=== PATIENT | female | born 1955 | race Caucasian/White ===

== ENCOUNTER 2020-01-18 13:09 | Outpatient (CLI) | payer OTHER, SELFPAY | END 2020-01-19 13:15 | disposition home or self-care (01) | PROVIDERS: PCP Family Medicine; Visit Provider Family Medicine | DX: H90.6 Mixed conductive and sensorineural hearing loss, bilateral (principal) | CPT/HCPCS: 92557; 92567 ==

== ENCOUNTER 2020-02-26 10:45 | Outpatient (CLI) | payer OTHER, SELFPAY ==
--- NOTE | ~2020-02-26 | XR_ITS ---
XR hand LT min 3V DATE: 02/26/2020 11:14 INDICATION: Systemic lupus erythematosus TECHNIQUE: 3 views COMPARISON: 10/30/2018 left hand FINDINGS: There is osteoarthritic change at the distal interphalangeal joints. There is mild soft tissue swelling at the proximal interphalangeal joints, most pronounced at the thi rd digit. No fracture, dislocation, periosteal reaction or bone destruction. No erosive change or chondrocalcin osis. IMPRESSION: No significant change since 10/30/2018 Reviewed, dictated and finalized at location A.
--- NOTE | ~2020-02-26 | XR_ITS ---
XR foot LT min 3V DATE: 02/26/2020 11:14 INDICATION: Systemic lupus erythematosus TECHNIQUE: 4 views COMPARISON: None FINDINGS: Prominent plantar, minimal posterior calcaneal enthesopathy. Mild hallux valgus and bunion deformity. There is subacute or chronic fracture of the great toe proximal phalangeal mid to distal shaft shaft. No other fracture or any dislocation is evident. No erosive change is identified. IMPRESSION: Subacute or old fracture deformity of the proximal phalanx of the first digit Plantar and minimal posterior calcaneal enthesopathy Mild hallux valgus and bunion deformity Reviewed, dictated and finalized at location A. IMPRESSION: Subacute or old fracture deformity of the proximal phalanx of the f irst digit Plantar and minimal posterior calcaneal enthesopathy Mild hallux valgus and bunion deformity
--- NOTE | ~2020-02-26 | XR_ITS ---
XR hand RT min 3V DATE: 02/26/2020 11:14 INDICATION: Systemic lupus erythematosus TECHNIQUE: 3 views COMPARISON: None FINDINGS: There is soft tissue swelling at the proximal interphalangeal joint of the third digit and to a lesser extent the second through fifth digits. There is mild osteoarthritic change at some of the distal interphalangeal joints, most pronounced at the fifth. No fracture, dislocation, periosteal reaction or bone destruction. No erosive change is evident. IMPRESSION: No significant change since 10/30/2018 Reviewed, dictated and finalized at location A.
--- NOTE | ~2020-02-26 | XR_ITS ---
XR ankle RT 2V DATE: 02/26/2020 11:14 INDICATION: Right ankle joint pain. Systemic lupus erythematosus. TECHNIQUE: AP and lateral views COMPARISON: None FINDINGS: There is prominent plantar calcaneal enthesopathy. No fracture or dislocation of the ankle or disruption of the ankle mortise. IMPRESSION: Plantar calcaneal enthesopathy Reviewed, dictated and finalized at location A.
--- NOTE | ~2020-02-26 | XR_ITS ---
XR foot RT min 3V DATE: 02/26/2020 11:14 INDICATION: Systemic lupus erythematosus TECHNIQUE: 4 views COMPARISON: None FINDINGS: Prominent plantar and mild posterior calcaneal enthesopathy. There is hallux valgus and bunion deformity. There is osteoarthritic change at the tarsal and tarsome tatarsal joints. No fracture, dislocation, periosteal reaction or bone destruction. No erosive change is evident. IMPRESSION: Hallux valgus and bunion deformity Calcaneal enthesopathy Osteoarthritic change at tarsal and tarsometatarsal joints primarily Reviewed, dictated and finalized at location A.
--- NOTE | ~2020-02-26 | XR_ITS ---
XR chest 2V 02/26/2020 11:14 Indication: Nontrauma pain Procedure: 2 view chest Comparison: 02/01/2017 Findings: Heart size normal. Left lung clear. There is nodular density in the right mid thorax with a djacent parenchymal scarring. No acute focal pneumonia, edema or effusion. No pneumothorax. Impression: 1: Subtle nodular density right mid thorax. Correlation with CT chest recommended. Reviewed, dictated and finalized at location B. Impression: 1: Subtle nodular density right mid thorax. Correlation with CT chest recommend ed.
--- NOTE | ~2020-02-26 | XR_ITS ---
XR ankle LT 2V DATE: 02/26/2020 11:14 INDICATION: Left ankle pain. Systemic lupus erythematosus TECHNIQUE: AP(oblique) and lateral views COMPARISON: 10/30/2018 left ankle FINDINGS: Prominent plantar calcaneal enthesopathy, without associated periostitis or erosive change. No fracture or dislocation of the ankle or disruption of the ankle mortise is detected. IMPRESSION: Plantar calcaneal enthesopathy Reviewed, dictated and finalized at location A.
== END 2020-02-26 10:46 | disposition home or self-care (01) ==
LOC: ANHIMG 10:52
PROVIDERS: PCP Family Medicine; Visit Provider Physician Assistant Medical
DX: M32.9 Systemic lupus erythematosus, unspecified (principal); I27.20 Pulmonary hypertension, unspecified; R89.9 Unspecified abnormal finding in specimens from other organs, systems and tissues; Z79.899 Other long term (current) drug therapy; M77.32 Calcaneal spur, left foot; M20.12 Hallux valgus (acquired), left foot; M21.612 Bunion of left foot; M77.31 Calcaneal spur, right foot; R91.8 Other nonspecific abnormal finding of lung field
CPT/HCPCS: 71046; 73130; 73600; 73630

== ENCOUNTER 2020-04-21 10:00 | Outpatient (RCR) | payer OTHER, SELFPAY | END 2020-04-21 23:59 | disposition home or self-care (01) | LOC: ANHAUDIO 10:00 | PROVIDERS: PCP Family Medicine; Visit Provider Otolaryngology | DX: Z46.1 Encounter for fitting and adjustment of hearing aid (principal) | CPT/HCPCS: 99199; V5264 ==

== ENCOUNTER 2020-06-28 08:51 | Outpatient (CLI) | payer OTHER, SELFPAY ==
--- NOTE | ~2020-06-28 | CT_ITS ---
EXAMINATION: CT chest wo con DATE: 06/28/2020 09:11 INDICATION: Solitary pulmonary nodule TECHNIQUE: Computed tomography (CT) of the chest was performed without intravenous contrast. Automate d exposure control and iterative reconstruction technique were employed. Exam dose: 175.09 mGy-cm to marylou exam DLP. COMPARISON: 02/25/2022 view chest 08/31/2015 CT chest FINDINGS: Small calcified middle lobe pulmonary granuloma. No suspicious pulmonary mass lesion. There is mild discoid atelectasis or scarring at the lung bases. No pulmonary infiltrate or consolidation. Normal size and homogeneous attenuation of the thyroid gland. No hilar or mediastinal mass lesion or lymphadenopathy. Normal heart size. No pericardial or pleural effusion. Normal morphology of the adrenal glands. Prominent degenerative changes of the thoracic and lumbar spine. No suspicious osteolytic or osteobla stic lesions are noted. IMPRESSION: No suspicious pulmonary mass lesion Reviewed, dictated and finalized at Location A. Reviewed, dictated and finalized at location B. DONTIST
== END 2020-06-28 08:52 | disposition home or self-care (01) ==
PROVIDERS: PCP Family Medicine; Visit Provider Internal Medicine Critical Care Medicine
DX: R91.1 Solitary pulmonary nodule (principal)
CPT/HCPCS: 71250

== ENCOUNTER 2020-10-10 15:24 | Outpatient (CLI) | payer BC, SELFPAY ==
[2020-10-10 15:56] LABS: Anion Gap 8 mmol/L (8-16); Blood Urea Nitrogen 11 mg/dL (7-17); Calcium 9.6 mg/dL (8.4-10.2); Carbon Dioxide 22 mmol/L (22-30); Chloride 109 mmol/L (98-107); Estimated Glomerular Filt Rate 56; Glucose 102 mg/dL (65-105); Potassium 3.5 mmol/L (3.4-5.0); Sodium 139 mmol/L (137-145)
== END 2020-10-10 15:25 | disposition home or self-care (01) ==
LOC: ANHLAB 15:25
PROVIDERS: PCP Family Medicine; Visit Provider Physician Assistant
DX: I10 Essential (primary) hypertension (principal)
CPT/HCPCS: 36415; 80048

== ENCOUNTER → 2020-10-25 00:54 | Outpatient (CLI) | payer BC, SELFPAY ==
[2020-10-25 18:32] LABS: SARS-CoV-2 RNA PCR Negative
== END ==
PROVIDERS: PCP Family Medicine; Visit Provider Internal Medicine Gastroenterology
DX: Z01.812 Encounter for preprocedural laboratory examination (principal); Z20.822 Contact with and (suspected) exposure to COVID-19
CPT/HCPCS: C9803; U0003; U0005

== ENCOUNTER 2020-10-28 01:41 | Day surgery (SDC) | payer BC, SELFPAY ==
[2020-10-18 14:34] VITALS: BMI 35.4
[2020-10-28 08:18] VITALS: BP 172/115; PULSE 90; RESP 22; TEMP 36.2; O2SAT 96; BMI 37.4
[2020-10-28] MEDS: LACTATED RINGERS 1,000 ML 150 ML IV CONT (08:38)
--- NOTE | 2020-10-28 08:47 | WPDANESEPPF ---
Anes - Initial Pre Proc Eval Procedure: Operation Date: 10/28/20 09:30 Proposed Procedures p Esophagogastroduodenoscopy - Alton Sanders MD Date/Time: 10/28/20 08:47 Surgeon: Alton Sanders MD Pre Op Diagnosis: dysphagia, GERD Patient Data Age: 65 Gender: F Height: 5 ft 1 in Weight: 89.8 kg Last Vital Signs Temp 36.2 C L 10/28/20 08:18 Pulse 90 10/28/20 08:18 Resp 22 H 10/28/20 08:18 BP 172/115 H 10/28/20 08:18 Pulse Ox 96 10/28/20 08:18 Allergies Allergy/AdvReac Type Severity Reaction Status Date / Time strawberry Allergy Severe Rash Verified 10/28/20 08:16 ciprofloxacin Allergy Mild Swelling Verified 10/28/20 08:16 and Hives ibuprofen Allergy Mild Bloody nose Verified 10/28/20 08:16 Quinolones Allergy Mild Hives / Verified 10/28/20 08:16 Red Face methotrexate Allergy Unknown Unknown Verified 10/28/20 08:16 STRAWBERRIES Allergy Severe RASH Uncoded 10/28/20 08:16 Home Medications Medication Instructions Recorded Confirmed Type lactobacillus combination no.9 4 4,000 mmu cells PO DAILY 03/07/20 10/26/20 History billion cell capsule leflunomide 20 mg tablet 20 mg PO DAILY 03/07/20 10/26/20 History amlodipine 5 mg tablet 5 mg PO DAILY #90 tablet 07/04/20 10/26/20 Rx isosorbide mononitrate 30 mg 30 mg PO DAILY #90 tablet 07/04/20 10/26/20 Rx tablet,extended release 24 hr levothyroxine 88 mcg tablet 88 mcg PO DAILY #90 tablet 07/04/20 10/26/20 Rx losartan 100 mg tablet 100 mg PO DAILY #90 tablet 07/04/20 10/26/20 Rx metoprolol succinate 50 mg 50 mg PO BID #180 tablet 07/04/20 10/26/20 Rx tablet,extended release 24 hr epinephrine 0.3 mg/0.3 mL 0.3 mg IM ONCE #2 ea 10/10/20 10/26/20 Rx injection, auto-injector hydroxychloroquine 200 mg tablet 200 mg PO DAILY 10/10/20 10/26/20 History prednisone 10 mg tablet See Rx Instructions PO DAILY 20 10/10/20 10/26/20 Rx Days #50 tablet fluticasone propionate 50 1 spray INTRANASAL BID #16 ml 10/13/20 10/26/20 Rx mcg/actuation nasal spray,suspension famotidine [Pepcid] 20 mg PO BID 10/18/20 10/26/20 History loratadine [Claritin] 10 mg PO DAILY 10/18/20 10/26/20 History Patient hx anesthesia problems: none Family hx anesthesia problems: none PMFSH Past Medical History Medical History Anxiety Benign essential HTN Hyperlipidemia Hypothyroidism (acquired) Lung nodule Lupus Otosclerosis Family History Family History Grandparent Diabetes mellitus Other Family history of malignant neoplasm Family history of malignant neoplasm of breast Hypertension Social History Social History Social History: Smoking status: Never smoker Second hand tobacco smoke exposure: No Alcohol intake: never Substance use: never Substance use type: does not use Living arrangements: with family Gender identity (if verbalized by the patient): Female Spiritual care concerns: No Anes - Eval Final PreProcedure Day of Procedure 10/28/20 08:47 Patient weight: obese Heart: regular rate and rhythm Lungs: clear to auscultation Airway: Mallampati scale class II Neurological: alert and oriented Last oral intake: >/= 8 hours ASA classification: III Emergent: no Anesthetic plan: proceed Anesthesia type and monitoring: general GIVS and standard monitoring Informed Consent: The patient's anesthetic plan and its attendant risks and benefits were discussed with the patient/family/POA. Questions were solicited and answers provided to the satisfaction of the patient/family/POA.
--- NOTE | 2020-10-28 09:23 | PM.HPGS ---
History of Present Illness History of Present Illness Consent: Risks, benefits, and alternatives have been discussed and questions answered. Patient agrees to proceed with procedure. Chief complaint: dysphagia, GERD Narrative: Mary Banda is a 65 year old female with difficulty swallowing. Beginning 3 weeks ago when she 1st had some tuna that seemed to make her throat swell, she has had virtually the same sensation every time she eats. She does not feels the food is stuck. Rather it seems to cause a reaction with sensation of swelling and irritation in her throat. She saw an ear nose and throat physician who could not find anything wrong. Consequently she has lost weight for fear of eating. She denies vomiting Review of Systems Review of Systems: All systems reviewed & are unremarkable except as noted in HPI and below PMFSH Past Medical History Medical History Anxiety Benign essential HTN Hyperlipidemia Hypothyroidism (acquired) Lung nodule Lupus Otosclerosis Family History Family History Grandparent Diabetes mellitus Other Family history of malignant neoplasm Family history of malignant neoplasm of breast Hypertension Social History Social History Social History: Smoking status: Never smoker Second hand tobacco smoke exposure: No Alcohol intake: never Substance use: never Substance use type: does not use Living arrangements: with family Gender identity (if verbalized by the patient): Female Spiritual care concerns: No Meds Home Medications and Allergies Home Medications Medication Instructions Recorded Confirmed Type lactobacillus combination no.9 4 4,000 mmu cells PO DAILY 03/07/20 10/26/20 History billion cell capsule leflunomide 20 mg tablet 20 mg PO DAILY 03/07/20 10/26/20 History amlodipine 5 mg tablet 5 mg PO DAILY #90 tablet 07/04/20 10/26/20 Rx isosorbide mononitrate 30 mg 30 mg PO DAILY #90 tablet 07/04/20 10/26/20 Rx tablet,extended release 24 hr levothyroxine 88 mcg tablet 88 mcg PO DAILY #90 tablet 07/04/20 10/26/20 Rx losartan 100 mg tablet 100 mg PO DAILY #90 tablet 07/04/20 10/26/20 Rx metoprolol succinate 50 mg 50 mg PO BID #180 tablet 07/04/20 10/26/20 Rx tablet,extended release 24 hr epinephrine 0.3 mg/0.3 mL 0.3 mg IM ONCE #2 ea 10/10/20 10/26/20 Rx injection, auto-injector hydroxychloroquine 200 mg tablet 200 mg PO DAILY 10/10/20 10/26/20 History prednisone 10 mg tablet See Rx Instructions PO DAILY 20 10/10/20 10/26/20 Rx Days #50 tablet fluticasone propionate 50 1 spray INTRANASAL BID #16 ml 10/13/20 10/26/20 Rx mcg/actuation nasal spray,suspension famotidine [Pepcid] 20 mg PO BID 10/18/20 10/26/20 History loratadine [Claritin] 10 mg PO DAILY 10/18/20 10/26/20 History Allergies Allergy/AdvReac Type Severity Reaction Status Date / Time strawberry Allergy Severe Rash Verified 10/28/20 08:16 ciprofloxacin Allergy Mild Swelling Verified 10/28/20 08:16 and Hives ibuprofen Allergy Mild Bloody nose Verified 10/28/20 08:16 Quinolones Allergy Mild Hives / Verified 10/28/20 08:16 Red Face methotrexate Allergy Unknown Unknown Verified 10/28/20 08:16 STRAWBERRIES Allergy Severe RASH Uncoded 10/28/20 08:16 Vital Signs Vital Signs - 24 hr 10/28/20 08:18 Temperature 36.2 C L Pulse Rate 90 Respiratory Rate 22 H Blood Pressure 172/115 H Pulse Oximetry 96 Exam Resp: Auscultation: clear to auscultation bilaterally Cardio: Rate: regular rate Rhythm: regular rhythm GI: GI Palp: Yes Soft to palpation and No Tenderness to palpation present (GI) Assessment and Plan Assessment and plan (1) Dysphagia: Code(s): R13.10 - Dysphagia, unspecified Status: Acute Assessment and Plan: EGD with possible biopsy or dilatation or cautery
[2020-10-28 09:50] VITALS: BP 161/82; PULSE 70; RESP 18; O2SAT 96
[2020-10-28 10:00] VITALS: BP 144/91; PULSE 77; RESP 22; O2SAT 97
[2020-10-28 10:10] VITALS: BP 177/85; PULSE 64; RESP 22; O2SAT 96
== END 2020-10-28 10:29 | disposition home or self-care (01) ==
PROVIDERS: PCP Family Medicine; Visit Provider Internal Medicine Gastroenterology
PROC: 0DJ08ZZ Inspection of Upper Intestinal Tract, Via Natural or Artificial Opening Endoscopic (ICD-10-PCS; CPT 43235; principal; 2020-10-28 09:30)
DX: K22.2 Esophageal obstruction (principal); K21.00 Gastro-esophageal reflux disease with esophagitis, without bleeding; I10 Essential (primary) hypertension; E03.9 Hypothyroidism, unspecified; E78.5 Hyperlipidemia, unspecified; M32.9 Systemic lupus erythematosus, unspecified; F41.9 Anxiety disorder, unspecified; E66.9 Obesity, unspecified; Z68.37 Body mass index [BMI] 37.0-37.9, adult
CPT/HCPCS: 43249; 88305; C1726; J2704; J7120

== ENCOUNTER → 2020-12-30 07:36 | Outpatient (CLI) | payer BC, SELFPAY ==
[2020-12-30 19:22] LABS: SARS-CoV-2 RNA PCR Negative
== END ==
PROVIDERS: PCP Family Medicine; Visit Provider Internal Medicine Gastroenterology
DX: Z01.812 Encounter for preprocedural laboratory examination (principal); Z20.822 Contact with and (suspected) exposure to COVID-19
CPT/HCPCS: C9803; U0003; U0005

== ENCOUNTER 2021-01-02 00:47 | Day surgery (SDC) | payer BC, SELFPAY ==
[2020-12-22 12:46] VITALS: BMI 40.8
[2021-01-02 07:01] VITALS: BP 159/101; PULSE 85; RESP 20; TEMP 36.1; O2SAT 99; BMI 39.9
--- NOTE | 2021-01-02 07:07 | PM.HPGS ---
History of Present Illness History of Present Illness Consent: Risks, benefits, and alternatives have been discussed and questions answered. Patient agrees to proceed with procedure. Chief complaint: esophageal stricture Narrative: Mary Banda is a 65 year old female who returns for treatment of esophageal stricture. She is eating better but still afraid to eat solid food Review of Systems Review of Systems: All systems reviewed & are unremarkable except as noted in HPI and below PMFSH Past Medical History Medical History Anxiety Benign essential HTN Hyperlipidemia Hypothyroidism (acquired) Lung nodule Lupus Otosclerosis Family History Family History Grandparent Diabetes mellitus Other Family history of malignant neoplasm Family history of malignant neoplasm of breast Hypertension Social History Social History Social History: Smoking status: Never smoker Second hand tobacco smoke exposure: No Alcohol intake: never Substance use: never Substance use type: does not use Living arrangements: alone Gender identity (if verbalized by the patient): Female Spiritual care concerns: No Meds Home Medications and Allergies Home Medications Medication Instructions Recorded Confirmed Type lactobacillus combination no.9 4 4,000 mmu cells PO DAILY 03/07/20 01/02/21 History billion cell capsule leflunomide 20 mg tablet 20 mg PO DAILY 03/07/20 01/02/21 History amlodipine 5 mg tablet 5 mg PO DAILY #90 tablet 07/04/20 01/02/21 Rx isosorbide mononitrate 30 mg 30 mg PO DAILY #90 tablet 07/04/20 01/02/21 Rx tablet,extended release 24 hr losartan 100 mg tablet 100 mg PO DAILY #90 tablet 07/04/20 01/02/21 Rx metoprolol succinate 50 mg 50 mg PO BID #180 tablet 07/04/20 01/02/21 Rx tablet,extended release 24 hr epinephrine 0.3 mg/0.3 mL 0.3 mg IM ONCE #2 ea 10/10/20 01/02/21 Rx injection, auto-injector hydroxychloroquine 200 mg tablet 200 mg PO DAILY 10/10/20 01/02/21 History fluticasone propionate 50 1 spray INTRANASAL BID #16 ml 10/13/20 01/02/21 Rx mcg/actuation nasal spray,suspension loratadine [Claritin] 10 mg PO DAILY 10/18/20 01/02/21 History omeprazole 40 mg PO DAILY #90 cap 11/01/20 01/02/21 Rx levothyroxine 88 mcg tablet 88 mcg PO DAILY #90 tablet 12/12/20 01/02/21 Rx Allergies Allergy/AdvReac Type Severity Reaction Status Date / Time strawberry Allergy Severe Rash Verified 01/02/21 06:59 ciprofloxacin Allergy Mild Swelling Verified 01/02/21 06:59 and Hives ibuprofen Allergy Mild Bloody nose Verified 01/02/21 06:59 Quinolones Allergy Mild Hives / Verified 01/02/21 06:59 Red Face methotrexate Allergy Unknown Unknown Verified 01/02/21 06:59 STRAWBERRIES Allergy Severe RASH Uncoded 01/02/21 06:59 Vital Signs Vital Signs - 24 hr 01/02/21 07:01 Temperature 36.1 C L Pulse Rate 85 Respiratory Rate 20 Blood Pressure 159/101 H Pulse Oximetry 99 Exam Const: General: alert Orientation/consciousness: patient oriented x3 Resp: Auscultation: clear to auscultation bilaterally Cardio: Rhythm: regular rhythm GI: GI Palp: Yes Soft to palpation and No Tenderness to palpation present (GI) Neuro: General: patient oriented x3 Assessment and Plan Assessment and plan (1) Dysphagia: Code(s): R13.10 - Dysphagia, unspecified Status: Acute Assessment and Plan: EGD with possible biopsy or dilatation or cautery.
--- NOTE | 2021-01-02 07:21 | WPDANESEPPF ---
Anes - Initial Pre Proc Eval Procedure: Operation Date: 01/02/21 08:00 Proposed Procedures p Esophagogastroduodenoscopy - Alton Sanders MD Date/Time: 01/02/21 07:21 Surgeon: Alton Sanders MD Pre Op Diagnosis: esophageal stricture Patient Data Age: 65 Gender: F Height: 5 ft 1 in Weight: 96 kg Last Vital Signs Temp 36.1 C L 01/02/21 07:01 Pulse 85 01/02/21 07:01 Resp 20 01/02/21 07:01 BP 159/101 H 01/02/21 07:01 Pulse Ox 99 01/02/21 07:01 Allergies Allergy/AdvReac Type Severity Reaction Status Date / Time strawberry Allergy Severe Rash Verified 01/02/21 06:59 ciprofloxacin Allergy Mild Swelling Verified 01/02/21 06:59 and Hives ibuprofen Allergy Mild Bloody nose Verified 01/02/21 06:59 Quinolones Allergy Mild Hives / Verified 01/02/21 06:59 Red Face methotrexate Allergy Unknown Unknown Verified 01/02/21 06:59 STRAWBERRIES Allergy Severe RASH Uncoded 01/02/21 06:59 Home Medications Medication Instructions Recorded Confirmed Type lactobacillus combination no.9 4 4,000 mmu cells PO DAILY 03/07/20 01/02/21 History billion cell capsule leflunomide 20 mg tablet 20 mg PO DAILY 03/07/20 01/02/21 History amlodipine 5 mg tablet 5 mg PO DAILY #90 tablet 07/04/20 01/02/21 Rx isosorbide mononitrate 30 mg 30 mg PO DAILY #90 tablet 07/04/20 01/02/21 Rx tablet,extended release 24 hr losartan 100 mg tablet 100 mg PO DAILY #90 tablet 07/04/20 01/02/21 Rx metoprolol succinate 50 mg 50 mg PO BID #180 tablet 07/04/20 01/02/21 Rx tablet,extended release 24 hr epinephrine 0.3 mg/0.3 mL 0.3 mg IM ONCE #2 ea 10/10/20 01/02/21 Rx injection, auto-injector hydroxychloroquine 200 mg tablet 200 mg PO DAILY 10/10/20 01/02/21 History fluticasone propionate 50 1 spray INTRANASAL BID #16 ml 10/13/20 01/02/21 Rx mcg/actuation nasal spray,suspension loratadine [Claritin] 10 mg PO DAILY 10/18/20 01/02/21 History omeprazole 40 mg PO DAILY #90 cap 11/01/20 01/02/21 Rx levothyroxine 88 mcg tablet 88 mcg PO DAILY #90 tablet 12/12/20 01/02/21 Rx Patient hx anesthesia problems: none Family hx anesthesia problems: none PMFSH Past Medical History Medical History Anxiety Benign essential HTN Hyperlipidemia Hypothyroidism (acquired) Lung nodule Lupus Otosclerosis Family History Family History Grandparent Diabetes mellitus Other Family history of malignant neoplasm Family history of malignant neoplasm of breast Hypertension Social History Social History Social History: Smoking status: Never smoker Second hand tobacco smoke exposure: No Alcohol intake: never Substance use: never Substance use type: does not use Living arrangements: alone Gender identity (if verbalized by the patient): Female Spiritual care concerns: No Anes - Eval Final PreProcedure Day of Procedure 01/02/21 07:21 Patient weight: morbidly obese Heart: regular rate and rhythm Lungs: clear to auscultation Airway: Mallampati scale class II Neurological: alert and oriented Last oral intake: >/= 8 hours ASA classification: III Emergent: no Anesthetic plan: proceed Anesthesia type and monitoring: general GIVS and standard monitoring Informed Consent: The patient's anesthetic plan and its attendant risks and benefits were discussed with the patient/family/POA. Questions were solicited and answers provided to the satisfaction of the patient/family/POA.
[2021-01-02] MEDS: LACTATED RINGERS 1,000 ML 150 ML IV CONT (07:25)
--- NOTE | 2021-01-02 07:45 | SUR.OPER ---
esophageal balloon lot [id number], expiration 10/31/22
[2021-01-02 07:49] VITALS: BP 95/48; PULSE 78; RESP 21; O2SAT 97
[2021-01-02 07:59] VITALS: BP 95/78; PULSE 76; RESP 20; O2SAT 97
[2021-01-02 08:09] VITALS: BP 121/70; PULSE 77; RESP 13; O2SAT 99
== END 2021-01-02 08:35 | disposition home or self-care (01) ==
PROVIDERS: PCP Family Medicine; Visit Provider Internal Medicine Gastroenterology
PROC: 0DJ08ZZ Inspection of Upper Intestinal Tract, Via Natural or Artificial Opening Endoscopic (ICD-10-PCS; CPT 43235; principal; 2021-01-02 08:00)
DX: K22.2 Esophageal obstruction (principal); F41.9 Anxiety disorder, unspecified; I10 Essential (primary) hypertension; E03.9 Hypothyroidism, unspecified; H80.90 Unspecified otosclerosis, unspecified ear
CPT/HCPCS: 43249; 43239; C1726; J2001; J2704; J7120

== ENCOUNTER 2021-03-22 14:22 | Outpatient (CLI) | payer BC, SELFPAY ==
[2021-03-22 15:45] LABS: Basophils Absolute Auto 0.1 K/mm3 (0.0-0.1); Basophils Percent Auto 0.9 % (0.2-1.2); Eosinophils Absolute Auto 0.2 K/mm3 (0-0.3); Eosinophils Percent Auto 3.8 % (0-4.4); Hematocrit 42.8 % (37.0-47.0); Hemoglobin 13.6 g/dL (12.0-15.0); Immature Granulocyte Absolute 0.01 K/mm3 (0.00-0.031); Immature Granulocyte Percent A 0.2 % (0-0.5); Lymphocytes Absolute Auto 1.39 K/mm3 (0.9-3.2); Mean Corpuscular HGB Conc 31.8 g/dl (32-36); Mean Corpuscular Hemoglobin 28.4 pg (26-34); Mean Corpuscular Volume 89.4 fl (80-100); Mean Platelet Volume 10.2 fl (7.4-10.4); Monocytes Absolute Auto 0.7 K/mm3 (0.1-0.6); Monocytes Percent Auto 13.3 % (2.6-8.5); Neutrophils Absolute Auto 3.2 K/mm3 (1.3-6.7); Neutrophils Percent Auto 56.8 % (45.5-73.1); Platelet Count Result 247 k/mm3 (150-375); Red Blood Count 4.79 M/mm3 (4.2-5.4); Red Cell Distribution Width 13.4 % (11.5-14.5); White Blood Count 5.6 K/mm3 (4.5-10.0)
[2021-03-22 15:51] LABS: Add Urine Microscopic? YES; Appearance Urine Clear (Clear); Bacteria Urine Trace /hpf; Bilirubin Urine Negative (Negative); Blood Urine 1+ (Negative); Color Urine Amber (Yellow); Glucose Urine UA Negative (Negative); Ketones Urine Negative (Negative); Leukocyte Esterase Ur Trace LEU/UL (NEGATIVE); Mucus Urine Rare /lpf; Nitrate Urine Positive (Negative); Protein Urine Negative (Negative); RBC Urine 0-2 /hpf (0-2); WBC Urine 0-3 /hpf (0-3)
[2021-03-22 15:56] LABS: Specific Grav Ur 1.004 (1.001-1.035)
[2021-03-22 16:10] LABS: Alanine Aminotransferase 24 U/L (4-35); Albumin Level 4.2 g/dL (3.5-5.1); Alkaline Phosphatase 114 U/L (38-126); Anion Gap 8 mmol/L (8-16); Aspartate Amino Transferase 27 U/L (14-36); Bilirubin,Total 0.6 mg/dL (0.2-1.3); Blood Urea Nitrogen 13 mg/dL (7-17); Calcium 9.7 mg/dL (8.4-10.2); Carbon Dioxide 27 mmol/L (22-30); Chloride 106 mmol/L (98-107); Estimated Glomerular Filt Rate 45; Glucose 106 mg/dL (65-110); Potassium 4.6 mmol/L (3.4-5.0); Sodium 141 mmol/L (137-145)
[2021-03-22 16:37] LABS: Total Triiodothyronine (T3) 1.08 NG/ML (0.97-1.69)
[2021-03-22 17:41] LABS: Free T4 Free Thyroxine 1.29 ng/mL (0.78-2.19)
== END 2021-03-22 14:23 | disposition home or self-care (01) ==
PROVIDERS: PCP Family Medicine; Visit Provider Physician Assistant
DX: E03.9 Hypothyroidism, unspecified (principal); R30.0 Dysuria; I10 Essential (primary) hypertension; Z13.220 Encounter for screening for lipoid disorders
CPT/HCPCS: 36415; 80053; 81001; 84439; 84443; 84480; 85025; 87077; 87086; 87088; 87186

== ENCOUNTER 2021-09-06 11:58 | Outpatient (CLI) | payer MEDICARE, SELFPAY ==
--- NOTE | ~2021-09-06 | XR_ITS ---
EXAMINATION: XR chest 2V EXAM DATE: 09/06/2021 12:21 INDICATION: Systemic Lupus Erythematosus M32.9 . TECHNIQUE: Frontal and lateral projections of the chest obtained and reviewed. Comparison is made to prior examination from 02/26/2020. FINDINGS: Some chronic small regions postinfectious residua. The lungs are clear. There are no pleu ral effusions. The cardiomediastinal silhouette is within normal limits. There is no pneumothorax s uspected. The bones and soft tissues are unremarkable. IMPRESSION: No acute cardiopulmonary findings. Reviewed, dictated and finalized at location A. USINE DRIVER
== END 2021-09-06 11:59 | disposition home or self-care (01) ==
LOC: ANHIMG 12:09
PROVIDERS: PCP Family Medicine; Visit Provider Physician Assistant Medical
DX: M32.9 Systemic lupus erythematosus, unspecified (principal); I27.20 Pulmonary hypertension, unspecified
CPT/HCPCS: 71046

== ENCOUNTER 2021-11-08 01:52 | Day surgery (SDC) | payer MEDICARE, SELFPAY ==
[2021-10-31 15:25] VITALS: BMI 43.7
--- NOTE | 2021-11-08 07:48 | WPDGICN ---
Assessment and Plan Assessment and plan (1) Dysphagia: Code(s): R13.10 - Dysphagia, unspecified Status: Acute Assessment and Plan: EGD with possible biopsy or dilatation or cautery. (2) Colon cancer screening: Code(s): Z12.11 - Encounter for screening for malignant neoplasm of colon Status: Acute Assessment and Plan: Colonoscopy with possible biopsy or polypectomy or cautery or injection of substances. GI Consult Note Consult date/time: 11/08/21 07:48 HPI: Mary Banda is a 66 year old female was having intermittent dysphagia . She required esophageal dilatation twice last year. also, after a meal she feels very full in the upper abdomen as though the food is not passing the narrowing . She has not lost weight in fact is gaining weight She also has connective tissue disease with overlapping rheumatoid arthritis and lupus. 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 . She also has chronic kidney disease. She is due for colon cancer screening Review of Systems Review of Systems: All systems reviewed & are unremarkable except as noted in HPI and below PMFSH Past Medical History Medical History (Updated 11/08/21 @ 08:08 by Arash Pineda MD) Anxiety Benign essential HTN BMI 40.0-44.9, adult Chronic kidney disease, stage 3 Hyperlipidemia Hyperlipidemia Hypothyroidism (acquired) Lung nodule Lupus GUMARO (obstructive sleep apnea) Otosclerosis Family History Family History Grandparent Diabetes mellitus Other Family history of malignant neoplasm Family history of malignant neoplasm of breast Hypertension Social History Social History Social History: Smoking status: Former smoker Second hand tobacco smoke exposure: No Additional smoking assessment comments: As a teenager Alcohol intake: former Drinks per week: 7 Alcohol use details: wine Substance use: never Substance use type: does not use Living arrangements: alone Gender identity (if verbalized by the patient): Female Sexual Orientation (if Verbalized by the Patient): Straight or Heterosexual Spiritual care concerns: No Meds Home Medications and Allergies Home Medications Medication Instructions Recorded Confirmed Type lactobacillus combination no.9 4 4,000 mmu cells PO DAILY 03/07/20 10/31/21 History billion cell capsule leflunomide 20 mg tablet 20 mg PO DAILY 03/07/20 10/31/21 History epinephrine 0.3 mg/0.3 mL 0.3 mg IM ONCE #2 ea 10/10/20 10/31/21 Rx injection, auto-injector hydroxychloroquine 200 mg tablet 200 mg PO DAILY 10/10/20 10/31/21 History loratadine [Claritin] 10 mg PO DAILY 10/18/20 10/31/21 History omeprazole 40 mg capsule,delayed See Rx Instructions .ROUTE 07/21/21 10/31/21 Rx release .COMPLEX #90 cap losartan 100 mg tablet 100 mg PO DAILY #90 tablet 08/14/21 10/31/21 Rx amlodipine 5 mg tablet See Rx Instructions .ROUTE 09/19/21 10/31/21 Rx .COMPLEX #180 tablet metoprolol succinate 50 mg See Rx Instructions .ROUTE 10/01/21 10/31/21 Rx tablet,extended release 24 hr .COMPLEX #180 tablet levothyroxine 88 mcg tablet 88 mcg PO DAILY #116 tablet 10/06/21 10/31/21 Rx calcium carbonate-vitamin D3 [All 600 tablet PO DAILY 10/31/21 10/31/21 History Day Calcium] furosemide 20 mg PO DAILY 10/31/21 10/31/21 History isosorbide mononitrate 30 mg PO DAILY 10/31/21 10/31/21 History Allergies Allergy/AdvReac Type Severity Reaction Status Date / Time strawberry Allergy Severe Rash Verified 11/08/21 07:55 ciprofloxacin Allergy Mild Swelling Verified 11/08/21 07:55 and Hives ibuprofen Allergy Mild Bloody nose Verified 11/08/21 07:55 Quinolones Allergy Mild Hives / Verified 11/08/21 07:55 Red Face methotrexate Allergy Unknown Unknown Verified 11/08/21 07:55 Exam Const: General: alert Orientation/consciousness: patient
[2021-11-08 07:57] VITALS: BP 152/95; PULSE 120; RESP 22; TEMP 36.1; O2SAT 96
--- NOTE | 2021-11-08 08:07 | WPDANESEPPF ---
Anes - Initial Pre Proc Eval Procedure: Operation Date: 11/08/21 09:15 Proposed Procedures p Esophagogastroduodenoscopy & Screening Colonoscopy - Alton Sanders MD Date/Time: 11/08/21 08:07 Surgeon: Alton Sanders MD Pre Op Diagnosis: esophageal stricture, neoplasm screening Patient Data Age: 66 Gender: F Height: 1.55 m Weight: 102.7 kg Last Vital Signs Temp 36.1 C L 11/08/21 07:57 Pulse 120 H 11/08/21 07:57 Resp 22 H 11/08/21 07:57 BP 152/95 H 11/08/21 07:57 Pulse Ox 96 11/08/21 07:57 Allergies Allergy/AdvReac Type Severity Reaction Status Date / Time strawberry Allergy Severe Rash Verified 11/08/21 07:55 ciprofloxacin Allergy Mild Swelling Verified 11/08/21 07:55 and Hives ibuprofen Allergy Mild Bloody nose Verified 11/08/21 07:55 Quinolones Allergy Mild Hives / Verified 11/08/21 07:55 Red Face methotrexate Allergy Unknown Unknown Verified 11/08/21 07:55 Home Medications Medication Instructions Recorded Confirmed Type lactobacillus combination no.9 4 4,000 mmu cells PO DAILY 03/07/20 10/31/21 History billion cell capsule leflunomide 20 mg tablet 20 mg PO DAILY 03/07/20 10/31/21 History epinephrine 0.3 mg/0.3 mL 0.3 mg IM ONCE #2 ea 10/10/20 10/31/21 Rx injection, auto-injector hydroxychloroquine 200 mg tablet 200 mg PO DAILY 10/10/20 10/31/21 History loratadine [Claritin] 10 mg PO DAILY 10/18/20 10/31/21 History omeprazole 40 mg capsule,delayed See Rx Instructions .ROUTE 07/21/21 10/31/21 Rx release .COMPLEX #90 cap losartan 100 mg tablet 100 mg PO DAILY #90 tablet 08/14/21 10/31/21 Rx amlodipine 5 mg tablet See Rx Instructions .ROUTE 09/19/21 10/31/21 Rx .COMPLEX #180 tablet metoprolol succinate 50 mg See Rx Instructions .ROUTE 10/01/21 10/31/21 Rx tablet,extended release 24 hr .COMPLEX #180 tablet levothyroxine 88 mcg tablet 88 mcg PO DAILY #116 tablet 10/06/21 10/31/21 Rx calcium carbonate-vitamin D3 [All 600 tablet PO DAILY 10/31/21 10/31/21 History Day Calcium] furosemide 20 mg PO DAILY 10/31/21 10/31/21 History isosorbide mononitrate 30 mg PO DAILY 10/31/21 10/31/21 History Patient hx anesthesia problems: none Family hx anesthesia problems: none Results Review: All pre-operative results and documents have been reviewed as part of the pre-operative evaluation. [facility] Past Medical History Medical History (Updated 11/08/21 @ 08:08 by Arash Pineda MD) Anxiety Benign essential HTN BMI 40.0-44.9, adult Chronic kidney disease, stage 3 Hyperlipidemia Hyperlipidemia Hypothyroidism (acquired) Lung nodule Lupus GUMARO (obstructive sleep apnea) Otosclerosis Family History Family History Grandparent Diabetes mellitus Other Family history of malignant neoplasm Family history of malignant neoplasm of breast Hypertension Social History Social History Social History: Smoking status: Former smoker Second hand tobacco smoke exposure: No Additional smoking assessment comments: As a teenager Alcohol intake: former Drinks per week: 7 Alcohol use details: wine Substance use: never Substance use type: does not use Living arrangements: alone Gender identity (if verbalized by the patient): Female Sexual Orientation (if Verbalized by the Patient): Straight or Heterosexual Spiritual care concerns: No Anes - Eval Final PreProcedure Day of Procedure 11/08/21 08:07 Patient weight: obese Heart: regular rate and rhythm Lungs: clear to auscultation and normal air movement Airway: Mallampati scale class II Neurological: alert and oriented Last oral intake: >/= 8 hours ASA classification: III Emergent: no Anesthetic plan: proceed Anesthesia type and monitoring: general GIVS Results Review: All pre-operative results and documents have been reviewed as part of the pre-operative evaluation. Informed Cons
[2021-11-08] MEDS: LACTATED RINGERS 1,000 ML 150 ML IV CONT (08:11)
--- NOTE | 2021-11-08 09:45 | SUR.OPER ---
EGD started at 922 and ended at 929. Colonoscopy started at 936 and ended at 942.
[2021-11-08 09:47] VITALS: BP 106/57; PULSE 89; RESP 22; O2SAT 100
[2021-11-08 09:57] VITALS: BP 93/59; PULSE 93; RESP 21; O2SAT 94
[2021-11-08 10:07] VITALS: BP 121/87; PULSE 88; RESP 16; O2SAT 100
== END 2021-11-08 10:23 | disposition home or self-care (01) ==
PROVIDERS: PCP Family Medicine; Visit Provider Internal Medicine Gastroenterology
PROC: 0DJ08ZZ Inspection of Upper Intestinal Tract, Via Natural or Artificial Opening Endoscopic (ICD-10-PCS; CPT 43235; principal; 2021-11-08 09:15)
DX: Z12.11 Encounter for screening for malignant neoplasm of colon (principal); K22.2 Esophageal obstruction; I12.9 Hypertensive chronic kidney disease with stage 1 through stage 4 chronic kidney disease, or unspecified chronic kidney disease; N18.30 Chronic kidney disease, stage 3 unspecified; E78.5 Hyperlipidemia, unspecified; E03.9 Hypothyroidism, unspecified; G47.33 Obstructive sleep apnea (adult) (pediatric); F41.9 Anxiety disorder, unspecified; M32.9 Systemic lupus erythematosus, unspecified; E66.01 Morbid (severe) obesity due to excess calories; Z68.41 Body mass index [BMI] 40.0-44.9, adult; Z87.891 Personal history of nicotine dependence
CPT/HCPCS: 43249; G0121; C1726; J2704; J7120

== ENCOUNTER 2022-05-29 07:43 | Outpatient (CLI) | payer MEDICARE, SELFPAY ==
--- NOTE | ~2022-05-29 | DEXA_ITS ---
Bone Density Report Name: ANDRA BRANDON Age: 66 Sex: Female Ethnicity: White Date of : 1955 Indication: postmenopausal; screening for osteoporosis; height loss; inflammatory bowel disease; rheumatoid arthritis; Referring Provider: [place], EBEN [place] Study: Bone densitometry was performed. Exam Date: May 29, 2022 Accession number: [id number] Bone Density: Region BMD T-score Z-score Classification AP Spine(L1-L4) 0.934 -1.0 0.8 Normal Femoral Neck (Left) 0.795 -0.5 1.1 Normal Total Hip (Left) 0.830 -0.9 0.4 Normal Femoral Neck (Right) 0.883 0.3 1.9 Normal Total Hip (Right) 0.862 -0.7 0.6 Normal Total Hip Mean 0.846 -0.8 0.5 Normal World Health Organization criteria for BMD impression classify patients as: Normal (T-score at or above -1.0), Osteopenia (T-score between -1.0 and -2.5), or Osteoporosis (T-score at or below -2.5). 10-year Fracture Risk: FRAX not reported because: All T-scores for Spine Total, Hip Total, Femoral Neck at or above -1.0 Clinical Information Provided by Patient: Has rheumatoid arthritis Has used the following medications: Calcium Has the following medical conditions: Inflammatory bowel diseases Patient maximum height was 62 Menopause Age: 46 No regular weight bearing exercise Does not regularly consume dairy products Drinks caffeinated beverages Onset of menses at age 13 Number of children 3 Impression: The patient has normal bone mass. Discussion: BONE DENSITY IS ABOVE THE MINIMUM DESIRABLE LEVEL AT ALL SKELETAL SITES TESTED. This patient?s bone mineral density is above the minimum desirable level (T-score -1.0 or better) at all sites measured. The patient should follow a healthful lifestyle (good nutrition with adequate calcium and vitamin D, and appropriate weight-bearing exercise). Follow-Up: Consider repeating this study in 5 years or sooner if there is some new clinical indication. Reported by: REYNA on 05/29/2022 9:36:00 AM. Reviewed, dictated and finalized at location [facility]
== END 2022-05-29 07:44 | disposition home or self-care (01) ==
PROVIDERS: PCP Family Medicine; Visit Provider Physician Assistant Medical
DX: M81.0 Age-related osteoporosis without current pathological fracture (principal); R79.89 Other specified abnormal findings of blood chemistry
CPT/HCPCS: 77080

== ENCOUNTER 2023-02-04 12:14 | Outpatient (CLI) | payer MEDICARE, SELFPAY ==
--- NOTE | ~2023-02-04 | XR_ITS ---
XR chest 2V DATE: 02/04/2023 12:41 INDICATION: Dyspnea on exertion. Pulmonary hypertension. TECHNIQUE: PA and lateral views COMPARISON: 09/06/2021 PA and lateral chest FINDINGS: Normal heart size. Aortic arch calcification. No hilar or mediastinal enlargement. No pulmonary infiltrate or consolidation, pleural effusion or pulmonary vascular congestion or pneumo thorax. Osteopenia Degenerative spurring and mild dextro scoliosis of the thoracic spine. IMPRESSION: No active cardiopulmonary disease or significant change since 09/06/2021 Reviewed, dictated and finalized at location A. IMPRESSION: No active cardiopulmonary disease or significant change since 2021
== END 2023-02-04 12:15 | disposition home or self-care (01) ==
PROVIDERS: PCP Family Medicine; Visit Provider Internal Medicine Rheumatology
DX: I27.20 Pulmonary hypertension, unspecified (principal); R06.09 Other forms of dyspnea
CPT/HCPCS: 71046

== ENCOUNTER 2023-11-04 09:57 | Outpatient (CLI) | payer MEDICARE, SELFPAY ==
--- NOTE | ~2023-11-04 | US_ITS ---
US renal BI 11/04/2023 10:19 Procedure: Realtime transabdominal ultrasound of the kidneys and bladder. Indication: Essential hypertension. Elevated renal function. Comparison: Ultrasound dated 05/21/2019 Findings: Renal echotexture is normal bilaterally without hydronephrosis, contour deforming mass or r enal calculus. The right kidney measures 9.5 cm and left kidney measures 7.9 cm. There is a small rig ht renal cyst measuring 1.3 cm. There is a left renal cyst measuring 1.6 cm. Bladder within normal li mits. Impression: 1: Bilateral renal cysts. Reviewed, dictated and finalized at location B. Impression: 1: Bilateral renal cysts.
== END 2023-11-04 09:58 ==
LOC: MICIMG 09:58
PROVIDERS: PCP Family Medicine; Visit Provider Internal Medicine Nephrology
DX: I10 Essential (primary) hypertension (principal); N18.31 Chronic kidney disease, stage 3a; M32.9 Systemic lupus erythematosus, unspecified; N28.1 Cyst of kidney, acquired
CPT/HCPCS: 76775

== ENCOUNTER 2024-04-15 06:53 | Outpatient (CLI) | payer MEDICARE, SELFPAY ==
--- NOTE | ~2024-04-15 | CT_ITS ---
EXAMINATION: CT chest high resolution wo ma DATE: 04/15/2024 07:20 INDICATION: Interstitial lung disease TECHNIQUE: Computed tomography (CT) of the chest was performed without intravenous contrast. The dose -length product was 384.81 mGy-cm. Automated exposure control and iterative reconstruction technique were employed. COMPARISON: CT dated 06/28/2020 FINDINGS: There is a 3 mm right middle lobe nodule, image 66, unchanged. No endobronchial lesions. No pneumothorax. Mildly elevated right diaphragm. There is right middle lobe atelectasis/scarring. No t horacic lymphadenopathy. There is atherosclerosis of the aorta and coronary arteries. Heart size norm al. No evidence for aneurysm. Upper abdomen is unremarkable. Fatty infiltration of the liver. There i s a 5 mm left upper lobe paramediastinal nodule unchanged from prior examination. There is moderate l ower thoracic and upper lumbar spondylosis. Accentuated thoracic kyphosis. No acute osseous abnormali ty. No focal lytic or blastic lesions. IMPRESSION: 1. Stable bilateral pulmonary nodules, largest in the left upper lobe measuring 5 mm, considered behzad gn in the absence of growth. Consider follow-up low dose CT chest in 12 months. Reviewed, dictated and finalized at location B. IMPRESSION: 1. Stable bilateral pulmonary nodules, largest in the left upper lobe measuring 5 mm, considered benign in the absence of growth. Consider follow-up low dose CT chest in 12 months.
== END 2024-04-15 06:54 | disposition home or self-care (01) ==
PROVIDERS: PCP Family Medicine; Visit Provider Internal Medicine Critical Care Medicine
DX: J84.9 Interstitial pulmonary disease, unspecified (principal); R91.8 Other nonspecific abnormal finding of lung field
CPT/HCPCS: 71250

== ENCOUNTER 2024-09-17 15:00 | Outpatient (CLI) | payer MEDICARE, SELFPAY ==
--- NOTE | ~2024-09-17 | DEXA_ITS ---
Bone Density Report Name: ANDRA BRANDON Age: 69 Sex: Female Ethnicity: White Date of : 1955 Indication: monitoring treatment; height loss; inflammatory bowel disease; rheumatoid arthritis; Referring Provider: MONTANA, EBEN [place] Study: Bone densitometry was performed. Exam Date: September 17, 2024 Accession number: [id number] Bone Density: Region BMD T-score Z-score Classification AP Spine(L1-L4) 0.910 -1.2 0.7 Osteopenia Femoral Neck (Left) 0.713 -1.2 0.5 Osteopenia Total Hip (Left) 0.755 -1.5 -0.1 Osteopenia Femoral Neck (Right) 0.783 -0.6 1.1 Normal Total Hip (Right) 0.810 -1.1 0.3 Osteopenia Total Hip Mean 0.783 -1.3 0.1 Osteopenia World Health Organization criteria for BMD impression classify patients as: Normal (T-score at or above -1.0), Osteopenia (T-score between -1.0 and -2.5), or Osteoporosis (T-score at or below -2.5). 10-year Fracture Risk: FRAX not reported because: Treated for osteoporosis Previous Exams: Region Exam Age BMD T-score BMD Change BMD Change Date g/cm2 vs Baseline vs Previous AP Spine (L1-L4) 09/17/2024 69 0.910 -1.2 -0.023 (-2.5%) -0.023 (-2.5%) 05/29/2022 66 0.934 -1.0 Total Hip(Left) 09/17/2024 69 0.755 -1.5 -0.075 (-9.0%) -0.075 (-9.0%) 05/29/2022 66 0.830 -0.9 Total Hip(Right) 09/17/2024 69 0.810 -1.1 -0.052 (-6.1%) -0.052 (-6.1%) 05/29/2022 66 0.862 -0.7 *Denotes significance at 95% confidence level, LSC for AP Spine = 0.022 g/cm2, LSC for Total Hip = 0.027 g/cm2 Clinical Information Provided by Patient: Has rheumatoid arthritis Is being treated for osteoporosis Has used the following medications: Vitamin D, Calcium Has the following medical conditions: Inflammatory bowel diseases Patient maximum height was 62 Menopause Age: 46 No regular weight bearing exercise Drinks caffeinated beverages Onset of menses at age 13 Number of children 3 Impression: The patient has low bone mass, based on the Left Total Hip T-score. The BMD for the AP Spine (L1-L4) decreased, changing by -2.5% since the last DXA exam. The BMD for the Total Hip(Left) decreased, changing by -9.0% since the last DXA exam. The BMD for the Total Hip(Right) decreased, changing by -6.1% since the last DXA exam. Discussion: SIGNIFICANT BONE LOSS OBSERVED. Adherence to therapy (including calcium and vitamin D intake) should be assessed. If compliance is not a factor, review management and exclusion of secondary causes of bone loss. It is important to ask patients whether they are taking their medications and to encourage continued and appropriate compliance with their osteoporosis therapies to reduce fracture risk. It is also important to review their risk factors and encourage appropriate calcium and vitamin D intakes, exercise, fall prevention and other lifestyle measures. Follow-Up: Consider a repeat BMD and Vertebral Fracture Assessment (VFA) exam in 2 years or sooner if medically necessary, to reassess this patient's status. Reported by: REYNA on 09/17/2024 3:40:00 PM. Reviewed, dictated and finalized at location [facility]a ALEJO
--- OUTSIDE RECORDS SUMMARY | 2024-09-17 15:14 | XMS_ITS | Clinical Summary ---
Author Organization [facility] [address] [facility] Address [address] [place] [id number] Phone Care Team Providers Care Risk Consulting Treasury Director Name Role Phone Chichi Watkins MD Primary Care Provider Cindy Murphy MD Unavailable [phone] MikalLaura hobbs MD Unavailable [phone] Chepe Tijerina MD Unavailable [phone] Branden Gordon MD Unavailable [phone] Allergies Active Allergy Reactions Criticality Noted Date Comments Ciprofloxacin Unknown Rosuvastatin Other (See comments) Low 04/02/2022 bruising Atorvastatin Other (See comments) Low 04/02/2022 Nose bleeds, bruising. Lisinopril Medications losartan (COZAAR) 100 mg tablet take 1 tablet (100MG) by oral route every day 0 03/08/2011 Active rosuvastatin (CRESTOR) 5 mg tablet Take 1 tablet (5 mg total) by mouth daily 30 tablet 07/09/2022 Active famotidine (PEPCID) 20 mg tablet 04/20/2023 Active isosorbide mononitrate ER (IMDUR) 30 mg 24 hr tablet Take 1 tablet (30 mg total) by mouth daily 04/21/2023 Active levothyroxine (SYNTHROID) 125 mcg tablet Take 1 tablet (125 mcg total) by mouth daily 05/09/2023 Active omeprazole (PriLOSEC) 40 mg capsule Take 1 capsule (40 mg total) by mouth daily 04/22/2023 Active chlorthalidone (HYGROTON) 25 mg tablet 10/30/2023 Active metoprolol XL (TOPROL-XL) 50 mg extended release tabletIndication s:Essential hypertension,Sin us tachycardia TAKE 1 AND 1/2 TABLETS(75 MG) BY MOUTH TWICE DAILY 270 tablet 3 12/24/2023 Active azaTHIOprine (IMURAN) 50 mg tablet Take 2 tablets (100 mg total) by mouth daily 180 tablet 1 04/30/2024 Active hydroxychloroqui ne (PLAQUENIL) 200 mg tablet Take 1 tablet (200 mg total) by mouth daily 90 tablet 1 04/30/2024 Active calcium carbonate-vitami n D3 2,500 mg (1,000 mg elemental)-800 unit tablet Take by mouth Active cetirizine (ZyrTEC) 10 mg tablet Take 1 tablet (10 mg total) by mouth daily Active cyanocobalamin (Vitamin B-12) 1,000 mcg tabletIndication s:Prevention of Vitamin B12 Deficiency Take 1 tablet (1,000 mcg total) by mouth daily Active dilTIAZem CD/XR/XT (DILT-XR) 120 mg 24 hr capsule TAKE 1 CAPSULE(120 MG) BY MOUTH DAILY 90 capsule 3 06/17/2024 Active Active Problems Problem Noted Date Diagnosed Date Right hip pain 07/29/2024 Assessment & Plan (07/29/2024 4:19 PM SHELL TRIM OPERATOR): Check rt hip xray. Chronic right-sided low back pain with right-alin ed sciatica 07/29/2024 Assessment & Plan (07/29/2024 4:18 PM SHELL TRIM OPERATOR): Full rom of bilat hips. Check rt hip, lumbar spine and si joint xrays. Abnormal serum glucose level 07/29/2024 Assessment & Plan (07/29/2024 4:18 PM SHELL TRIM OPERATOR): Hx of abn hgba1c, not checked by pcp and last checked by us 01/2024, recheck today. Advised to work on weight loss. Other fatigue 07/29/2024 Assessment & Plan (07/29/2024 4:18 PM SHELL TRIM OPERATOR): Check tsh, b12, hgba1c. Vitamin D deficiency 04/30/2024 Assessment & Plan (07/29/2024 4:19 PM SHELL TRIM OPERATOR): Check vit d. Assessment & Plan (04/30/2024 4:30 PM CDT): She stopped her vit d but takes some ca + vit d. Recheck vit d. Morbid obesity 01/30/2024 Assessment & Plan (01/30/2024 5:37 PM CDT): Is morbidly obese, can't seem to lose weight. Drinks lots of lemonade and crystal light, has family hx of dm2. Check hgba1c. Also to discuss ozempic with pcp for weight loss. She might be able to qualify for free drug due to her low income. Abnormal fasting glucose 01/30/2024 Assessment & Plan (01/30/2024 5:37 PM CDT): Is morbidly obese, can't seem to lose weight. Drinks lots of lemonade and crystal light, has family hx of dm2. Check hgba1c. Also to discuss ozempic with pcp for weight loss. She might be able to qualify for free drug due to her low income. Chronic kidney disease 10/31/2023 Assessment & Plan (07/29/2024 4:15 PM SHELL TRIM OPERATOR): Sees dr gordon. Htn still not under control despite 3 htn meds. Sees him soon. Repeat bp lt arm sitting 150/80. Assessment & Plan (10/31/2023 5:44 PM CDT): Sees dr gordon. He started her on chlortalidone but after 1 tab it caused lip and tongue tingling/numbness. Contacted dr blanco call center at [facility] and let him know about this and gave call center pt's info. Advised pt to skip dose tomorrow and try to get hold of dr gordon if he does not call her and gave pt his office phone number. Diarrhea 04/29/2023 Assessment & Plan (04/29/2023 1:53 PM CDT): [facility], dx with ibs in past. Check celiac panel. Other chest pain 03/28/2022 Sinus tachycardia 03/14/2022 Precordial pain 03/14/2022 Body mass index 40.0-44.9, adult (CMS/HCC) 03/14 Low vitamin D level 11/23/2021 Assessment & Plan (03/30/2022 3:36 PM CDT): Vit d wnl at 40 on 12/01 repeat today. Continue ca and vit d . Assessment & Plan (11/23/2021 8:34 AM CDT): Vit d low at 26 on 07/2021, repeat today. Continue ca and vit d . Abnormal echocardiogram 11/23/2021 Assessment & Plan (11/23/2021 6:05 PM CDT): Images from the original note were not included. Advised pt to see her hydrator operator Dr Crabtree. BP still elevated and had an abn echo with enlarged heart diastolic dysfunction, was advised to see her hydrator operator for treating her htn and for her abn echo. Echo 07/2021 Hypothyroidism 07/21/2021 Assessment & Plan (07/21/2021 4:18 PM SHELL TRIM OPERATOR): Check TSH. Age-related osteoporosis wit hout current pathological fracture 07/21/2021 Assessment & Plan (07/29/2024 4:14 PM SHELL TRIM OPERATOR): bds stable 05/2022. Was due 06/2024 but was not able to get an appt at [facility] in [place] until next year. Continue ca and vit d 600 mg po bid. Assessment & Plan (04/30/2024 8:18 AM CDT): bds stable 05/2022. Is due again 06/2024. Continue ca and vit d 600 mg po bid. Assessment & Plan (01/30/2024 8:25 AM CDT): bds stable 05/2022. Is due again 06/2024. Continue ca and vit d 600 mg po bid. Assessment & Plan (10/31/2023 8:38 AM CDT): bds stable 05/2022. Is due again 06/2024. Continue ca and vit d 600 mg po bid. Assessment & Plan (08/01/2023 8:32 AM SHELL TRIM OPERATOR): bds stable 05/2022. Is due again 06/2024. Continue ca and vit d 600 mg po bid. Assessment & Plan (05/29/2023 8:14 AM CDT): bds stable 05/2022. Continue ca and vit d 600mg po bid. Assessment & Plan (04/29/2023 1:34 PM CDT): bds stable 05/2022. Continue ca and vit d 600mg po bid. Assessment & Plan (03/29/2023 3:32 PM CDT): bds stable 05/2022. Continue ca and vit d 600mg po bid. Assessment & Plan (12/31/2022 8:11 AM CDT): bds stable 05/2022. Continue ca and vit d 600mg po bid. Assessment & Plan (10/05/2022 4:02 PM SHELL TRIM OPERATOR): bds stable 05/2022. Continue ca and vit d 600mg po bid. Assessment & Plan (07/09/2022 1:19 PM SHELL TRIM OPERATOR): bds stable 05/2022. Continue ca and vit d 600mg po bid. Assessment & Plan (04/02/2022 4:22 PM CDT): Will try to get copy of bds. Assessment & Plan (11/23/2021 8:33 AM CDT): Has not been able to get her bds until November, [facility] is backed up. Assessment & Plan (10/19/2021 1:51 PM SHELL TRIM OPERATOR): Has not been able to get her bds until November, [facility] is backed up. Assessment & Plan (07/21/2021 4:19 PM SHELL TRIM OPERATOR): Check bds. Weight gain 07/21/2021 Assessment & Plan (01/30/2024 5:37 PM CDT): Is morbidly obese, can't seem to lose weight. Drinks lots of lemonade and crystal light, has family hx of dm2. Check hgba1c. Also to discuss ozempic with pcp for weight loss. She might be able to qualify for free drug due to her low income. Assessment & Plan (07/21/2021 4:07 PM SHELL TRIM OPERATOR): Has gained over 20 lb in past 2 yrs. Has hx of hypothyroidism. On levothyroxine. Check tsh today. Has not had this checked with pcp in over 4 months. Esophageal stenosis 01/27/2021 Assessment & Plan (07/21/2021 11:48 AM SHELL TRIM OPERATOR): Had an esophageal stenosis dilated in december. Doing better. Sees Dr Sanders this year again for a colonoscopy but has not scheduled colo yet. Assessment & Plan (01/27/2021 2:02 PM CDT): Had an esophageal stenosis dilated in december. Doing better. Sees Dr Sanders this year again for a colonoscopy but has not scheduled colo yet. Seronegative rheumatoid arthritis (CMS/HCC) 04/12 Assessment & Plan (07/29/2024 4:16 PM SHELL TRIM OPERATOR): Low cdai. Doing well on imuran, continue imuran to 100 mg every day. Recheck labs today. Has hx of pulm htn and esophageal stenosis. Has not seen gi for esophageal stenosis symptoms again. No skin changes or sclerodactyly. Seeing dr gordon now for her ckd. Her hydrator operator also retired, will refer her for her yearly pft and cxr. Previous history/labs/imaging: Echo 03/2023: Echo report below, has mild enlarged heart but good ef. Has an abn septal motion with possible bundle branch block. Impaired diastolic relaxation grade I. Send this to her hydrator operator and advised pt to f/u with him. Echo report 03/2023: Normal left ventricular systolic function. No focal wall motion abnormalities. Normal left ventricular size. Mild concentric left ventricular hypertrophy. Paradoxical septal motion consistent with IVCD or bundle branch block. Impaired diastolic relaxation Grade I. Ejection fraction is visually estimated at 65-70 %. Ejection fraction is measured at 68 %. Global Longitudinal Strain is -18 %. GLS is borderline. Normal right ventricular size. Normal right ventricular systolic function. There is mild enlargement of left atrium. Mitral valve leaflets appear mildly thickened. Mild mitral annular calcification. Mild mitral valve regurgitation. Right ventricular systolic pressure could not be estimated due to inadequate visualization of the tricuspid regurgitation jet. Normal sinus rhythm. Cxr clear lungs 01/2023. Past serologies showed + hep 2 and + anti carbamylated. 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 Demarco alba had enthesopathy on xrays 10/28 so she can have a spondyloarthropathy also. Assessment & Plan (04/30/2024 4:29 PM CDT): Low cdai. Doing well on imuran, continue imuran to 100mg every day. Recheck labs today. Has hx of pulm htn and esophageal stenosis. Has not seen gi for esophageal stenosis symptoms again. No skin changes or sclerodactyly. Seeing dr gordon now for her ckd. Her hydrator operator also retired, will refer her for her yearly echo (has hx of pulm htn) sees pulm and she is scheduled to have pft's soon. Previous history/labs/imaging: Echo 03/2023: Echo report below, has mild enlarged heart but good ef. Has an abn septal motion with possible bundle branch block. Impaired diastolic relaxation grade I. Send this to her hydrator operator and advised pt to f/u with him. Echo report 03/2023: Normal left ventricular systolic function. No focal wall motion abnormalities. Normal left ventricular size. Mild concentric left ventricular hypertrophy. Paradoxical septal motion consistent with IVCD or bundle branch block. Impaired diastolic relaxation Grade I. Ejection fraction is visually estimated at 65-70 %. Ejection fraction is measured at 68 %. Global Longitudinal Strain is -18 %. GLS is borderline. Normal right ventricular size. Normal right ventricular systolic function. There is mild enlargement of left atrium. Mitral valve leaflets appear mildly thickened. Mild mitral annular calcification. Mild mitral valve regurgitation. Right ventricular systolic pressure could not be estimated due to inadequate visualization of the tricuspid regurgitation jet. Normal sinus rhythm. Cxr clear lungs 01/2023. Past serologies showed + hep 2 and + anti carbamylated. 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 Demarco alba had enthesopathy on xrays 10/28 so she can have a spondyloarthropathy also. Assessment & Plan (01/30/2024 5:38 PM CDT): Low cdai. Arava stopped due to lft elevation, most likely aquino. Lft's have normalized off arava. TPMT wnl 14 so we can continue imuran to 100mg every day. Recheck labs today. Has hx of pulm htn and esophageal stenosis. Has not seen gi for esophageal stenosis symptoms again. No skin changes or sclerodactyly. Seeing dr gordon now for her ckd. Previous history/labs/imaging: Echo 03/2023: Echo report below, has mild enlarged heart but good ef. Has an abn septal motion with possible bundle branch block. Impaired diastolic relaxation grade I. Send this to her hydrator operator and advised pt to f/u with him. Echo report 03/2023: Normal left ventricular systolic function. No focal wall motion abnormalities. Normal left ventricular size. Mild concentric left ventricular hypertrophy. Paradoxical septal motion consistent with IVCD or bundle branch block. Impaired diastolic relaxation Grade I. Ejection fraction is visually estimated at 65-70 %. Ejection fraction is measured at 68 %. Global Longitudinal Strain is -18 %. GLS is borderline. Normal right ventricular size. Normal right ventricular systolic function. There is mild enlargement of left atrium. Mitral valve leaflets appear mildly thickened. Mild mitral annular calcification. Mild mitral valve regurgitation. Right ventricular systolic pressure could not be estimated due to inadequate visualization of the tricuspid regurgitation jet. Normal sinus rhythm. Cxr clear lungs 01/2023. Past serologies showed + hep 2 and + anti carbamylated. 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 Demarco alba had enthesopathy on xrays 10/28 so she can have a spondyloarthropathy also. Assessment & Plan (10/31/2023 5:40 PM CDT): Low cdai. Arava stopped due to lft elevation, most likely aquino. Lft's have normalized off arava. TPMT wnl 14 so we can continue imuran to 100mg every day. Recheck labs today. Has hx of pulm htn and esophageal stenosis. Has not seen gi for esophageal stenosis symptoms again. No skin changes or sclerodactyly. Seen with Dr. Tijerina today. Seeing dr gordon now for her ckd. Echo 03/2023: Echo report below, has mild enlarged heart but good ef. Has an abn septal motion with possible bundle branch block. Impaired diastolic relaxation grade I. Send this to her hydrator operator and advised pt to f/u with him. Echo report 03/2023: Normal left ventricular systolic function. No focal wall motion abnormalities. Normal left ventricular size. Mild concentric left ventricular hypertrophy. Paradoxical septal motion consistent with IVCD or bundle branch block. Impaired diastolic relaxation Grade I. Ejection fraction is visually estimated at 65-70 %. Ejection fraction is measured at 68 %. Global Longitudinal Strain is -18 %. GLS is borderline. Normal right ventricular size. Normal right ventricular systolic function. There is mild enlargement of left atrium. Mitral valve leaflets appear mildly thickened. Mild mitral annular calcification. Mild mitral valve regurgitation. Right ventricular systolic pressure could not be estimated due to inadequate visualization of the tricuspid regurgitation jet. Normal sinus rhythm. Cxr clear lungs 01/2023. Tolerating imuran. Had lft elevation with arava in past. Check labs today. Has hx of pulm htn and sleep apnea, can't tolerate cpap or use a dental appliance due to poor dentition. Past serologies showed + hep 2 and + anti carbamylated. 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 Demarco alba had enthesopathy on xrays 10/28 so she can have a spondyloarthropathy also. Assessment & Plan (08/01/2023 4:15 PM SHELL TRIM OPERATOR): Low-mod cdai. Arava stopped due to lft elevation, most likely aquino. Lft's have normalized off arava. TPMT wnl 14 so we can continue imuran to 100mg every day. Recheck labs today. Has hx of pulm htn and esophageal stenosis. Has not seen gi for esophageal stenosis symptoms again. No skin changes or sclerodactyly. Echo 03/2023: Echo report below, has mild enlarged heart but good ef. Has an abn septal motion with possible bundle branch block. Impaired diastolic relaxation grade I. Send this to her hydrator operator and advised pt to f/u with him. Echo report 03/2023: Normal left ventricular systolic function. No focal wall motion abnormalities. Normal left ventricular size. Mild concentric left ventricular hypertrophy. Paradoxical septal motion consistent with IVCD or bundle branch block. Impaired diastolic relaxation Grade I. Ejection fraction is visually estimated at 65-70 %. Ejection fraction is measured at 68 %. Global Longitudinal Strain is -18 %. GLS is borderline. Normal right ventricular size. Normal right ventricular systolic function. There is mild enlargement of left atrium. Mitral valve leaflets appear mildly thickened. Mild mitral annular calcification. Mild mitral valve regurgitation. Right ventricular systolic pressure could not be estimated due to inadequate visualization of the tricuspid regurgitation jet. Normal sinus rhythm. Cxr clear lungs 01/2023. Tolerating imuran. Had lft elevation with arava in past. Check labs today. Has hx of pulm htn and sleep apnea, can't tolerate cpap or use a dental appliance due to poor dentition. Past serologies showed + hep 2 and + anti carbamylated. 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 Bilat heel had enthesopathy on xrays 10/28 so she can have a spondyloarthropathy also. Assessment & Plan (05/29/2023 4:59 PM CDT): Low-Mod cdai. Arava stopped due to lft elevation, most likely aquino. Lft's have normalized off arava. TPMT wnl 14 so we can increase imuran to 100mg every day. Recheck labs in 2 weeks and today. Has hx of pulm htn and esophageal stenosis. Has not seen gi for esophageal stenosis symptoms again. No skin changes or sclerodactyly. Echo 03/2023: Echo report below, has mild enlarged heart but good ef. Has an abn septal motion with possible bundle branch block. Impaired diastolic relaxation grade I. Send this to her hydrator operator and advised pt to f/u with him. Echo report 03/2023: Normal left ventricular systolic function. No focal wall motion abnormalities. Normal left ventricular size. Mild concentric left ventricular hypertrophy. Paradoxical septal motion consistent with IVCD or bundle branch block. Impaired diastolic relaxation Grade I. Ejection fraction is visually estimated at 65-70 %. Ejection fraction is measured at 68 %. Global Longitudinal Strain is -18 %. GLS is borderline. Normal right ventricular size. Normal right ventricular systolic function. There is mild enlargement of left atrium. Mitral valve leaflets appear mildly thickened. Mild mitral annular calcification. Mild mitral valve regurgitation. Right ventricular systolic pressure could not be estimated due to inadequate visualization of the tricuspid regurgitation jet. Normal sinus rhythm. Cxr clear lungs 01/2023. Tolerating imuran. Had lft elevation with arava in past. Check labs today. Has hx of pulm htn and sleep apnea, can't tolerate cpap or use a dental appliance due to poor dentition. Past serologies showed + hep 2 and + anti carbamylated. 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 Bilat heel had enthesopathy on xrays 10/28 so she can have a spondyloarthropathy also. Assessment & Plan (04/29/2023 1:56 PM CDT): Mod cdai. Arava stopped due to lft elevation, most likely aquino. Lft's have normalized off arava. TPMT wnl 14 so we can start imuran 50mg every day, discussed potential se and risk of imuran tx including pancreatitis, diarrhea, low wbc, fever/chills, increased risk of infection, increased risk of skin cancer. Advised to continue sun exposure. Cbc/cmp in 2 weeks. Has hx of pulm htn and esophageal stenosis. Has not seen gi for esophageal stenosis symptoms again. No skin changes or sclerodactyly. Echo 03/2023: Echo report below, has mild enlarged heart but good ef. Has an abn septal motion with possible bundle branch block. Impaired diastolic relaxation grade I. Send this to her hydrator operator and advised pt to f/u with him. Echo report 03/2023: Normal left ventricular systolic function. No focal wall motion abnormalities. Normal left ventricular size. Mild concentric left ventricular hypertrophy. Paradoxical septal motion consistent with IVCD or bundle branch block. Impaired diastolic relaxation Grade I. Ejection fraction is visually estimated at 65-70 %. Ejection fraction is measured at 68 %. Global Longitudinal Strain is -18 %. GLS is borderline. Normal right ventricular size. Normal right ventricular systolic function. There is mild enlargement of left atrium. Mitral valve leaflets appear mildly thickened. Mild mitral annular calcification. Mild mitral valve regurgitation. Right ventricular systolic pressure could not be estimated due to inadequate visualization of the tricuspid regurgitation jet. Normal sinus rhythm. Cxr clear lungs 01/2023. Has hx of pulm htn and sleep apnea, can't tolerate cpap or use a dental appliance due to poor dentition. Past serologies showed + hep 2 and + anti carbamylated. 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 Bilat heel had enthesopathy on xrays 10/28 so she can have a spondyloarthropathy also. Assessment & Plan (03/29/2023 3:31 PM CDT): Low cdai. In past we recommended we start orencia but she declined. Today her cdai is low so will continue present meds. 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 She did not tolerate mtx in past but is tolerating arava and plaquenil. Has been on plaquenil over 10 yrs so we decreased dose to 200 mg every day in past and was advised again today to see opth q 6 months. Had her flu vaccine and all covid boosters. Has hx of + anti-carbamyalated antibody. She has an overlap of RA and SLE. Assessment & Plan (12/31/2022 4:03 PM CDT): Low cdai. In past we recommended we start orencia but she declined. Today her cdai is low so will continue present meds. 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 She did not tolerate mtx in past but is tolerating arava and plaquenil. Has been on plaquenil over 10 yrs so we decreased dose to 200 mg every day in past and was advised again today to see opth q 6 months. Had her flu vaccine and all covid boosters. Has hx of + anti-carbamyalated antibody. She has an overlap of RA and SLE. Assessment & Plan (10/05/2022 4:00 PM SHELL TRIM OPERATOR): Low cdai. In past we recommended we start orencia but she declined. Today her cdai is low so will continue present meds. 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 She did not tolerate mtx in past but is tolerating arava and plaquenil. Has been on plaquenil over 10 yrs so we decreased dose to 200mg and was advised again today to see opth q 6 months. Had her flu vaccine and all covid boosters. Has hx of + anti-carbamyalated antibody. She has an overlap of RA and SLE. Assessment & Plan (07/09/2022 2:36 PM SHELL TRIM OPERATOR): Low cdai. In past we recommended we start orencia but she declined. Today her cdai is low so will continue present meds. 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 She did not tolerate mtx in past but is tolerating arava and plaquenil. Has been on plaquenil over 10 yrs so we decreased dose to 200mg and was advised again today to see opth q 6 months. Had her flu vaccine and all covid boosters. Has hx of + anti-carbamyalated antibody. She has an overlap of RA and SLE. Assessment & Plan (04/02/2022 4:25 PM CDT): Low cdai. Recommended adding orencia but once again she declines, informed of continuing joint damage. 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 She did not tolerate mtx in past but is tolerating arava and plaquenil. Has been on plaquenil over 10 yrs so we decreased dose to 200mg every day eligio and she sees opth yearly. Has hx of + anti-carbamyalated antibody. She has an overlap of RA and SLE. Assessment & Plan (11/23/2021 5:58 PM CDT): Low cdai. Recommended adding orencia but once again she declines, informed of continuing joint damage. 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 She tolerated oral mtx but not sq mtx. Has hx of + anti-carbamyalated antibody. She has an overlap of RA and SLE. A month ago we stopped arava in case it caused her htn but bp was similar after 2 weeks of stopping it so pt restarted her arava because her joints were worse when she stopped it. BP still elevated and had an abn echo with enlarged heart diastolic dysfunction, was advised to see her hydrator operator for treating her htn and for her abn echo. Assessment & Plan (10/19/2021 4:32 PM SHELL TRIM OPERATOR): Low cdai. Recommended adding orencia but once again she declines, informed of continuing joint damage. 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 Due to her htn will stop arava and re-evaluate in 1 month to see if her joints are worse. If joints are worse recommend adding orencia or mtx. She tolerated oral mtx but not sq mtx. Has hx of + anti-carbamyalated. She has an overlap of RA and SLE. Seen with Dr Hoffman today. Assessment & Plan (07/21/2021 4:06 PM SHELL TRIM OPERATOR): Mod cdai. Recommended adding orencia but once again she declines, informed of continuing joint damage. 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 Has hx of + anti-carbamyalted also. She has an overlap of RA and SLE. Assessment & Plan (04/28/2021 2:27 PM CDT): Low cdai. Doing well today. She did not have much swollen joints. 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 Has hx of + anti-carbamyalted also. She has an overlap of RA and SLE. Assessment & Plan (01/27/2021 5:02 PM CDT): High cdai but mostly tender joints, not a lot of swollen joints. 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 Has hx of + anti-carbamyalted also. She has an overlap of RA and SLE. In past we recommended starting xeljanz but once again she declines today. Assessment & Plan (12/19/2020 2:34 PM CDT): High cdai but mostly tender joints, not a lot of swollen joints. 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 Has hx of + anti-carbamyalted also. She has an overlap of RA and SLE. In past we recommended starting xeljanz but once again she declined and today due to lt sided abd pain will not start it. Assessment & Plan (09/23/2020 5:15 PM SHELL TRIM OPERATOR): Mod cdai. 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 Has hx of + anti-carbamyalted also. She has an overlap of RA and SLE. Recommended starting xeljanz but once again she declines, discussed potential se and risks, still declines meds. She was informed of continuing joint damage. Assessment & Plan (06/27/2020 5:08 PM SHELL TRIM OPERATOR): Mod cdai. 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 Has hx of + anti-carbamyalted also. This is compatible with RA, she appears to have an overlap of RA and SLE. Seen with dr hoffman. We started her on rinvoq but she did not want to continue it, she is afraid of potential se. She is changing to a new rheum since she changed insurance and she is not in our network. Continue arava and plaquenil until she sees new rheum. 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 Has hx of + anti-carbamyalted also. This is compatible with RA, she appears to have an overlap of RA and SLE. Seen with dr hoffman. Will start rinvoq 15 mg po every day, discussed potential se (infections, lft elevation, pe/dvt, elevated chol, low wbc, low plts). F/u in 1 month. Continue arava and plaquenil. Cough 10/28/2019 Assessment & Plan (10/28/2019 2:09 PM CDT): Check cxr. Recommended she sees dr marroquin but she declines. Informed she needs echo and pft's but she declines. Change in voice 10/28/2019 Assessment & Plan (10/28/2019 2:10 PM CDT): Advised her to see ent, will need referral from pcp. Dorsalgia 06/29/2019 Assessment & Plan (01/26/2021 11:44 AM CDT): Declines further workup. Does not want to do PT. Assessment & Plan (12/19/2020 7:56 AM CDT): Declines further workup. Does not want to do PT. Assessment & Plan (09/23/2020 7:34 AM SHELL TRIM OPERATOR): Declines further workup. Does not want to do PT. Assessment & Plan (06/27/2020 5:09 PM SHELL TRIM OPERATOR): Declines further workup. Does not want to do PT. Assessment & Plan (01/21/2020 3:59 PM CDT): Check lumbar xray and start PT. Assessment & Plan (06/29/2019 12:35 PM SHELL TRIM OPERATOR): Check lumbar xray and start PT. Encounter for long-term (current) use of medicat ions 10/24/2017 Assessment & Plan (07/29/2024 4:15 PM SHELL TRIM OPERATOR): Hand US 03/2020 lunate and 5th mcp erosions Allx to mtx sq [facility] 01/2020---Prabha 1:160. tpo pos. [facility] panel 10/2018---showed + hep 2 and + anti carbamylated and thyroid antibodies [facility] 10/2017---[facility] panel showed + hep 2 and + anti carbaylated. Also has thyroid antibodies. Cxr neg 02/2020 rt lung nodule, addressed by pcp, CT recommended. Started plaquenil 1 tab po qd 2010. 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 on xrays 10/28 Hep B and C neg 02/2019 Quant gold neg 04/2020 [facility] 01/2020---Prabha 1:160. tpo pos. Hx of aquino, lft elevation with arava, stopped 2022 Avoid mtx due to aquino.Hand US 03/2020 lunate and 5th mcp erosions Allx to mtx sq [facility] 01/2020---Prabha 1:160. tpo pos. [facility] panel 10/2018---showed + hep 2 and + anti carbamylated and thyroid antibodies [facility] 10/2017---[facility] panel showed + hep 2 and + anti carbaylated. Also has thyroid antibodies. Cxr neg 02/2020 rt lung nodule, addressed by pcp, CT recommended. Started plaquenil 1 tab po qd 2010. 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 on xrays 10/28 Hep B and C neg 02/2019 Quant gold neg 04/2020 [facility] 01/2020---Prabha 1:160. tpo pos. Hx of aquino, lft elevation with arava, stopped 2022 Avoid mtx due to aquino. Assessment & Plan (04/30/2024 8:18 AM CDT): Hand US 03/2020 lunate and 5th mcp erosions Allx to mtx sq [facility] 01/2020---Prabha 1:160. tpo pos. [facility] panel 10/2018---showed + hep 2 and + anti carbamylated and thyroid antibodies [facility] 10/2017---[facility] panel showed + hep 2 and + anti carbaylated. Also has thyroid antibodies. Cxr neg 02/2020 rt lung nodule, addressed by pcp, CT recommended. Started plaquenil 1 tab po qd 2010. 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 on xrays 10/28 Hep B and C neg 02/2019 Quant gold neg 04/2020 [facility] 01/2020---Prabha 1:160. tpo pos. Hx of aquino, lft elevation with arava, stopped 2022 Avoid mtx due to aquino. Assessment & Plan (01/30/2024 8:25 AM CDT): Hand US 03/2020 lunate and 5th mcp erosions Allx to mtx sq [facility] 01/2020---Prabha 1:160. tpo pos. [facility] panel 10/2018---showed + hep 2 and + anti carbamylated and thyroid antibodies [facility] 10/2017---[facility] panel showed + hep 2 and + anti carbaylated. Also has thyroid antibodies. Cxr neg 02/2020 rt lung nodule, addressed by pcp, CT recommended. Started plaquenil 1 tab po qd 2010. 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 on xrays 10/28 Hep B and C neg 02/2019 Quant gold neg 04/2020 [facility] 01/2020---Prabha 1:160. tpo pos. Hx of aquino, lft elevation with arava, stopped 2022 Avoid mtx due to aquino. Assessment & Plan (10/31/2023 8:38 AM CDT): Hand US 03/2020 lunate and 5th mcp erosions Allx to mtx sq [facility] 01/2020---Prabha 1:160. tpo pos. [facility] panel 10/2018---showed + hep 2 and + anti carbamylated and thyroid antibodies [facility] 10/2017---[facility] panel showed + hep 2 and + anti carbaylated. Also has thyroid antibodies. Cxr neg 02/2020 rt lung nodule, addressed by pcp, CT recommended. Started plaquenil 1 tab po qd 2010. 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 on xrays 10/28 Hep B and C neg 02/2019 Quant gold neg 04/2020 [facility] 01/2020---Prabha 1:160. tpo pos. Hx of aquino, lft elevation with arava, stopped 2022 Avoid mtx due to aquino. Assessment & Plan (08/01/2023 4:16 PM SHELL TRIM OPERATOR): Hand US 03/2020 lunate and 5th mcp erosions Allx to mtx sq [facility] 01/2020---Prabha 1:160. tpo pos. [facility] panel 10/2018---showed + hep 2 and + anti carbamylated and thyroid antibodies [facility] 10/2017---[facility] panel showed + hep 2 and + anti carbaylated. Also has thyroid antibodies. Cxr neg 02/2020 rt lung nodule, addressed by pcp, CT recommended. Started plaquenil 1 tab po qd 2010. 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 on xrays 10/28 Hep B and C neg 02/2019 Quant gold neg 04/2020 [facility] 01/2020---Prabha 1:160. tpo pos. Hx of aquino, lft elevation with arava, stopped 2022 Avoid mtx due to aquino. Assessment & Plan (12/31/2022 2:52 PM CDT): Hand US 03/2020 lunate and 5th mcp erosions Allx to mtx sq [facility] 01/2020---Prabha 1:160. tpo pos. [facility] panel 10/2018---showed + hep 2 and + anti carbamylated and thyroid antibodies [facility] 10/2017---[facility]ise panel showed + hep 2 and + anti carbaylated. Also has thyroid antibodies. Cxr neg 02/2020 rt lung nodule, addressed by pcp, CT recommended. Started plaquenil 1 tab po qd 2010. 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 on xrays 10/28 Hep B and C neg 02/2019 Quant gold neg 04/2020 [facility] 01/2020---Prabha 1:160. tpo pos. Assessment & Plan (07/21/2021 4:17 PM SHELL TRIM OPERATOR): Check bds, has not had one for years she states. Pulmonary hypertension 01/30/2017 Assessment & Plan (07/29/2024 4:16 PM SHELL TRIM OPERATOR): Echo stable and utd 05/2024. Right ventricular systolic pressure could not be estimated due to inadequate visualization of the tricuspid regurgitation jet. Pt joshua f/u with hydrator operator q [address] laura crabtree. Still needs to see pulm for her yearly pft's. Gave pt referral for pft and cxr. Advised to work on weight loss. Assessment & Plan (04/30/2024 8:19 AM CDT): Echo stable and utd 03/2023. Right ventricular systolic pressure could not be estimated due to inadequate visualization of the tricuspid regurgitation jet. Pt joshua f/u with hydrator operator q [address] laura crabtree. Still needs to see pulm for her yearly pft's. Assessment & Plan (10/31/2023 8:38 AM CDT): Echo stable and utd 03/2023. Right ventricular systolic pressure could not be estimated due to inadequate visualization of the tricuspid regurgitation jet. Pt joshua f/u with hydrator operator q [address] laura crabtree. Still needs to see pulm for her yearly pft's. Assessment & Plan (08/01/2023 8:32 AM SHELL TRIM OPERATOR): Echo stable and utd 03/2023. Right ventricular systolic pressure could not be estimated due to inadequate visualization of the tricuspid regurgitation jet. Pt joshua f/u with hydrator operator q [address] laura crabtree. Still needs to see pulm for her yearly pft's. Assessment & Plan (05/29/2023 8:12 AM CDT): Echo stable and utd 03/2023. Right ventricular systolic pressure could not be estimated due to inadequate visualization of the tricuspid regurgitation jet. Pt joshua f/u with hydrator operator q [address] laura crabtree. Still needs to see pulm for her yearly pft's. Assessment & Plan (04/29/2023 1:55 PM CDT): Echo stable and utd 03/2023. Right ventricular systolic pressure could not be estimated due to inadequate visualization of the tricuspid regurgitation jet. Pt joshua f/u with hydrator operator q [address] laura crabtree. Still needs to see pulm for her yearly pft's. Assessment & Plan (04/01/2023 3:19 PM CDT): Sees hydrator operator but not pulm. Has hx of tachycardia, hydrator operator is aware of this. Echo scheduled next week. Can't tolerate cpap and due to poor dentition can't use oral appliance for her sleep apnea. Cxr nl 01/2023. Assessment & Plan (12/31/2022 2:52 PM CDT): Saw hydrator operator for echo in past but has not f/u with him or social work program coordinator. Has hx of tachycardia. Pt to let her pcp and hydrator operator know about her htn/tachycardia. States that pcp was aware of this and wanted pt to work on diet/weight loss. Pt is not eating any salt. Assessment & Plan (10/08/2022 4:46 PM SHELL TRIM OPERATOR): Saw hydrator operator for echo in past but has not f/u with him or social work program coordinator. Has hx of tachycardia. Pt to let her pcp and hydrator operator know about her htn/tachycardia. States that pcp was aware of this and wanted pt to work on diet/weight loss. Pt is not eating any salt. Assessment & Plan (07/04/2022 4:38 PM SHELL TRIM OPERATOR): Saw hydrator operator for echo. Pt to let her pcp and hydrator operator know about her htn/tachycardia. States that pcp was aware of this and wanted pt to work on diet/weight loss. Pt is not eating any salt. Assessment & Plan (03/30/2022 3:36 PM CDT): Saw hydrator operator for echo. Pt to let her pcp and hydrator operator know about her htn/tachycardia. States that pcp was aware of this and wanted pt to work on diet/weight loss. Pt is not eating any salt. Assessment & Plan (11/23/2021 8:31 AM CDT): Saw hydrator operator for echo. Pt to let her pcp and hydrator operator know about her htn/tachycardia. States that pcp was aware of this and wanted pt to work on diet/weight loss. Pt is not eating any salt. Assessment & Plan (10/19/2021 1:54 PM SHELL TRIM OPERATOR): Sees hydrator operator next week for echo. To have it sent to us also. Pt to let her pcp and hydrator operator know about her htn/tachycardia. States that pcp was aware of this and wanted pt to work on diet/weight loss. Pt is not eating any salt. Assessment & Plan (07/21/2021 4:17 PM SHELL TRIM OPERATOR): Has been having LE edema. pcp started her on lasix. Pt has pulmonary htn and a rt lung nodule and hx of pulmonary hypertension. Has hx of sleep apnea but does not wear her cpap. Has not seen pulm in years. Advised her to see pulm for repeat sleep study again and she might be able to tolerate the new cpap face masks now. She is willing to do echo now that she has medicare insurance. In past she was referred to hydrator operator and pulm several times but due to finances she stated she could not afford to go. Her recent le edema could be early chf. Advised pt to see pulm and hydrator operator for her pum htn and to discuss this with pcp. Has not seen pulmonary for over 5 yrs due to cost. Has not seen hydrator operator or had an echo since 2014. Assessment & Plan (04/28/2021 2:30 PM CDT): Has been having LE edema. Pt has pulmonary htn and a rt lung nodule and hx of pulmonary hypertension. In past she was referred to hydrator operator and pulm several times but due to finances she stated she could not afford to go. Her recent le edema could be early chf. Advised pt to see pulm and hydrator operator for her pum htn and to discuss this with pcp. Has not seen pulmonary for over 5 yrs due to cost. Has not seen hydrator operator or had an echo since 2014. Assessment & Plan (01/27/2021 2:02 PM CDT): Has pulmonary htn and a rt lung nodule. Has not seen pulmonary for over 5 yrs due to cost. Has not seen hydrator operator or had an echo since 2014. Advised her to f/u with both. Assessment & Plan (12/19/2020 7:56 AM CDT): Has pulmonary htn and a rt lung nodule. Seeing pulm but has not seen hydrator operator yet. Was referred several times in past but states she can't afford the copays. Assessment & Plan (09/23/2020 7:34 AM SHELL TRIM OPERATOR): Has pulmonary htn and a rt lung nodule. Seeing pulm but has not seen hydrator operator yet. Was referred several times in past but states she can't afford the copays. Assessment & Plan (06/27/2020 5:10 PM SHELL TRIM OPERATOR): Has pulmonary htn and a rt lung nodule. Seeing pulm but has not seen hydrator operator yet. Was referred several times in past but states she can't afford the copays. Assessment & Plan (04/27/2020 1:18 PM CDT): Has pulmonary htn and a rt lung nodule. In past she was referred to social work program coordinator in past or eval of her pulm htn and to hydrator operator but has not f/u in over 5 yrs. Has made appt to see pulm this month. Advised to also see opth for yearly eye exam. Gave pt referral for cxr, and echo, pft's at past visits but she has not done them. States she can't afford all the copays. Advised her again to schedule them. Assessment & Plan (01/21/2020 3:57 PM CDT): Was referred to social work program coordinator in past or eval of her pulm htn and to hydrator operator but has not f/u in over 5 yrs. Advised to also see opth for yearly eye exam. Gave pt referral for cxr, and echo, pft's at past visits but she has not done them. States she can't afford all the copays. Advised her again to schedule them. Assessment & Plan (10/28/2019 2:10 PM CDT): Was referred to social work program coordinator in past or eval of her pulm htn and to hydrator operator but has not f/u in over 5 yrs. Advised to also see opth for yearly eye exam. Gave pt referral for cxr, and echo, pft's at past visits but she has not done them. States she can't afford all the copays. Advised her again to schedule them. Assessment & Plan (06/26/2019 8:23 AM SHELL TRIM OPERATOR): Was referred to social work program coordinator in past or eval of her pulm htn and to hydrator operator but has not f/u in over 2 yrs. Advised to also see opth for yearly eye exam. Gave pt referral for cxr, and echo, pft's at past visits but she has not done them. States she can't afford all the copays. Advised her again to schedule them. Assessment & Plan (04/06/2019 8:37 AM CDT): Was referred to social work program coordinator in past or eval of her pulm htn and to hydrator operator but has not f/u in over 2 yrs. Advised to also see opth for yearly eye exam. Gave pt referral for cxr, and echo, pft's at past visits but she has not done them. States she can't afford all the copays. Advised her again to schedule them. Hypertensive heart disease with congestive heart failure 07/12/2015 Overview (11/16/2016): Hypertensive heart disease with CHF Cardiomyopathy 07/12/2015 Overview (11/16/2016): Cardiomyopathy Essential hypertension 03/04/2015 Overview (11/16/2016): HTN (hypertension) Assessment & Plan (11/23/2021 6:03 PM CDT): A month ago we stopped arava in case it caused her htn but bp was similar after 2 weeks of stopping it so pt restarted her arava because her joints were worse when she stopped it. BP still elevated and had an abn echo with enlarged heart diastolic dysfunction, was advised to see her hydrator operator for treating her htn and for her abn echo. Assessment & Plan (10/19/2021 4:29 PM SHELL TRIM OPERATOR): bp elevated 150/90 and pulse 110. No cp or chest pressure. Seen with Dr. Hoffman today. Will stop arava in case it is worsening her bp. She has seen pcp recently for her hyperlipidemia and htn and was advised to work on diet and exercise, her meds were not changed she states. She was informed to let pcp know about her htn again. If she has any sob, cp, chest pressure to call 911. She was informed that her elevated bp can also affect her kidney fx and increase risk of mi/cva. Rheumatoid arthritis 03/04/2015 Overview (11/16/2016): RA (rheumatoid arthritis) Left bundle branch block (LBBB) 03/04/2015 Overview (11/16/2016): LBBB (left bundle branch block) Hyperlipidemia 03/04/2015 Overview (11/16/2016): HLD (hyperlipidemia) Assessment & Plan (04/02/2022 2:22 PM CDT): Her ldl was elevated in march with hydrator operator at 153. Due to her hx of RA and Sle she is at increased risk of CAD and recommend she discuss starting meds for her cholesterol with Dr Brown her hydrator operator. She had SE to lipitor and crestor in past. Assessment & Plan (10/19/2021 4:26 PM SHELL TRIM OPERATOR): LDL at last visit was very high at 190. Due to her RA and sle and hypertension she has an increased risk of CAD. Recommended she speak to pcp about getting on medication to lower cholesterol to below 100, she did not tolerate statin in past and another statin that got recalled. she is trying to work on diet. Assessment & Plan (07/21/2021 4:18 PM SHELL TRIM OPERATOR): Requesting that we check her cholesterol with today's labs. Not fasting so will check direct LDL. Systemic lupus erythematosus (CMS/HCC) 5 Overview (11/16/2016): Lupus Assessment & Plan (07/29/2024 8:36 AM SHELL TRIM OPERATOR): Low cdai. On plaquenil 200 mg po every day. Advised pt to get yearly eye exam while on plaquenil to check for plaquenil toxicity. Assessment & Plan (04/30/2024 4:29 PM CDT): Low cdai. On plaquenil 200 mg po every day. Advised pt to get yearly eye exam while on plaquenil to check for plaquenil toxicity. Assessment & Plan (01/30/2024 5:38 PM CDT): Low cdai. On plaquenil 200 mg po every day. Advised pt to get yearly eye exam while on plaquenil to check for plaquenil toxicity. Assessment & Plan (10/31/2023 8:37 AM CDT): Low-mod cdai. On plaquenil 200 mg po every day. Assessment & Plan (08/01/2023 4:15 PM SHELL TRIM OPERATOR): Low-mod cdai. On plaquenil 200 mg po every day. Assessment & Plan (05/29/2023 8:11 AM CDT): Low cdai. On plaquenil 200 mg po every day. Assessment & Plan (04/29/2023 1:11 PM CDT): Low cdai. On plaquenil 200 mg po every day. Assessment & Plan (04/01/2023 1:24 PM CDT): Low cdai. On plaquenil 200 mg po every day. Arava stopped due to lft elevation, most likely aquino. Lft's have normalized off arava, recheck labs today. Check TPMT nad discussed adding imuran next if her joint swelling worsens in 1month. Has hx of pulm htn and esophageal stenosis. Has not seen gi for esophageal stenosis symptoms again. No skin changes or sclerodactyly. Is overdue for pft's and has echo scheduled finally next week. Cxr done in december at [facility], we do not have it, will get copy. Has hx of pulm htn and sleep apnea, can't tolerate cpap or use a dental appliance due to poor dentition. Past serologies showed + hep 2 and + anti carbamylated. 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 Demarco alba had enthesopathy on xrays 10/28 so she can have a spondyloarthropathy also. TSH checked recently at [facility] 03/2020: Assessment & Plan (12/31/2022 8:11 AM CDT): Images from the original note were not included. Low cdai. On plaquenil 200 mg po every day. . Pt advised to get eye exams q 6 months but admits that she has not been compliant with her eye exams. Again encouraged her to make appt every 6 mo for eye exam with opth. Check labs today. Has hx of pulm htn and esophageal stenosis. Has not seen gi for esophageal stenosis symptoms again. No skin changes or sclerodactyly. Past serologies showed + hep 2 and + anti carbamylated. 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 Demarco alba had enthesopathy on xrays 10/28 so she can have a spondyloarthropathy also. TSH checked recently at [facility] 03/2020: Assessment & Plan (10/08/2022 4:47 PM SHELL TRIM OPERATOR): Images from the original note were not included. Low cdai. On plaquenil 200 mg po every day. . Pt advised to get eye exams q 6 months but admits that she has not been compliant with her eye exams. Again encouraged her to make appt every 6 mo for eye exam with opth. Check labs today. Has hx of pulm htn and esophageal stenosis. Has not seen gi for esophageal stenosis symptoms again. No skin changes or sclerodactyly. Past serologies showed + hep 2 and + anti carbamylated. 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 Demarco alba had enthesopathy on xrays 10/28 so she can have a spondyloarthropathy also. TSH checked recently at [facility] 03/2020: Assessment & Plan (07/09/2022 2:35 PM SHELL TRIM OPERATOR): Images from the original note were not included. Low cdai. [employer] was ok with lowering plaquenil dose to 200 mg po every day in past. Pt advised to get eye exams q 6 months but admits that she has not been compliant with her eye exams. Again encouraged her to make appt every 6 mo for eye exam with opth. Check labs today. Has hx of pulm htn and esophageal stenosis. Wants to see gi soon for esophageal stenosis symptoms again. No skin changes or sclerodactyly. Sees hydrator operator also. Past serologies showed + hep 2 and + anti carbamylated. 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 Demarco alba had enthesopathy on xrays 3 so she can have a spondyloarthropathy also. TSH checked recently at [facility] 03/2020: Assessment & Plan (04/02/2022 4:22 PM CDT): Images from the original note were not included. Low cdai. [employer] was ok with lowering plaquenil dose to 200 mg po every day in past. Pt advised to get eye exams q 6 months.. Check labs today. Has hx of pulm htn and esophageal stenosis. No skin changes or sclerodactyly. Sees hydrator operator. Past serologies showed + hep 2 and + anti carbamylated. 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 Demarco alba had enthesopathy on xrays 10/28 so she can have a spondyloarthropathy also. TSH checked recently at w[facility]. [facility] 03/2020: Assessment & Plan (11/23/2021 8:31 AM CDT): Images from the original note were not included. Low cdai. [employer] was ok with lowering plaquenil dose to 200 mg po every day. Check labs. Has hx of pulm htn and esophageal stenosis. No skin changes or sclerodactyly. Has echo with hydrator operator next week. Advised pt to let her hydrator operator know about her elevated bp and cholesterol also. Past serologies showed + hep 2 and + anti carbamylated. 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 Demarco alba had enthesopathy on xrays 10/28 so she can have a spondyloarthropathy also. She also has thyroid antibodies, she was advised to discuss this with pcp in past. [facility] 03/2020: Assessment & Plan (10/19/2021 4:33 PM SHELL TRIM OPERATOR): Images from the original note were not included. Low cdai. [employer] was ok with lowering plaquenil dose to 200 mg po every day. Check labs. Has hx of pulm htn and esophageal stenosis. No skin changes or sclerodactyly. Has echo with hydrator operator next week. Advised pt to let her hydrator operator know about her elevated bp and cholesterol also. Past serologies showed + hep 2 and + anti carbamylated. 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 Demarco alba had enthesopathy on xrays 3/19 so she can have a spondyloarthropathy also. She also has thyroid antibodies, she was advised to discuss this with pcp in past. [facility] 03/2020: Assessment & Plan (07/21/2021 4:05 PM SHELL TRIM OPERATOR): Images from the original note were not included. Mod cdai. [employer] was ok with lowering plaquenil dose to 200 mg po every day. Check labs. Past serologies showed + hep 2 and + anti carbaylated. 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 Demarco alba had enthesopathy on xrays 3/19 so she can have a spondyloarthropathy also. She also has thyroid antibodies, she was advised to discuss this with pcp in past [facility] 03/2020: Assessment & Plan (04/28/2021 2:28 PM CDT): Images from the original note were not included. low cdai. [employer] was ok with lowering plaquenil dose to 200 mg po every day. Check labs. Past serologies showed + hep 2 and + anti carbaylated. 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 Demarco alba had enthesopathy on xrays 3/19 so she can have a spondyloarthropathy also. She also has thyroid antibodies, she was advised to discuss this with pcp in past [facility] 03/2020: Assessment & Plan (01/27/2021 5:02 PM CDT): Images from the original note were not included. Mod cdai. [employer] was ok with lowering plaquenil dose to 200 mg po every day. Check labs. Past serologies showed + hep 2 and + anti carbaylated. 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 Demarco alba had enthesopathy on xrays 3 so she can have a spondyloarthropathy also. She also has thyroid antibodies, she was advised to discuss this with pcp in past [facility] 03/2020: Assessment & Plan (12/19/2020 2:35 PM CDT): Images from the original note were not included. High cdai but mostly tender joints, not many swollen. [employer] was ok with lowering dose to 200 mg po every day. Check labs. Past serologies showed + hep 2 and + anti carbaylated. She could have an overlap of RA and SLE. Demarco alba had enthesopathy on xrays 3 so she can have a spondyloarthropathy also. She also has thyroid antibodies, she was advised to discuss this with pcp in past. Check tsh today. . Thinks she has been on plaquenil for 8 yrs. [employer] said it was fine to continue lower dose of HCQ. Is finally seeing a social work program coordinator for a lung nodule, her pcp referred her to pulm closer to her house. [facility] 03/2020: Assessment & Plan (09/23/2020 5:14 PM SHELL TRIM OPERATOR): Images from the original note were not included. Mod cdai. Pt had 2 erosions on hand US 03/2020, she has an overlap of RA and SLE. Pt is on arava 20mg every day and plaquenil 200mg qd. Has been on plaquenil for 8 yrs and instead of stopping it opth was ok with lowering dose to 200 mg po every day. Will continue it. Past serologies showed + hep 2 and + anti carbaylated. She could have an overlap of RA and SLE. Demarco alba had enthesopathy on xrays 10/28 so she can have a spondyloarthropathy also. She also has thyroid antibodies, she was advised to discuss this with pcp in past but once again has not seen her pcp for months she states. No hx of psoriasis. Thinks she has been on plaquenil for 8 yrs. [employer] said it was fine to continue lower dose of HCQ. Is finally seeing a social work program coordinator for a lung nodule, her pcp referred her to pulm closer to her house. [facility] 03/2020: Assessment & Plan (06/27/2020 5:08 PM SHELL TRIM OPERATOR): Images from the original note were not included. Mod cdai. Pt had 2 erosions on hand US 03/2020, she appears to have an overlap of RA and SLE. Pt is on arava 20mg every day and plaquenil 200mg qd. Has been on plaquenil for 8 yrs and instead of stopping it opth was ok with lowering dose to 200 mg po every day. Will continue it until next visit and stop it. Past serologies showed + hep 2 and + anti carbaylated. She could have an overlap of RA and SLE. Demarco alba had enthesopathy on xrays 10/28 so she can have a spondyloarthropathy also. She also has thyroid antibodies, she was advised to discuss this with pcp in past but once again has not seen her pcp for months she states. No hx of psoriasis. Thinks she has been on plaquenil for 8 yrs. [employer] said it was fine to continue lower dose of HCQ. Is finally seeing a social work program coordinator for a lung nodule, her pcp referred her to pulm closer to her house. [facility] 03/2020: Assessment & Plan (04/27/2020 1:20 PM CDT): Images from the original note were not included. High cdai. Pt had 2 erosions on hand US 03/2020, she appears to have an overlap of RA and SLE. Pt is on arava 20mg every day and plaquenil 200mg qd. Has been on plaquenil for 8 yrs and instead of stopping it opth was ok with lowering dose to 200 mg po every day. Will continue it until next visit and stop it. Past serologies showed + hep 2 and + anti carbaylated. She could have an overlap of RA and SLE. Demarco alba had enthesopathy on xrays 10/28 so she can have a spondyloarthropathy also. She also has thyroid antibodies, she was advised to discuss this with pcp in past but once again has not seen her pcp for months she states. No hx of psoriasis. Thinks she has been on plaquenil for 8 yrs, will continue 200mg qd until rest of the year. [employer] said it was fine to continue lower dose of HCQ. Advised again to see her hydrator operator and pulm for pft, cxr and echo, was given referral at last visits, pt states she can't afford to see more doctors. Advised to get prevnar 13 and shingrix. Had her flu vaccine. Gave her another cxr referral. [facility] 03/2020: Assessment & Plan (01/27/2020 2:18 PM CDT): mod cdai. Pt is on arava 20mg every day and plaquenil 200mg qd. Has been on plaquenil for 8 yrs. Will continue it until next visit and stop it. She felt better when she was on it. Recommended we add benlysta but she declines. Her eye exam is utd and opth per pt allowed her to use it, will get notes. Past serologies showed + hep 2 and + anti carbaylated. She could have an overlap of RA and SLE. Demarco alba had enthesopathy on xrays 10/28 so she can have a spondyloarthropathy also. She also has thyroid antibodies, she was advised to discuss this with pcp in past but once again has not seen her pcp for months she states. No hx of psoriasis. Thinks she has been on plaquenil for 8 yrs, will continue 200mg qd until rest of the year. [employer] said it was fine to continue lower dose of HCQ. Advised again to see her hydrator operator and pulm for pft, cxr and echo, was given referral at last visits, pt states she can't afford to see more doctors. advised to get prevnar 13 and shingrix. Had her flu vaccine. Gave her another cxr referral. Assessment & Plan (10/28/2019 2:09 PM CDT): Low mod cdai but gave herself a low score for pain. Pt is on arava 20mg qd and HCQ 400mg qd. Past serologies showed + hep 2 and + anti carbaylated. She could have an overlap of RA and SLE. Demarco alba had enthesopathy on xrays 10/28 so she can have a spondyloarthropathy also. She also has thyroid antibodies, she was advised to discuss this with pcp in past but once again has not seen her pcp for months she states. No hx of psoriasis. Thinks she has been on plaquenil for 8 yrs, will continue 200mg qd until rest of the year. [employer] said it was fine to continue lower dose of HCQ. Advised again to see her hydrator operator and pulm for pft, cxr and echo, was given referral at last visits, pt states she can't afford to see more doctors. advised to get prevnar 13 and shingrix. Had her flu vaccine. Gave her another cxr referral since she is having some voice loss and cough. Advised her to ask pcp for referral to neuro for her falling and to ent for her voice loss. Assessment & Plan (06/29/2019 12:34 PM SHELL TRIM OPERATOR): high cdai. Pt is on arava 20mg qd and HCQ 400mg qd. Past serologies showed + hep 2 and + anti carbaylated. She could haven an overlap of RA and SLE. Demarco alba had enthesopathy on xrays 10/28 so she can have a spondyloarthropathy also . She also had also has thyroid antibodies, she was advised to discuss this with pcp. No hx of psoriasis. Thinks she has been on plaquenil for 8 yrs, will continue 200mg qd until rest of the year. Advised again to see her hydrator operator and pulm for pft, cxr and echo, was given referral at last visits, pt states she can't afford to see more doctors. advised to get prevnar 13 and shingrix. Had her flu vaccine. Assessment & Plan (04/06/2019 2:16 PM CDT): high cdai. Pt is on arava 20mg qd and HCQ 400mg qd. Past serologies showed + hep 2 and + anti carbaylated. She could haven an overlap of RA and SLE. Demarco alba had enthesopathy on xrays 10/28 so she can have a spondyloarthropathy also . She also had also has thyroid antibodies, she was advised to discuss this with pcp. No hx of psoriasis. Thinks she has been on plaquenil for 8 yrs, will continue 200mg qd until rest of the year. Advised her to get yearly eye exam while on this not compliant with eye exam, pt states she has not had an eye exam in over 3 yrs, advised her to make appt with opth. TMPt was wnl so we can switch to imuran if we need to. Again recommended adding belysta. Advised again to see her hydrator operator and pulm for pft, cxr and echo, was given referral at last visits, pt states she can't afford to see more doctors. Disorder of connective tissue 12/25/2010 Overview (11/16/2016): Connective tissue disease Disorder of joint 12/07/2010 Overview (11/17/2016): ARTHROPATHY NOS-UNSPEC Resolved Problems Problem Noted Date Diagnosed Date Resolved Date DUBON (dyspnea on exertion) 03/14/2022 Assessment & Plan (12/31/2022 4:03 PM CDT): Having increasing dubon in past few months. Has not had echo since 2020 but had a nl stress test 04/02. Will refer her for pft, echo and cxr. If dubon worsens advised pt to go to ER. Advised to work on weight loss, she is morbidly obese. Blood glucose abnormal 07/21/202103/14 Assessment & Plan (07/21/2021 4:19 PM SHELL TRIM OPERATOR): Has gained weight and occ bg is elevated. Is requesting that we check her for dm2 with today's labs. Check hgba1c. Tongue pain 12/19/2020 03/14/2022 Assessment & Plan (12/19/2020 2:37 PM CDT): Check b12 and tsh. Abdominal pain 12/19/2020 03/14/2022 Assessment & Plan (12/19/2020 2:37 PM CDT): Check labs. Pt to call dr sanders and tell him about the abd pain. Check ua, amylase, lipase, cbc, cmp. Seen with dr pierre. Leg cramps 06/29/2019 03/14/2022 Assessment & Plan (01/21/2020 3:58 PM CDT): Normal cpk and aldolase on 06/2019 visit. Assessment & Plan (06/29/2019 12:35 PM SHELL TRIM OPERATOR): Check cpk and aldolase. Normal muscle strength on exam and no LE edema and neg lalit sign bilat LE. Abnormal laboratory test result 04/06/2019 03/14/2022 Assessment & Plan (07/21/2021 4:19 PM SHELL TRIM OPERATOR): has thyroid antibodies, pt given copies of labs in past and she was advised to address this with pcp. TSH wnl 01/2020. Will recheck tsh today. On levothyroxine 25 mcg sat-sat and 50mcg on Saturday. Assessment & Plan (01/26/2021 11:44 AM CDT): has thyroid antibodies, pt given copies of labs in past and she was advised to address this with pcp. TSH wnl 01/2020. Assessment & Plan (12/19/2020 7:56 AM CDT): has thyroid antibodies, pt given copies of labs in past and she was advised to address this with pcp. TSH wnl 01/2020. Assessment & Plan (09/23/2020 7:34 AM SHELL TRIM OPERATOR): has thyroid antibodies, pt given copies of labs in past and she was advised to address this with pcp. TSH wnl 01/2020. Assessment & Plan (06/27/2020 8:41 AM SHELL TRIM OPERATOR): has thyroid antibodies, pt given copies of labs in past and she was advised to address this with pcp. TSH wnl 01/2020. Assessment & Plan (04/27/2020 7:36 AM CDT): has thyroid antibodies, pt given copies of labs in past and she was advised to address this with pcp. TSH wnl 01/2020. Assessment & Plan (01/27/2020 2:19 PM CDT): has thyroid antibodies, pt given copies of labs in past and she was advised to address this with pcp. TSH wnl in March 2019 but per pt she discussed this with pcp but tsh has not been checked since we checked it last year. Will add it to her labs today. Assessment & Plan (10/23/2019 3:45 PM CDT): has thyroid antibodies, pt given copies of labs in past and she was advised to address this with pcp. TSH wnl in March 2019. Assessment & Plan (06/26/2019 8:25 AM SHELL TRIM OPERATOR): has thyroid antibodies, pt given copies of labs in past and she was advised to address this with pcp. TSH wnl in March. Assessment & Plan (04/06/2019 8:37 AM CDT): has thyroid antibodies, pt given copies of labs in past and she was advised to address this with pcp. Check tsh today. Encounter for long-term (cur rent) use of other medications 01/30/2017 08/01/2023 Assessment & Plan (08/01/2023 8:32 AM SHELL TRIM OPERATOR): Hand US 03/2020 lunate and 5th mcp erosions Allx to mtx LFT elevation with arava, stopped 01/2023. Cxr nl 01/2023. [facility] 01/2020---Prabha 1:160. tpo pos. [facility] panel 10/2018---showed + hep 2 and + anti carbamylated and thyroid antibodies [facility] 10/2017---[facility] panel showed + hep 2 and + anti carbaylated. Also has thyroid antibodies. Cxr neg 02/2020 rt lung nodule, addressed by pcp, CT recommended. Started plaquenil 1 tab po qd 2010. 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 on xrays 10/28 Hep B and C neg 02/2019 Quant gold neg 04/2020 [facility] 01/2020---Prabha 1:160. tpo pos. Assessment & Plan (05/29/2023 8:12 AM CDT): Hand US 03/2020 lunate and 5th mcp erosions Allx to mtx LFT elevation with arava, stopped 01/2023. Cxr nl 01/2023. [facility] 01/2020---Prabha 1:160. tpo pos. [facility] panel 10/2018---showed + hep 2 and + anti carbamylated and thyroid antibodies [facility] 10/2017---[facility] panel showed + hep 2 and + anti carbaylated. Also has thyroid antibodies. Cxr neg 02/2020 rt lung nodule, addressed by pcp, CT recommended. Started plaquenil 1 tab po qd 2010. 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 on xrays 10/28 Hep B and C neg 02/2019 Quant gold neg 04/2020 [facility] 01/2020---Prabha 1:160. tpo pos. Assessment & Plan (04/29/2023 1:56 PM CDT): Hand US 03/2020 lunate and 5th mcp erosions Allx to mtx LFT elevation with arava, stopped 01/2023. Cxr nl 01/2023. [facility] 01/2020---Prabha 1:160. tpo pos. [facility] panel 10/2018---showed + hep 2 and + anti carbamylated and thyroid antibodies [facility] 10/2017---[facility] panel showed + hep 2 and + anti carbaylated. Also has thyroid antibodies. Cxr neg 02/2020 rt lung nodule, addressed by pcp, CT recommended. Started plaquenil 1 tab po qd 2010. 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 on xrays 10/28 Hep B and C neg 02/2019 Quant gold neg 04/2020 [facility] 01/2020---Prabha 1:160. tpo pos. Assessment & Plan (04/01/2023 3:19 PM CDT): Hand US 03/2020 lunate and 5th mcp erosions Allx to mtx sq LFT elevation with arava, stopped 01/2023. Cxr nl 01/2023. [facility] 01/2020---Prabha 1:160. tpo pos. [facility] panel 10/2018---showed + hep 2 and + anti carbamylated and thyroid antibodies [facility] 10/2017---[facility] panel showed + hep 2 and + anti carbaylated. Also has thyroid antibodies. Cxr neg 02/2020 rt lung nodule, addressed by pcp, CT recommended. Started plaquenil 1 tab po qd 2010. 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 on xrays 10/28 Hep B and C neg 02/2019 Quant gold neg 04/2020 [facility] 01/2020---Prabha 1:160. tpo pos. Assessment & Plan (12/31/2022 8:11 AM CDT): Hand US 03/2020 lunate and 5th mcp erosions Allx to mtx sq [facility] 01/2020---Prabha 1:160. tpo pos. [facility] panel 10/2018---showed + hep 2 and + anti carbamylated and thyroid antibodies [facility] 10/2017---[facility] panel showed + hep 2 and + anti carbaylated. Also has thyroid antibodies. Cxr neg 02/2020 rt lung nodule, addressed by pcp, CT recommended. Started plaquenil 1 tab po qd 2010. 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 on xrays 10/28 Hep B and C neg 02/2019 Quant gold neg 04/2020 [facility] 01/2020---Prabha 1:160. tpo pos. Assessment & Plan (10/05/2022 4:00 PM SHELL TRIM OPERATOR): Hand US 03/2020 lunate and 5th mcp erosions Allx to mtx sq [facility] 01/2020---Prabha 1:160. tpo pos. [facility] panel 10/2018---showed + hep 2 and + anti carbamylated and thyroid antibodies [facility] 10/2017---[facility] panel showed + hep 2 and + anti carbaylated. Also has thyroid antibodies. Cxr neg 02/2020 rt lung nodule, addressed by pcp, CT recommended. Started plaquenil 1 tab po qd 2010. 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 on xrays 10/28 Hep B and C neg 02/2019 Quant gold neg 04/2020 [facility] 01/2020---Prabha 1:160. tpo pos. Assessment & Plan (07/04/2022 4:38 PM SHELL TRIM OPERATOR): Hand US 03/2020 lunate and 5th mcp erosions Allx to mtx sq [facility] 01/2020---Prabha 1:160. tpo pos. [facility] panel 10/2018---showed + hep 2 and + anti carbamylated and thyroid antibodies [facility] 10/2017---[facility] panel showed + hep 2 and + anti carbaylated. Also has thyroid antibodies. Cxr neg 02/2020 rt lung nodule, addressed by pcp, CT recommended. Started plaquenil 1 tab po qd 2010. 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 on xrays 10/28 Hep B and C neg 02/2019 Quant gold neg 04/2020 [facility] 01/2020---Prabha 1:160. tpo pos. Assessment & Plan (03/30/2022 3:35 PM CDT): Hand US 03/2020 lunate and 5th mcp erosions Allx to mtx sq [facility] 01/2020---Prabha 1:160. tpo pos. [facility] panel 10/2018---showed + hep 2 and + anti carbamylated and thyroid antibodies [facility] 10/2017---[facility] panel showed + hep 2 and + anti carbaylated. Also has thyroid antibodies. Cxr neg 02/2020 rt lung nodule, addressed by pcp, CT recommended. Started plaquenil 1 tab po qd 2010. 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 on xrays 10/28 Hep B and C neg 02/2019 Quant gold neg 04/2020 [facility] 01/2020---Prabha 1:160. tpo pos. Assessment & Plan (11/23/2021 8:31 AM CDT): Hand US 03/2020 lunate and 5th mcp erosions Allx to mtx sq [facility] 01/2020---Prabha 1:160. tpo pos. [facility] panel 10/2018---showed + hep 2 and + anti carbamylated and thyroid antibodies [facility] 10/2017---[facility] panel showed + hep 2 and + anti carbaylated. Also has thyroid antibodies. Cxr neg 02/2020 rt lung nodule, addressed by pcp, CT recommended. Started plaquenil 1 tab po qd 2010. 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 on xrays 10/28 Hep B and C neg 02/2019 Quant gold neg 04/2020 [facility] 01/2020---Prabha 1:160. tpo pos. Assessment & Plan (10/19/2021 1:52 PM SHELL TRIM OPERATOR): Hand US 03/2020 lunate and 5th mcp erosions Allx to mtx sq [facility] 01/2020---Prabha 1:160. tpo pos. [facility] panel 10/2018---showed + hep 2 and + anti carbamylated and thyroid antibodies [facility] 10/2017---[facility] panel showed + hep 2 and + anti carbaylated. Also has thyroid antibodies. Cxr neg 02/2020 rt lung nodule, addressed by pcp, CT recommended. Started plaquenil 1 tab po qd 2010. 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 on xrays 10/28 Hep B and C neg 02/2019 Quant gold neg 04/2020 [facility] 01/2020---Prabha 1:160. tpo pos. Assessment & Plan (07/21/2021 11:48 AM SHELL TRIM OPERATOR): Hand US 03/2020 lunate and 5th mcp erosions [facility] 01/2020---Prabha 1:160. tpo pos. [facility] panel 10/2018---showed + hep 2 and + anti carbamylated and thyroid antibodies [facility] 10/2017---[facility] panel showed + hep 2 and + anti carbaylated. Also has thyroid antibodies. Cxr neg 02/2020 rt lung nodule, addressed by pcp, CT recommended. Started plaquenil 1 tab po qd 2010. 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 on xrays 10/28 Hep B and C neg 02/2019 Quant gold neg 04/2020 [facility] 01/2020---Prabha 1:160. tpo pos. Assessment & Plan (04/28/2021 8:10 AM CDT): Hand US 03/2020 lunate and 5th mcp erosions [facility] 01/2020---Prabha 1:160. tpo pos. [facility] panel 10/2018---showed + hep 2 and + anti carbamylated and thyroid antibodies [facility] 10/2017---[facility] panel showed + hep 2 and + anti carbaylated. Also has thyroid antibodies. Cxr neg 02/2020 rt lung nodule, addressed by pcp, CT recommended. Started plaquenil 1 tab po qd 2010. 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 on xrays 10/28 Hep B and C neg 02/2019 Quant gold neg 04/2020 [facility] 01/2020---Prabha 1:160. tpo pos. Assessment & Plan (01/26/2021 11:44 AM CDT): Hand US 03/2020 lunate and 5th mcp erosions [facility] 01/2020---Prabha 1:160. tpo pos. [facility] panel 10/2018---showed + hep 2 and + anti carbamylated and thyroid antibodies [facility] 10/2017---[facility] panel showed + hep 2 and + anti carbaylated. Also has thyroid antibodies. Cxr neg 02/2020 rt lung nodule, addressed by pcp, CT recommended. Started plaquenil 1 tab po qd 2010. 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 on xrays 10/28 Hep B and C neg 02/2019 Quant gold neg 04/2020 [facility] 01/2020---Prabha 1:160. tpo pos. Assessment & Plan (12/19/2020 7:56 AM CDT): Hand US 03/2020 lunate and 5th mcp erosions [facility] 01/2020---Prabha 1:160. tpo pos. [facility] panel 10/2018---showed + hep 2 and + anti carbamylated and thyroid antibodies [facility] 10/2017---[facility] panel showed + hep 2 and + anti carbaylated. Also has thyroid antibodies. Cxr neg 02/2020 rt lung nodule, addressed by pcp, CT recommended. Started plaquenil 1 tab po qd 2010. 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 on xrays 10/28 Hep B and C neg 02/2019 Quant gold neg 04/2020 [facility] 01/2020---Prabha 1:160. tpo pos. Assessment & Plan (09/23/2020 7:34 AM SHELL TRIM OPERATOR): Hand US 03/2020 lunate and 5th mcp erosions [facility] 01/2020---Prabha 1:160. tpo pos. [facility] panel 10/2018---showed + hep 2 and + anti carbamylated and thyroid antibodies [facility] 10/2017---[facility] panel showed + hep 2 and + anti carbaylated. Also has thyroid antibodies. Cxr neg 02/2020 rt lung nodule, addressed by pcp, CT recommended. Started plaquenil 1 tab po qd 2010. 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 on xrays 10/28 Hep B and C neg 02/2019 Quant gold neg 04/2020 [facility] 01/2020---Prabha 1:160. tpo pos. Assessment & Plan (06/27/2020 8:38 AM SHELL TRIM OPERATOR): Hand US 03/2020 lunate and 5th mcp erosions [facility] 01/2020---Prabha 1:160. tpo pos. [facility] panel 10/2018---showed + hep 2 and + anti carbamylated and thyroid antibodies [facility] 10/2017---[facility] panel showed + hep 2 and + anti carbaylated. Also has thyroid antibodies. Cxr neg 02/2020 rt lung nodule, addressed by pcp, CT recommended. Started plaquenil 1 tab po qd 2010. 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 on xrays 10/28 Hep B and C neg 02/2019 Quant gold neg 04/2020 [facility] 01/2020---Prabha 1:160. tpo pos. Assessment & Plan (04/27/2020 10:49 AM CDT): Hand US 03/2020 lunate and 5th mcp erosions [facility] 01/2020---Prabha 1:160. tpo pos. [facility] panel 10/2018---showed + hep 2 and + anti carbamylated and thyroid antibodies [facility] 10/2017---[facility] panel showed + hep 2 and + anti carbaylated. Also has thyroid antibodies. Cxr neg 02/2020 rt lung nodule, addressed by pcp, CT recommended. Started plaquenil 1 tab po qd 2010. 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 Also has thyroid antibodies. Cxr neg 10/2018 Started plaquenil 1 tab po qd 2010. 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 Also has thyroid antibodies. Cxr neg 10/2018 Started plaquenil 1 tab po qd 2010. 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 Also has thyroid antibodies. Cxr neg 10/2018 Started plaquenil 1 tab po qd 2010. 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 Also has thyroid antibodies. Cxr neg 10/2018 Started plaquenil 1 tab po qd 2010. 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 on xrays 10/28 Drug indicated 08/21/2012 03/14/2022 Overview (11/16/2016): LONG-TERM USE MEDS NEC Encounters Date Type Department Care Team Description 07/29/2024 2:30 PM SHELL TRIM OPERATOR Office Visit [address] [place] [address] Meeta Tolliver PA Systemic lupus erythematosus, unspecified SLE type, unspecified organ involvement status (HCC) (Primary Dx); Seronegative rheumatoid arthritis (CMS/HCC) (HCC); Encounter for long-term (current) use of medications; Age-related osteoporosis without current pathological fracture ; Right hip pain; Chronic right-sided low back pain with right-sided sciatica; Abnormal serum glucose level; Other fatigue; Vitamin D deficiency; Pulmonary hypertension (HCC) from Last 3 Months Immunizations Name Administration Dates Next Due Pneumococcal Polysaccharide PPV23 02/21/2015 Surgical History Surgery Date Site/Laterality Comments TUBAL LIGATION Bilateral tubal ligation KNEE ARTHROSCOPY 2009 Arthroscopy knee BREAST BIOPSY Breast biopsy BREAST LUMPECTOMY Left breast lumpectomy TUBAL LIGATION tubal ligation Medical History Medical History Date Comments Disorder of thyroid Thyroid dise ase Hypertension Hypertension Hx Other Medical RA and Lupus; C omments: [facility] 03/06/2015 - Hx Other Medical 1987 lumpectomy; Com ments: [facility] 03/06/2015 - Hx Other Medical ear surgery; Co mments: [facility] 03/06/2015 - Hx Other Medical nose surgery; C omments: [facility] 03/06/2015 - Hx Other Medical tubal liation; Comments: [facility] 03/06/2015 - Hx Other Medical lumpectomy; Com ments: [facility] 03/06/2015 - Family History Medical History Relation Name Comments Breast cancer Mother Cancer, breast ; Lupus Mother's Sister 2 Systemic l upus erythematosus; Diabetes Other Family history of Diabetes mellitus; Other Sister 2 FMS; Relation Name Status Comments Mother Mother's Sister 1 Alive Mother's Sister 2 Other Sister 1 Alive Sister 2 Social History Tobacco Use Types Packs/Day Years Used Date Smoking Tobacco: Never Tobacco Cessation:Counseling Given: Not Answered Alcohol Use Standard Drinks/Week Comments Yes 0 (1 standard drink = 0.6 oz pur e alcohol) AUDIT-C Answer Date Recorded Q1: How often do you have a drink containing alc ohol? Monthly or less 03/14/2022 Q2: How many drinks containi ng alcohol do you have on a typical day when you are drinking? 1 or 2 03/14/2022 Q3: How often do you have si x or more drinks on one occasion? Never 03/14/2022 Comments Unknown Sex and Gender Information Value Date Recorded Sex Assigned at Not on file Legal Sex Female 10:10 AM SHELL TRIM OPERATOR Gender Identity Not on file Sexual Orientation Not on file Obstetrics History Last Filed Vital Signs Vital Sign Reading Time Taken Comments Blood Pressure 156/84 07/29/2024 1:58 PM SHELL TRIM OPERATOR Pulse 89 07/29/2024 1:58 PM SHELL TRIM OPERATOR Temperature 37.5 C (99.5 F) 10/19/2021 1:19 PM SHELL TRIM OPERATOR Respiratory Rate - - Oxygen Saturation 96% 07/29/2024 1:58 PM SHELL TRIM OPERATOR Inhaled Oxygen Concentration - - Weight 107 kg (236 lb) 07/29/2024 1:58 PM SHELL TRIM OPERATOR Height 154.9 cm (5' 1 ) 07/29/2024 1:58 PM SHELL TRIM OPERATOR Body Mass Index 44.59 07/29/2024 1:58 PM SHELL TRIM OPERATOR Plan of Treatment Health Maintenance Due Date Last Done Comments Breast Cancer Screening-Mammogram 1956 Colon Cancer Screening-Colonoscopy 1956 Depression Screening 1956 Fall Risk Assessment 1956 Hepatitis C Screening 1956 Osteoporosis Screening-Bone Density Scan 1956 Hepatitis B Screening 1974 Zoster Vaccine (1 of 2) 1975 DTaP/Tdap/Td Vaccine (1 - Tdap) 03/11/2001 1 Pneumococcal vaccine 65+ (2 of 2 - PCV) 02/22/2016 0 02/21/2015 Well Visit 65+ 2021 Influenza Vaccine (#1) 2024 Procedures Procedure Name Priority Date/Time Associated Diagnosis Comments HEMOGLOBIN A1C Routine 07/29/2024 3:12 PM SHELL TRIM OPERATOR VITAMIN D 25 HYDROXY Routine 07/29/2024 3:12 PM SHELL TRIM OPERATOR VITAMIN B12 Routine 07/29/2024 3:12 PM SHELL TRIM OPERATOR TSH Routine 07/29/2024 3:12 PM SHELL TRIM OPERATOR ANTI-DOUBLE STRANDED DNA ANTIBODIES Routine 07/29/2024 3:12 PM SHELL TRIM OPERATOR Systemic lupus erythematosus, unspecified SLE type, unspecified organ involvement status (HCC) Seronegative rheumatoid arthritis (CMS/HCC) (HCC) Encounter for long-term (current) use of medications Age-related osteoporosis without current pathological fracture COMPREHENSIVE METABOLIC PANEL Routine 07/29/2024 3:12 PM SHELL TRIM OPERATOR Systemic lupus erythematosus, unspecified SLE type, unspecified organ involvement status (HCC) Seronegative rheumatoid arthritis (CMS/HCC) (HCC) Encounter for long-term (current) use of medications Age-related osteoporosis without current pathological fracture CRP (ACUTE PHASE) Routine 07/29/2024 3:1 2 PM SHELL TRIM OPERATOR Systemic lupus erythematosus, unspecified SLE type, unspecified organ involvement status (HCC) Seronegative rheumatoid arthritis (CMS/HCC) (HCC) Encounter for long-term (current) use of medications Age-related osteoporosis without current pathological fracture C3 COMPLEMENT Routine 07/29/2024 3:12 PM SHELL TRIM OPERATOR Systemic lupus erythematosus, unspecified SLE type, unspecified organ involvement status (HCC) Seronegative rheumatoid arthritis (CMS/HCC) (HCC) Encounter for long-term (current) use of medications Age-related osteoporosis without current pathological fracture C4 COMPLEMENT Routine 07/29/2024 3:12 PM SHELL TRIM OPERATOR Systemic lupus erythematosus, unspecified SLE type, unspecified organ involvement status (HCC) Seronegative rheumatoid arthritis (CMS/HCC) (HCC) Encounter for long-term (current) use of medications Age-related osteoporosis without current pathological fracture CBC WITH AUTO DIFFERENTIAL Routine 07/29/2024 3:12 PM SHELL TRIM OPERATOR Systemic lupus erythematosus, unspecified SLE type, unspecified organ involvement status (HCC) Seronegative rheumatoid arthritis (CMS/HCC) (HCC) Encounter for long-term (current) use of medications Age-related osteoporosis without current pathological fracture ERYTHROCYTE SEDIMENTATION RATE Routine 07/29/2024 3:12 PM SHELL TRIM OPERATOR Systemic lupus erythematosus, unspecified SLE type, unspecified organ involvement status (HCC) Seronegative rheumatoid arthritis (CMS/HCC) (HCC) Encounter for long-term (current) use of medications Age-related osteoporosis without current pathological fracture from Last 3 Months Results * Anti-double stranded DNA abs (07/29/2024 3:12 PM SHELL TRIM OPERATOR) [facility] DNA (DS) ab <1 IU/mL [facility] Comment: IU/mL Interpretation < or = 4 Negative 5-9 Indeterminate > or = 10 Positive Blood 07/29/2024 3:12 PM SHELL TRIM OPERATOR 07/29/2024 3:14 PM SHELL TRIM OPERATOR Narrative [facility] - 07/31/2024 4:02 AM SHELL TRIM OPERATOR PATIENT UNABLE TO VOID; ADVISED TO RETURN FOR COLLECTION. [facility] BLOOD ORDERAB LES Final Result Performing Organization Address [facility]/ZIP Co de Phone Number [facility] [address] [place] [address] * C4 complement (07/29/2024 3:12 PM SHELL TRIM OPERATOR) [facility] Complement component C4C 26 15 - 57 mg/dL [facility] Blood 07/29/2024 3:12 PM SHELL TRIM OPERATOR 07/29/2024 3:14 PM SHELL TRIM OPERATOR Narrative [facility] - 07/31/2024 4:02 AM SHELL TRIM OPERATOR PATIENT UNABLE TO VOID; ADVISED TO RETURN FOR COLLECTION. [facility] BLOOD ORDERAB LES Final Result Performing Organization Address [facility] Co de Phone Number [facility] [address] [place] [address] * (ABNORMAL) CBC with auto differential (07/29/2024 3:12 PM SHELL TRIM OPERATOR) [facility] WBC 4.0 3.8 - 10.8 Thousand/u L [facility] RBC, POC 3.62(L) 3.80 - 5.10 Million/uL [facility] Hgb 12.8 11.7 - 15.5 g/dL [facility] Hct 38.2 35.0 - 45.0 % [facility] MCV 105.5(H) 80.0 - 100.0 fL [facility] MCH 35.4(H) 27.0 - 33.0 pg [facility] MCHC 33.5 32.0 - 36.0 g/dL [facility] Comment: For adults, a slight decrease in the calculated MCHC value (in the range of 30 to 32 g/dL) is most likely not clinically significant; however, it should be interpreted with caution in correlation with other red cell parameters and the patient's clinical condition. Rdw 14.2 11.0 - 15.0 % [facility] Platelets 218 140 - 400 Thousand/u L [facility] MPV 10.4 7.5 - 12.5 fL [facility] Neutrophils, abs 2,368 1,500 - 7,800 cells/uL [facility] Lymphocytes, abs 972 850 - 3,900 cells/uL [facility] Monocyte abs 476 200 - 950 cells/uL [facility] Eosinophils, abs 152 15 - 500 cells/uL [facility] Basophils, abs 32 0 - 200 cells/uL [facility] Neutrophils 59.2 % [facility] Lymphocyte pct 24.3 % [facility] Monocytes 11.9 % [facility] Eosinophils 3.8 % [facility] Basophils 0.8 % [facility] Blood 07/29/2024 3:12 PM SHELL TRIM OPERATOR 07/29/2024 3:14 PM SHELL TRIM OPERATOR Narrative [facility] - 07/31/2024 4:02 AM SHELL TRIM OPERATOR PATIENT UNABLE TO VOID; ADVISED TO RETURN FOR COLLECTION. us Meeta CAMPBELL LAB BLOOD ORDERAB LES Final Result [facility] [address] [address] [address] * Vitamin D 25 hydroxy (07/29/2024 3:12 PM SHELL TRIM OPERATOR) Pathologist [facility] Vitamin D 25-OH 41 30 - 100 ng/mL [facility] Comment: Vitamin D Status 25-OH Vitamin D: Deficiency: <20 ng/mL Insufficiency: 20 - 29 ng/mL Optimal: > or = 30 ng/mL For 25-OH Vitamin D testing on patients on D2-supplementation and patients for whom quantitation of D2 and D3 fractions is required, the [facility](TM) 25-OH VIT D, (D2,D3), LC/MS/MS is recommended: order code 23411 (patients >2yrs). See Note 1 Note 1 For additional information, please refer to http://education.[employer]/faq/RAL057 (This link is being provided for informational/ educational purposes only.) 07/29/2024 3:12 PM SHELL TRIM OPERATOR 07/29/2024 3:14 PM SHELL TRIM OPERATOR Narrative [facility] - 07/31/2024 4:02 AM SHELL TRIM OPERATOR PATIENT UNABLE TO VOID; ADVISED TO RETURN FOR COLLECTION. Meeta Alysa Tolliver HI LAB BLOOD ORDERAB LES Final Result Performing Organization Address [facility]/ZIP Co de Phone Number [facility] [address] [place] [address] * Erythrocyte sedimentation rate (07/29/2024 3:12 PM SHELL TRIM OPERATOR) Erythrocyte sedimentation rate 28 < OR = 30 mm/h [facility] Blood 07/29/2024 3:12 PM SHELL TRIM OPERATOR 07/29/2024 3:14 PM SHELL TRIM OPERATOR Narrative [facility] - 07/31/2024 4:02 AM SHELL TRIM OPERATOR PATIENT UNABLE TO VOID; ADVISED TO RETURN FOR COLLECTION. Meetakrzysztof Tolliver [facility] LAB BLOOD ORDERAB LES Final Result Performing Organization Address [facility]/State/ZIP Co de Phone Number [facility] [address] [place] [address] * C3 complement (07/29/2024 3:12 PM SHELL TRIM OPERATOR) Complement component C3C 156 83 - 193 mg/dL [facility] Blood 07/29/2024 3:12 PM SHELL TRIM OPERATOR 07/29/2024 3:14 PM SHELL TRIM OPERATOR Narrative [facility] - 07/31/2024 4:02 AM SHELL TRIM OPERATOR PATIENT UNABLE TO VOID; ADVISED TO RETURN FOR COLLECTION. Meeta CAMPBELL LAB BLOOD ORDERAB LES Final Result Performing Organization Address [facility] Co de Phone Number [facility] [address] [place] [address] * CRP (acute phase) (07/29/2024 3:12 PM SHELL TRIM OPERATOR) [facility] C-RP <3.0 <8.0 mg/L [facility] Blood 07/29/2024 3:12 PM SHELL TRIM OPERATOR 07/29/2024 3:14 PM SHELL TRIM OPERATOR Narrative [facility] - 07/31/2024 4:02 AM SHELL TRIM OPERATOR PATIENT UNABLE TO VOID; ADVISED TO RETURN FOR COLLECTION. Meeta Tolliver HI LAB BLOOD ORDERAB LES Final Result Performing Organization Address [facility] de Phone Number QUE[facility] [address] [facility] [address] * TSH (07/29/2024 3:12 PM SHELL TRIM OPERATOR) [facility] TSH 0.44 0.40 - 4.50 mIU/L [facility] 07/29/2024 3:12 PM SHELL TRIM OPERATOR 07/29/2024 3:14 PM SHELL TRIM OPERATOR Narrative [facility] - 07/31/2024 4:02 AM SHELL TRIM OPERATOR PATIENT UNABLE TO VOID; ADVISED TO RETURN FOR COLLECTION. Meeta Tolliver HI LAB BLOOD ORDERAB LES Final Result Performing Organization Address [facility] de Phone Number [facility] [address] [place] [address] * (ABNORMAL) Hemoglobin A1c (07/29/2024 3:12 PM SHELL TRIM OPERATOR) [facility] Hgb A1C 5.8(H) <5.7 % of total Hgb [facility] Comment: For someone without known diabetes, a hemoglobin A1c value between 5.7% and 6.4% is consistent with prediabetes and should be confirmed with a follow-up test. For someone with known diabetes, a value <7% indicates that their diabetes is well controlled. A1c targets should be individualized based on duration of diabetes, age, comorbid conditions, and other considerations. This assay result is consistent with an increased risk of diabetes. Currently, no consensus exists regarding use of hemoglobin A1c for diagnosis of diabetes for children. 07/29/2024 3:12 PM SHELL TRIM OPERATOR 07/29/2024 3:14 PM SHELL TRIM OPERATOR Narrative [facility] - 07/31/2024 4:02 AM SHELL TRIM OPERATOR PATIENT UNABLE TO VOID; ADVISED TO RETURN FOR COLLECTION. Meeta CAMPBELL LAB BLOOD ORDERAB LES Final Result Performing Organization Address City/[facility]/ZIP Co de Phone Number [facility] [address] [place] [address] * Vitamin B12 (07/29/2024 3:12 PM SHELL TRIM OPERATOR) Pathologist [facility] Vitamin B12 420 200 - 1,100 pg/mL [facility] 07/29/2024 3:12 PM SHELL TRIM OPERATOR 07/29/2024 3:14 PM SHELL TRIM OPERATOR Narrative [facility] - 07/31/2024 4:02 AM SHELL TRIM OPERATOR PATIENT UNABLE TO VOID; ADVISED TO RETURN FOR COLLECTION. Meeta CAMPBELL LAB BLOOD ORDERAB LES Final Result [facility] [address] [place] [address] * (ABNORMAL) Comprehensive metabolic panel (07/29/2024 3:12 PM SHELL TRIM OPERATOR) Glucose 103(H) 65 - 99 mg/dL [facility] Comment: Fasting reference interval For someone without known diabetes, a glucose value between 100 and 125 mg/dL is consistent with prediabetes and should be confirmed with a follow-up test. BUN 14 7 - 25 mg/dL [facility] Creatinine 1.18(H) 0.50 - 1.05 mg/dL [facility] eGFR 50(L) > OR = 60 mL/min/1.7 3m2 [facility] BUN/creat ratio 12 6 - 22 (calc) [facility] Sodium 151(H) 135 - 146 mmol/L [facility] Potassium, pl 4.9 3.5 - 5.3 mmol/L [facility] Chloride 111(H) 98 - 110 mmol/L [facility] CO2 22 20 - 32 mmol/L [facility] Calcium 9.7 8.6 - 10.4 mg/dL [facility] Protein, sr 6.9 6.1 - 8.1 g/dL [facility] Albumin 4.6 3.6 - 5.1 g/dL [facility] GLOBULIN 2.3 1.9 - 3.7 g/dL (calc) [facility] Alb/glob ratio 2.0 1.0 - 2.5 (calc) [facility] Bilirubin, total 0.4 0.2 - 1.2 mg/dL [facility] Alk phos 80 37 - 153 U/L [facility] AST 20 10 - 35 U/L [facility] ALT (SGPT) 18 6 - 29 U/L [facility] Blood 07/29/2024 3:12 PM SHELL TRIM OPERATOR 07/29/2024 3:14 PM SHELL TRIM OPERATOR Narrative [facility] - 07/31/2024 4:02 AM SHELL TRIM OPERATOR PATIENT UNABLE TO VOID; ADVISED TO RETURN FOR COLLECTION. us Meeta CAMPBELL LAB BLOOD ORDERAB LES Final Result [facility] [address] [address] [place] [id number] from Last 3 Months Insurance MEDICARE [facility] Care Teams Risk Consulting Treasury Director Relationship Specialty Start Date End Date Chichi Watkins MD [address] [place] [address] PCP - General 11/09/16 Cindy Murphy MD [address] [place] [address] Consulting Physician Pulmonary Disease 09/27/20 Laura Crabtree MD [address] [place] [address] Consulting Physician Cardiology 11/27/21 Chepe Tijerina MD [address] [place] [address] Consulting Physician Rheumatology 09/23/23 Branden Gordon MD [address] [place] [address] Referring Physician Nephrology 11/01/23
--- OUTSIDE RECORDS SUMMARY | 2024-09-17 15:14 | XMS_ITS | Referral Summary ---
Author Organization [facility] [address] [facility] Address [facility] [place] [address] Phone Care Team Providers Care Research Instructor Name Role Phone Chichi Watkins MD Primary Care Provider Cindy Murphy MD Unavailable [phone] Laura Crabtree MD Unavailable [phone] Chepe Tijerina MD Unavailable [phone] Branden Gordon MD Unavailable [phone] Encounters Date Type Department Care Team Description 07/29/2024 2:30 PM ENVIRONMENTAL CONSERVATION PROFESSOR Office Visit [facility] [address] [place] [id number] Meeta Tolliver PA Systemic lupus erythematosus, unspecified SLE type, unspecified organ involvement status (HCC) (Primary Dx); Seronegative rheumatoid arthritis (CMS/HCC) (HCC); Encounter for long-term (current) use of medications; Age-related osteoporosis without current pathological fracture ; Right hip pain; Chronic right-sided low back pain with right-sided sciatica; Abnormal serum glucose level; Other fatigue; Vitamin D deficiency; Pulmonary hypertension (HCC) from Last 3 Months Allergies Active Allergy Reactions Criticality Noted Date [...] 07/29/2024 Assessment & Plan (07/29/2024 4:19 PM ENVIRONMENTAL CONSERVATION PROFESSOR): Check rt hip xray. Chronic right-sided low back pain with right-alin ed sciatica 07/29/2024 Assessment & Plan (07/29/2024 4:18 PM ENVIRONMENTAL CONSERVATION PROFESSOR): Full rom of bilat hips. Check rt hip, lumbar spine and si joint xrays. Abnormal serum glucose level 07/29/2024 Assessment & Plan (07/29/2024 4:18 PM ENVIRONMENTAL CONSERVATION PROFESSOR): Hx of abn hgba1c, not checked by pcp and last checked by us 01/2024, recheck today. Advised to work on weight loss. Other fatigue 07/29/2024 Assessment & Plan (07/29/2024 4:18 PM ENVIRONMENTAL CONSERVATION PROFESSOR): Check tsh, b12, hgba1c. Vitamin D deficiency 04/30/2024 Assessment & Plan (07/29/2024 4:19 PM ENVIRONMENTAL CONSERVATION PROFESSOR): Check vit d. Assessment & Plan (04/30/2024 [...] 10/31/2023 Assessment & Plan (07/29/2024 4:15 PM ENVIRONMENTAL CONSERVATION PROFESSOR): Sees dr gordon. Htn still not under control despite 3 htn meds. Sees him soon. Repeat bp lt arm sitting 150/80. Assessment & Plan (10/31/2023 5:44 PM CDT): Sees dr gordon. He started her on chlortalidone but after 1 tab it caused lip and tongue tingling/numbness. Contacted dr blanco call center at [facility] and let him know about this and gave call center pt's info. Advised pt to skip dose tomorrow and try to get hold of dr gordon if he does not call her and gave pt his office phone number. Diarrhea 04/29/2023 Assessment & Plan (04/29/2023 1:53 PM CDT): Bonita utd, dx with ibs in past. Check [...] not included. Advised pt to see her chair caner Dr Crabtree. BP still elevated and had an abn echo with enlarged heart diastolic dysfunction, was advised to see her chair caner for treating her htn and for her abn echo. Echo 07/2021 Hypothyroidism 07/21/2021 Assessment & Plan (07/21/2021 4:18 PM ENVIRONMENTAL CONSERVATION PROFESSOR): Check TSH. Age-related osteoporosis wit hout current pathological fracture 07/21/2021 Assessment & Plan (07/29/2024 4:14 PM ENVIRONMENTAL CONSERVATION PROFESSOR): bds stable 05/2022. Was due 06/2024 but was not able to get an appt at [facility] in [place] until next year. Continue ca and vit [...] bid. Assessment & Plan (08/01/2023 8:32 AM ENVIRONMENTAL CONSERVATION PROFESSOR): bds stable 05/2022. Is due again 06/2024. [...] bid. Assessment & Plan (10/05/2022 4:02 PM ENVIRONMENTAL CONSERVATION PROFESSOR): bds stable 05/2022. Continue ca and vit d 600mg po bid. Assessment & Plan (07/09/2022 1:19 PM ENVIRONMENTAL CONSERVATION PROFESSOR): bds stable 05/2022. Continue ca and vit d 600mg po bid. Assessment & Plan (04/02/2022 4:22 PM CDT): Will try to get copy of bds. Assessment & Plan (11/23/2021 8:33 AM CDT): Has not been able to get her bds until November, [facility] is backed up. Assessment & Plan (10/19/2021 1:51 PM ENVIRONMENTAL CONSERVATION PROFESSOR): Has not been able to get her bds until November, [facility] is backed up. Assessment & Plan (07/21/2021 4:19 PM ENVIRONMENTAL CONSERVATION PROFESSOR): Check bds. Weight gain 07/21/2021 Assessment & Plan (01/30/2024 5:37 PM CDT): Is morbidly obese, can't seem to lose weight. Drinks lots of lemonade and crystal light, has family hx of dm2. Check hgba1c. Also to discuss ozempic with pcp for weight loss. She might be able to qualify for free drug due to her low income. Assessment & Plan (07/21/2021 4:07 PM ENVIRONMENTAL CONSERVATION PROFESSOR): Has gained over 20 lb in past 2 yrs. Has hx of hypothyroidism. On levothyroxine. Check tsh today. Has not had this checked with pcp in over 4 months. Esophageal stenosis 01/27/2021 Assessment & Plan (07/21/2021 11:48 AM ENVIRONMENTAL CONSERVATION PROFESSOR): Had an esophageal stenosis dilated in december. [...] 04/12 Assessment & Plan (07/29/2024 4:16 PM ENVIRONMENTAL CONSERVATION PROFESSOR): Low cdai. Doing well on imuran, continue imuran to 100 mg every day. Recheck labs today. Has hx of pulm htn and esophageal stenosis. Has not seen gi for esophageal stenosis symptoms again. No skin changes or sclerodactyly. Seeing dr gordon now for her ckd. Her chair caner also retired, will refer her for her yearly pft and cxr. Previous history/labs/imaging: Echo 03/2023: Echo report below, has mild enlarged heart but good ef. Has an abn septal motion with possible bundle branch block. Impaired diastolic relaxation grade I. Send this to her chair caner and advised pt to f/u with him. [...] dr gordon now for her ckd. Her chair caner also retired, will refer her for her yearly echo (has hx of pulm htn) sees pulm and she is scheduled to have pft's soon. Previous history/labs/imaging: Echo 03/2023: Echo report below, has mild enlarged heart but good ef. Has an abn septal motion with possible bundle branch block. Impaired diastolic relaxation grade I. Send this to her chair caner and advised pt to f/u with him. [...] relaxation grade I. Send this to her chair caner and advised pt to f/u with him. [...] an overlap of RA and SLE. Demarco heel had enthesopathy on xrays 10/28 so [...] relaxation grade I. Send this to her chair caner and advised pt to f/u with him. [...] an overlap of RA and SLE. Demarco heel had enthesopathy on xrays 10/28 so she can have a spondyloarthropathy also. Assessment & Plan (08/01/2023 4:15 PM ENVIRONMENTAL CONSERVATION PROFESSOR): Low-mod cdai. Arava stopped due to lft [...] relaxation grade I. Send this to her chair caner and advised pt to f/u with him. [...] relaxation grade I. Send this to her chair caner and advised pt to f/u with him. [...] relaxation grade I. Send this to her chair caner and advised pt to f/u with him. [...] SLE. Assessment & Plan (10/05/2022 4:00 PM ENVIRONMENTAL CONSERVATION PROFESSOR): Low cdai. In past we recommended we [...] SLE. Assessment & Plan (07/09/2022 2:36 PM ENVIRONMENTAL CONSERVATION PROFESSOR): Low cdai. In past we recommended we [...] diastolic dysfunction, was advised to see her chair caner for treating her htn and for her abn echo. Assessment & Plan (10/19/2021 4:32 PM ENVIRONMENTAL CONSERVATION PROFESSOR): Low cdai. Recommended adding orencia but once [...] today. Assessment & Plan (07/21/2021 4:06 PM ENVIRONMENTAL CONSERVATION PROFESSOR): Mod cdai. Recommended adding orencia but once [...] it. Assessment & Plan (09/23/2020 5:15 PM ENVIRONMENTAL CONSERVATION PROFESSOR): Mod cdai. 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 Has hx of + anti-carbamyalted also. She has an overlap of RA and SLE. Recommended starting xeljanz but once again she declines, discussed potential se and risks, still declines meds. She was informed of continuing joint damage. Assessment & Plan (06/27/2020 5:08 PM ENVIRONMENTAL CONSERVATION PROFESSOR): Mod cdai. Pt has an erosive arthritis [...] PT. Assessment & Plan (09/23/2020 7:34 AM ENVIRONMENTAL CONSERVATION PROFESSOR): Declines further workup. Does not want to do PT. Assessment & Plan (06/27/2020 5:09 PM ENVIRONMENTAL CONSERVATION PROFESSOR): Declines further workup. Does not want to do PT. Assessment & Plan (01/21/2020 3:59 PM CDT): Check lumbar xray and start PT. Assessment & Plan (06/29/2019 12:35 PM ENVIRONMENTAL CONSERVATION PROFESSOR): Check lumbar xray and start PT. Encounter for long-term (current) use of medicat ions 10/24/2017 Assessment & Plan (07/29/2024 4:15 PM ENVIRONMENTAL CONSERVATION PROFESSOR): Hand US 03/2020 lunate and 5th mcp [...] aquino. Assessment & Plan (08/01/2023 4:16 PM ENVIRONMENTAL CONSERVATION PROFESSOR): Hand US 03/2020 lunate and 5th mcp [...] pos. Assessment & Plan (07/21/2021 4:17 PM ENVIRONMENTAL CONSERVATION PROFESSOR): Check bds, has not had one for years she states. Pulmonary hypertension 01/30/2017 Assessment & Plan (07/29/2024 4:16 PM ENVIRONMENTAL CONSERVATION PROFESSOR): Echo stable and utd 05/2024. Right ventricular systolic pressure could not be estimated due to inadequate visualization of the tricuspid regurgitation jet. Pt joshua f/u with chair caner q [address] laura crabtree. Still needs to see pulm for her yearly pft's. Gave pt referral for pft and cxr. Advised to work on weight loss. Assessment & Plan (04/30/2024 8:19 AM CDT): Echo stable and utd 03/2023. Right ventricular systolic pressure could not be estimated due to inadequate visualization of the tricuspid regurgitation jet. Pt joshua f/u with chair caner q [address] laura crabtree. Still needs to see pulm for her yearly pft's. Assessment & Plan (10/31/2023 8:38 AM CDT): Echo stable and utd 03/2023. Right ventricular systolic pressure could not be estimated due to inadequate visualization of the tricuspid regurgitation jet. Pt joshua f/u with chair caner q [address] laura crabtree. Still needs to see pulm for her yearly pft's. Assessment & Plan (08/01/2023 8:32 AM ENVIRONMENTAL CONSERVATION PROFESSOR): Echo stable and utd 03/2023. Right ventricular systolic pressure could not be estimated due to inadequate visualization of the tricuspid regurgitation jet. Pt joshua f/u with chair caner q [address] laura crabtree. Still needs to see pulm for her yearly pft's. Assessment & Plan (05/29/2023 8:12 AM CDT): Echo stable and utd 03/2023. Right ventricular systolic pressure could not be estimated due to inadequate visualization of the tricuspid regurgitation jet. Pt joshua f/u with chair caner q [address] laura crabtree. Still needs to see pulm for her yearly pft's. Assessment & Plan (04/29/2023 1:55 PM CDT): Echo stable and utd 03/2023. Right ventricular systolic pressure could not be estimated due to inadequate visualization of the tricuspid regurgitation jet. Pt joshua f/u with chair caner q [address] laura crabtree. Still needs to see pulm for her yearly pft's. Assessment & Plan (04/01/2023 3:19 PM CDT): Sees chair caner but not pulm. Has hx of tachycardia, chair caner is aware of this. Echo scheduled next week. Can't tolerate cpap and due to poor dentition can't use oral appliance for her sleep apnea. Cxr nl 01/2023. Assessment & Plan (12/31/2022 2:52 PM CDT): Saw chair caner for echo in past but has not f/u with him or associate entertainment editor. Has hx of tachycardia. Pt to let her pcp and chair caner know about her htn/tachycardia. States that pcp was aware of this and wanted pt to work on diet/weight loss. Pt is not eating any salt. Assessment & Plan (10/08/2022 4:46 PM ENVIRONMENTAL CONSERVATION PROFESSOR): Saw chair caner for echo in past but has not f/u with him or associate entertainment editor. Has hx of tachycardia. Pt to let her pcp and chair caner know about her htn/tachycardia. States that pcp was aware of this and wanted pt to work on diet/weight loss. Pt is not eating any salt. Assessment & Plan (07/04/2022 4:38 PM ENVIRONMENTAL CONSERVATION PROFESSOR): Saw chair caner for echo. Pt to let her pcp and chair caner know about her htn/tachycardia. States that pcp was aware of this and wanted pt to work on diet/weight loss. Pt is not eating any salt. Assessment & Plan (03/30/2022 3:36 PM CDT): Saw chair caner for echo. Pt to let her pcp and chair caner know about her htn/tachycardia. States that pcp was aware of this and wanted pt to work on diet/weight loss. Pt is not eating any salt. Assessment & Plan (11/23/2021 8:31 AM CDT): Saw chair caner for echo. Pt to let her pcp and chair caner know about her htn/tachycardia. States that pcp was aware of this and wanted pt to work on diet/weight loss. Pt is not eating any salt. Assessment & Plan (10/19/2021 1:54 PM ENVIRONMENTAL CONSERVATION PROFESSOR): Sees chair caner next week for echo. To have it sent to us also. Pt to let her pcp and chair caner know about her htn/tachycardia. States that pcp was aware of this and wanted pt to work on diet/weight loss. Pt is not eating any salt. Assessment & Plan (07/21/2021 4:17 PM ENVIRONMENTAL CONSERVATION PROFESSOR): Has been having LE edema. pcp started [...] insurance. In past she was referred to chair caner and pulm several times but due to finances she stated she could not afford to go. Her recent le edema could be early chf. Advised pt to see pulm and chair caner for her pum htn and to discuss this with pcp. Has not seen pulmonary for over 5 yrs due to cost. Has not seen chair caner or had an echo since 2014. Assessment & Plan (04/28/2021 2:30 PM CDT): Has been having LE edema. Pt has pulmonary htn and a rt lung nodule and hx of pulmonary hypertension. In past she was referred to chair caner and pulm several times but due to finances she stated she could not afford to go. Her recent le edema could be early chf. Advised pt to see pulm and chair caner for her pum htn and to discuss this with pcp. Has not seen pulmonary for over 5 yrs due to cost. Has not seen chair caner or had an echo since 2014. Assessment & Plan (01/27/2021 2:02 PM CDT): Has pulmonary htn and a rt lung nodule. Has not seen pulmonary for over 5 yrs due to cost. Has not seen chair caner or had an echo since 2014. Advised her to f/u with both. Assessment & Plan (12/19/2020 7:56 AM CDT): Has pulmonary htn and a rt lung nodule. Seeing pulm but has not seen chair caner yet. Was referred several times in past but states she can't afford the copays. Assessment & Plan (09/23/2020 7:34 AM ENVIRONMENTAL CONSERVATION PROFESSOR): Has pulmonary htn and a rt lung nodule. Seeing pulm but has not seen chair caner yet. Was referred several times in past but states she can't afford the copays. Assessment & Plan (06/27/2020 5:10 PM ENVIRONMENTAL CONSERVATION PROFESSOR): Has pulmonary htn and a rt lung nodule. Seeing pulm but has not seen chair caner yet. Was referred several times in past but states she can't afford the copays. Assessment & Plan (04/27/2020 1:18 PM CDT): Has pulmonary htn and a rt lung nodule. In past she was referred to associate entertainment editor in past or eval of her pulm htn and to chair caner but has not f/u in over 5 [...] (01/21/2020 3:57 PM CDT): Was referred to associate entertainment editor in past or eval of her pulm htn and to chair caner but has not f/u in over 5 yrs. Advised to also see opth for yearly eye exam. Gave pt referral for cxr, and echo, pft's at past visits but she has not done them. States she can't afford all the copays. Advised her again to schedule them. Assessment & Plan (10/28/2019 2:10 PM CDT): Was referred to associate entertainment editor in past or eval of her pulm htn and to chair caner but has not f/u in over 5 yrs. Advised to also see opth for yearly eye exam. Gave pt referral for cxr, and echo, pft's at past visits but she has not done them. States she can't afford all the copays. Advised her again to schedule them. Assessment & Plan (06/26/2019 8:23 AM ENVIRONMENTAL CONSERVATION PROFESSOR): Was referred to associate entertainment editor in past or eval of her pulm htn and to chair caner but has not f/u in over 2 yrs. Advised to also see opth for yearly eye exam. Gave pt referral for cxr, and echo, pft's at past visits but she has not done them. States she can't afford all the copays. Advised her again to schedule them. Assessment & Plan (04/06/2019 8:37 AM CDT): Was referred to associate entertainment editor in past or eval of her pulm htn and to chair caner but has not f/u in over 2 [...] diastolic dysfunction, was advised to see her chair caner for treating her htn and for her abn echo. Assessment & Plan (10/19/2021 4:29 PM ENVIRONMENTAL CONSERVATION PROFESSOR): bp elevated 150/90 and pulse 110. No [...] Her ldl was elevated in march with chair caner at 153. Due to her hx of RA and Sle she is at increased risk of CAD and recommend she discuss starting meds for her cholesterol with Dr Brown her chair caner. She had SE to lipitor and crestor in past. Assessment & Plan (10/19/2021 4:26 PM ENVIRONMENTAL CONSERVATION PROFESSOR): LDL at last visit was very high [...] diet. Assessment & Plan (07/21/2021 4:18 PM ENVIRONMENTAL CONSERVATION PROFESSOR): Requesting that we check her cholesterol with today's labs. Not fasting so will check direct LDL. Systemic lupus erythematosus (CMS/HCC) 5 Overview (11/16/2016): Lupus Assessment & Plan (07/29/2024 8:36 AM ENVIRONMENTAL CONSERVATION PROFESSOR): Low cdai. On plaquenil 200 mg po [...] day. Assessment & Plan (08/01/2023 4:15 PM ENVIRONMENTAL CONSERVATION PROFESSOR): Low-mod cdai. On plaquenil 200 mg po [...] next week. Cxr done in december at [facility], we do not have it, will get [...] at [facility]. Hand 03/2020: Assessment & Plan (12/31/2022 8:11 AM [...] also. TSH checked recently at [facility]. Hand US 03/2020: Assessment & Plan (10/08/2022 4:47 PM ENVIRONMENTAL CONSERVATION PROFESSOR): Images from the original note were not [...] at [facility]. Hand 03/2020: Assessment & Plan (07/09/2022 2:35 PM ENVIRONMENTAL CONSERVATION PROFESSOR): Images from the original note were not included. Low cdai. Employment Programs Analyst was ok with lowering plaquenil dose to [...] again. No skin changes or sclerodactyly. Sees chair caner also. Past serologies showed + hep 2 and + anti carbamylated. 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 Demarco alba had enthesopathy on xrays 3 so she can have a spondyloarthropathy also. TSH checked recently at [facility]. Hand 03/2020: Assessment & Plan (04/02/2022 4:22 PM CDT): Images from the original note were not included. Low cdai. Employment Programs Analyst was ok with lowering plaquenil dose to 200 mg po every day in past. Pt advised to get eye exams q 6 months.. Check labs today. Has hx of pulm htn and esophageal stenosis. No skin changes or sclerodactyly. Sees chair caner. Past serologies showed + hep 2 and + anti carbamylated. 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 Demarco alba had enthesopathy on xrays 3 so she can have a spondyloarthropathy also. TSH checked recently at [facility] Hand 03/2020: Assessment & Plan (11/23/2021 8:31 AM CDT): Images from the original note were not included. Low cdai. Employment Programs Analyst was ok with lowering plaquenil dose to 200 mg po every day. Check labs. Has hx of pulm htn and esophageal stenosis. No skin changes or sclerodactyly. Has echo with chair caner next week. Advised pt to let her chair caner know about her elevated bp and cholesterol also. Past serologies showed + hep 2 and + anti carbamylated. 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 Demarco heel had enthesopathy on xrays 3 so she can have a spondyloarthropathy also. She also has thyroid antibodies, she was advised to discuss this with pcp in past. Hand 03/2020: Assessment & Plan (10/19/2021 4:33 PM ENVIRONMENTAL CONSERVATION PROFESSOR): Images from the original note were not included. Low cdai. Employment Programs Analyst was ok with lowering plaquenil dose to 200 mg po every day. Check labs. Has hx of pulm htn and esophageal stenosis. No skin changes or sclerodactyly. Has echo with chair caner next week. Advised pt to let her chair caner know about her elevated bp and cholesterol also. Past serologies showed + hep 2 and + anti carbamylated. 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 Demarco heel had enthesopathy on xrays 3 so she can have a spondyloarthropathy also. She also has thyroid antibodies, she was advised to discuss this with pcp in past. Hand 03/2020: Assessment & Plan (07/21/2021 4:05 PM ENVIRONMENTAL CONSERVATION PROFESSOR): Images from the original note were not included. Mod cdai. Employment Programs Analyst was ok with lowering plaquenil dose to 200 mg po every day. Check labs. Past serologies showed + hep 2 and + anti carbaylated. 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 Bilat heel had enthesopathy on xrays 3 so she can have a spondyloarthropathy also. She also has thyroid antibodies, she was advised to discuss this with pcp in past Hand 03/2020: Assessment & Plan (04/28/2021 2:28 PM CDT): Images from the original note were not included. low cdai. Employment Programs Analyst was ok with lowering plaquenil dose to [...] original note were not included. Mod cdai. Employment Programs Analyst was ok with lowering plaquenil dose to [...] but mostly tender joints, not many swollen. Employment Programs Analyst was ok with lowering dose to 200 [...] has been on plaquenil for 8 yrs. Employment Programs Analyst said it was fine to continue lower dose of HCQ. Is finally seeing a associate entertainment editor for a lung nodule, her pcp referred her to pulm closer to her house. Hand 03/2020: Assessment & Plan (09/23/2020 5:14 PM ENVIRONMENTAL CONSERVATION PROFESSOR): Images from the original note were not included. Mod cdai. Pt had 2 erosions on hand 03/2020, she has an overlap of RA [...] has been on plaquenil for 8 yrs. Employment Programs Analyst said it was fine to continue lower dose of HCQ. Is finally seeing a associate entertainment editor for a lung nodule, her pcp referred her to pulm closer to her house. Hand 03/2020: Assessment & Plan (06/27/2020 5:08 PM ENVIRONMENTAL CONSERVATION PROFESSOR): Images from the original note were not [...] has been on plaquenil for 8 yrs. Employment Programs Analyst said it was fine to continue lower dose of HCQ. Is finally seeing a associate entertainment editor for a lung nodule, her pcp referred her to pulm closer to her house. [facility] 03/2020: Assessment & Plan (04/27/2020 1:20 [...] SLE. Demarco alba had enthesopathy on xrays 3/ so she can have a spondyloarthropathy also. She also has thyroid antibodies, she was advised to discuss this with pcp in past but once again has not seen her pcp for months she states. No hx of psoriasis. Thinks she has been on plaquenil for 8 yrs, will continue 200mg qd until rest of the year. Employment Programs Analyst said it was fine to continue lower dose of HCQ. Advised again to see her chair caner and pulm for pft, cxr and echo, [...] 200mg qd until rest of the year. Employment Programs Analyst said it was fine to continue lower dose of HCQ. Advised again to see her chair caner and pulm for pft, cxr and echo, [...] 200mg qd until rest of the year. Employment Programs Analyst said it was fine to continue lower dose of HCQ. Advised again to see her chair caner and pulm for pft, cxr and echo, [...] loss. Assessment & Plan (06/29/2019 12:34 PM ENVIRONMENTAL CONSERVATION PROFESSOR): high cdai. Pt is on arava 20mg qd and HCQ 400mg qd. Past serologies showed + hep 2 and + anti carbaylated. She could haven an overlap of RA and SLE. Demarco alba had enthesopathy on xrays 3 so she can have a spondyloarthropathy also . She also had also has thyroid antibodies, she was advised to discuss this with pcp. No hx of psoriasis. Thinks she has been on plaquenil for 8 yrs, will continue 200mg qd until rest of the year. Advised again to see her chair caner and pulm for pft, cxr and echo, [...] an overlap of RA and SLE. Demarco heel had enthesopathy on xrays 10/28 so [...] adding belysta. Advised again to see her chair caner and pulm for pft, cxr and echo, [...] 07/21/202103/14 Assessment & Plan (07/21/2021 4:19 PM ENVIRONMENTAL CONSERVATION PROFESSOR): Has gained weight and occ bg is [...] visit. Assessment & Plan (06/29/2019 12:35 PM ENVIRONMENTAL CONSERVATION PROFESSOR): Check cpk and aldolase. Normal muscle strength on exam and no LE edema and neg lalit sign bilat LE. Abnormal laboratory test result 04/06/2019 03/14/2022 Assessment & Plan (07/21/2021 4:19 PM ENVIRONMENTAL CONSERVATION PROFESSOR): has thyroid antibodies, pt given copies of [...] 01/2020. Assessment & Plan (09/23/2020 7:34 AM ENVIRONMENTAL CONSERVATION PROFESSOR): has thyroid antibodies, pt given copies of labs in past and she was advised to address this with pcp. TSH wnl 01/2020. Assessment & Plan (06/27/2020 8:41 AM ENVIRONMENTAL CONSERVATION PROFESSOR): has thyroid antibodies, pt given copies of [...] 2019. Assessment & Plan (06/26/2019 8:25 AM ENVIRONMENTAL CONSERVATION PROFESSOR): has thyroid antibodies, pt given copies of [...] 08/01/2023 Assessment & Plan (08/01/2023 8:32 AM ENVIRONMENTAL CONSERVATION PROFESSOR): Hand US 03/2020 lunate and 5th mcp [...] pos. Assessment & Plan (10/05/2022 4:00 PM ENVIRONMENTAL CONSERVATION PROFESSOR): Hand US 03/2020 lunate and 5th mcp [...] pos. Assessment & Plan (07/04/2022 4:38 PM ENVIRONMENTAL CONSERVATION PROFESSOR): Hand US 03/2020 lunate and 5th mcp [...] pos. Assessment & Plan (10/19/2021 1:52 PM ENVIRONMENTAL CONSERVATION PROFESSOR): Hand US 03/2020 lunate and 5th mcp [...] pos. Assessment & Plan (07/21/2021 11:48 AM ENVIRONMENTAL CONSERVATION PROFESSOR): Hand US 03/2020 lunate and 5th mcp [...] pos. Assessment & Plan (09/23/2020 7:34 AM ENVIRONMENTAL CONSERVATION PROFESSOR): Hand US 03/2020 lunate and 5th mcp [...] pos. Assessment & Plan (06/27/2020 8:38 AM ENVIRONMENTAL CONSERVATION PROFESSOR): Hand US 03/2020 lunate and 5th mcp [...] 03/30 Assessment & Plan (06/26/2019 8:25 AM ENVIRONMENTAL CONSERVATION PROFESSOR): avise panel 10/2018---showed + hep 2 and [...] 03/14/2022 Overview (11/16/2016): LONG-TERM USE MEDS NEC Immunizations Name Administration Dates Next Due Pneumococcal Polysaccharide PPV23 02/21/2015 Social History Tobacco Use Types Packs/Day Years [...] on file Legal Sex Female 10:10 AM ENVIRONMENTAL CONSERVATION PROFESSOR Gender Identity Not on file Sexual Orientation Not on file Last Filed Vital Signs Vital Sign Reading Time Taken Comments Blood Pressure 156/84 07/29/2024 1:58 PM ENVIRONMENTAL CONSERVATION PROFESSOR Pulse 89 07/29/2024 1:58 PM ENVIRONMENTAL CONSERVATION PROFESSOR Temperature 37.5 C (99.5 F) 10/19/2021 1:19 PM ENVIRONMENTAL CONSERVATION PROFESSOR Respiratory Rate - - Oxygen Saturation 96% 07/29/2024 1:58 PM ENVIRONMENTAL CONSERVATION PROFESSOR Inhaled Oxygen Concentration - - Weight 107 kg (236 lb) 07/29/2024 1:58 PM ENVIRONMENTAL CONSERVATION PROFESSOR Height 154.9 cm (5' 1 ) 07/29/2024 1:58 PM ENVIRONMENTAL CONSERVATION PROFESSOR Body Mass Index 44.59 07/29/2024 1:58 PM ENVIRONMENTAL CONSERVATION PROFESSOR Plan of Treatment Not on file Procedures Procedure Name Priority Date/Time Associated Diagnosis Comments HEMOGLOBIN A1C Routine 07/29/2024 3:12 PM ENVIRONMENTAL CONSERVATION PROFESSOR VITAMIN D 25 HYDROXY Routine 07/29/2024 3:12 PM ENVIRONMENTAL CONSERVATION PROFESSOR VITAMIN B12 Routine 07/29/2024 3:12 PM ENVIRONMENTAL CONSERVATION PROFESSOR TSH Routine 07/29/2024 3:12 PM ENVIRONMENTAL CONSERVATION PROFESSOR ANTI-DOUBLE STRANDED DNA ANTIBODIES Routine 07/29/2024 3:12 PM ENVIRONMENTAL CONSERVATION PROFESSOR Systemic lupus erythematosus, unspecified SLE type, unspecified organ involvement status (HCC) Seronegative rheumatoid arthritis (CMS/HCC) (HCC) Encounter for long-term (current) use of medications Age-related osteoporosis without current pathological fracture COMPREHENSIVE METABOLIC PANEL Routine 07/29/2024 3:12 PM ENVIRONMENTAL CONSERVATION PROFESSOR Systemic lupus erythematosus, unspecified SLE type, unspecified organ involvement status (HCC) Seronegative rheumatoid arthritis (CMS/HCC) (HCC) Encounter for long-term (current) use of medications Age-related osteoporosis without current pathological fracture CRP (ACUTE PHASE) Routine 07/29/2024 3:1 2 PM ENVIRONMENTAL CONSERVATION PROFESSOR Systemic lupus erythematosus, unspecified SLE type, unspecified organ involvement status (HCC) Seronegative rheumatoid arthritis (CMS/HCC) (HCC) Encounter for long-term (current) use of medications Age-related osteoporosis without current pathological fracture C3 COMPLEMENT Routine 07/29/2024 3:12 PM ENVIRONMENTAL CONSERVATION PROFESSOR Systemic lupus erythematosus, unspecified SLE type, unspecified organ involvement status (HCC) Seronegative rheumatoid arthritis (CMS/HCC) (HCC) Encounter for long-term (current) use of medications Age-related osteoporosis without current pathological fracture C4 COMPLEMENT Routine 07/29/2024 3:12 PM ENVIRONMENTAL CONSERVATION PROFESSOR Systemic lupus erythematosus, unspecified SLE type, unspecified organ involvement status (HCC) Seronegative rheumatoid arthritis (CMS/HCC) (HCC) Encounter for long-term (current) use of medications Age-related osteoporosis without current pathological fracture CBC WITH AUTO DIFFERENTIAL Routine 07/29/2024 3:12 PM ENVIRONMENTAL CONSERVATION PROFESSOR Systemic lupus erythematosus, unspecified SLE type, unspecified organ involvement status (HCC) Seronegative rheumatoid arthritis (CMS/HCC) (HCC) Encounter for long-term (current) use of medications Age-related osteoporosis without current pathological fracture ERYTHROCYTE SEDIMENTATION RATE Routine 07/29/2024 3:12 PM ENVIRONMENTAL CONSERVATION PROFESSOR Systemic lupus erythematosus, unspecified SLE type, unspecified organ involvement status (HCC) Seronegative rheumatoid arthritis (CMS/HCC) (HCC) Encounter for long-term (current) use of medications Age-related osteoporosis without current pathological fracture from Last 3 Months Results * Anti-double stranded DNA abs (07/29/2024 3:12 PM ENVIRONMENTAL CONSERVATION PROFESSOR) [facility] DNA (DS) ab <1 IU/mL [facility] Comment: IU/mL Interpretation < or = 4 Negative 5-9 Indeterminate > or = 10 Positive Blood 07/29/2024 3:12 PM ENVIRONMENTAL CONSERVATION PROFESSOR 07/29/2024 3:14 PM ENVIRONMENTAL CONSERVATION PROFESSOR Narrative [facility] - 07/31/2024 4:02 AM ENVIRONMENTAL CONSERVATION PROFESSOR PATIENT UNABLE TO VOID; ADVISED TO RETURN FOR COLLECTION. Meeta CAMPBELL LAB BLOOD ORDERAB LES Final Result Performing Organization Address City/[facility]/ZIP Co de Phone Number [facility] [address] [place] [address] * C4 complement (07/29/2024 3:12 PM ENVIRONMENTAL CONSERVATION PROFESSOR) [facility] Complement component C4C 26 15 - 57 mg/dL [facility] Blood 07/29/2024 3:12 PM ENVIRONMENTAL CONSERVATION PROFESSOR 07/29/2024 3:14 PM ENVIRONMENTAL CONSERVATION PROFESSOR Narrative [facility] - 07/31/2024 4:02 AM ENVIRONMENTAL CONSERVATION PROFESSOR PATIENT UNABLE TO VOID; ADVISED TO RETURN FOR COLLECTION. Meeta CAMPBELL LAB BLOOD ORDERAB LES Final Result [facility] [address] [place] [address] * (ABNORMAL) CBC with auto differential (07/29/2024 3:12 PM ENVIRONMENTAL CONSERVATION PROFESSOR) [facility] WBC 4.0 3.8 - 10.8 Thousand/u L [...] [facility] Blood 07/29/2024 3:12 PM ENVIRONMENTAL CONSERVATION PROFESSOR 07/29/2024 3:14 PM ENVIRONMENTAL CONSERVATION PROFESSOR Narrative [facility] - 07/31/2024 4:02 AM ENVIRONMENTAL CONSERVATION PROFESSOR PATIENT UNABLE TO VOID; ADVISED TO RETURN FOR COLLECTION. us Meeta CAMPBELL LAB BLOOD ORDERAB LES Final Result Performing Organization Address [facility] Co de Phone Number [facility] [address] [place] [address] * Vitamin D 25 hydroxy (07/29/2024 3:12 PM ENVIRONMENTAL CONSERVATION PROFESSOR) Vitamin D 25-OH 41 30 - 100 [...] D, (D2,D3), LC/MS/MS is recommended: order code [id number] (patients >2yrs). See Note 1 Note 1 For additional information, please refer to http://education.RADSONE/faq/ETZ417 (This link is being provided for informational/ educational purposes only.) 07/29/2024 3:12 PM ENVIRONMENTAL CONSERVATION PROFESSOR 07/29/2024 3:14 PM ENVIRONMENTAL CONSERVATION PROFESSOR Narrative [facility] - 07/31/2024 4:02 AM ENVIRONMENTAL CONSERVATION PROFESSOR PATIENT UNABLE TO VOID; ADVISED TO RETURN FOR COLLECTION. us Meeta Tolliver [place] LAB BLOOD ORDERAB LES Final Result Performing Organization Address [facility] Co de Phone Number [facility] [address] [place] [address] * Erythrocyte sedimentation rate (07/29/2024 3:12 PM ENVIRONMENTAL CONSERVATION PROFESSOR) Pathologist [facility] Erythrocyte sedimentation rate 28 < OR = 30 mm/h [facility] Blood 07/29/2024 3:12 PM ENVIRONMENTAL CONSERVATION PROFESSOR 07/29/2024 3:14 PM ENVIRONMENTAL CONSERVATION PROFESSOR Narrative [facility] - 07/31/2024 4:02 AM ENVIRONMENTAL CONSERVATION PROFESSOR PATIENT UNABLE TO VOID; ADVISED TO RETURN FOR COLLECTION. Meeta Tolliver [place] LAB BLOOD ORDERAB LES Final Result Performing Organization Address [facility] de Phone Number [facility] [address] [place] [address] * C3 complement (07/29/2024 3:12 PM ENVIRONMENTAL CONSERVATION PROFESSOR) Complement component C3C 156 83 - 193 mg/dL [facility] Blood 07/29/2024 3:12 PM ENVIRONMENTAL CONSERVATION PROFESSOR 07/29/2024 3:14 PM ENVIRONMENTAL CONSERVATION PROFESSOR Narrative [facility] - 07/31/2024 4:02 AM ENVIRONMENTAL CONSERVATION PROFESSOR PATIENT UNABLE TO VOID; ADVISED TO RETURN FOR COLLECTION. Meeta CAMPBELL LAB BLOOD ORDERAB LES Final Result Performing Organization Address [facility] de Phone Number [facility] [address] [place] [address] * CRP (acute phase) (07/29/2024 3:12 PM ENVIRONMENTAL CONSERVATION PROFESSOR) Pathologist [facility] C-RP <3.0 <8.0 mg/L [facility] Blood 07/29/2024 3:12 PM ENVIRONMENTAL CONSERVATION PROFESSOR 07/29/2024 3:14 PM ENVIRONMENTAL CONSERVATION PROFESSOR Narrative [facility] - 07/31/2024 4:02 AM ENVIRONMENTAL CONSERVATION PROFESSOR PATIENT UNABLE TO VOID; ADVISED TO RETURN FOR COLLECTION. Meeta CAMPBELL LAB BLOOD ORDERAB LES Final Result Performing Organization Address [facility] de Phone Number [facility] [address] [place] [address] * TSH (07/29/2024 3:12 PM ENVIRONMENTAL CONSERVATION PROFESSOR) TSH 0.44 0.40 - 4.50 mIU/L [facility] 07/29/2024 3:12 PM ENVIRONMENTAL CONSERVATION PROFESSOR 07/29/2024 3:14 PM ENVIRONMENTAL CONSERVATION PROFESSOR Narrative [facility] - 07/31/2024 4:02 AM ENVIRONMENTAL CONSERVATION PROFESSOR PATIENT UNABLE TO VOID; ADVISED TO RETURN FOR COLLECTION. Meeta CAMPBELL LAB BLOOD ORDERAB LES Final Result [facility] [address] [address] [phone] * (ABNORMAL) Hemoglobin A1c (07/29/2024 3:12 PM ENVIRONMENTAL CONSERVATION PROFESSOR) Hgb A1C 5.8(H) <5.7 % of total Hgb [facility] Comment: For someone without known diabetes, a [...] of diabetes for children. 07/29/2024 3:12 PM ENVIRONMENTAL CONSERVATION PROFESSOR 07/29/2024 3:14 PM ENVIRONMENTAL CONSERVATION PROFESSOR Narrative [facility] - 07/31/2024 4:02 AM ENVIRONMENTAL CONSERVATION PROFESSOR PATIENT UNABLE TO VOID; ADVISED TO RETURN FOR COLLECTION. Meeta CAMPBELL LAB BLOOD ORDERAB LES Final Result Performing Organization Address [facility] Co de Phone Number [facility] [address] [place] [address] * Vitamin B12 (07/29/2024 3:12 PM ENVIRONMENTAL CONSERVATION PROFESSOR) Pathologist [facility] Vitamin B12 420 200 - 1,100 pg/mL [facility] 07/29/2024 3:12 PM ENVIRONMENTAL CONSERVATION PROFESSOR 07/29/2024 3:14 PM ENVIRONMENTAL CONSERVATION PROFESSOR Narrative [facility] - 07/31/2024 4:02 AM ENVIRONMENTAL CONSERVATION PROFESSOR PATIENT UNABLE TO VOID; ADVISED TO RETURN FOR COLLECTION. Meeta CAMPBELL LAB BLOOD ORDERAB LES Final Result Performing Organization Address City/[facility]/ZIP Co de Phone Number [facility] [address] [address] [phone] * (ABNORMAL) Comprehensive metabolic panel (07/29/2024 3:12 PM ENVIRONMENTAL CONSERVATION PROFESSOR) Glucose 103(H) 65 - 99 mg/dL [facility] [...] [facility] Blood 07/29/2024 3:12 PM ENVIRONMENTAL CONSERVATION PROFESSOR 07/29/2024 3:14 PM ENVIRONMENTAL CONSERVATION PROFESSOR Narrative [facility] - 07/31/2024 4:02 AM ENVIRONMENTAL CONSERVATION PROFESSOR PATIENT UNABLE TO VOID; ADVISED TO RETURN FOR COLLECTION. us Meeta CAMPBELL LAB BLOOD ORDERAB LES Final Result [facility] [phone] [address] [phone] from Last 3 Months Insurance MEDICARE [facility] MEDICARE [facility] MEDICARE [facility] Care Teams Research Instructor Relationship Specialty Start Date End Date Chichi Watkins MD [address] [place] [address] PCP - General 11/09/16 Cindy Murphy MD [address] [address] Consulting Physician Pulmonary Disease 09/27/20 Laura Crabtree MD [address] [address] Consulting Physician Cardiology 11/27/21 Chepe Tijerina MD [address] [place] [address] Consulting Physician Rheumatology 09/23/23 Branden Gordon MD [address] [place] [address] Referring Physician Nephrology 11/01/23
--- OUTSIDE RECORDS SUMMARY | 2024-09-17 15:14 | XMS_ITS | Encounter Summary ---
Author Organization [facility] Address [address] [place] [address] Phone Care Team Providers Care Gas Truck Driver Name Role Phone Chichi Watkins MD Primary Care Provider Minh TRAN MD, John J. Unavailable [phone] Luz Maria Reyez MD Unavailable Minh TRAN MD, John J. Unavailable Magen Valencia MD Unavailable [phone] Cindy Murphy MD Unavailable [phone] Laura Obrien MD Unavailable [phone] Chepe Tijerina MD Unavailable Branden Gordon MD Unavailable [phone] Encounter Details Date Type Department Care Team (Late st Contact Info) Description 10/25/2017 Orders Only [facility] ProviderBrenda MD [address] [place] [address] Social History Tobacco Use Types Packs/Day Years Used Date Smoking Tobacco: Former Alcohol Use Standard Drinks/Week Comments Yes 0 (1 standard drink = 0.6 oz pur e alcohol) Comments Unknown Sex and Gender Information Value Date Recorded Sex Assigned at Not on file Legal Sex Female 10:10 AM UNDERLAY STITCHER Gender Identity Not on file Sexual Orientation Not on file documented as of this encounter Plan of Treatment Not on file documented as of this encounter Procedures Procedure Name Priority Date/Time Associated Diagnosis Comments DISCHARGE LABORATORY CUMULATIVE REPORT 10/25/2017 12:00 AM CDT documented in this encounter Results * DISCHARGE LABORATORY CUMULATIVE REPORT (10/25/2017 12:00 AM CDT) Narrative 10/25/2017 12:00 AM CDT Ordered by an unspecified provider. us Historical Provider LAB BLOOD ORDERABLES Karine l Result documented in this encounter Visit Diagnoses Not on filedocumented in this encounter Care Teams Gas Truck Driver Relationship Specialty Start Date End Date Chichi Watkins MD [address] [place] [address] PCP - General 11/09/16 Virgil Wilkinson III, MD [address] [place] [address] Consulting Physician Rheumatology 10/25/17 01/08/18 [place] [address] [facility] [address] [place] [address] Consulting Physician Rheumatology 01/09/18 03/04/19 Virgil Wilkinson III, MD [address] [place] [address] Consulting Physician Rheumatology 03/05/19 09/22/23 [place] [address] [facility] [address] [place] [address] Referring Physician Pulmonary Disease 03/03/20 09/26/20 Cindy Murphy MD [address] [place], [place] [id number] Consulting Physician Pulmonary Disease 09/27/20 [facility] [address] [facility] [address] [place] [address] Consulting Physician Cardiology 11/27/21 Chepe Tijerina MD [address] [place] [address] Consulting Physician Rheumatology 09/23/23 Branden Gordon MD [address] [place] [address] Referring Physician Nephrology 11/01/23 documented as of this encounter
== END 2024-09-17 15:01 | disposition home or self-care (01) ==
PROVIDERS: PCP Family Medicine; Visit Provider Physician Assistant Medical
DX: M85.89 Other specified disorders of bone density and structure, multiple sites (principal); M81.0 Age-related osteoporosis without current pathological fracture
CPT/HCPCS: 77080

== ENCOUNTER 2024-10-05 12:26 | Outpatient (CLI) | payer MEDICARE, SELFPAY ==
--- NOTE | ~2024-10-05 | XR_ITS ---
CHEST RADIOGRAPH, PA AND LATERAL CLINICAL HISTORY: pulmonary hypertension . COMPARISON: None available TECHNIQUE: PA and lateral views of the chest. FINDINGS The cardiomediastinal silhouette is unremarkable. The lungs are clear. Visualized osseous structures and soft tissues are unremarkable. IMPRESSION: No focal infiltrate or effusion. Reviewed, dictated and finalized at location A. D SUPPORT SPECIALIST
--- NOTE | ~2024-10-05 | XR_ITS ---
HISTORY: chronic rt sided low back pain COMPARISON: None. TECHNIQUE: 2 view lumbar spine. FINDINGS: Lumbar vertebral bodies are normally aligned. There are 5 non-rib bearing lumbar vertebral bodies. Degenerative disease is identified within the upper lumbar spine with osteophyte formation and disc s pace narrowing. Remaining disc spaces and vertebral body heights are otherwise well maintained. There are no lytic or sclerotic lesions. Paraspinal soft tissues are unremarkable. IMPRESSION: Degenerative disease, without acute fracture. Reviewed, dictated and finalized at location A. ER
--- NOTE | ~2024-10-05 | XR_ITS ---
HISTORY: chronic rt sided low back pain COMPARISON: None TECHNIQUE: 2 views of the right hip along with an AP view of the pelvis FINDINGS: No acute fracture or dislocation is identified. Superior lateral sclerosis of the femoral acetabular joint space is present consistent with osteoarth ritis. Lucency within the femoral head is present without erosion. Age advanced mineralization. IMPRESSION: Degenerative disease without acute fracture or dislocation Reviewed, dictated and finalized at location A. RVISOR AIR CONDITIONING INSTALLER
--- NOTE | ~2024-10-05 | XR_ITS ---
EXAM: XR sacroiliac joints min 3V DATE: 10/05/2024 13:09 HISTORY: chronic rt sided low back pain . COMPARISON: None available. FINDINGS: Decreased mineralization. Lumbar disc space narrowing and marginal osteophytosis with the suggestion of vacuum phenomenon at L5-S1. Multilevel moderate facet hypertrophy and sclerosis. Mild d egenerative changes in the bilateral SI joints and pubic symphysis. Mild left and moderate right hip degenerative change. IMPRESSION: Osteopenia. Mild bilateral SI joint degenerative change. Moderate right and mild left hip osteoarthritis. Mild osteitis pubis. Lumbar degenerative disc disease, severe at L5-S1. Multilevel l umbar facet arthropathy Reviewed, dictated and finalized at location K. I OPERATION FORMING MACHINE SETTER IMPRESSION: Osteopenia. Mild bilateral SI joint degenerative change. Moderate r ight and mild left hip osteoarthritis. Mild osteitis pubis. Lumbar degenerative disc disease, severe at L5-S1. Multilevel lumbar facet arthropathy
--- OUTSIDE RECORDS SUMMARY | 2024-10-05 14:08 | XMS_ITS | Clinical Summary ---
Author Organization [facility] [address] [facility] Address [address] [place] [id number] Phone Care Team Providers Care Rn Stars Name Role Phone Chichi Watkins MD Primary Care Provider Cindy Murphy MD Unavailable [phone] MikalLaura hobbs MD Unavailable [phone] Chepe Tijeirna MD Unavailable [phone] Branden Gordon MD Unavailable [phone] Allergies Active Allergy Reactions Criticality Noted Date [...] 07/29/2024 Assessment & Plan (07/29/2024 4:19 PM SECURITY SYSTEM INSTALLER): Check rt hip xray. Chronic right-sided low back pain with right-alin ed sciatica 07/29/2024 Assessment & Plan (07/29/2024 4:18 PM SECURITY SYSTEM INSTALLER): Full rom of bilat hips. Check rt hip, lumbar spine and si joint xrays. Abnormal serum glucose level 07/29/2024 Assessment & Plan (07/29/2024 4:18 PM SECURITY SYSTEM INSTALLER): Hx of abn hgba1c, not checked by pcp and last checked by us 01/2024, recheck today. Advised to work on weight loss. Other fatigue 07/29/2024 Assessment & Plan (07/29/2024 4:18 PM SECURITY SYSTEM INSTALLER): Check tsh, b12, hgba1c. Vitamin D deficiency 04/30/2024 Assessment & Plan (07/29/2024 4:19 PM SECURITY SYSTEM INSTALLER): Check vit d. Assessment & Plan (04/30/2024 [...] 10/31/2023 Assessment & Plan (07/29/2024 4:15 PM SECURITY SYSTEM INSTALLER): Sees dr gordon. Htn still not under control despite 3 htn meds. Sees him soon. Repeat bp lt arm sitting 150/80. Assessment & Plan (10/31/2023 5:44 PM CDT): Sees dr gordon. He started her on chlortalidone but after 1 tab it caused lip and tongue tingling/numbness. Contacted dr blanco call center at [facility] and let him know about this and gave call center pt's info. Advised pt to skip dose tomorrow and try to get hold of dr gordon if he does not call her and gave pt his office phone number. Diarrhea 04/29/2023 Assessment & Plan (04/29/2023 1:53 PM CDT): [place] utd, dx with ibs in past. Check [...] not included. Advised pt to see her senior qa engineer Dr Crabtree. BP still elevated and had an abn echo with enlarged heart diastolic dysfunction, was advised to see her senior qa engineer for treating her htn and for her abn echo. Echo 07/2021 Hypothyroidism 07/21/2021 Assessment & Plan (07/21/2021 4:18 PM SECURITY SYSTEM INSTALLER): Check TSH. Age-related osteoporosis wit hout current pathological fracture 07/21/2021 Assessment & Plan (07/29/2024 4:14 PM SECURITY SYSTEM INSTALLER): bds stable 05/2022. Was due 06/2024 but was not able to get an appt at [facility] [place] until next year. Continue ca and vit [...] bid. Assessment & Plan (08/01/2023 8:32 AM SECURITY SYSTEM INSTALLER): bds stable 05/2022. Is due again 06/2024. [...] bid. Assessment & Plan (10/05/2022 4:02 PM SECURITY SYSTEM INSTALLER): bds stable 05/2022. Continue ca and vit d 600mg po bid. Assessment & Plan (07/09/2022 1:19 PM SECURITY SYSTEM INSTALLER): bds stable 05/2022. Continue ca and vit d 600mg po bid. Assessment & Plan (04/02/2022 4:22 PM CDT): Will try to get copy of bds. Assessment & Plan (11/23/2021 8:33 AM CDT): Has not been able to get her bds until November, [facility] is backed up. Assessment & Plan (10/19/2021 1:51 PM SECURITY SYSTEM INSTALLER): Has not been able to get her bds until November, [facility] is backed up. Assessment & Plan (07/21/2021 4:19 PM SECURITY SYSTEM INSTALLER): Check bds. Weight gain 07/21/2021 Assessment & Plan (01/30/2024 5:37 PM CDT): Is morbidly obese, can't seem to lose weight. Drinks lots of lemonade and crystal light, has family hx of dm2. Check hgba1c. Also to discuss ozempic with pcp for weight loss. She might be able to qualify for free drug due to her low income. Assessment & Plan (07/21/2021 4:07 PM SECURITY SYSTEM INSTALLER): Has gained over 20 lb in past 2 yrs. Has hx of hypothyroidism. On levothyroxine. Check tsh today. Has not had this checked with pcp in over 4 months. Esophageal stenosis 01/27/2021 Assessment & Plan (07/21/2021 11:48 AM SECURITY SYSTEM INSTALLER): Had an esophageal stenosis dilated in december. [...] 04/12 Assessment & Plan (07/29/2024 4:16 PM SECURITY SYSTEM INSTALLER): Low cdai. Doing well on imuran, continue imuran to 100 mg every day. Recheck labs today. Has hx of pulm htn and esophageal stenosis. Has not seen gi for esophageal stenosis symptoms again. No skin changes or sclerodactyly. Seeing dr gordon now for her ckd. Her senior qa engineer also retired, will refer her for her yearly pft and cxr. Previous history/labs/imaging: Echo 03/2023: Echo report below, has mild enlarged heart but good ef. Has an abn septal motion with possible bundle branch block. Impaired diastolic relaxation grade I. Send this to her senior qa engineer and advised pt to f/u with him. [...] dr gordon now for her ckd. Her senior qa engineer also retired, will refer her for her yearly echo (has hx of pulm htn) sees pulm and she is scheduled to have pft's soon. Previous history/labs/imaging: Echo 03/2023: Echo report below, has mild enlarged heart but good ef. Has an abn septal motion with possible bundle branch block. Impaired diastolic relaxation grade I. Send this to her senior qa engineer and advised pt to f/u with him. [...] relaxation grade I. Send this to her senior qa engineer and advised pt to f/u with him. [...] relaxation grade I. Send this to her senior qa engineer and advised pt to f/u with him. [...] also. Assessment & Plan (08/01/2023 4:15 PM SECURITY SYSTEM INSTALLER): Low-mod cdai. Arava stopped due to lft [...] relaxation grade I. Send this to her senior qa engineer and advised pt to f/u with him. [...] relaxation grade I. Send this to her senior qa engineer and advised pt to f/u with him. [...] relaxation grade I. Send this to her senior qa engineer and advised pt to f/u with him. [...] SLE. Assessment & Plan (10/05/2022 4:00 PM SECURITY SYSTEM INSTALLER): Low cdai. In past we recommended we [...] SLE. Assessment & Plan (07/09/2022 2:36 PM SECURITY SYSTEM INSTALLER): Low cdai. In past we recommended we [...] diastolic dysfunction, was advised to see her senior qa engineer for treating her htn and for her abn echo. Assessment & Plan (10/19/2021 4:32 PM SECURITY SYSTEM INSTALLER): Low cdai. Recommended adding orencia but once [...] today. Assessment & Plan (07/21/2021 4:06 PM SECURITY SYSTEM INSTALLER): Mod cdai. Recommended adding orencia but once [...] it. Assessment & Plan (09/23/2020 5:15 PM SECURITY SYSTEM INSTALLER): Mod cdai. 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 Has hx of + anti-carbamyalted also. She has an overlap of RA and SLE. Recommended starting xeljanz but once again she declines, discussed potential se and risks, still declines meds. She was informed of continuing joint damage. Assessment & Plan (06/27/2020 5:08 PM SECURITY SYSTEM INSTALLER): Mod cdai. Pt has an erosive arthritis [...] PT. Assessment & Plan (09/23/2020 7:34 AM SECURITY SYSTEM INSTALLER): Declines further workup. Does not want to do PT. Assessment & Plan (06/27/2020 5:09 PM SECURITY SYSTEM INSTALLER): Declines further workup. Does not want to do PT. Assessment & Plan (01/21/2020 3:59 PM CDT): Check lumbar xray and start PT. Assessment & Plan (06/29/2019 12:35 PM SECURITY SYSTEM INSTALLER): Check lumbar xray and start PT. Encounter for long-term (current) use of medicat ions 10/24/2017 Assessment & Plan (07/29/2024 4:15 PM SECURITY SYSTEM INSTALLER): Hand US 03/2020 lunate and 5th mcp erosions Allx to mtx sq Avise 01/2020---Rpabha 1:160. tpo pos. Avise panel 10/2018---showed + [...] aquino. Assessment & Plan (08/01/2023 4:16 PM SECURITY SYSTEM INSTALLER): Hand US 03/2020 lunate and 5th mcp [...] pos. Assessment & Plan (07/21/2021 4:17 PM SECURITY SYSTEM INSTALLER): Check bds, has not had one for years she states. Pulmonary hypertension 01/30/2017 Assessment & Plan (07/29/2024 4:16 PM SECURITY SYSTEM INSTALLER): Echo stable and utd 05/2024. Right ventricular systolic pressure could not be estimated due to inadequate visualization of the tricuspid regurgitation jet. Pt joshua f/u with senior qa engineer q [address] laura crabtree. Still needs to see pulm for her yearly pft's. Gave pt referral for pft and cxr. Advised to work on weight loss. Assessment & Plan (04/30/2024 8:19 AM CDT): Echo stable and utd 03/2023. Right ventricular systolic pressure could not be estimated due to inadequate visualization of the tricuspid regurgitation jet. Pt joshua f/u with senior qa engineer q [address] laura crabtree. Still needs to see pulm for her yearly pft's. Assessment & Plan (10/31/2023 8:38 AM CDT): Echo stable and utd 03/2023. Right ventricular systolic pressure could not be estimated due to inadequate visualization of the tricuspid regurgitation jet. Pt joshua f/u with senior qa engineer q [address] laura crabtree. Still needs to see pulm for her yearly pft's. Assessment & Plan (08/01/2023 8:32 AM SECURITY SYSTEM INSTALLER): Echo stable and utd 03/2023. Right ventricular systolic pressure could not be estimated due to inadequate visualization of the tricuspid regurgitation jet. Pt joshua f/u with senior qa engineer q [address] laura crabtree. Still needs to see pulm for her yearly pft's. Assessment & Plan (05/29/2023 8:12 AM CDT): Echo stable and utd 03/2023. Right ventricular systolic pressure could not be estimated due to inadequate visualization of the tricuspid regurgitation jet. Pt joshua f/u with senior qa engineer q [address] laura crabtree. Still needs to see pulm for her yearly pft's. Assessment & Plan (04/29/2023 1:55 PM CDT): Echo stable and utd 03/2023. Right ventricular systolic pressure could not be estimated due to inadequate visualization of the tricuspid regurgitation jet. Pt joshua f/u with senior qa engineer q [address] laura crabtree. Still needs to see pulm for her yearly pft's. Assessment & Plan (04/01/2023 3:19 PM CDT): Sees senior qa engineer but not pulm. Has hx of tachycardia, senior qa engineer is aware of this. Echo scheduled next week. Can't tolerate cpap and due to poor dentition can't use oral appliance for her sleep apnea. Cxr nl 01/2023. Assessment & Plan (12/31/2022 2:52 PM CDT): Saw senior qa engineer for echo in past but has not f/u with him or lift builder whole. Has hx of tachycardia. Pt to let her pcp and senior qa engineer know about her htn/tachycardia. States that pcp was aware of this and wanted pt to work on diet/weight loss. Pt is not eating any salt. Assessment & Plan (10/08/2022 4:46 PM SECURITY SYSTEM INSTALLER): Saw senior qa engineer for echo in past but has not f/u with him or lift builder whole. Has hx of tachycardia. Pt to let her pcp and senior qa engineer know about her htn/tachycardia. States that pcp was aware of this and wanted pt to work on diet/weight loss. Pt is not eating any salt. Assessment & Plan (07/04/2022 4:38 PM SECURITY SYSTEM INSTALLER): Saw senior qa engineer for echo. Pt to let her pcp and senior qa engineer know about her htn/tachycardia. States that pcp was aware of this and wanted pt to work on diet/weight loss. Pt is not eating any salt. Assessment & Plan (03/30/2022 3:36 PM CDT): Saw senior qa engineer for echo. Pt to let her pcp and senior qa engineer know about her htn/tachycardia. States that pcp was aware of this and wanted pt to work on diet/weight loss. Pt is not eating any salt. Assessment & Plan (11/23/2021 8:31 AM CDT): Saw senior qa engineer for echo. Pt to let her pcp and senior qa engineer know about her htn/tachycardia. States that pcp was aware of this and wanted pt to work on diet/weight loss. Pt is not eating any salt. Assessment & Plan (10/19/2021 1:54 PM SECURITY SYSTEM INSTALLER): Sees senior qa engineer next week for echo. To have it sent to us also. Pt to let her pcp and senior qa engineer know about her htn/tachycardia. States that pcp was aware of this and wanted pt to work on diet/weight loss. Pt is not eating any salt. Assessment & Plan (07/21/2021 4:17 PM SECURITY SYSTEM INSTALLER): Has been having LE edema. pcp started [...] insurance. In past she was referred to senior qa engineer and pulm several times but due to finances she stated she could not afford to go. Her recent le edema could be early chf. Advised pt to see pulm and senior qa engineer for her pum htn and to discuss this with pcp. Has not seen pulmonary for over 5 yrs due to cost. Has not seen senior qa engineer or had an echo since 2014. Assessment & Plan (04/28/2021 2:30 PM CDT): Has been having LE edema. Pt has pulmonary htn and a rt lung nodule and hx of pulmonary hypertension. In past she was referred to senior qa engineer and pulm several times but due to finances she stated she could not afford to go. Her recent le edema could be early chf. Advised pt to see pulm and senior qa engineer for her pum htn and to discuss this with pcp. Has not seen pulmonary for over 5 yrs due to cost. Has not seen senior qa engineer or had an echo since 2014. Assessment & Plan (01/27/2021 2:02 PM CDT): Has pulmonary htn and a rt lung nodule. Has not seen pulmonary for over 5 yrs due to cost. Has not seen senior qa engineer or had an echo since 2014. Advised her to f/u with both. Assessment & Plan (12/19/2020 7:56 AM CDT): Has pulmonary htn and a rt lung nodule. Seeing pulm but has not seen senior qa engineer yet. Was referred several times in past but states she can't afford the copays. Assessment & Plan (09/23/2020 7:34 AM SECURITY SYSTEM INSTALLER): Has pulmonary htn and a rt lung nodule. Seeing pulm but has not seen senior qa engineer yet. Was referred several times in past but states she can't afford the copays. Assessment & Plan (06/27/2020 5:10 PM SECURITY SYSTEM INSTALLER): Has pulmonary htn and a rt lung nodule. Seeing pulm but has not seen senior qa engineer yet. Was referred several times in past but states she can't afford the copays. Assessment & Plan (04/27/2020 1:18 PM CDT): Has pulmonary htn and a rt lung nodule. In past she was referred to lift builder whole in past or eval of her pulm htn and to senior qa engineer but has not f/u in over 5 [...] (01/21/2020 3:57 PM CDT): Was referred to lift builder whole in past or eval of her pulm htn and to senior qa engineer but has not f/u in over 5 yrs. Advised to also see opth for yearly eye exam. Gave pt referral for cxr, and echo, pft's at past visits but she has not done them. States she can't afford all the copays. Advised her again to schedule them. Assessment & Plan (10/28/2019 2:10 PM CDT): Was referred to lift builder whole in past or eval of her pulm htn and to senior qa engineer but has not f/u in over 5 yrs. Advised to also see opth for yearly eye exam. Gave pt referral for cxr, and echo, pft's at past visits but she has not done them. States she can't afford all the copays. Advised her again to schedule them. Assessment & Plan (06/26/2019 8:23 AM SECURITY SYSTEM INSTALLER): Was referred to lift builder whole in past or eval of her pulm htn and to senior qa engineer but has not f/u in over 2 yrs. Advised to also see opth for yearly eye exam. Gave pt referral for cxr, and echo, pft's at past visits but she has not done them. States she can't afford all the copays. Advised her again to schedule them. Assessment & Plan (04/06/2019 8:37 AM CDT): Was referred to lift builder whole in past or eval of her pulm htn and to senior qa engineer but has not f/u in over 2 [...] diastolic dysfunction, was advised to see her senior qa engineer for treating her htn and for her abn echo. Assessment & Plan (10/19/2021 4:29 PM SECURITY SYSTEM INSTALLER): bp elevated 150/90 and pulse 110. No [...] Her ldl was elevated in march with senior qa engineer at 153. Due to her hx of RA and Sle she is at increased risk of CAD and recommend she discuss starting meds for her cholesterol with Dr Brown her senior qa engineer. She had SE to lipitor and crestor in past. Assessment & Plan (10/19/2021 4:26 PM SECURITY SYSTEM INSTALLER): LDL at last visit was very high [...] diet. Assessment & Plan (07/21/2021 4:18 PM SECURITY SYSTEM INSTALLER): Requesting that we check her cholesterol with today's labs. Not fasting so will check direct LDL. Systemic lupus erythematosus (CMS/HCC) 5 Overview (11/16/2016): Lupus Assessment & Plan (07/29/2024 8:36 AM SECURITY SYSTEM INSTALLER): Low cdai. On plaquenil 200 mg po [...] day. Assessment & Plan (08/01/2023 4:15 PM SECURITY SYSTEM INSTALLER): Low-mod cdai. On plaquenil 200 mg po [...] next week. Cxr done in december at [facility], we do not have it, will get [...] spondyloarthropathy also. TSH checked recently at [facility]. [facility] 03/2020: Assessment & Plan (12/31/2022 8:11 AM [...] spondyloarthropathy also. TSH checked recently at [facility]. [facility] 03/2020: Assessment & Plan (10/08/2022 4:47 PM SECURITY SYSTEM INSTALLER): Images from the original note were not [...] spondyloarthropathy also. TSH checked recently at [facility]. [facility] 03/2020: Assessment & Plan (07/09/2022 2:35 PM SECURITY SYSTEM INSTALLER): Images from the original note were not included. Low cdai. Roll Cutting Operator was ok with lowering plaquenil dose to [...] again. No skin changes or sclerodactyly. Sees senior qa engineer also. Past serologies showed + hep 2 and + anti carbamylated. 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 Demarco alba had enthesopathy on xrays 3 so she can have a spondyloarthropathy also. TSH checked recently at [facility] 03/2020: Assessment & Plan (04/02/2022 4:22 PM CDT): Images from the original note were not included. Low cdai. Roll Cutting Operator was ok with lowering plaquenil dose to 200 mg po every day in past. Pt advised to get eye exams q 6 months.. Check labs today. Has hx of pulm htn and esophageal stenosis. No skin changes or sclerodactyly. Sees senior qa engineer. Past serologies showed + hep 2 and + anti carbamylated. 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 Demarco alba had enthesopathy on xrays 10/28 so she can have a spondyloarthropathy also. TSH checked recently at [facility]. [facility] 03/2020: Assessment & Plan (11/23/2021 8:31 AM CDT): Images from the original note were not included. Low cdai. Roll Cutting Operator was ok with lowering plaquenil dose to 200 mg po every day. Check labs. Has hx of pulm htn and esophageal stenosis. No skin changes or sclerodactyly. Has echo with senior qa engineer next week. Advised pt to let her senior qa engineer know about her elevated bp and cholesterol also. Past serologies showed + hep 2 and + anti carbamylated. 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 Demarco alba had enthesopathy on xrays 10/28 so she can have a spondyloarthropathy also. She also has thyroid antibodies, she was advised to discuss this with pcp in past. [facility] 03/2020: Assessment & Plan (10/19/2021 4:33 PM SECURITY SYSTEM INSTALLER): Images from the original note were not included. Low cdai. Roll Cutting Operator was ok with lowering plaquenil dose to 200 mg po every day. Check labs. Has hx of pulm htn and esophageal stenosis. No skin changes or sclerodactyly. Has echo with senior qa engineer next week. Advised pt to let her senior qa engineer know about her elevated bp and cholesterol [...] 03/2020: Assessment & Plan (07/21/2021 4:05 PM SECURITY SYSTEM INSTALLER): Images from the original note were not included. Mod cdai. Roll Cutting Operator was ok with lowering plaquenil dose to [...] original note were not included. low cdai. Roll Cutting Operator was ok with lowering plaquenil dose to [...] original note were not included. Mod cdai. Roll Cutting Operator was ok with lowering plaquenil dose to [...] but mostly tender joints, not many swollen. Roll Cutting Operator was ok with lowering dose to 200 [...] has been on plaquenil for 8 yrs. Roll Cutting Operator said it was fine to continue lower dose of HCQ. Is finally seeing a lift builder whole for a lung nodule, her pcp referred her to pulm closer to her house. [facility] 03/2020: Assessment & Plan (09/23/2020 5:14 PM SECURITY SYSTEM INSTALLER): Images from the original note were not [...] has been on plaquenil for 8 yrs. Roll Cutting Operator said it was fine to continue lower dose of HCQ. Is finally seeing a lift builder whole for a lung nodule, her pcp referred her to pulm closer to her house. [facility] 03/2020: Assessment & Plan (06/27/2020 5:08 PM SECURITY SYSTEM INSTALLER): Images from the original note were not [...] has been on plaquenil for 8 yrs. Roll Cutting Operator said it was fine to continue lower dose of HCQ. Is finally seeing a lift builder whole for a lung nodule, her pcp referred her to pulm closer to her house. [facility] 03/2020: Assessment & Plan (04/27/2020 1:20 PM [...] 200mg qd until rest of the year. Roll Cutting Operator said it was fine to continue lower dose of HCQ. Advised again to see her senior qa engineer and pulm for pft, cxr and echo, [...] 200mg qd until rest of the year. Roll Cutting Operator said it was fine to continue lower dose of HCQ. Advised again to see her senior qa engineer and pulm for pft, cxr and echo, [...] 200mg qd until rest of the year. Roll Cutting Operator said it was fine to continue lower dose of HCQ. Advised again to see her senior qa engineer and pulm for pft, cxr and echo, [...] loss. Assessment & Plan (06/29/2019 12:34 PM SECURITY SYSTEM INSTALLER): high cdai. Pt is on arava 20mg [...] the year. Advised again to see her senior qa engineer and pulm for pft, cxr and echo, [...] adding belysta. Advised again to see her senior qa engineer and pulm for pft, cxr and echo, [...] 07/21/202103/14 Assessment & Plan (07/21/2021 4:19 PM SECURITY SYSTEM INSTALLER): Has gained weight and occ bg is [...] visit. Assessment & Plan (06/29/2019 12:35 PM SECURITY SYSTEM INSTALLER): Check cpk and aldolase. Normal muscle strength on exam and no LE edema and neg lalit sign bilat LE. Abnormal laboratory test result 04/06/2019 03/14/2022 Assessment & Plan (07/21/2021 4:19 PM SECURITY SYSTEM INSTALLER): has thyroid antibodies, pt given copies of [...] 01/2020. Assessment & Plan (09/23/2020 7:34 AM SECURITY SYSTEM INSTALLER): has thyroid antibodies, pt given copies of labs in past and she was advised to address this with pcp. [facility] 01/2020. Assessment & Plan (06/27/2020 8:41 AM SECURITY SYSTEM INSTALLER): has thyroid antibodies, pt given copies of [...] 2019. Assessment & Plan (06/26/2019 8:25 AM SECURITY SYSTEM INSTALLER): has thyroid antibodies, pt given copies of [...] 08/01/2023 Assessment & Plan (08/01/2023 8:32 AM SECURITY SYSTEM INSTALLER): Hand US 03/2020 lunate and 5th mcp [...] pos. Assessment & Plan (10/05/2022 4:00 PM SECURITY SYSTEM INSTALLER): Hand US 03/2020 lunate and 5th mcp [...] pos. Assessment & Plan (07/04/2022 4:38 PM SECURITY SYSTEM INSTALLER): Hand US 03/2020 lunate and 5th mcp [...] pos. Assessment & Plan (10/19/2021 1:52 PM SECURITY SYSTEM INSTALLER): Hand US 03/2020 lunate and 5th mcp [...] pos. Assessment & Plan (07/21/2021 11:48 AM SECURITY SYSTEM INSTALLER): Hand US 03/2020 lunate and 5th mcp [...] pos. Assessment & Plan (09/23/2020 7:34 AM SECURITY SYSTEM INSTALLER): Hand US 03/2020 lunate and 5th mcp [...] pos. Assessment & Plan (06/27/2020 8:38 AM SECURITY SYSTEM INSTALLER): Hand US 03/2020 lunate and 5th mcp [...] 03/30 Assessment & Plan (06/26/2019 8:25 AM SECURITY SYSTEM INSTALLER): avise panel 10/2018---showed + hep 2 and [...] Encounters Date Type Department Care Team Description 09/22/2024 Orders Only [facility] [address] [place] [phone] Meeta Tolliver PA 07/29/2024 2:30 PM SECURITY SYSTEM INSTALLER Office Visit [facility] [address] [place] [phone] Meeta Tolliver PA Systemic lupus erythematosus, unspecified SLE type, unspecified organ involvement status (HCC) (Primary Dx); Seronegative rheumatoid arthritis (CMS/HCC) (HCC); Encounter for long-term (current) use of medications; Age-related osteoporosis without current pathological fracture ; Right hip pain; Chronic right-sided low back pain with right-sided sciatica; Abnormal serum glucose level; Other fatigue; Vitamin D deficiency; Pulmonary hypertension (HCC) from Last 3 Months Immunizations Immunization Administration Dates Next Due Pneumococcal Polysaccharide PPV23 02/21/2015 Surgical History Surgery Date Site/Laterality Comments TUBAL LIGATION Bilateral tubal ligation KNEE ARTHROSCOPY 2009 Arthroscopy knee BREAST BIOPSY Breast biopsy BREAST LUMPECTOMY Left breast lumpectomy TUBAL LIGATION tubal ligation Medical History Medical History Date Comments Disorder of thyroid Thyroid dise ase Hypertension Hypertension Hx Other Medical RA and Lupus; C omments: [facility] 03/06/2015 - Hx Other Medical 1987 lumpectomy; Com ments: [facility] 03/06/2015 - Hx Other Medical ear surgery; Co mments: [facility] 03/06/2015 - Hx Other Medical nose surgery; C omments: [facility] 03/06/2015 - Hx Other Medical tubal liation; Comments: [facility] 03/06/2015 - Hx Other Medical lumpectomy; Com ments: 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 Gender Identity Not on file Sexual Orientation Not on file Obstetrics History Last Filed Vital Signs Vital Sign Reading Time Taken Comments Blood Pressure 156/84 07/29/2024 1:58 PM SECURITY SYSTEM INSTALLER Pulse 89 07/29/2024 1:58 PM SECURITY SYSTEM INSTALLER Temperature 37.5 C (99.5 F) 10/19/2021 1:19 PM SECURITY SYSTEM INSTALLER Respiratory Rate - - Oxygen Saturation 96% 07/29/2024 1:58 PM SECURITY SYSTEM INSTALLER Inhaled Oxygen Concentration - - Weight 107 kg (236 lb) 07/29/2024 1:58 PM SECURITY SYSTEM INSTALLER Height 154.9 cm (5' 1 ) 07/29/2024 1:58 PM SECURITY SYSTEM INSTALLER Body Mass Index 44.59 07/29/2024 1:58 PM SECURITY SYSTEM INSTALLER Plan of Treatment Health Maintenance Due Date [...] Procedure Name Priority Date/Time Associated Diagnosis Comments SCAN - RADIOLOGY/IMAGING 09/22/2024 12:33 PM SECURITY SYSTEM INSTALLER HEMOGLOBIN A1C Routine 07/29/2024 3:12 PM SECURITY SYSTEM INSTALLER VITAMIN D 25 HYDROXY Routine 07/29/2024 3:12 PM SECURITY SYSTEM INSTALLER VITAMIN B12 Routine 07/29/2024 3:12 PM SECURITY SYSTEM INSTALLER TSH Routine 07/29/2024 3:12 PM SECURITY SYSTEM INSTALLER ANTI-DOUBLE STRANDED DNA ANTIBODIES Routine 07/29/2024 3:12 PM SECURITY SYSTEM INSTALLER Systemic lupus erythematosus, unspecified SLE type, unspecified organ involvement status (HCC) Seronegative rheumatoid arthritis (CMS/HCC) (HCC) Encounter for long-term (current) use of medications Age-related osteoporosis without current pathological fracture COMPREHENSIVE METABOLIC PANEL Routine 07/29/2024 3:12 PM SECURITY SYSTEM INST[employer]ER Systemic lupus erythematosus, unspecified SLE type, unspecified organ involvement status (HCC) Seronegative rheumatoid arthritis (CMS/HCC) (HCC) Encounter for long-term (current) use of medications Age-related osteoporosis without current pathological fracture CRP (ACUTE PHASE) Routine 07/29/2024 3:1 2 PM SECURITY SYSTEM INSTALLER Systemic lupus erythematosus, unspecified SLE type, unspecified organ involvement status (HCC) Seronegative rheumatoid arthritis (CMS/HCC) (HCC) Encounter for long-term (current) use of medications Age-related osteoporosis without current pathological fracture C3 COMPLEMENT Routine 07/29/2024 3:12 PM SECURITY SYSTEM INSTALLER Systemic lupus erythematosus, unspecified SLE type, unspecified organ involvement status (HCC) Seronegative rheumatoid arthritis (CMS/HCC) (HCC) Encounter for long-term (current) use of medications Age-related osteoporosis without current pathological fracture C4 COMPLEMENT Routine 07/29/2024 3:12 PM SECURITY SYSTEM INSTALLER Systemic lupus erythematosus, unspecified SLE type, unspecified organ involvement status (HCC) Seronegative rheumatoid arthritis (CMS/HCC) (HCC) Encounter for long-term (current) use of medications Age-related osteoporosis without current pathological fracture CBC WITH AUTO DIFFERENTIAL Routine 07/29/2024 3:12 PM SECURITY SYSTEM INSTALLER Systemic lupus erythematosus, unspecified SLE type, unspecified organ involvement status (HCC) Seronegative rheumatoid arthritis (CMS/HCC) (HCC) Encounter for long-term (current) use of medications Age-related osteoporosis without current pathological fracture ERYTHROCYTE SEDIMENTATION RATE Routine 07/29/2024 3:12 PM SECURITY SYSTEM INSTALLER Systemic lupus erythematosus, unspecified SLE type, unspecified organ involvement status (HCC) Seronegative rheumatoid arthritis (CMS/HCC) (HCC) Encounter for long-term (current) use of medications Age-related osteoporosis without current pathological fracture from Last 3 Months Results * SCAN - RADIOLOGY/IMAGING (09/22/2024 12:33 PM SECURITY SYSTEM INSTALLER) Anatomical Region Laterality Modality Other Meeta CAMPBELL F inal Result * Anti-double stranded DNA abs (07/29/2024 3:12 PM SECURITY SYSTEM INSTALLER) DNA (DS) ab <1 IU/mL [facility] Comment: IU/mL Interpretation < or = 4 Negative 5-9 Indeterminate > or = 10 Positive Blood 07/29/2024 3:12 PM SECURITY SYSTEM INSTALLER 07/29/2024 3:14 PM SECURITY SYSTEM INSTALLER Narrative [facility] - 07/31/2024 4:02 AM SECURITY SYSTEM INSTALLER PATIENT UNABLE TO VOID; ADVISED TO RETURN FOR COLLECTION. Meeta CAMPBELL LAB BLOOD ORDERAB LES Final Result [facility] [address] [place] [address] * C4 complement (07/29/2024 3:12 PM SECURITY SYSTEM INSTALLER) Complement component C4C 26 15 - 57 mg/dL [facility] Blood 07/29/2024 3:12 PM SECURITY SYSTEM INSTALLER 07/29/2024 3:14 PM SECURITY SYSTEM INSTALLER Narrative [facility] - 07/31/2024 4:02 AM SECURITY SYSTEM INSTALLER PATIENT UNABLE TO VOID; ADVISED TO RETURN FOR COLLECTION. Meeta CAMPBELL LAB BLOOD ORDERAB LES Final Result [facility] [address] [place] [address] * (ABNORMAL) CBC with auto differential (07/29/2024 3:12 PM SECURITY SYSTEM INSTALLER) [facility] WBC 4.0 3.8 - 10.8 Thousand/u L [...] [facility] Blood 07/29/2024 3:12 PM SECURITY SYSTEM INSTALLER 07/29/2024 3:14 PM SECURITY SYSTEM INSTALLER Narrative [facility] - 07/31/2024 4:02 AM SECURITY SYSTEM INSTALLER PATIENT UNABLE TO VOID; ADVISED TO RETURN FOR COLLECTION. Meeta CAMPBELL LAB BLOOD ORDERAB LES Final Result Performing Organization Address [facility] de Phone Number [facility] [address] [place] [address] * Vitamin D 25 hydroxy (07/29/2024 3:12 PM SECURITY SYSTEM INSTALLER) Vitamin D 25-OH 41 30 - 100 ng/mL [facility] Comment: Vitamin D Status 25-OH Vitamin D: Deficiency: <20 ng/mL Insufficiency: 20 - 29 ng/mL Optimal: > or = 30 ng/mL For 25-OH Vitamin D testing on patients on D2-supplementation and patients for whom quantitation of D2 and D3 fractions is required, the [facility](TM) 25-OH VIT D, (D2,D3), LC/MS/MS is recommended: order code 29151 (patients >2yrs). See Note 1 Note 1 For additional information, please refer to http://education.ClairMail/faq/YIJ932 (This link is being provided for informational/ educational purposes only.) 07/29/2024 3:12 PM SECURITY SYSTEM INSTALLER 07/29/2024 3:14 PM SECURITY SYSTEM INSTALLER Narrative [facility] - 07/31/2024 4:02 AM SECURITY SYSTEM INSTALLER PATIENT UNABLE TO VOID; ADVISED TO RETURN FOR COLLECTION. Meeta CAMPBELL LAB BLOOD ORDERAB LES Final Result Performing Organization Address [facility] de Phone Number [facility] [address] [place] [address] * Erythrocyte sedimentation rate (07/29/2024 3:12 PM SECURITY SYSTEM INSTALLER) Erythrocyte sedimentation rate 28 < OR = 30 mm/h [facility] Blood 07/29/2024 3:1 2 PM SECURITY SYSTEM INSTALLER 07/29/2024 3:14 PM SECURITY SYSTEM INSTALLER Narrative [facility] - 07/31/2024 4:02 AM SECURITY SYSTEM INSTALLER PATIENT UNABLE TO VOID; ADVISED TO RETURN FOR COLLECTION. [facility] Final Result Performing Organization Address [facility] de Phone Number [facility] [address] [place] [address] * C3 complement (07/29/2024 3:12 PM SECURITY SYSTEM INSTALLER) Complement component C3C 156 83 - 193 mg/dL [facility] Blood 07/29/2024 3:12 PM SECURITY SYSTEM INSTALLER 07/29/2024 3:14 PM SECURITY SYSTEM INSTALLER Narrative [facility] - 07/31/2024 4:02 AM SECURITY SYSTEM INSTALLER PATIENT UNABLE TO VOID; ADVISED TO RETURN FOR COLLECTION. [facility] ORDERAB LES Final Result Performing Organization Address [facility] Phone Number [facility] [address] [place] [address] * CRP (acute phase) (07/29/2024 3:12 PM SECURITY SYSTEM INSTALLER) Pathologist [facility] C-RP <3.0 <8.0 mg/L [facility] Blood 07/29/2024 3:12 PM SECURITY SYSTEM INSTALLER 07/29/2024 3:14 PM SECURITY SYSTEM INSTALLER Narrative [facility] - 07/31/2024 4:02 AM SECURITY SYSTEM INSTALLER PATIENT UNABLE TO VOID; ADVISED TO RETURN FOR COLLECTION. [facility] BLOOD ORDERAB LES Final Result Performing Organization Address [facility] de Phone Number [facility] [address] [place] [address] * TSH (07/29/2024 3:12 PM SECURITY SYSTEM INSTALLER) TSH 0.44 0.40 - 4.50 mIU/L [facility] 07/29/2024 3:12 PM SECURITY SYSTEM INSTALLER 07/29/2024 3:14 PM SECURITY SYSTEM INSTALLER Narrative [facility] - 07/31/2024 4:02 AM SECURITY SYSTEM INSTALLER PATIENT UNABLE TO VOID; ADVISED TO RETURN FOR COLLECTION. Meeta CAMPBELL LAB BLOOD ORDERAB LES Final Result [facility] [address] [phone] * (ABNORMAL) Hemoglobin A1c (07/29/2024 3:12 PM SECURITY SYSTEM INSTALLER) Hgb A1C 5.8(H) <5.7 % of total Hgb [facility] Comment: For someone without known diabetes, [...] of diabetes for children. 07/29/2024 3:12 PM SECURITY SYSTEM INSTALLER 07/29/2024 3:14 PM SECURITY SYSTEM INSTALLER Narrative [facility] - 07/31/2024 4:02 AM SECURITY SYSTEM INSTALLER PATIENT UNABLE TO VOID; ADVISED TO RETURN FOR COLLECTION. Meeta CAMPBELL LAB BLOOD ORDERAB LES Final Result Performing Organization Address City/[facility]/ZIP Co de Phone Number [facility] [address] [place] [address] * Vitamin B12 (07/29/2024 3:12 PM SECURITY SYSTEM INSTALLER) Vitamin B12 420 200 - 1,100 pg/mL [facility] 07/29/2024 3:12 PM SECURITY SYSTEM INSTALLER 07/29/2024 3:14 PM SECURITY SYSTEM INSTALLER Narrative [facility] - 07/31/2024 4:02 AM SECURITY SYSTEM INSTALLER PATIENT UNABLE TO VOID; ADVISED TO RETURN FOR COLLECTION. Meeta CAMPBELL LAB BLOOD ORDERAB LES Final Result [facility] [address] [phone] * (ABNORMAL) Comprehensive metabolic panel (07/29/2024 3:12 PM SECURITY SYSTEM INSTALLER) Glucose 103(H) 65 - 99 mg/dL [facility] [...] [facility] Blood 07/29/2024 3:12 PM SECURITY SYSTEM INSTALLER 07/29/2024 3:14 PM SECURITY SYSTEM INSTALLER Narrative [facility] - 07/31/2024 4:02 AM SECURITY SYSTEM INSTALLER PATIENT UNABLE TO VOID; ADVISED TO RETURN FOR COLLECTION. us Meeta CAMPBELL LAB BLOOD ORDERAB LES Final Result ISAURA [facility] [address] [address] [phone] from Last 3 Months Insurance [employer]ICARE [facility] [employer] [facility] [employer] [facility] Care Teams Rn Stars Relationship Specialty Start Date End Date Chichi Watkins MD [address] [facility] [address] [place] [address] PCP - General 11/09/16 Cindy Murphy MD [address] [place] [address] Consulting Physician Pulmonary Disease 09/27/20 Laura Crabtree MD [address] [place] [address] Consulting Physician Cardiology 11/27/21 Chepe Tijerina MD [address] [place] [address] Consulting Physician Rheumatology 09/23/23 Branden Gordon MD [address], [place] [id number] Referring Physician Nephrology 11/01/23
--- OUTSIDE RECORDS SUMMARY | 2024-10-05 14:08 | XMS_ITS | Referral Summary ---
Author Organization [facility] [address] [facility] Address [address] [place] [phone] Phone Care Team Providers Care Microsoft Office Instructor Name Role Phone Chichi Watkins MD Primary Care Provider Cindy Murphy MD Unavailable [phone] MikalLaura hobbs MD Unavailable [phone] Chepe Tijerina MD Unavailable [phone] Branden Gordon MD Unavailable [phone] Encounters Date Type Department Care Team Description 09/22/2024 Orders Only [facility] [address] [place] [phone] Meeta Tolliver PA 07/29/2024 2:30 PM ASSEMBLY MACHINE OFFBEARER Office Visit [facility] [address] [place] [phone] Meeta Tolliver PA Systemic lupus erythematosus, unspecified [...] 07/29/2024 Assessment & Plan (07/29/2024 4:19 PM ASSEMBLY MACHINE OFFBEARER): Check rt hip xray. Chronic right-sided low back pain with right-alin ed sciatica 07/29/2024 Assessment & Plan (07/29/2024 4:18 PM ASSEMBLY MACHINE OFFBEARER): Full rom of bilat hips. Check rt hip, lumbar spine and si joint xrays. Abnormal serum glucose level 07/29/2024 Assessment & Plan (07/29/2024 4:18 PM ASSEMBLY MACHINE OFFBEARER): Hx of abn hgba1c, not checked by pcp and last checked by us 01/2024, recheck today. Advised to work on weight loss. Other fatigue 07/29/2024 Assessment & Plan (07/29/2024 4:18 PM ASSEMBLY MACHINE OFFBEARER): Check tsh, b12, hgba1c. Vitamin D deficiency 04/30/2024 Assessment & Plan (07/29/2024 4:19 PM ASSEMBLY MACHINE OFFBEARER): Check vit d. Assessment & Plan (04/30/2024 [...] 10/31/2023 Assessment & Plan (07/29/2024 4:15 PM ASSEMBLY MACHINE OFFBEARER): Sees dr gordon. Htn still not under control despite 3 htn meds. Sees him soon. Repeat bp lt arm sitting 150/80. Assessment & Plan (10/31/2023 5:44 PM CDT): Sees dr gordon. He started her on chlortalidone but after 1 tab it caused lip and tongue tingling/numbness. Contacted dr blanco call center at [facility] and let him know about this and gave call center pt's info. Advised pt to skip dose tomorrow and try to get hold of dr gordon if he does not call her and gave pt his office phone number. Diarrhea 04/29/2023 Assessment & Plan (04/29/2023 1:53 PM CDT): Kosse utd, dx with ibs in past. Check [...] not included. Advised pt to see her staple processing machine operator Dr Crabtree. BP still elevated and had an abn echo with enlarged heart diastolic dysfunction, was advised to see her staple processing machine operator for treating her htn and for her abn echo. Echo 07/2021 Hypothyroidism 07/21/2021 Assessment & Plan (07/21/2021 4:18 PM ASSEMBLY MACHINE OFFBEARER): Check TSH. Age-related osteoporosis wit hout current pathological fracture 07/21/2021 Assessment & Plan (07/29/2024 4:14 PM ASSEMBLY MACHINE OFFBEARER): bds stable 05/2022. Was due 06/2024 but was not able to get an appt at [facility] in [place] until next year. Continue ca and vit [...] bid. Assessment & Plan (08/01/2023 8:32 AM ASSEMBLY MACHINE OFFBEARER): bds stable 05/2022. Is due again 06/2024. [...] bid. Assessment & Plan (10/05/2022 4:02 PM ASSEMBLY MACHINE OFFBEARER): bds stable 05/2022. Continue ca and vit d 600mg po bid. Assessment & Plan (07/09/2022 1:19 PM ASSEMBLY MACHINE OFFBEARER): bds stable 05/2022. Continue ca and vit d 600mg po bid. Assessment & Plan (04/02/2022 4:22 PM CDT): Will try to get copy of bds. Assessment & Plan (11/23/2021 8:33 AM CDT): Has not been able to get her bds until November, [facility] is backed up. Assessment & Plan (10/19/2021 1:51 PM ASSEMBLY MACHINE OFFBEARER): Has not been able to get her bds until November, [facility] is backed up. Assessment & Plan (07/21/2021 4:19 PM ASSEMBLY MACHINE OFFBEARER): Check bds. Weight gain 07/21/2021 Assessment & Plan (01/30/2024 5:37 PM CDT): Is morbidly obese, can't seem to lose weight. Drinks lots of lemonade and crystal light, has family hx of dm2. Check hgba1c. Also to discuss ozempic with pcp for weight loss. She might be able to qualify for free drug due to her low income. Assessment & Plan (07/21/2021 4:07 PM ASSEMBLY MACHINE OFFBEARER): Has gained over 20 lb in past 2 yrs. Has hx of hypothyroidism. On levothyroxine. Check tsh today. Has not had this checked with pcp in over 4 months. Esophageal stenosis 01/27/2021 Assessment & Plan (07/21/2021 11:48 AM ASSEMBLY MACHINE OFFBEARER): Had an esophageal stenosis dilated in december. [...] 04/12 Assessment & Plan (07/29/2024 4:16 PM ASSEMBLY MACHINE OFFBEARER): Low cdai. Doing well on imuran, continue imuran to 100 mg every day. Recheck labs today. Has hx of pulm htn and esophageal stenosis. Has not seen gi for esophageal stenosis symptoms again. No skin changes or sclerodactyly. Seeing dr gordon now for her ckd. Her staple processing machine operator also retired, will refer her for her yearly pft and cxr. Previous history/labs/imaging: Echo 03/2023: Echo report below, has mild enlarged heart but good ef. Has an abn septal motion with possible bundle branch block. Impaired diastolic relaxation grade I. Send this to her staple processing machine operator and advised pt to f/u with [...] dr gordon now for her ckd. Her staple processing machine operator also retired, will refer her for her yearly echo (has hx of pulm htn) sees pulm and she is scheduled to have pft's soon. Previous history/labs/imaging: Echo 03/2023: Echo report below, has mild enlarged heart but good ef. Has an abn septal motion with possible bundle branch block. Impaired diastolic relaxation grade I. Send this to her staple processing machine operator and advised pt to f/u with [...] relaxation grade I. Send this to her staple processing machine operator and advised pt to f/u with [...] relaxation grade I. Send this to her staple processing machine operator and advised pt to f/u with [...] also. Assessment & Plan (08/01/2023 4:15 PM ASSEMBLY MACHINE OFFBEARER): Low-mod cdai. Arava stopped due to lft [...] relaxation grade I. Send this to her staple processing machine operator and advised pt to f/u with [...] relaxation grade I. Send this to her staple processing machine operator and advised pt to f/u with [...] relaxation grade I. Send this to her staple processing machine operator and advised pt to f/u with [...] SLE. Assessment & Plan (10/05/2022 4:00 PM ASSEMBLY MACHINE OFFBEARER): Low cdai. In past we recommended we [...] SLE. Assessment & Plan (07/09/2022 2:36 PM ASSEMBLY MACHINE OFFBEARER): Low cdai. In past we recommended we [...] diastolic dysfunction, was advised to see her staple processing machine operator for treating her htn and for her abn echo. Assessment & Plan (10/19/2021 4:32 PM ASSEMBLY MACHINE OFFBEARER): Low cdai. Recommended adding orencia but once [...] today. Assessment & Plan (07/21/2021 4:06 PM ASSEMBLY MACHINE OFFBEARER): Mod cdai. Recommended adding orencia but once [...] it. Assessment & Plan (09/23/2020 5:15 PM ASSEMBLY MACHINE OFFBEARER): Mod cdai. 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 Has hx of + anti-carbamyalted also. She has an overlap of RA and SLE. Recommended starting xeljanz but once again she declines, discussed potential se and risks, still declines meds. She was informed of continuing joint damage. Assessment & Plan (06/27/2020 5:08 PM ASSEMBLY MACHINE OFFBEARER): Mod cdai. Pt has an erosive arthritis [...] PT. Assessment & Plan (09/23/2020 7:34 AM ASSEMBLY MACHINE OFFBEARER): Declines further workup. Does not want to do PT. Assessment & Plan (06/27/2020 5:09 PM ASSEMBLY MACHINE OFFBEARER): Declines further workup. Does not want to do PT. Assessment & Plan (01/21/2020 3:59 PM CDT): Check lumbar xray and start PT. Assessment & Plan (06/29/2019 12:35 PM ASSEMBLY MACHINE OFFBEARER): Check lumbar xray and start PT. Encounter for long-term (current) use of medicat ions 10/24/2017 Assessment & Plan (07/29/2024 4:15 PM ASSEMBLY MACHINE OFFBEARER): Hand US 03/2020 lunate and 5th mcp [...] arava, stopped 2022 Avoid mtx due to aquion. Assessment & Plan (10/31/2023 8:38 AM CDT): [...] aquino. Assessment & Plan (08/01/2023 4:16 PM ASSEMBLY MACHINE OFFBEARER): Hand US 03/2020 lunate and 5th mcp [...] Avise 01/2020---Prabha 1:160. tpo pos. Hx of qauino, lft elevation with arava, stopped 2022 Avoid [...] pos. Assessment & Plan (07/21/2021 4:17 PM ASSEMBLY MACHINE OFFBEARER): Check bds, has not had one for years she states. Pulmonary hypertension 01/30/2017 Assessment & Plan (07/29/2024 4:16 PM ASSEMBLY MACHINE OFFBEARER): Echo stable and utd 05/2024. Right ventricular systolic pressure could not be estimated due to inadequate visualization of the tricuspid regurgitation jet. Pt joshua f/u with staple processing machine operator q [address] laura crabtree. Still needs to see pulm for her yearly pft's. Gave pt referral for pft and cxr. Advised to work on weight loss. Assessment & Plan (04/30/2024 8:19 AM CDT): Echo stable and utd 03/2023. Right ventricular systolic pressure could not be estimated due to inadequate visualization of the tricuspid regurgitation jet. Pt joshua f/u with staple processing machine operator q [address] laura crabtree. Still needs to see pulm for her yearly pft's. Assessment & Plan (10/31/2023 8:38 AM CDT): Echo stable and utd 03/2023. Right ventricular systolic pressure could not be estimated due to inadequate visualization of the tricuspid regurgitation jet. Pt joshua f/u with staple processing machine operator q [address] laura crabtree. Still needs to see pulm for her yearly pft's. Assessment & Plan (08/01/2023 8:32 AM ASSEMBLY MACHINE OFFBEARER): Echo stable and utd 03/2023. Right ventricular systolic pressure could not be estimated due to inadequate visualization of the tricuspid regurgitation jet. Pt joshua f/u with staple processing machine operator q [address] laura crabtree. Still needs to see pulm for her yearly pft's. Assessment & Plan (05/29/2023 8:12 AM CDT): Echo stable and utd 03/2023. Right ventricular systolic pressure could not be estimated due to inadequate visualization of the tricuspid regurgitation jet. Pt joshua f/u with staple processing machine operator q [address] laura crabtree. Still needs to see pulm for her yearly pft's. Assessment & Plan (04/29/2023 1:55 PM CDT): Echo stable and utd 03/2023. Right ventricular systolic pressure could not be estimated due to inadequate visualization of the tricuspid regurgitation jet. Pt joshua f/u with staple processing machine operator q [address] laura crabtree. Still needs to see pulm for her yearly pft's. Assessment & Plan (04/01/2023 3:19 PM CDT): Sees staple processing machine operator but not pulm. Has hx of tachycardia, staple processing machine operator is aware of this. Echo scheduled next week. Can't tolerate cpap and due to poor dentition can't use oral appliance for her sleep apnea. Cxr nl 01/2023. Assessment & Plan (12/31/2022 2:52 PM CDT): Saw staple processing machine operator for echo in past but has not f/u with him or repair technician. Has hx of tachycardia. Pt to let her pcp and staple processing machine operator know about her htn/tachycardia. States that pcp was aware of this and wanted pt to work on diet/weight loss. Pt is not eating any salt. Assessment & Plan (10/08/2022 4:46 PM ASSEMBLY MACHINE OFFBEARER): Saw staple processing machine operator for echo in past but has not f/u with him or repair technician. Has hx of tachycardia. Pt to let her pcp and staple processing machine operator know about her htn/tachycardia. States that pcp was aware of this and wanted pt to work on diet/weight loss. Pt is not eating any salt. Assessment & Plan (07/04/2022 4:38 PM ASSEMBLY MACHINE OFFBEARER): Saw staple processing machine operator for echo. Pt to let her pcp and staple processing machine operator know about her htn/tachycardia. States that pcp was aware of this and wanted pt to work on diet/weight loss. Pt is not eating any salt. Assessment & Plan (03/30/2022 3:36 PM CDT): Saw staple processing machine operator for echo. Pt to let her pcp and staple processing machine operator know about her htn/tachycardia. States that pcp was aware of this and wanted pt to work on diet/weight loss. Pt is not eating any salt. Assessment & Plan (11/23/2021 8:31 AM CDT): Saw staple processing machine operator for echo. Pt to let her pcp and staple processing machine operator know about her htn/tachycardia. States that pcp was aware of this and wanted pt to work on diet/weight loss. Pt is not eating any salt. Assessment & Plan (10/19/2021 1:54 PM ASSEMBLY MACHINE OFFBEARER): Sees staple processing machine operator next week for echo. To have it sent to us also. Pt to let her pcp and staple processing machine operator know about her htn/tachycardia. States that pcp was aware of this and wanted pt to work on diet/weight loss. Pt is not eating any salt. Assessment & Plan (07/21/2021 4:17 PM ASSEMBLY MACHINE OFFBEARER): Has been having LE edema. pcp started [...] insurance. In past she was referred to staple processing machine operator and pulm several times but due to finances she stated she could not afford to go. Her recent le edema could be early chf. Advised pt to see pulm and staple processing machine operator for her pum htn and to discuss this with pcp. Has not seen pulmonary for over 5 yrs due to cost. Has not seen staple processing machine operator or had an echo since 2014. Assessment & Plan (04/28/2021 2:30 PM CDT): Has been having LE edema. Pt has pulmonary htn and a rt lung nodule and hx of pulmonary hypertension. In past she was referred to staple processing machine operator and pulm several times but due to finances she stated she could not afford to go. Her recent le edema could be early chf. Advised pt to see pulm and staple processing machine operator for her pum htn and to discuss this with pcp. Has not seen pulmonary for over 5 yrs due to cost. Has not seen staple processing machine operator or had an echo since 2014. Assessment & Plan (01/27/2021 2:02 PM CDT): Has pulmonary htn and a rt lung nodule. Has not seen pulmonary for over 5 yrs due to cost. Has not seen staple processing machine operator or had an echo since 2014. Advised her to f/u with both. Assessment & Plan (12/19/2020 7:56 AM CDT): Has pulmonary htn and a rt lung nodule. Seeing pulm but has not seen staple processing machine operator yet. Was referred several times in past but states she can't afford the copays. Assessment & Plan (09/23/2020 7:34 AM ASSEMBLY MACHINE OFFBEARER): Has pulmonary htn and a rt lung nodule. Seeing pulm but has not seen staple processing machine operator yet. Was referred several times in past but states she can't afford the copays. Assessment & Plan (06/27/2020 5:10 PM ASSEMBLY MACHINE OFFBEARER): Has pulmonary htn and a rt lung nodule. Seeing pulm but has not seen staple processing machine operator yet. Was referred several times in past but states she can't afford the copays. Assessment & Plan (04/27/2020 1:18 PM CDT): Has pulmonary htn and a rt lung nodule. In past she was referred to repair technician in past or eval of her pulm htn and to staple processing machine operator but has not f/u in over [...] (01/21/2020 3:57 PM CDT): Was referred to repair technician in past or eval of her pulm htn and to staple processing machine operator but has not f/u in over 5 yrs. Advised to also see opth for yearly eye exam. Gave pt referral for cxr, and echo, pft's at past visits but she has not done them. States she can't afford all the copays. Advised her again to schedule them. Assessment & Plan (10/28/2019 2:10 PM CDT): Was referred to repair technician in past or eval of her pulm htn and to staple processing machine operator but has not f/u in over 5 yrs. Advised to also see opth for yearly eye exam. Gave pt referral for cxr, and echo, pft's at past visits but she has not done them. States she can't afford all the copays. Advised her again to schedule them. Assessment & Plan (06/26/2019 8:23 AM ASSEMBLY MACHINE OFFBEARER): Was referred to repair technician in past or eval of her pulm htn and to staple processing machine operator but has not f/u in over 2 yrs. Advised to also see opth for yearly eye exam. Gave pt referral for cxr, and echo, pft's at past visits but she has not done them. States she can't afford all the copays. Advised her again to schedule them. Assessment & Plan (04/06/2019 8:37 AM CDT): Was referred to repair technician in past or eval of her pulm htn and to staple processing machine operator but has not f/u in over [...] diastolic dysfunction, was advised to see her staple processing machine operator for treating her htn and for her abn echo. Assessment & Plan (10/19/2021 4:29 PM ASSEMBLY MACHINE OFFBEARER): bp elevated 150/90 and pulse 110. No [...] Her ldl was elevated in march with staple processing machine operator at 153. Due to her hx of RA and Sle she is at increased risk of CAD and recommend she discuss starting meds for her cholesterol with Dr Brown her staple processing machine operator. She had SE to lipitor and crestor in past. Assessment & Plan (10/19/2021 4:26 PM ASSEMBLY MACHINE OFFBEARER): LDL at last visit was very high [...] diet. Assessment & Plan (07/21/2021 4:18 PM ASSEMBLY MACHINE OFFBEARER): Requesting that we check her cholesterol with today's labs. Not fasting so will check direct LDL. Systemic lupus erythematosus (CMS/HCC) 5 Overview (11/16/2016): Lupus Assessment & Plan (07/29/2024 8:36 AM ASSEMBLY MACHINE OFFBEARER): Low cdai. On plaquenil 200 mg po [...] day. Assessment & Plan (08/01/2023 4:15 PM ASSEMBLY MACHINE OFFBEARER): Low-mod cdai. On plaquenil 200 mg po [...] next week. Cxr done in december at [facility], we do not have it, will get [...] wnl. Hand US 03/2020: Assessment & Plan (12/31/2022 8:11 AM [...] 03/2020: Assessment & Plan (10/08/2022 4:47 PM ASSEMBLY MACHINE OFFBEARER): Images from the original note were not [...] 03/2020: Assessment & Plan (07/09/2022 2:35 PM ASSEMBLY MACHINE OFFBEARER): Images from the original note were not included. Low cdai. Public Health Service Officer was ok with lowering plaquenil dose to [...] again. No skin changes or sclerodactyly. Sees staple processing machine operator also. Past serologies showed + hep 2 and + anti carbamylated. 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 Demarco alba had enthesopathy on xrays 3 so she can have a spondyloarthropathy also. [facility] checked recently [facility] Hand US 03/2020: Assessment & Plan (04/02/2022 4:22 PM CDT): Images from the original note were not included. Low cdai. Public Health Service Officer was ok with lowering plaquenil dose to 200 mg po every day in past. Pt advised to get eye exams q 6 months.. Check labs today. Has hx of pulm htn and esophageal stenosis. No skin changes or sclerodactyly. Sees staple processing machine operator. Past serologies showed + hep 2 and + anti carbamylated. 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 Demarco alba had enthesopathy on xrays 3 so she can have a spondyloarthropathy also. TSH checked recently at [facility]. Hand US 03/2020: Assessment & Plan (11/23/2021 8:31 AM CDT): Images from the original note were not included. Low cdai. Public Health Service Officer was ok with lowering plaquenil dose to 200 mg po every day. Check labs. Has hx of pulm htn and esophageal stenosis. No skin changes or sclerodactyly. Has echo with staple processing machine operator next week. Advised pt to let her staple processing machine operator know about her elevated bp and cholesterol also. Past serologies showed + hep 2 and + anti carbamylated. 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 Demarco alba had enthesopathy on xrays 3 so she can have a spondyloarthropathy also. She also has thyroid antibodies, she was advised to discuss this with pcp in past. [facility] 03/2020: Assessment & Plan (10/19/2021 4:33 PM ASSEMBLY MACHINE OFFBEARER): Images from the original note were not included. Low cdai. Public Health Service Officer was ok with lowering plaquenil dose to 200 mg po every day. Check labs. Has hx of pulm htn and esophageal stenosis. No skin changes or sclerodactyly. Has echo with staple processing machine operator next week. Advised pt to let her staple processing machine operator know about her elevated bp and cholesterol also. Past serologies showed + hep 2 and + anti carbamylated. 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 Demarco alba had enthesopathy on xrays 3 so she can have a spondyloarthropathy also. She also has thyroid antibodies, she was advised to discuss this with pcp in past. [facility] 03/2020: Assessment & Plan (07/21/2021 4:05 PM ASSEMBLY MACHINE OFFBEARER): Images from the original note were not included. Mod cdai. Public Health Service Officer was ok with lowering plaquenil dose to 200 mg po every day. Check labs. Past serologies showed + hep 2 and + anti carbaylated. 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 Demarco alba had enthesopathy on xrays 3 so she can have a spondyloarthropathy also. She also has thyroid antibodies, she was advised to discuss this with pcp in past [facility] 03/2020: Assessment & Plan (04/28/2021 2:28 PM CDT): Images from the original note were not included. low cdai. Public Health Service Officer was ok with lowering plaquenil dose to [...] discuss this with pcp in past Hand US 03/2020: Assessment & Plan (01/27/2021 5:02 PM CDT): Images from the original note were not included. Mod cdai. Public Health Service Officer was ok with lowering plaquenil dose to [...] discuss this with pcp in past Hand US 03/2020: Assessment & Plan (12/19/2020 2:35 PM CDT): Images from the original note were not included. High cdai but mostly tender joints, not many swollen. Public Health Service Officer was ok with lowering dose to 200 [...] has been on plaquenil for 8 yrs. Public Health Service Officer said it was fine to continue lower dose of HCQ. Is finally seeing a repair technician for a lung nodule, her pcp referred her to pulm closer to her house. Hand 03/2020: Assessment & Plan (09/23/2020 5:14 PM ASSEMBLY MACHINE OFFBEARER): Images from the original note were not [...] has been on plaquenil for 8 yrs. Public Health Service Officer said it was fine to continue lower dose of HCQ. Is finally seeing a repair technician for a lung nodule, her pcp referred her to pulm closer to her house. [facility] 03/2020: Assessment & Plan (06/27/2020 5:08 PM ASSEMBLY MACHINE OFFBEARER): Images from the original note were not [...] has been on plaquenil for 8 yrs. Public Health Service Officer said it was fine to continue lower dose of HCQ. Is finally seeing a repair technician for a lung nodule, her pcp referred her to pulm closer to her house. [facility] 03/2020: Assessment & Plan (04/27/2020 1:20 PM [...] 200mg qd until rest of the year. Public Health Service Officer said it was fine to continue lower dose of HCQ. Advised again to see her staple processing machine operator and pulm for pft, cxr and echo, was given referral at last visits, pt states she can't afford to see more doctors. Advised to get prevnar 13 and shingrix. Had her flu vaccine. Gave her another cxr referral. Hand US 03/2020: Assessment & Plan (01/27/2020 2:18 PM [...] 200mg qd until rest of the year. Public Health Service Officer said it was fine to continue lower dose of HCQ. Advised again to see her staple processing machine operator and pulm for pft, cxr and [...] 200mg qd until rest of the year. Public Health Service Officer said it was fine to continue lower dose of HCQ. Advised again to see her staple processing machine operator and pulm for pft, cxr and [...] loss. Assessment & Plan (06/29/2019 12:34 PM ASSEMBLY MACHINE OFFBEARER): high cdai. Pt is on arava 20mg [...] the year. Advised again to see her staple processing machine operator and pulm for pft, cxr and [...] adding belysta. Advised again to see her staple processing machine operator and pulm for pft, cxr and [...] 07/21/202103/14 Assessment & Plan (07/21/2021 4:19 PM ASSEMBLY MACHINE OFFBEARER): Has gained weight and occ bg is [...] visit. Assessment & Plan (06/29/2019 12:35 PM ASSEMBLY MACHINE OFFBEARER): Check cpk and aldolase. Normal muscle strength on exam and no LE edema and neg lalit sign bilat LE. Abnormal laboratory test result 04/06/2019 03/14/2022 Assessment & Plan (07/21/2021 4:19 PM ASSEMBLY MACHINE OFFBEARER): has thyroid antibodies, pt given copies of [...] 01/2020. Assessment & Plan (09/23/2020 7:34 AM ASSEMBLY MACHINE OFFBEARER): has thyroid antibodies, pt given copies of labs in past and she was advised to address this with pcp. TSH wnl 01/2020. Assessment & Plan (06/27/2020 8:41 AM ASSEMBLY MACHINE OFFBEARER): has thyroid antibodies, pt given copies of [...] 2019. Assessment & Plan (06/26/2019 8:25 AM ASSEMBLY MACHINE OFFBEARER): has thyroid antibodies, pt given copies of [...] 08/01/2023 Assessment & Plan (08/01/2023 8:32 AM ASSEMBLY MACHINE OFFBEARER): Hand US 03/2020 lunate and 5th mcp [...] pos. Assessment & Plan (10/05/2022 4:00 PM ASSEMBLY MACHINE OFFBEARER): Hand US 03/2020 lunate and 5th mcp [...] pos. Assessment & Plan (07/04/2022 4:38 PM ASSEMBLY MACHINE OFFBEARER): Hand US 03/2020 lunate and 5th mcp [...] pos. Assessment & Plan (10/19/2021 1:52 PM ASSEMBLY MACHINE OFFBEARER): Hand US 03/2020 lunate and 5th mcp [...] pos. Assessment & Plan (07/21/2021 11:48 AM ASSEMBLY MACHINE OFFBEARER): Hand US 03/2020 lunate and 5th mcp [...] pos. Assessment & Plan (09/23/2020 7:34 AM ASSEMBLY MACHINE OFFBEARER): Hand US 03/2020 lunate and 5th mcp [...] pos. Assessment & Plan (06/27/2020 8:38 AM ASSEMBLY MACHINE OFFBEARER): Hand US 03/2020 lunate and 5th mcp [...] 03/30 Assessment & Plan (06/26/2019 8:25 AM ASSEMBLY MACHINE OFFBEARER): avise panel 10/2018---showed + hep 2 and [...] Overview (11/16/2016): LONG-TERM USE MEDS NEC Immunizations Immunization Administration Dates Next Due Pneumococcal [...] on file Legal Sex Female 10:10 AM ASSEMBLY MACHINE OFFBEARER Gender Identity Not on file Sexual Orientation Not on file Last Filed Vital Signs Vital Sign Reading Time Taken Comments Blood Pressure 156/84 07/29/2024 1:58 PM ASSEMBLY MACHINE OFFBEARER Pulse 89 07/29/2024 1:58 PM ASSEMBLY MACHINE OFFBEARER Temperature 37.5 C (99.5 F) 10/19/2021 1:19 PM ASSEMBLY MACHINE OFFBEARER Respiratory Rate - - Oxygen Saturation 96% 07/29/2024 1:58 PM ASSEMBLY MACHINE OFFBEARER Inhaled Oxygen Concentration - - Weight 107 kg (236 lb) 07/29/2024 1:58 PM ASSEMBLY MACHINE OFFBEARER Height 154.9 cm (5' 1 ) 07/29/2024 1:58 PM ASSEMBLY MACHINE OFFBEARER Body Mass Index 44.59 07/29/2024 1:58 PM ASSEMBLY MACHINE OFFBEARER Plan of Treatment Not on file Procedures Procedure Name Priority Date/Time Associated Diagnosis Comments SCAN - RADIOLOGY/IMAGING 09/22/2024 12:33 PM ASSEMBLY MACHINE OFFBEARER HEMOGLOBIN A1C Routine 07/29/2024 3:12 PM ASSEMBLY MACHINE OFFBEARER VITAMIN D 25 HYDROXY Routine 07/29/2024 3:12 PM ASSEMBLY MACHINE OFFBEARER VITAMIN B12 Routine 07/29/2024 3:12 PM ASSEMBLY MACHINE OFFBEARER TSH Routine 07/29/2024 3:12 PM ASSEMBLY MACHINE OFFBEARER ANTI-DOUBLE STRANDED DNA ANTIBODIES Routine 07/29/2024 3:12 PM ASSEMBLY MACHINE OFFBEARER Systemic lupus erythematosus, unspecified SLE type, unspecified organ involvement status (HCC) Seronegative rheumatoid arthritis (CMS/HCC) (HCC) Encounter for long-term (current) use of medications Age-related osteoporosis without current pathological fracture COMPREHENSIVE METABOLIC PANEL Routine 07/29/2024 3:12 PM ASSEMBLY MACHINE OFFBEARER Systemic lupus erythematosus, unspecified SLE type, unspecified organ involvement status (HCC) Seronegative rheumatoid arthritis (CMS/HCC) (HCC) Encounter for long-term (current) use of medications Age-related osteoporosis without current pathological fracture CRP (ACUTE PHASE) Routine 07/29/2024 3:1 2 PM ASSEMBLY MACHINE OFFBEARER Systemic lupus erythematosus, unspecified SLE type, unspecified organ involvement status (HCC) Seronegative rheumatoid arthritis (CMS/HCC) (HCC) Encounter for long-term (current) use of medications Age-related osteoporosis without current pathological fracture C3 COMPLEMENT Routine 07/29/2024 3:12 PM ASSEMBLY MACHINE OFFBEARER Systemic lupus erythematosus, unspecified SLE type, unspecified organ involvement status (HCC) Seronegative rheumatoid arthritis (CMS/HCC) (HCC) Encounter for long-term (current) use of medications Age-related osteoporosis without current pathological fracture C4 COMPLEMENT Routine 07/29/2024 3:12 PM ASSEMBLY MACHINE OFFBEARER Systemic lupus erythematosus, unspecified SLE type, unspecified organ involvement status (HCC) Seronegative rheumatoid arthritis (CMS/HCC) (HCC) Encounter for long-term (current) use of medications Age-related osteoporosis without current pathological fracture CBC WITH AUTO DIFFERENTIAL Routine 07/29/2024 3:12 PM ASSEMBLY MACHINE OFFBEARER Systemic lupus erythematosus, unspecified SLE type, unspecified organ involvement status (HCC) Seronegative rheumatoid arthritis (CMS/HCC) (HCC) Encounter for long-term (current) use of medications Age-related osteoporosis without current pathological fracture ERYTHROCYTE SEDIMENTATION RATE Routine 07/29/2024 3:12 PM ASSEMBLY MACHINE OFFBEARER Systemic lupus erythematosus, unspecified SLE type, unspecified organ involvement status (HCC) Seronegative rheumatoid arthritis (CMS/HCC) (HCC) Encounter for long-term (current) use of medications Age-related osteoporosis without current pathological fracture from Last 3 Months Results * SCAN - RADIOLOGY/IMAGING (09/22/2024 12:33 PM ASSEMBLY MACHINE OFFBEARER) Anatomical Region Laterality Modality Other Meeta CAMPBELL F inal Result * Anti-double stranded DNA abs (07/29/2024 3:12 PM ASSEMBLY MACHINE OFFBEARER) DNA (DS) ab <1 IU/mL [facility] Comment: IU/mL Interpretation < or = 4 Negative 5-9 Indeterminate > or = 10 Positive Blood 07/29/2024 3:12 PM ASSEMBLY MACHINE OFFBEARER 07/29/2024 3:14 PM ASSEMBLY MACHINE OFFBEARER Narrative [facility] - 07/31/2024 4:02 AM ASSEMBLY MACHINE OFFBEARER PATIENT UNABLE TO VOID; ADVISED TO RETURN FOR COLLECTION. Meeta CAMPBELL LAB BLOOD ORDERAB LES Final Result [facility] [address] [phone] * C4 complement (07/29/2024 3:12 PM ASSEMBLY MACHINE OFFBEARER) Complement component C4C 26 15 - 57 mg/dL [facility] Blood 07/29/2024 3:12 PM ASSEMBLY MACHINE OFFBEARER 07/29/2024 3:14 PM ASSEMBLY MACHINE OFFBEARER Narrative [facility] - 07/31/2024 4:02 AM ASSEMBLY MACHINE OFFBEARER PATIENT UNABLE TO VOID; ADVISED TO RETURN FOR COLLECTION. us Meeta CAMPBELL LAB BLOOD ORDERAB LES Final Result [facility] [address] [phone] * (ABNORMAL) CBC with auto differential (07/29/2024 3:12 PM ASSEMBLY MACHINE OFFBEARER) Pathologist [facility] WBC 4.0 3.8 - 10.8 Thousand/u L [...] [facility] Blood 07/29/2024 3:12 PM ASSEMBLY MACHINE OFFBEARER 07/29/2024 3:14 PM ASSEMBLY MACHINE OFFBEARER Narrative [facility] - 07/31/2024 4:02 AM ASSEMBLY MACHINE OFFBEARER PATIENT UNABLE TO VOID; ADVISED TO RETURN FOR COLLECTION. Meeta CAMPBELL LAB BLOOD ORDERAB LES Final Result [facility] [address] [place] [phone] * Vitamin D 25 hydroxy (07/29/2024 3:12 PM ASSEMBLY MACHINE OFFBEARER) Vitamin D 25-OH 41 30 - 100 [...] D, (D2,D3), LC/MS/MS is recommended: order code [id number] (patients >2yrs). See Note 1 Note 1 For additional information, please refer to http://education.MiddleGate/faq/LMX558 (This link is being provided for informational/ educational purposes only.) 07/29/2024 3:12 PM ASSEMBLY MACHINE OFFBEARER 07/29/2024 3:14 PM ASSEMBLY MACHINE OFFBEARER Narrative [facility] - 07/31/2024 4:02 AM ASSEMBLY MACHINE OFFBEARER PATIENT UNABLE TO VOID; ADVISED TO RETURN FOR COLLECTION. Meeta CAMPBELL LAB BLOOD ORDERAB LES Final Result [facility] [address] [place] [phone] * Erythrocyte sedimentation rate (07/29/2024 3:12 PM ASSEMBLY MACHINE OFFBEARER) Erythrocyte sedimentation rate 28 < OR = 30 mm/h [facility] Blood 07/29/2024 3:12 PM ASSEMBLY MACHINE OFFBEARER 07/29/2024 3:14 PM ASSEMBLY MACHINE OFFBEARER Narrative [facility] - 07/31/2024 4:02 AM ASSEMBLY MACHINE OFFBEARER PATIENT UNABLE TO VOID; ADVISED TO RETURN FOR COLLECTION. Meeta CAMPBELL LAB BLOOD ORDERAB LES Final Result Performing Organization Address City/[facility]/ZIP Co de Phone Number [facility] [address] [place] [address] * C3 complement (07/29/2024 3:12 PM ASSEMBLY MACHINE OFFBEARER) Complement component C3C 156 83 - 193 mg/dL [facility] Blood 07/29/2024 3:12 PM ASSEMBLY MACHINE OFFBEARER 07/29/2024 3:14 PM ASSEMBLY MACHINE OFFBEARER Narrative [facility] - 07/31/2024 4:02 AM ASSEMBLY MACHINE OFFBEARER PATIENT UNABLE TO VOID; ADVISED TO RETURN FOR COLLECTION. Meeta CAMPBELL LAB BLOOD ORDERAB LES Final Result Performing Organization Address [facility] Co de Phone Number [facility] [address] [place] [address] * CRP (acute phase) (07/29/2024 3:12 PM ASSEMBLY MACHINE OFFBEARER) C-RP <3.0 <8.0 mg/L [facility] Blood 07/29/2024 3:12 PM ASSEMBLY MACHINE OFFBEARER 07/29/2024 3:14 PM ASSEMBLY MACHINE OFFBEARER Narrative [facility] - 07/31/2024 4:02 AM ASSEMBLY MACHINE OFFBEARER PATIENT UNABLE TO VOID; ADVISED TO RETURN FOR COLLECTION. Meeta CAMPBELL LAB BLOOD ORDERAB LES Final Result Performing Organization Address City/[facility] Co de Phone Number [facility] [address] [place] [address] * TSH (07/29/2024 3:12 PM ASSEMBLY MACHINE OFFBEARER) [facility] TSH 0.44 0.40 - 4.50 mIU/L [facility] 07/29/2024 3:12 PM ASSEMBLY MACHINE OFFBEARER 07/29/2024 3:14 PM ASSEMBLY MACHINE OFFBEARER Narrative [facility] - 07/31/2024 4:02 AM ASSEMBLY MACHINE OFFBEARER PATIENT UNABLE TO VOID; ADVISED TO RETURN FOR COLLECTION. Meeta CAMPBELL LAB BLOOD ORDERAB LES Final Result [facility] [address] [facility] [place] [address] * (ABNORMAL) Hemoglobin A1c (07/29/2024 3:12 PM ASSEMBLY MACHINE OFFBEARER) [facility] Hgb A1C 5.8(H) <5.7 % of total Hgb [facility] Comment: For someone without known [...] of diabetes for children. 07/29/2024 3:12 PM ASSEMBLY MACHINE OFFBEARER 07/29/2024 3:14 PM ASSEMBLY MACHINE OFFBEARER Narrative [facility] - 07/31/2024 4:02 AM ASSEMBLY MACHINE OFFBEARER PATIENT UNABLE TO VOID; ADVISED TO RETURN FOR COLLECTION. Meeta CAMPBELL LAB BLOOD ORDERAB LES Final Result [facility] [address] [place] [address] * Vitamin B12 (07/29/2024 3:12 PM ASSEMBLY MACHINE OFFBEARER) Vitamin B12 420 200 - 1,100 pg/mL [facility] 07/29/2024 3:12 PM ASSEMBLY MACHINE OFFBEARER 07/29/2024 3:14 PM ASSEMBLY MACHINE OFFBEARER Narrative [facility] - 07/31/2024 4:02 AM ASSEMBLY MACHINE OFFBEARER PATIENT UNABLE TO VOID; ADVISED TO RETURN FOR COLLECTION. us Meeta CAMPBELL LAB BLOOD ORDERAB LES Final Result [facility] [address] [phone] * (ABNORMAL) Comprehensive metabolic panel (07/29/2024 3:12 PM ASSEMBLY MACHINE OFFBEARER) Glucose 103(H) 65 - 99 mg/dL [facility] [...] [facility] Blood 07/29/2024 3:12 PM ASSEMBLY MACHINE OFFBEARER 07/29/2024 3:14 PM ASSEMBLY MACHINE OFFBEARER Narrative [facility] - 07/31/2024 4:02 AM ASSEMBLY MACHINE OFFBEARER PATIENT UNABLE TO VOID; ADVISED TO RETURN FOR COLLECTION. us Meeta CAMPBELL LAB BLOOD ORDERAB LES Final Result [facility] [address] [phone] from Last 3 Months Insurance MEDICARE [facility] MEDICARE [facility] MEDICARE [facility] Care Teams Microsoft Office Instructor Relationship Specialty Start Date End Date Chichi Watkins MD [address] [place], [place] [id number] PCP - General 11/09/16 Cindy Murphy MD [address] [place] [address] Consulting Physician Pulmonary Disease 09/27/20 [facility] [address] [place], [place] [id number] Consulting Physician Cardiology 11/27/21 Chepe Tijerina MD [address] [place] [address] Consulting Physician Rheumatology 09/23/23 Branden Gordon MD [address] [place], [place] [address] Referring Physician Nephrology 11/01/23
--- OUTSIDE RECORDS SUMMARY | 2024-10-05 14:08 | XMS_ITS | Encounter Summary ---
Author Organization [facility] Address [address] [place] [address] Phone Care Team Providers Care Lead Shop Operator Name Role Phone Chichi Watkins MD Primary Care Provider Minh TRAN MD, John J. Unavailable [phone] Luz Maria Reyez MD Unavailable Minh TRAN MD, John J. Unavailable Magen Valencia MD Unavailable [phone] Cindy Murphy MD Unavailable [phone] Laura Obrien MD Unavailable [phone] Chepe Tijerina MD Unavailable Branden Gordon MD Unavailable [phone] Encounter Details Date Type Department Care Team (Late st Contact Info) Description 10/25/2017 Orders Only [facility] ProviderBrenda MD [address] [place] [address] Social History Tobacco Use Types Packs/Day Years Used Date Smoking Tobacco: Former Alcohol Use Standard Drinks/Week Comments Yes 0 (1 standard drink = 0.6 oz pur e alcohol) Comments Unknown Sex and Gender Information Value Date Recorded Sex Assigned at Not on file Legal Sex Female 10:10 AM 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 Gender Identity Not on file Sexual Orientation [...] on filedocumented in this encounter Care Teams Lead Shop Operator Relationship Specialty Start Date End Date Chichi Watkins MD [address] [place] [address] PCP - General 11/09/16 Virgil Wilkinson III, MD [address] [place] [address] Consulting Physician Rheumatology 10/25/17 01/08/18 [place] [address] [facility] [address] [place] [address] Consulting Physician Rheumatology 01/09/18 03/04/19 Virgil Wilkinson III, MD [address] [place] [address] Consulting Physician Rheumatology 03/05/19 09/22/23 [place] [address] [facility] [address] [place] [address] Referring Physician Pulmonary Disease 03/03/20 09/26/20 Cindy Murphy MD [address] [place], [place] [address] Consulting Physician Pulmonary Disease 09/27/20 [facility] [address] [facility] [address] [place] [address] Consulting Physician Cardiology 11/27/21 Chepe Tijerina MD [address] [place] [address] Consulting Physician Rheumatology 09/23/23 Branden Gordon MD [address] [place] [address] Referring Physician Nephrology 11/01/23 documented as of this encounter
== END 2024-10-05 12:27 | disposition home or self-care (01) ==
PROVIDERS: PCP Family Medicine; Visit Provider Physician Assistant Medical
DX: M25.551 Pain in right hip (principal); M54.41 Lumbago with sciatica, right side; G89.29 Other chronic pain; I27.20 Pulmonary hypertension, unspecified
CPT/HCPCS: 71046; 72100; 72202; 73502

== ENCOUNTER 2024-10-14 00:03 | Day surgery (SDC) | payer MEDICARE, SELFPAY ==
[2024-10-07 14:01] VITALS: BMI 43.7
--- OUTSIDE RECORDS SUMMARY | 2024-10-14 00:07 | XMS_ITS | Encounter Summary ---
Author Organization [facility] Address [address] [place] [address] Phone Care Team Providers Care Automatic Washer Mechanic Name Role Phone Chichi Watkins MD Primary Care Provider Cindy Murphy MD Unavailable [phone] Laura Obrien MD Unavailable [phone] Cheep Tijerina MD Unavailable [phone] Branden Gordon MD Unavailable [phone] Encounter Details Date Type Department Care Team (Late st Contact Info) Description 10/07/2024 Results Follow-Up [facility] [address] [place] [address] Meeta Tolliver PA [address] [place] [address] Social History Tobacco Use Types Packs/Day Years Used Date Smoking Tobacco: Never Alcohol Use Standard Drinks/Week Comments Yes 0 [...] on file Legal Sex Female 10:10 AM 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 Has quite a lot of rt hip arthritis and mild lt hip. Some si joint arthritis. Does she want to see pain mgmt for her hip and back arthritis for steroid injections? PRESSURE KETTLE OPERATOR documented in this encounter Plan of Treatment Not on file documented as of this encounter Visit Diagnoses Not on filedocumented in this encounter Care Teams Automatic Washer Mechanic Relationship Specialty Start Date End Date Chichi Watkins MD [address] [place] [address] PCP - General 11/09/16 Cindy Murphy MD [address] [place] [address] Consulting Physician Pulmonary Disease 09/27/20 Laura Obrien MD [address] [place] [address] Consulting Physician Cardiology 11/27/21 Chepe Tijerina MD [address] [place] [address] Consulting Physician Rheumatology 09/23/23 Branden Gordon MD [address] [place] [address] Referring Physician Nephrology 11/01/23 documented as of this encounter
--- OUTSIDE RECORDS SUMMARY | 2024-10-14 00:08 | XMS_ITS | Encounter Summary ---
Author Organization [facility] Address [address] [place] [address] Phone Care Team Providers Care Float Operator Name Role Phone Chichi Watkins MD Primary Care Provider Minh TRAN MD, John J. Unavailable [phone] Luz Maria Reyez MD Unavailable Minh TRAN MD, John J. Unavailable [phone] Magen Valencia MD Unavailable [phone] Cindy Murphy MD Unavailable [phone] Laura Obrien MD Unavailable [phone] Chepe Tijerina MD Unavailable [phone] Branden Gordon MD Unavailable [phone] Encounter Details Date Type Department Care Team (Late st Contact Info) Description 10/25/2017 Orders Only [facility] ProviderBrenda MD [address] [place] [address] Social History Tobacco Use Types Packs/Day Years Used Date Smoking Tobacco: Former Alcohol Use Standard Drinks/Week Comments Yes 0 (1 standard drink = 0.6 oz pur e alcohol) Comments Unknown Sex and Gender Information Value Date Recorded Sex Assigned at Not on file Legal Sex Female 10:10 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 WORKER Gender Identity Not on file Sexual Orientation [...] on filedocumented in this encounter Care Teams Float Operator Relationship Specialty Start Date End Date Chichi Watkins MD [address] [place] [address] PCP - General 11/09/16 Virgil Wilkinson III, MD [address] [place] [address] Consulting Physician Rheumatology 10/25/17 01/08/18 [place] [address] [facility] [address] [place] [address] Consulting Physician Rheumatology 01/09/18 03/04/19 Virgil Wilkinson III, MD [address] [place] [address] Consulting Physician Rheumatology 03/05/19 09/22/23 [place] [address] [facility] [address] [place] [address] Referring Physician Pulmonary Disease 03/03/20 09/26/20 Cindy Murphy MD [address] [place], [place] [address] Consulting Physician Pulmonary Disease 09/27/20 [facility] [address] [facility] [address] [place] [address] Consulting Physician Cardiology 11/27/21 Chepe Tijerina MD [address] [place] [address] Consulting Physician Rheumatology 09/23/23 Branden Gordon MD [address] [place] [address] Referring Physician Nephrology 11/01/23 documented as of this encounter
--- OUTSIDE RECORDS SUMMARY | 2024-10-14 00:08 | XMS_ITS | Clinical Summary ---
Author Organization [facility] [address] [facility] Address [address] [place] [id number] Phone Care Team Providers Care Chief Engineering Division Name Role Phone Chichi Watkins MD Primary Care Provider Cindy Murphy MD Unavailable [phone] MikalLaura hobbs MD Unavailable [phone] Chepe Tijerina MD Unavailable [phone] Branden Gordon MD Unavailable [phone] Allergies Active Allergy Reactions Criticality Noted Date [...] 07/29/2024 Assessment & Plan (07/29/2024 4:19 PM MEDICAL DATA ANALYST): Check rt hip xray. Chronic right-sided low back pain with right-alin ed sciatica 07/29/2024 Assessment & Plan (07/29/2024 4:18 PM MEDICAL DATA ANALYST): Full rom of bilat hips. Check rt hip, lumbar spine and si joint xrays. Abnormal serum glucose level 07/29/2024 Assessment & Plan (07/29/2024 4:18 PM MEDICAL DATA ANALYST): Hx of abn hgba1c, not checked by pcp and last checked by us 01/2024, recheck today. Advised to work on weight loss. Other fatigue 07/29/2024 Assessment & Plan (07/29/2024 4:18 PM MEDICAL DATA ANALYST): Check tsh, b12, hgba1c. Vitamin D deficiency 04/30/2024 Assessment & Plan (07/29/2024 4:19 PM MEDICAL DATA ANALYST): Check vit d. Assessment & Plan (04/30/2024 [...] 10/31/2023 Assessment & Plan (07/29/2024 4:15 PM MEDICAL DATA ANALYST): Sees dr gordon. Htn still not under [...] Assessment & Plan (04/29/2023 1:53 PM CDT): [place] utd, dx with ibs in past. Check [...] not included. Advised pt to see her finish photographer Dr Crabtree. BP still elevated and had an abn echo with enlarged heart diastolic dysfunction, was advised to see her finish photographer for treating her htn and for her abn echo. Echo 07/2021 Hypothyroidism 07/21/2021 Assessment & Plan (07/21/2021 4:18 PM MEDICAL DATA ANALYST): Check TSH. Age-related osteoporosis wit hout current pathological fracture 07/21/2021 Assessment & Plan (07/29/2024 4:14 PM MEDICAL DATA ANALYST): bds stable 05/2022. Was due 06/2024 but was not able to get an appt at [facility] in [place] until next year. Continue ca and vit [...] bid. Assessment & Plan (08/01/2023 8:32 AM MEDICAL DATA ANALYST): bds stable 05/2022. Is due again 06/2024. [...] bid. Assessment & Plan (10/05/2022 4:02 PM MEDICAL DATA ANALYST): bds stable 05/2022. Continue ca and vit d 600mg po bid. Assessment & Plan (07/09/2022 1:19 PM MEDICAL DATA ANALYST): bds stable 05/2022. Continue ca and vit d 600mg po bid. Assessment & Plan (04/02/2022 4:22 PM CDT): Will try to get copy of bds. Assessment & Plan (11/23/2021 8:33 AM CDT): Has not been able to get her bds until November, [facility] is backed up. Assessment & Plan (10/19/2021 1:51 PM MEDICAL DATA ANALYST): Has not been able to get her bds until November, [facility] is backed up. Assessment & Plan (07/21/2021 4:19 PM MEDICAL DATA ANALYST): Check bds. Weight gain 07/21/2021 Assessment & Plan (01/30/2024 5:37 PM CDT): Is morbidly obese, can't seem to lose weight. Drinks lots of lemonade and crystal light, has family hx of dm2. Check hgba1c. Also to discuss ozempic with pcp for weight loss. She might be able to qualify for free drug due to her low income. Assessment & Plan (07/21/2021 4:07 PM MEDICAL DATA ANALYST): Has gained over 20 lb in past 2 yrs. Has hx of hypothyroidism. On levothyroxine. Check tsh today. Has not had this checked with pcp in over 4 months. Esophageal stenosis 01/27/2021 Assessment & Plan (07/21/2021 11:48 AM MEDICAL DATA ANALYST): Had an esophageal stenosis dilated in december. [...] 04/12 Assessment & Plan (07/29/2024 4:16 PM MEDICAL DATA ANALYST): Low cdai. Doing well on imuran, continue imuran to 100 mg every day. Recheck labs today. Has hx of pulm htn and esophageal stenosis. Has not seen gi for esophageal stenosis symptoms again. No skin changes or sclerodactyly. Seeing dr gordon now for her ckd. Her finish photographer also retired, will refer her for her yearly pft and cxr. Previous history/labs/imaging: Echo 03/2023: Echo report below, has mild enlarged heart but good ef. Has an abn septal motion with possible bundle branch block. Impaired diastolic relaxation grade I. Send this to her finish photographer and advised pt to f/u with him. [...] dr gordon now for her ckd. Her finish photographer also retired, will refer her for her yearly echo (has hx of pulm htn) sees pulm and she is scheduled to have pft's soon. Previous history/labs/imaging: Echo 03/2023: Echo report below, has mild enlarged heart but good ef. Has an abn septal motion with possible bundle branch block. Impaired diastolic relaxation grade I. Send this to her finish photographer and advised pt to f/u with him. [...] relaxation grade I. Send this to her finish photographer and advised pt to f/u with him. [...] relaxation grade I. Send this to her finish photographer and advised pt to f/u with him. [...] also. Assessment & Plan (08/01/2023 4:15 PM MEDICAL DATA ANALYST): Low-mod cdai. Arava stopped due to lft [...] relaxation grade I. Send this to her finish photographer and advised pt to f/u with him. [...] relaxation grade I. Send this to her finish photographer and advised pt to f/u with him. [...] relaxation grade I. Send this to her finish photographer and advised pt to f/u with him. [...] SLE. Assessment & Plan (10/05/2022 4:00 PM MEDICAL DATA ANALYST): Low cdai. In past we recommended we [...] SLE. Assessment & Plan (07/09/2022 2:36 PM MEDICAL DATA ANALYST): Low cdai. In past we recommended we [...] diastolic dysfunction, was advised to see her finish photographer for treating her htn and for her abn echo. Assessment & Plan (10/19/2021 4:32 PM MEDICAL DATA ANALYST): Low cdai. Recommended adding orencia but once [...] today. Assessment & Plan (07/21/2021 4:06 PM MEDICAL DATA ANALYST): Mod cdai. Recommended adding orencia but once [...] it. Assessment & Plan (09/23/2020 5:15 PM MEDICAL DATA ANALYST): Mod cdai. 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 Has hx of + anti-carbamyalted also. She has an overlap of RA and SLE. Recommended starting xeljanz but once again she declines, discussed potential se and risks, still declines meds. She was informed of continuing joint damage. Assessment & Plan (06/27/2020 5:08 PM MEDICAL DATA ANALYST): Mod cdai. Pt has an erosive arthritis [...] PT. Assessment & Plan (09/23/2020 7:34 AM MEDICAL DATA ANALYST): Declines further workup. Does not want to do PT. Assessment & Plan (06/27/2020 5:09 PM MEDICAL DATA ANALYST): Declines further workup. Does not want to do PT. Assessment & Plan (01/21/2020 3:59 PM CDT): Check lumbar xray and start PT. Assessment & Plan (06/29/2019 12:35 PM MEDICAL DATA ANALYST): Check lumbar xray and start PT. Encounter for long-term (current) use of medicat ions 10/24/2017 Assessment & Plan (07/29/2024 4:15 PM MEDICAL DATA ANALYST): Hand US 03/2020 lunate and 5th mcp [...] aquino. Assessment & Plan (08/01/2023 4:16 PM MEDICAL DATA ANALYST): Hand US 03/2020 lunate and 5th mcp [...] pos. Assessment & Plan (07/21/2021 4:17 PM MEDICAL DATA ANALYST): Check bds, has not had one for years she states. Pulmonary hypertension 01/30/2017 Assessment & Plan (07/29/2024 4:16 PM MEDICAL DATA ANALYST): Echo stable and utd 05/2024. Right ventricular systolic pressure could not be estimated due to inadequate visualization of the tricuspid regurgitation jet. Pt joshua f/u with finish photographer q [address] laura crabtree. Still needs to see pulm for her yearly pft's. Gave pt referral for pft and cxr. Advised to work on weight loss. Assessment & Plan (04/30/2024 8:19 AM CDT): Echo stable and utd 03/2023. Right ventricular systolic pressure could not be estimated due to inadequate visualization of the tricuspid regurgitation jet. Pt joshua f/u with finish photographer q [address] laura crabtree. Still needs to see pulm for her yearly pft's. Assessment & Plan (10/31/2023 8:38 AM CDT): Echo stable and utd 03/2023. Right ventricular systolic pressure could not be estimated due to inadequate visualization of the tricuspid regurgitation jet. Pt joshua f/u with finish photographer q [address] laura crabtree. Still needs to see pulm for her yearly pft's. Assessment & Plan (08/01/2023 8:32 AM MEDICAL DATA ANALYST): Echo stable and utd 03/2023. Right ventricular systolic pressure could not be estimated due to inadequate visualization of the tricuspid regurgitation jet. Pt joshua f/u with finish photographer q [address] laura crabtree. Still needs to see pulm for her yearly pft's. Assessment & Plan (05/29/2023 8:12 AM CDT): Echo stable and utd 03/2023. Right ventricular systolic pressure could not be estimated due to inadequate visualization of the tricuspid regurgitation jet. Pt joshua f/u with finish photographer q [address] laura crabtree. Still needs to see pulm for her yearly pft's. Assessment & Plan (04/29/2023 1:55 PM CDT): Echo stable and utd 03/2023. Right ventricular systolic pressure could not be estimated due to inadequate visualization of the tricuspid regurgitation jet. Pt joshua f/u with finish photographer q [address] laura crabtree. Still needs to see pulm for her yearly pft's. Assessment & Plan (04/01/2023 3:19 PM CDT): Sees finish photographer but not pulm. Has hx of tachycardia, finish photographer is aware of this. Echo scheduled next week. Can't tolerate cpap and due to poor dentition can't use oral appliance for her sleep apnea. Cxr nl 01/2023. Assessment & Plan (12/31/2022 2:52 PM CDT): Saw finish photographer for echo in past but has not f/u with him or cold press loader. Has hx of tachycardia. Pt to let her pcp and finish photographer know about her htn/tachycardia. States that pcp was aware of this and wanted pt to work on diet/weight loss. Pt is not eating any salt. Assessment & Plan (10/08/2022 4:46 PM MEDICAL DATA ANALYST): Saw finish photographer for echo in past but has not f/u with him or cold press loader. Has hx of tachycardia. Pt to let her pcp and finish photographer know about her htn/tachycardia. States that pcp was aware of this and wanted pt to work on diet/weight loss. Pt is not eating any salt. Assessment & Plan (07/04/2022 4:38 PM MEDICAL DATA ANALYST): Saw finish photographer for echo. Pt to let her pcp and finish photographer know about her htn/tachycardia. States that pcp was aware of this and wanted pt to work on diet/weight loss. Pt is not eating any salt. Assessment & Plan (03/30/2022 3:36 PM CDT): Saw finish photographer for echo. Pt to let her pcp and finish photographer know about her htn/tachycardia. States that pcp was aware of this and wanted pt to work on diet/weight loss. Pt is not eating any salt. Assessment & Plan (11/23/2021 8:31 AM CDT): Saw finish photographer for echo. Pt to let her pcp and finish photographer know about her htn/tachycardia. States that pcp was aware of this and wanted pt to work on diet/weight loss. Pt is not eating any salt. Assessment & Plan (10/19/2021 1:54 PM MEDICAL DATA ANALYST): Sees finish photographer next week for echo. To have it sent to us also. Pt to let her pcp and finish photographer know about her htn/tachycardia. States that pcp was aware of this and wanted pt to work on diet/weight loss. Pt is not eating any salt. Assessment & Plan (07/21/2021 4:17 PM MEDICAL DATA ANALYST): Has been having LE edema. pcp started [...] insurance. In past she was referred to finish photographer and pulm several times but due to finances she stated she could not afford to go. Her recent le edema could be early chf. Advised pt to see pulm and finish photographer for her pum htn and to discuss this with pcp. Has not seen pulmonary for over 5 yrs due to cost. Has not seen finish photographer or had an echo since 2014. Assessment & Plan (04/28/2021 2:30 PM CDT): Has been having LE edema. Pt has pulmonary htn and a rt lung nodule and hx of pulmonary hypertension. In past she was referred to finish photographer and pulm several times but due to finances she stated she could not afford to go. Her recent le edema could be early chf. Advised pt to see pulm and finish photographer for her pum htn and to discuss this with pcp. Has not seen pulmonary for over 5 yrs due to cost. Has not seen finish photographer or had an echo since 2014. Assessment & Plan (01/27/2021 2:02 PM CDT): Has pulmonary htn and a rt lung nodule. Has not seen pulmonary for over 5 yrs due to cost. Has not seen finish photographer or had an echo since 2014. Advised her to f/u with both. Assessment & Plan (12/19/2020 7:56 AM CDT): Has pulmonary htn and a rt lung nodule. Seeing pulm but has not seen finish photographer yet. Was referred several times in past but states she can't afford the copays. Assessment & Plan (09/23/2020 7:34 AM MEDICAL DATA ANALYST): Has pulmonary htn and a rt lung nodule. Seeing pulm but has not seen finish photographer yet. Was referred several times in past but states she can't afford the copays. Assessment & Plan (06/27/2020 5:10 PM MEDICAL DATA ANALYST): Has pulmonary htn and a rt lung nodule. Seeing pulm but has not seen finish photographer yet. Was referred several times in past but states she can't afford the copays. Assessment & Plan (04/27/2020 1:18 PM CDT): Has pulmonary htn and a rt lung nodule. In past she was referred to cold press loader in past or eval of her pulm htn and to finish photographer but has not f/u in over 5 [...] (01/21/2020 3:57 PM CDT): Was referred to cold press loader in past or eval of her pulm htn and to finish photographer but has not f/u in over 5 yrs. Advised to also see opth for yearly eye exam. Gave pt referral for cxr, and echo, pft's at past visits but she has not done them. States she can't afford all the copays. Advised her again to schedule them. Assessment & Plan (10/28/2019 2:10 PM CDT): Was referred to cold press loader in past or eval of her pulm htn and to finish photographer but has not f/u in over 5 yrs. Advised to also see opth for yearly eye exam. Gave pt referral for cxr, and echo, pft's at past visits but she has not done them. States she can't afford all the copays. Advised her again to schedule them. Assessment & Plan (06/26/2019 8:23 AM MEDICAL DATA ANALYST): Was referred to cold press loader in past or eval of her pulm htn and to finish photographer but has not f/u in over 2 yrs. Advised to also see opth for yearly eye exam. Gave pt referral for cxr, and echo, pft's at past visits but she has not done them. States she can't afford all the copays. Advised her again to schedule them. Assessment & Plan (04/06/2019 8:37 AM CDT): Was referred to cold press loader in past or eval of her pulm htn and to finish photographer but has not f/u in over 2 [...] diastolic dysfunction, was advised to see her finish photographer for treating her htn and for her abn echo. Assessment & Plan (10/19/2021 4:29 PM MEDICAL DATA ANALYST): bp elevated 150/90 and pulse 110. No [...] Her ldl was elevated in march with finish photographer at 153. Due to her hx of RA and Sle she is at increased risk of CAD and recommend she discuss starting meds for her cholesterol with Dr Brown her finish photographer. She had SE to lipitor and crestor in past. Assessment & Plan (10/19/2021 4:26 PM MEDICAL DATA ANALYST): LDL at last visit was very high [...] diet. Assessment & Plan (07/21/2021 4:18 PM MEDICAL DATA ANALYST): Requesting that we check her cholesterol with today's labs. Not fasting so will check direct LDL. Systemic lupus erythematosus (CMS/HCC) 5 Overview (11/16/2016): Lupus Assessment & Plan (07/29/2024 8:36 AM MEDICAL DATA ANALYST): Low cdai. On plaquenil 200 mg po [...] day. Assessment & Plan (08/01/2023 4:15 PM MEDICAL DATA ANALYST): Low-mod cdai. On plaquenil 200 mg po [...] next week. Cxr done in december at [place], we do not have it, will get [...] spondyloarthropathy also. TSH checked recently at [facility]. [facility] 03/2020: Assessment & Plan (12/31/2022 8:11 AM [...] spondyloarthropathy also. TSH checked recently at [facility]. [facility] 03/2020: Assessment & Plan (10/08/2022 4:47 PM MEDICAL DATA ANALYST): Images from the original note were not [...] spondyloarthropathy also. TSH checked recently at [facility]. [facility] 03/2020: Assessment & Plan (07/09/2022 2:35 PM MEDICAL DATA ANALYST): Images from the original note were not included. Low cdai. Graphic Editor was ok with lowering plaquenil dose to [...] again. No skin changes or sclerodactyly. Sees finish photographer also. Past serologies showed + hep 2 and + anti carbamylated. 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 Demarco alba had enthesopathy on xrays 3 so she can have a spondyloarthropathy also. TSH checked recently at [facility]. [facility] 03/2020: Assessment & Plan (04/02/2022 4:22 PM CDT): Images from the original note were not included. Low cdai. Graphic Editor was ok with lowering plaquenil dose to 200 mg po every day in past. Pt advised to get eye exams q 6 months.. Check labs today. Has hx of pulm htn and esophageal stenosis. No skin changes or sclerodactyly. Sees finish photographer. Past serologies showed + hep 2 and + anti carbamylated. 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 Demarco alba had enthesopathy on xrays 10/28 so she can have a spondyloarthropathy also. TSH checked recently at [facility]. [facility] 03/2020: Assessment & Plan (11/23/2021 8:31 AM CDT): Images from the original note were not included. Low cdai. Graphic Editor was ok with lowering plaquenil dose to 200 mg po every day. Check labs. Has hx of pulm htn and esophageal stenosis. No skin changes or sclerodactyly. Has echo with finish photographer next week. Advised pt to let her finish photographer know about her elevated bp and cholesterol also. Past serologies showed + hep 2 and + anti carbamylated. 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 Demarco alba had enthesopathy on xrays 10/28 so she can have a spondyloarthropathy also. She also has thyroid antibodies, she was advised to discuss this with pcp in past. [facility] 03/2020: Assessment & Plan (10/19/2021 4:33 PM MEDICAL DATA ANALYST): Images from the original note were not included. Low cdai. Graphic Editor was ok with lowering plaquenil dose to 200 mg po every day. Check labs. Has hx of pulm htn and esophageal stenosis. No skin changes or sclerodactyly. Has echo with finish photographer next week. Advised pt to let her finish photographer know about her elevated bp and cholesterol [...] 03/2020: Assessment & Plan (07/21/2021 4:05 PM MEDICAL DATA ANALYST): Images from the original note were not included. Mod cdai. Graphic Editor was ok with lowering plaquenil dose to [...] original note were not included. low cdai. Graphic Editor was ok with lowering plaquenil dose to [...] original note were not included. Mod cdai. Graphic Editor was ok with lowering plaquenil dose to [...] but mostly tender joints, not many swollen. Graphic Editor was ok with lowering dose to 200 [...] has been on plaquenil for 8 yrs. Graphic Editor said it was fine to continue lower dose of HCQ. Is finally seeing a cold press loader for a lung nodule, her pcp referred her to pulm closer to her house. [facility] 03/2020: Assessment & Plan (09/23/2020 5:14 PM MEDICAL DATA ANALYST): Images from the original note were not [...] has been on plaquenil for 8 yrs. Graphic Editor said it was fine to continue lower dose of HCQ. Is finally seeing a cold press loader for a lung nodule, her pcp referred her to pulm closer to her house. [facility] 03/2020: Assessment & Plan (06/27/2020 5:08 PM MEDICAL DATA ANALYST): Images from the original note were not [...] an overlap of RA and SLE. Demarco abla had enthesopathy on xrays 10/28 so she can have a spondyloarthropathy also. She also has thyroid antibodies, she was advised to discuss this with pcp in past but once again has not seen her pcp for months she states. No hx of psoriasis. Thinks she has been on plaquenil for 8 yrs. Graphic Editor said it was fine to continue lower dose of HCQ. Is finally seeing a cold press loader for a lung nodule, her pcp referred her to pulm closer to her house. [facility] 03/2020: Assessment & Plan (04/27/2020 1:20 PM [...] 200mg qd until rest of the year. Graphic Editor said it was fine to continue lower dose of HCQ. Advised again to see her finish photographer and pulm for pft, cxr and echo, [...] 200mg qd until rest of the year. Graphic Editor said it was fine to continue lower dose of HCQ. Advised again to see her finish photographer and pulm for pft, cxr and echo, [...] 200mg qd until rest of the year. Graphic Editor said it was fine to continue lower dose of HCQ. Advised again to see her finish photographer and pulm for pft, cxr and echo, [...] loss. Assessment & Plan (06/29/2019 12:34 PM MEDICAL DATA ANALYST): high cdai. Pt is on arava 20mg [...] the year. Advised again to see her finish photographer and pulm for pft, cxr and echo, [...] adding belysta. Advised again to see her finish photographer and pulm for pft, cxr and echo, [...] 07/21/202103/14 Assessment & Plan (07/21/2021 4:19 PM MEDICAL DATA ANALYST): Has gained weight and occ bg is [...] visit. Assessment & Plan (06/29/2019 12:35 PM MEDICAL DATA ANALYST): Check cpk and aldolase. Normal muscle strength on exam and no LE edema and neg lalit sign bilat LE. Abnormal laboratory test result 04/06/2019 03/14/2022 Assessment & Plan (07/21/2021 4:19 PM MEDICAL DATA ANALYST): has thyroid antibodies, pt given copies of [...] 01/2020. Assessment & Plan (09/23/2020 7:34 AM MEDICAL DATA ANALYST): has thyroid antibodies, pt given copies of labs in past and she was advised to address this with pcp. T[facility] 01/2020. Assessment & Plan (06/27/2020 8:41 AM MEDICAL DATA ANALYST): has thyroid antibodies, pt given copies of [...] 2019. Assessment & Plan (06/26/2019 8:25 AM MEDICAL DATA ANALYST): has thyroid antibodies, pt given copies of [...] 08/01/2023 Assessment & Plan (08/01/2023 8:32 AM MEDICAL DATA ANALYST): Hand US 03/2020 lunate and 5th mcp [...] pos. Assessment & Plan (10/05/2022 4:00 PM MEDICAL DATA ANALYST): Hand US 03/2020 lunate and 5th mcp [...] pos. Assessment & Plan (07/04/2022 4:38 PM MEDICAL DATA ANALYST): Hand US 03/2020 lunate and 5th mcp [...] pos. Assessment & Plan (10/19/2021 1:52 PM MEDICAL DATA ANALYST): Hand US 03/2020 lunate and 5th mcp [...] pos. Assessment & Plan (07/21/2021 11:48 AM MEDICAL DATA ANALYST): Hand US 03/2020 lunate and 5th mcp [...] pos. Assessment & Plan (09/23/2020 7:34 AM MEDICAL DATA ANALYST): Hand US 03/2020 lunate and 5th mcp [...] pos. Assessment & Plan (06/27/2020 8:38 AM MEDICAL DATA ANALYST): Hand US 03/2020 lunate and 5th mcp [...] 03/30 Assessment & Plan (06/26/2019 8:25 AM MEDICAL DATA ANALYST): avise panel 10/2018---showed + hep 2 and [...] Encounters Date Type Department Care Team Description 10/07/2024 Telephone [facility] [address] [place] [phone] Meeta Tolliver PA 10/07/2024 Results Follow-Up [facility] [address] [place] [phone] Meeta Tolliver PA 10/06/2024 Orders Only [facility] [address] [place] [phone] Meeta Tolliver PA 09/22/2024 Orders Only [facility] [address] [place] [id number] Meeta Tolliver PA 07/29/2024 2:30 PM MEDICAL DATA ANALYST Office Visit [facility] [address] [place] [phone] Meeta Tolliver PA Systemic lupus erythematosus, unspecified [...] Other Medical RA and Lupus; C omments: [facility] 03/06/2015 - Hx Other Medical 1987 lumpectomy; Com ments: [facility] 03/06/2015 - Hx Other Medical ear surgery; Co mments: 03/06/2015 - Hx Other Medical nose surgery; C omments: [facility] 03/06/2015 - Hx Other Medical tubal liation; Comments: [facility] 03/06/2015 - Hx Other Medical lumpectomy; Com ments: [facility] [facility] Family History Medical History [...] on file Legal Sex Female 10:10 AM MEDICAL DATA ANALYST Gender Identity Not on file Sexual Orientation Not on file Obstetrics History Last Filed Vital Signs Vital Sign Reading Time Taken Comments Blood Pressure 156/84 07/29/2024 1:58 PM MEDICAL DATA ANALYST Pulse 89 07/29/2024 1:58 PM MEDICAL DATA ANALYST Temperature 37.5 C (99.5 F) 10/19/2021 1:19 PM MEDICAL DATA ANALYST Respiratory Rate - - Oxygen Saturation 96% 07/29/2024 1:58 PM MEDICAL DATA ANALYST Inhaled Oxygen Concentration - - Weight 107 kg (236 lb) 07/29/2024 1:58 PM MEDICAL DATA ANALYST Height 154.9 cm (5' 1 ) 07/29/2024 1:58 PM MEDICAL DATA ANALYST Body Mass Index 44.59 07/29/2024 1:58 PM MEDICAL DATA ANALYST Plan of Treatment Health Maintenance Due Date [...] Date/Time Associated Diagnosis Comments SCAN - RADIOLOGY/IMAGING 10/06/2024 10:46 AM MEDICAL DATA ANALYST SCAN - RADIOLOGY/IMAGING 09/22/2024 12:33 PM MEDICAL DATA ANALYST HEMOGLOBIN A1C Routine 07/29/2024 3:12 PM MEDICAL DATA ANALYST VITAMIN D 25 HYDROXY Routine 07/29/2024 3:12 PM MEDICAL DATA ANALYST VITAMIN B12 Routine 07/29/2024 3:12 PM MEDICAL DATA ANALYST TSH Routine 07/29/2024 3:12 PM MEDICAL DATA ANALYST ANTI-DOUBLE STRANDED DNA ANTIBODIES Routine 07/29/2024 3:12 PM MEDICAL DATA ANALYST Systemic lupus erythematosus, unspecified SLE type, unspecified organ involvement status (HCC) Seronegative rheumatoid arthritis (CMS/HCC) (HCC) Encounter for long-term (current) use of medications Age-related osteoporosis without current pathological fracture COMPREHENSIVE METABOLIC PANEL Routine 07/29/2024 3:12 PM MEDICAL DATA ANALYST Systemic lupus erythematosus, unspecified SLE type, unspecified organ involvement status (HCC) Seronegative rheumatoid arthritis (CMS/HCC) (HCC) Encounter for long-term (current) use of medications Age-related osteoporosis without current pathological fracture CRP (ACUTE PHASE) Routine 07/29/2024 3:1 2 PM MEDICAL DATA ANALYST Systemic lupus erythematosus, unspecified SLE type, unspecified organ involvement status (HCC) Seronegative rheumatoid arthritis (CMS/HCC) (HCC) Encounter for long-term (current) use of medications Age-related osteoporosis without current pathological fracture C3 COMPLEMENT Routine 07/29/2024 3:12 PM MEDICAL DATA ANALYST Systemic lupus erythematosus, unspecified SLE type, unspecified organ involvement status (HCC) Seronegative rheumatoid arthritis (CMS/HCC) (HCC) Encounter for long-term (current) use of medications Age-related osteoporosis without current pathological fracture C4 COMPLEMENT Routine 07/29/2024 3:12 PM MEDICAL DATA ANALYST Systemic lupus erythematosus, unspecified SLE type, unspecified organ involvement status (HCC) Seronegative rheumatoid arthritis (CMS/HCC) (HCC) Encounter for long-term (current) use of medications Age-related osteoporosis without current pathological fracture CBC WITH AUTO DIFFERENTIAL Routine 07/29/2024 3:12 PM MEDICAL DATA ANALYST Systemic lupus erythematosus, unspecified SLE type, unspecified organ involvement status (HCC) Seronegative rheumatoid arthritis (CMS/HCC) (HCC) Encounter for long-term (current) use of medications Age-related osteoporosis without current pathological fracture ERYTHROCYTE SEDIMENTATION RATE Routine 07/29/2024 3:12 PM MEDICAL DATA ANALYST Systemic lupus erythematosus, unspecified SLE type, unspecified organ involvement status (HCC) Seronegative rheumatoid arthritis (CMS/HCC) (HCC) Encounter for long-term (current) use of medications Age-related osteoporosis without current pathological fracture from Last 3 Months Results * SCAN - RADIOLOGY/IMAGING (10/06/2024 10:46 AM MEDICAL DATA ANALYST) Anatomical Region Laterality Modality Other us Meeta esqueda Result - Final * SCAN - RADIOLOGY/IMAGING (09/22/2024 12:33 PM MEDICAL DATA ANALYST) Anatomical Region Laterality Modality Other us Meeta Caballero inal Result * Anti-double stranded DNA abs (07/29/2024 3:12 PM MEDICAL DATA ANALYST) DNA (DS) ab <1 IU/mL [facility] Comment: IU/mL Interpretation < or = 4 Negative 5-9 Indeterminate > or = 10 Positive Blood 07/29/2024 3:12 PM MEDICAL DATA ANALYST 07/29/2024 3:14 PM MEDICAL DATA ANALYST Narrative [facility] - 07/31/2024 4:02 AM MEDICAL DATA ANALYST PATIENT UNABLE TO VOID; ADVISED TO RETURN FOR COLLECTION. us Meeta CAMPBELL LAB BLOOD ORDERAB LES Final Result Performing Organization Address City/State/[facility] Co de Phone Number [facility] [address] [place] [address] * C4 complement (07/29/2024 3:12 PM MEDICAL DATA ANALYST) [facility] Complement component C4C 26 15 - 57 mg/dL [facility] Blood 07/29/2024 3:12 PM MEDICAL DATA ANALYST 07/29/2024 3:14 PM MEDICAL DATA ANALYST Narrative [facility] - 07/31/2024 4:02 AM MEDICAL DATA ANALYST PATIENT UNABLE TO VOID; ADVISED TO RETURN FOR COLLECTION. us Meeta CAMPBELL LAB BLOOD ORDERAB LES Final Result Performing Organization Address [facility] Co de Phone Number [facility] [address] [place] [address] * (ABNORMAL) CBC with auto differential (07/29/2024 3:12 PM MEDICAL DATA ANALYST) [facility] WBC 4.0 3.8 [...] [facility] Blood 07/29/2024 3:12 PM MEDICAL DATA ANALYST 07/29/2024 3:14 PM MEDICAL DATA ANALYST Narrative [facility] - 07/31/2024 4:02 AM MEDICAL DATA ANALYST PATIENT UNABLE TO VOID; ADVISED TO RETURN FOR COLLECTION. Meeta Tolliver PA LAB BLOOD ORDERAB LES Final Result [facility] [address] [place] [address] * Vitamin D 25 hydroxy (07/29/2024 3:12 PM MEDICAL DATA ANALYST) Vitamin D 25-OH 41 30 - 100 [...] D, (D2,D3), LC/MS/MS is recommended: order code [id number] (patients >2yrs). See Note 1 Note 1 For additional information, please refer to http://[email or web address].UrGift/faq/[email or web address] (This link is being provided for informational/ educational purposes only.) 07/29/2024 3:12 PM MEDICAL DATA ANALYST 07/29/2024 3:14 PM MEDICAL DATA ANALYST Narrative [facility] - 07/31/2024 4:02 AM MEDICAL DATA ANALYST PATIENT UNABLE TO VOID; ADVISED TO RETURN FOR COLLECTION. Meeta CAMPBELL LAB BLOOD ORDERAB LES Final Result Performing Organization Address [facility] Co de Phone Number [facility] [address] [place] [address] * Erythrocyte sedimentation rate (07/29/2024 3:12 PM MEDICAL DATA ANALYST) Erythrocyte sedimentation rate 28 < OR = 30 mm/h [facility] Blood 07/29/2024 3:12 PM MEDICAL DATA ANALYST 07/29/2024 3:14 PM MEDICAL DATA ANALYST Narrative [facility] - 07/31/2024 4:02 AM MEDICAL DATA ANALYST PATIENT UNABLE TO VOID; ADVISED TO RETURN FOR COLLECTION. Meeta CAMPBELL LAB BLOOD ORDERAB LES Final Result Performing Organization Address [facility] de Phone Number [facility] [address] [place] [address] * C3 complement (07/29/2024 3:12 PM MEDICAL DATA ANALYST) Complement component C3C 156 83 - 193 mg/dL [facility] Blood 07/29/2024 3:12 PM MEDICAL DATA ANALYST 07/29/2024 3:14 PM MEDICAL DATA ANALYST Narrative [facility] - 07/31/2024 4:02 AM MEDICAL DATA ANALYST PATIENT UNABLE TO VOID; ADVISED TO RETURN FOR COLLECTION. Meeta CAMPBELL LAB BLOOD ORDERAB LES Final Result Performing Organization Address [facility] de Phone Number [facility] [address] [facility] [place] [address] * CRP (acute phase) (07/29/2024 3:12 PM MEDICAL DATA ANALYST) C-RP <3.0 <8.0 mg/L [facility] Blood 07/29/2024 3:12 PM MEDICAL DATA ANALYST 07/29/2024 3:14 PM MEDICAL DATA ANALYST Narrative [facility] - 07/31/2024 4:02 AM MEDICAL DATA ANALYST PATIENT UNABLE TO VOID; ADVISED TO RETURN FOR COLLECTION. Meeta CAMPBELL LAB BLOOD ORDERAB LES Final Result Performing Organization Address [facility]/ZIP Co de Phone Number [facility] [address] [place] [address] * TSH (07/29/2024 3:12 PM MEDICAL DATA ANALYST) Pathologist [facility] TSH 0.44 0.40 - 4.50 mIU/L [facility] 07/29/2024 3:12 PM MEDICAL DATA ANALYST 07/29/2024 3:14 PM MEDICAL DATA ANALYST Narrative [facility] - 07/31/2024 4:02 AM MEDICAL DATA ANALYST PATIENT UNABLE TO VOID; ADVISED TO RETURN FOR COLLECTION. Meeta CAMPBELL LAB BLOOD ORDERAB LES Final Result Performing Organization Address [facility] de Phone Number [facility] [address] [place] [address] * (ABNORMAL) Hemoglobin A1c (07/29/2024 3:12 PM MEDICAL DATA ANALYST) Pathologist [facility] Hgb A1C 5.8(H) <5.7 % of total Hgb [facility] Comment: For someone without known diabetes, [...] of diabetes for children. 07/29/2024 3:12 PM MEDICAL DATA ANALYST 07/29/2024 3:14 PM MEDICAL DATA ANALYST Narrative [facility] - 07/31/2024 4:02 AM MEDICAL DATA ANALYST PATIENT UNABLE TO VOID; ADVISED TO RETURN FOR COLLECTION. us Meeta CAMPBELL LAB BLOOD ORDERAB LES Final Result [facility] [address] [place] [address] * Vitamin B12 (07/29/2024 3:12 PM MEDICAL DATA ANALYST) Pathologist [facility] Vitamin B12 420 200 - 1,100 pg/mL [facility] 07/29/2024 3:12 PM MEDICAL DATA ANALYST 07/29/2024 3:14 PM MEDICAL DATA ANALYST Narrative [facility] - 07/31/2024 4:02 AM MEDICAL DATA ANALYST PATIENT UNABLE TO VOID; ADVISED TO RETURN FOR COLLECTION. Meeta CAMPBELL LAB BLOOD ORDERAB LES Final Result Performing Organization Address City/[facility]/ZIP Co de Phone Number [facility] [address] [place] [address] * (ABNORMAL) Comprehensive metabolic panel (07/29/2024 3:12 PM MEDICAL DATA ANALYST) Glucose 103(H) 65 - 99 mg/dL [facility] [...] [facility] Blood 07/29/2024 3:12 PM MEDICAL DATA ANALYST 07/29/2024 3:14 PM MEDICAL DATA ANALYST Narrative [facility] - 07/31/2024 4:02 AM MEDICAL DATA ANALYST PATIENT UNABLE TO VOID; ADVISED TO RETURN FOR COLLECTION. us Meeta CAMPBELL LAB BLOOD ORDERAB LES Final Result [facility] [address] [place] [phone] from Last 3 Months Insurance MEDICARE [facility] Care Teams Chief Engineering Division Relationship Specialty Start Date End Date Chichi Watkins MD [address] [facility] [address] [place] [address] PCP - General 11/09/16 Cindy Murphy MD [address] [facility] [address] [place] [address] Consulting Physician Pulmonary Disease 09/27/20 Laura Crabtree MD [address] [facility] [address] [place] [address] Consulting Physician Cardiology 11/27/21 Chepe Tijerina MD [address] [place] [address] Consulting Physician Rheumatology 09/23/23 Branden Gordon MD [address], [place] [id number] Referring Physician Nephrology 11/01/23
--- OUTSIDE RECORDS SUMMARY | 2024-10-14 00:08 | XMS_ITS | Referral Summary ---
Author Organization [facility] [address] [facility] Address [address] [place] [phone] Phone Care Team Providers Care Medical Dir Name Role Phone Chichi Watkins MD Primary Care Provider Cindy Murphy MD Unavailable [phone] [facility] [phone] Chepe Tijerina MD Unavailable [phone] Branden Gordon MD Unavailable [phone] Encounters Date Type Department Care Team Description 10/07/2024 Telephone [facility] [address] [place] [phone] Meeta Tolliver PA 10/07/2024 Results Follow-Up [facility] [address] [place] [phone] Meeta Tolliver PA 10/06/2024 Orders Only [facility] [address] [place] [phone] Meeta Tolliver PA 09/22/2024 Orders Only [facility] [address] [place] [phone] Meeta Tolliver PA 07/29/2024 2:30 PM REVENUE ENFORCEMENT COLLECTION AGENT Office Visit [facility] [address] [place] [phone] Meeta Tolliver PA Systemic lupus erythematosus, [...] 07/29/2024 Assessment & Plan (07/29/2024 4:19 PM REVENUE ENFORCEMENT COLLECTION AGENT): Check rt hip xray. Chronic right-sided low back pain with right-alin ed sciatica 07/29/2024 Assessment & Plan (07/29/2024 4:18 PM REVENUE ENFORCEMENT COLLECTION AGENT): Full rom of bilat hips. Check rt hip, lumbar spine and si joint xrays. Abnormal serum glucose level 07/29/2024 Assessment & Plan (07/29/2024 4:18 PM REVENUE ENFORCEMENT COLLECTION AGENT): Hx of abn hgba1c, not checked by pcp and last checked by us 01/2024, recheck today. Advised to work on weight loss. Other fatigue 07/29/2024 Assessment & Plan (07/29/2024 4:18 PM REVENUE ENFORCEMENT COLLECTION AGENT): Check tsh, b12, hgba1c. Vitamin D deficiency 04/30/2024 Assessment & Plan (07/29/2024 4:19 PM REVENUE ENFORCEMENT COLLECTION AGENT): Check vit d. Assessment & Plan (04/30/2024 [...] 10/31/2023 Assessment & Plan (07/29/2024 4:15 PM REVENUE ENFORCEMENT COLLECTION AGENT): Sees dr gordon. Htn still not under control despite 3 htn meds. Sees him soon. Repeat bp lt arm sitting 150/80. Assessment & Plan (10/31/2023 5:44 PM CDT): Sees dr gordon. He started her on chlortalidone but after 1 tab it caused lip and tongue tingling/numbness. Contacted dr blanco call center at [facility] and let him know about this and gave call center pt's info. Advised pt to skip dose tomorrow and try to get hold of dr gordon if he does not call her and gave pt his office phone number. Diarrhea 04/29/2023 Assessment & Plan (04/29/2023 1:53 PM CDT): [place] utd, dx with ibs in past. Check [...] not included. Advised pt to see her police service technician Dr Crabtree. BP still elevated and had an abn echo with enlarged heart diastolic dysfunction, was advised to see her police service technician for treating her htn and for her abn echo. Echo 07/2021 Hypothyroidism 07/21/2021 Assessment & Plan (07/21/2021 4:18 PM REVENUE ENFORCEMENT COLLECTION AGENT): Check TSH. Age-related osteoporosis wit hout current pathological fracture 07/21/2021 Assessment & Plan (07/29/2024 4:14 PM REVENUE ENFORCEMENT COLLECTION AGENT): bds stable 05/2022. Was due 06/2024 but was not able to get an appt at [facility] in [place] until next year. Continue ca and vit [...] bid. Assessment & Plan (08/01/2023 8:32 AM REVENUE ENFORCEMENT COLLECTION AGENT): bds stable 05/2022. Is due again 06/2024. [...] bid. Assessment & Plan (10/05/2022 4:02 PM REVENUE ENFORCEMENT COLLECTION AGENT): bds stable 05/2022. Continue ca and vit d 600mg po bid. Assessment & Plan (07/09/2022 1:19 PM REVENUE ENFORCEMENT COLLECTION AGENT): bds stable 05/2022. Continue ca and vit d 600mg po bid. Assessment & Plan (04/02/2022 4:22 PM CDT): Will try to get copy of bds. Assessment & Plan (11/23/2021 8:33 AM CDT): Has not been able to get her bds until November, [facility] is backed up. Assessment & Plan (10/19/2021 1:51 PM REVENUE ENFORCEMENT COLLECTION AGENT): Has not been able to get her bds until November, [facility] is backed up. Assessment & Plan (07/21/2021 4:19 PM REVENUE ENFORCEMENT COLLECTION AGENT): Check bds. Weight gain 07/21/2021 Assessment & Plan (01/30/2024 5:37 PM CDT): Is morbidly obese, can't seem to lose weight. Drinks lots of lemonade and crystal light, has family hx of dm2. Check hgba1c. Also to discuss ozempic with pcp for weight loss. She might be able to qualify for free drug due to her low income. Assessment & Plan (07/21/2021 4:07 PM REVENUE ENFORCEMENT COLLECTION AGENT): Has gained over 20 lb in past 2 yrs. Has hx of hypothyroidism. On levothyroxine. Check tsh today. Has not had this checked with pcp in over 4 months. Esophageal stenosis 01/27/2021 Assessment & Plan (07/21/2021 11:48 AM REVENUE ENFORCEMENT COLLECTION AGENT): Had an esophageal stenosis dilated in december. Doing better. Sees Dr Sanders this year again for a colonoscopy but has not scheduled colo yet. Assessment & Plan (01/27/2021 2:02 PM CDT): Had an esophageal stenosis dilated in december. Doing better. Sees Dr Sanders this year again for a colonoscopy but has not scheduled colo yet. Seronegative rheumatoid arthritis ([facility]) 04/12 Assessment & Plan (07/29/2024 4:16 PM REVENUE ENFORCEMENT COLLECTION AGENT): Low cdai. Doing well on imuran, continue imuran to 100 mg every day. Recheck labs today. Has hx of pulm htn and esophageal stenosis. Has not seen gi for esophageal stenosis symptoms again. No skin changes or sclerodactyly. Seeing dr gordon now for her ckd. Her police service technician also retired, will refer her for her yearly pft and cxr. Previous history/labs/imaging: Echo 03/2023: Echo report below, has mild enlarged heart but good ef. Has an abn septal motion with possible bundle branch block. Impaired diastolic relaxation grade I. Send this to her police service technician and advised pt to f/u with him. [...] dr gordon now for her ckd. Her police service technician also retired, will refer her for her yearly echo (has hx of pulm htn) sees pulm and she is scheduled to have pft's soon. Previous history/labs/imaging: Echo 03/2023: Echo report below, has mild enlarged heart but good ef. Has an abn septal motion with possible bundle branch block. Impaired diastolic relaxation grade I. Send this to her police service technician and advised pt to f/u with him. [...] relaxation grade I. Send this to her police service technician and advised pt to f/u with him. [...] relaxation grade I. Send this to her police service technician and advised pt to f/u with him. [...] also. Assessment & Plan (08/01/2023 4:15 PM REVENUE ENFORCEMENT COLLECTION AGENT): Low-mod cdai. Arava stopped due to lft [...] relaxation grade I. Send this to her police service technician and advised pt to f/u with him. [...] relaxation grade I. Send this to her police service technician and advised pt to f/u with him. [...] relaxation grade I. Send this to her police service technician and advised pt to f/u with him. [...] SLE. Demarco heel had enthesopathy on xrays 3/19 so she [...] SLE. Assessment & Plan (10/05/2022 4:00 PM REVENUE ENFORCEMENT COLLECTION AGENT): Low cdai. In past we recommended we [...] SLE. Assessment & Plan (07/09/2022 2:36 PM REVENUE ENFORCEMENT COLLECTION AGENT): Low cdai. In past we recommended we [...] diastolic dysfunction, was advised to see her police service technician for treating her htn and for her abn echo. Assessment & Plan (10/19/2021 4:32 PM REVENUE ENFORCEMENT COLLECTION AGENT): Low cdai. Recommended adding orencia but once [...] today. Assessment & Plan (07/21/2021 4:06 PM REVENUE ENFORCEMENT COLLECTION AGENT): Mod cdai. Recommended adding orencia but once [...] it. Assessment & Plan (09/23/2020 5:15 PM REVENUE ENFORCEMENT COLLECTION AGENT): Mod cdai. 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 Has hx of + anti-carbamyalted also. She has an overlap of RA and SLE. Recommended starting xeljanz but once again she declines, discussed potential se and risks, still declines meds. She was informed of continuing joint damage. Assessment & Plan (06/27/2020 5:08 PM REVENUE ENFORCEMENT COLLECTION AGENT): Mod cdai. Pt has an erosive arthritis [...] PT. Assessment & Plan (09/23/2020 7:34 AM REVENUE ENFORCEMENT COLLECTION AGENT): Declines further workup. Does not want to do PT. Assessment & Plan (06/27/2020 5:09 PM REVENUE ENFORCEMENT COLLECTION AGENT): Declines further workup. Does not want to do PT. Assessment & Plan (01/21/2020 3:59 PM CDT): Check lumbar xray and start PT. Assessment & Plan (06/29/2019 12:35 PM REVENUE ENFORCEMENT COLLECTION AGENT): Check lumbar xray and start PT. Encounter for long-term (current) use of medicat ions 10/24/2017 Assessment & Plan (07/29/2024 4:15 PM REVENUE ENFORCEMENT COLLECTION AGENT): Hand US 03/2020 lunate and 5th mcp [...] mtx due to aquion. Assessment & Plan (04/30/2024 8:18 AM CDT): [...] wnl 10/28 Bilat heel enthesopathy on xrays 3/19 Hep B and C neg 02/2019 Quant [...] aquino. Assessment & Plan (08/01/2023 4:16 PM REVENUE ENFORCEMENT COLLECTION AGENT): Hand US 03/2020 lunate and 5th mcp [...] pos. Assessment & Plan (07/21/2021 4:17 PM REVENUE ENFORCEMENT COLLECTION AGENT): Check bds, has not had one for years she states. Pulmonary hypertension 01/30/2017 Assessment & Plan (07/29/2024 4:16 PM REVENUE ENFORCEMENT COLLECTION AGENT): Echo stable and utd 05/2024. Right ventricular systolic pressure could not be estimated due to inadequate visualization of the tricuspid regurgitation jet. Pt joshua f/u with police service technician q [address] laura crabtree. Still needs to see pulm for her yearly pft's. Gave pt referral for pft and cxr. Advised to work on weight loss. Assessment & Plan (04/30/2024 8:19 AM CDT): Echo stable and utd 03/2023. Right ventricular systolic pressure could not be estimated due to inadequate visualization of the tricuspid regurgitation jet. Pt joshua f/u with police service technician q [address] laura crabtree. Still needs to see pulm for her yearly pft's. Assessment & Plan (10/31/2023 8:38 AM CDT): Echo stable and utd 03/2023. Right ventricular systolic pressure could not be estimated due to inadequate visualization of the tricuspid regurgitation jet. Pt joshua f/u with police service technician q [address] laura crabtree. Still needs to see pulm for her yearly pft's. Assessment & Plan (08/01/2023 8:32 AM REVENUE ENFORCEMENT COLLECTION AGENT): Echo stable and utd 03/2023. Right ventricular systolic pressure could not be estimated due to inadequate visualization of the tricuspid regurgitation jet. Pt joshua f/u with police service technician q [address] laura crabtree. Still needs to see pulm for her yearly pft's. Assessment & Plan (05/29/2023 8:12 AM CDT): Echo stable and utd 03/2023. Right ventricular systolic pressure could not be estimated due to inadequate visualization of the tricuspid regurgitation jet. Pt joshua f/u with police service technician q [address] laura crabtree. Still needs to see pulm for her yearly pft's. Assessment & Plan (04/29/2023 1:55 PM CDT): Echo stable and utd 03/2023. Right ventricular systolic pressure could not be estimated due to inadequate visualization of the tricuspid regurgitation jet. Pt joshua f/u with police service technician q [address] laura crabtree. Still needs to see pulm for her yearly pft's. Assessment & Plan (04/01/2023 3:19 PM CDT): Sees police service technician but not pulm. Has hx of tachycardia, police service technician is aware of this. Echo scheduled next week. Can't tolerate cpap and due to poor dentition can't use oral appliance for her sleep apnea. Cxr nl 01/2023. Assessment & Plan (12/31/2022 2:52 PM CDT): Saw police service technician for echo in past but has not f/u with him or ore trimmer. Has hx of tachycardia. Pt to let her pcp and police service technician know about her htn/tachycardia. States that pcp was aware of this and wanted pt to work on diet/weight loss. Pt is not eating any salt. Assessment & Plan (10/08/2022 4:46 PM REVENUE ENFORCEMENT COLLECTION AGENT): Saw police service technician for echo in past but has not f/u with him or ore trimmer. Has hx of tachycardia. Pt to let her pcp and police service technician know about her htn/tachycardia. States that pcp was aware of this and wanted pt to work on diet/weight loss. Pt is not eating any salt. Assessment & Plan (07/04/2022 4:38 PM REVENUE ENFORCEMENT COLLECTION AGENT): Saw police service technician for echo. Pt to let her pcp and police service technician know about her htn/tachycardia. States that pcp was aware of this and wanted pt to work on diet/weight loss. Pt is not eating any salt. Assessment & Plan (03/30/2022 3:36 PM CDT): Saw police service technician for echo. Pt to let her pcp and police service technician know about her htn/tachycardia. States that pcp was aware of this and wanted pt to work on diet/weight loss. Pt is not eating any salt. Assessment & Plan (11/23/2021 8:31 AM CDT): Saw police service technician for echo. Pt to let her pcp and police service technician know about her htn/tachycardia. States that pcp was aware of this and wanted pt to work on diet/weight loss. Pt is not eating any salt. Assessment & Plan (10/19/2021 1:54 PM REVENUE ENFORCEMENT COLLECTION AGENT): Sees police service technician next week for echo. To have it sent to us also. Pt to let her pcp and police service technician know about her htn/tachycardia. States that pcp was aware of this and wanted pt to work on diet/weight loss. Pt is not eating any salt. Assessment & Plan (07/21/2021 4:17 PM REVENUE ENFORCEMENT COLLECTION AGENT): Has been having LE edema. pcp started [...] insurance. In past she was referred to police service technician and pulm several times but due to finances she stated she could not afford to go. Her recent le edema could be early chf. Advised pt to see pulm and police service technician for her pum htn and to discuss this with pcp. Has not seen pulmonary for over 5 yrs due to cost. Has not seen police service technician or had an echo since 2014. Assessment & Plan (04/28/2021 2:30 PM CDT): Has been having LE edema. Pt has pulmonary htn and a rt lung nodule and hx of pulmonary hypertension. In past she was referred to police service technician and pulm several times but due to finances she stated she could not afford to go. Her recent le edema could be early chf. Advised pt to see pulm and police service technician for her pum htn and to discuss this with pcp. Has not seen pulmonary for over 5 yrs due to cost. Has not seen police service technician or had an echo since 2014. Assessment & Plan (01/27/2021 2:02 PM CDT): Has pulmonary htn and a rt lung nodule. Has not seen pulmonary for over 5 yrs due to cost. Has not seen police service technician or had an echo since 2014. Advised her to f/u with both. Assessment & Plan (12/19/2020 7:56 AM CDT): Has pulmonary htn and a rt lung nodule. Seeing pulm but has not seen police service technician yet. Was referred several times in past but states she can't afford the copays. Assessment & Plan (09/23/2020 7:34 AM REVENUE ENFORCEMENT COLLECTION AGENT): Has pulmonary htn and a rt lung nodule. Seeing pulm but has not seen police service technician yet. Was referred several times in past but states she can't afford the copays. Assessment & Plan (06/27/2020 5:10 PM REVENUE ENFORCEMENT COLLECTION AGENT): Has pulmonary htn and a rt lung nodule. Seeing pulm but has not seen police service technician yet. Was referred several times in past but states she can't afford the copays. Assessment & Plan (04/27/2020 1:18 PM CDT): Has pulmonary htn and a rt lung nodule. In past she was referred to ore trimmer in past or eval of her pulm htn and to police service technician but has not f/u in over 5 [...] (01/21/2020 3:57 PM CDT): Was referred to ore trimmer in past or eval of her pulm htn and to police service technician but has not f/u in over 5 yrs. Advised to also see opth for yearly eye exam. Gave pt referral for cxr, and echo, pft's at past visits but she has not done them. States she can't afford all the copays. Advised her again to schedule them. Assessment & Plan (10/28/2019 2:10 PM CDT): Was referred to ore trimmer in past or eval of her pulm htn and to police service technician but has not f/u in over 5 yrs. Advised to also see opth for yearly eye exam. Gave pt referral for cxr, and echo, pft's at past visits but she has not done them. States she can't afford all the copays. Advised her again to schedule them. Assessment & Plan (06/26/2019 8:23 AM REVENUE ENFORCEMENT COLLECTION AGENT): Was referred to ore trimmer in past or eval of her pulm htn and to police service technician but has not f/u in over 2 yrs. Advised to also see opth for yearly eye exam. Gave pt referral for cxr, and echo, pft's at past visits but she has not done them. States she can't afford all the copays. Advised her again to schedule them. Assessment & Plan (04/06/2019 8:37 AM CDT): Was referred to ore trimmer in past or eval of her pulm htn and to police service technician but has not f/u in over 2 [...] diastolic dysfunction, was advised to see her police service technician for treating her htn and for her abn echo. Assessment & Plan (10/19/2021 4:29 PM REVENUE ENFORCEMENT COLLECTION AGENT): bp elevated 150/90 and pulse 110. No [...] Her ldl was elevated in march with police service technician at 153. Due to her hx of RA and Sle she is at increased risk of CAD and recommend she discuss starting meds for her cholesterol with Dr Brown her police service technician. She had SE to lipitor and crestor in past. Assessment & Plan (10/19/2021 4:26 PM REVENUE ENFORCEMENT COLLECTION AGENT): LDL at last visit was very high [...] diet. Assessment & Plan (07/21/2021 4:18 PM REVENUE ENFORCEMENT COLLECTION AGENT): Requesting that we check her cholesterol with today's labs. Not fasting so will check direct LDL. Systemic lupus erythematosus (CMS/HCC) 5 Overview (11/16/2016): Lupus Assessment & Plan (07/29/2024 8:36 AM REVENUE ENFORCEMENT COLLECTION AGENT): Low cdai. On plaquenil 200 mg po [...] day. Assessment & Plan (08/01/2023 4:15 PM REVENUE ENFORCEMENT COLLECTION AGENT): Low-mod cdai. On plaquenil 200 mg po [...] next week. Cxr done in december at [facility], we do not have it, will get [...] at [facility]. Hand 03/2020: Assessment & Plan (10/08/2022 4:47 PM REVENUE ENFORCEMENT COLLECTION AGENT): Images from the original note were not [...] wnl. Hand US 03/2020: Assessment & Plan (07/09/2022 2:35 PM REVENUE ENFORCEMENT COLLECTION AGENT): Images from the original note were not included. Low cdai. Beveler was ok with lowering plaquenil dose to [...] again. No skin changes or sclerodactyly. Sees police service technician also. Past serologies showed + hep 2 and + anti carbamylated. 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 Demarco alba had enthesopathy on xrays 3 so she can have a spondyloarthropathy also. TSH checked recently at [facility]. Hand 03/2020: Assessment & Plan (04/02/2022 4:22 PM CDT): Images from the original note were not included. Low cdai. Beveler was ok with lowering plaquenil dose to 200 mg po every day in past. Pt advised to get eye exams q 6 months.. Check labs today. Has hx of pulm htn and esophageal stenosis. No skin changes or sclerodactyly. Sees police service technician. Past serologies showed + hep 2 and + anti carbamylated. 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 Demarco alba had enthesopathy on xrays 3/ so she can have a spondyloarthropathy also. TSH checked recently at [facility] Hand 03/2020: Assessment & Plan (11/23/2021 8:31 AM CDT): Images from the original note were not included. Low cdai. Beveler was ok with lowering plaquenil dose to 200 mg po every day. Check labs. Has hx of pulm htn and esophageal stenosis. No skin changes or sclerodactyly. Has echo with police service technician next week. Advised pt to let her police service technician know about her elevated bp and cholesterol also. Past serologies showed + hep 2 and + anti carbamylated. 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 Demarco alba had enthesopathy on xrays 3 so she can have a spondyloarthropathy also. She also has thyroid antibodies, she was advised to discuss this with pcp in past. [facility] 03/2020: Assessment & Plan (10/19/2021 4:33 PM REVENUE ENFORCEMENT COLLECTION AGENT): Images from the original note were not included. Low cdai. Beveler was ok with lowering plaquenil dose to 200 mg po every day. Check labs. Has hx of pulm htn and esophageal stenosis. No skin changes or sclerodactyly. Has echo with police service technician next week. Advised pt to let her police service technician know about her elevated bp and cholesterol [...] 03/2020: Assessment & Plan (07/21/2021 4:05 PM REVENUE ENFORCEMENT COLLECTION AGENT): Images from the original note were not included. Mod cdai. Beveler was ok with lowering plaquenil dose to [...] past Hand US 03/2020: Assessment & Plan (04/28/2021 2:28 PM CDT): Images from the original note were not included. low cdai. Beveler was ok with lowering plaquenil dose to [...] original note were not included. Mod cdai. Beveler was ok with lowering plaquenil dose to [...] but mostly tender joints, not many swollen. Beveler was ok with lowering dose to 200 mg po every day. Check labs. Past serologies showed + hep 2 and + anti carbaylated. She could have an overlap of RA and SLE. Demarco heel had enthesopathy on xrays 3/19 so she can have a spondyloarthropathy also. She also has thyroid antibodies, she was advised to discuss this with pcp in past. Check tsh today. . Thinks she has been on plaquenil for 8 yrs. Beveler said it was fine to continue lower dose of HCQ. Is finally seeing a ore trimmer for a lung nodule, her pcp referred her to pulm closer to her house. Hand [facility] 03/2020: Assessment & Plan (09/23/2020 5:14 PM REVENUE ENFORCEMENT COLLECTION AGENT): Images from the original note were not [...] has been on plaquenil for 8 yrs. Beveler said it was fine to continue lower dose of HCQ. Is finally seeing a ore trimmer for a lung nodule, her pcp referred her to pulm closer to her house. Hand US 03/2020: Assessment & Plan (06/27/2020 5:08 PM REVENUE ENFORCEMENT COLLECTION AGENT): Images from the original note were not [...] has been on plaquenil for 8 yrs. Beveler said it was fine to continue lower dose of HCQ. Is finally seeing a ore trimmer for a lung nodule, her pcp referred her to pulm closer to her house. Hand US 03/2020: Assessment & Plan (04/27/2020 1:20 PM [...] 200mg qd until rest of the year. Beveler said it was fine to continue lower dose of HCQ. Advised again to see her police service technician and pulm for pft, cxr and echo, [...] 200mg qd until rest of the year. Beveler said it was fine to continue lower dose of HCQ. Advised again to see her police service technician and pulm for pft, cxr and echo, [...] 200mg qd until rest of the year. Beveler said it was fine to continue lower dose of HCQ. Advised again to see her police service technician and pulm for pft, cxr and echo, [...] loss. Assessment & Plan (06/29/2019 12:34 PM REVENUE ENFORCEMENT COLLECTION AGENT): high cdai. Pt is on arava 20mg [...] the year. Advised again to see her police service technician and pulm for pft, cxr and echo, [...] adding belysta. Advised again to see her police service technician and pulm for pft, cxr and echo, [...] 07/21/202103/14 Assessment & Plan (07/21/2021 4:19 PM REVENUE ENFORCEMENT COLLECTION AGENT): Has gained weight and occ bg is [...] visit. Assessment & Plan (06/29/2019 12:35 PM REVENUE ENFORCEMENT COLLECTION AGENT): Check cpk and aldolase. Normal muscle strength on exam and no LE edema and neg lalit sign bilat LE. Abnormal laboratory test result 04/06/2019 03/14/2022 Assessment & Plan (07/21/2021 4:19 PM REVENUE ENFORCEMENT COLLECTION AGENT): has thyroid antibodies, pt given copies of labs in past and she was advised to address this with pcp. TSH wnl 01/2020. Will recheck tsh today. On levothyroxine 25 mcg mon-sat and 50mcg on Saturday. Assessment & Plan [...] 01/2020. Assessment & Plan (09/23/2020 7:34 AM REVENUE ENFORCEMENT COLLECTION AGENT): has thyroid antibodies, pt given copies of labs in past and she was advised to address this with pcp. TSH wnl 01/2020. Assessment & Plan (06/27/2020 8:41 AM REVENUE ENFORCEMENT COLLECTION AGENT): has thyroid antibodies, pt given copies of [...] 2019. Assessment & Plan (06/26/2019 8:25 AM REVENUE ENFORCEMENT COLLECTION AGENT): has thyroid antibodies, pt given copies of [...] 08/01/2023 Assessment & Plan (08/01/2023 8:32 AM REVENUE ENFORCEMENT COLLECTION AGENT): Hand US 03/2020 lunate and 5th mcp [...] pos. Assessment & Plan (10/05/2022 4:00 PM REVENUE ENFORCEMENT COLLECTION AGENT): Hand US 03/2020 lunate and 5th mcp [...] pos. Assessment & Plan (07/04/2022 4:38 PM REVENUE ENFORCEMENT COLLECTION AGENT): Hand US 03/2020 lunate and 5th mcp [...] pos. Assessment & Plan (10/19/2021 1:52 PM REVENUE ENFORCEMENT COLLECTION AGENT): Hand US 03/2020 lunate and 5th mcp [...] pos. Assessment & Plan (07/21/2021 11:48 AM REVENUE ENFORCEMENT COLLECTION AGENT): Hand US 03/2020 lunate and 5th mcp [...] pos. Assessment & Plan (09/23/2020 7:34 AM REVENUE ENFORCEMENT COLLECTION AGENT): Hand US 03/2020 lunate and 5th mcp [...] pos. Assessment & Plan (06/27/2020 8:38 AM REVENUE ENFORCEMENT COLLECTION AGENT): Hand US 03/2020 lunate and 5th mcp [...] 03/30 Assessment & Plan (06/26/2019 8:25 AM REVENUE ENFORCEMENT COLLECTION AGENT): avise panel 10/2018---showed + hep 2 and [...] on file Legal Sex Female 10:10 AM REVENUE ENFORCEMENT COLLECTION AGENT Gender Identity Not on file Sexual Orientation Not on file Last Filed Vital Signs Vital Sign Reading Time Taken Comments Blood Pressure 156/84 07/29/2024 1:58 PM [employer]UE ENFORCEMENT COLLECTION AGENT Pulse 89 07/29/2024 1:58 PM REVENUE ENFORCEMENT COLLECTION AGENT Temperature 37.5 C (99.5 F) 10/19/2021 1:19 PM REVENUE ENFORCEMENT COLLECTION AGENT Respiratory Rate - - Oxygen Saturation 96% 07/29/2024 1:58 PM REVENUE ENFORCEMENT COLLECTION AGENT Inhaled Oxygen Concentration - - Weight 107 kg (236 lb) 07/29/2024 1:58 PM REVENUE ENFORCEMENT COLLECTION AGENT Height 154.9 cm (5' 1 ) 07/29/2024 1:58 PM REVENUE ENFORCEMENT COLLECTION AGENT Body Mass Index 44.59 07/29/2024 1:58 PM REVENUE ENFORCEMENT COLLECTION AGENT Plan of Treatment Not on file Procedures Procedure Name Priority Date/Time Associated Diagnosis Comments SCAN - RADIOLOGY/IMAGING 10/06/2024 10:46 AM REVENUE ENFORCEMENT COLLECTION AGENT SCAN - RADIOLOGY/IMAGING 09/22/2024 12:33 PM REVENUE ENFORCEMENT COLLECTION AGENT HEMOGLOBIN A1C Routine 07/29/2024 3:12 PM REVENUE ENFORCEMENT COLLECTION AGENT VITAMIN D 25 HYDROXY Routine 07/29/2024 3:12 PM REVENUE ENFORCEMENT COLLECTION AGENT VITAMIN B12 Routine 07/29/2024 3:12 PM REVENUE ENFORCEMENT COLLECTION AGENT TSH Routine 07/29/2024 3:12 PM REVENUE ENFORCEMENT COLLECTION AGENT ANTI-DOUBLE STRANDED DNA ANTIBODIES Routine 07/29/2024 3:12 PM REVENUE ENFORCEMENT COLLECTION AGENT Systemic lupus erythematosus, unspecified SLE type, unspecified organ involvement status (HCC) Seronegative rheumatoid arthritis (CMS/HCC) (HCC) Encounter for long-term (current) use of medications Age-related osteoporosis without current pathological fracture COMPREHENSIVE METABOLIC PANEL Routine 07/29/2024 3:12 PM [employer]UE ENF[employer]CEMENT COLLECTION AGENT Systemic lupus erythematosus, unspecified SLE type, unspecified organ involvement status (HCC) Seronegative rheumatoid arthritis (CMS/HCC) (HCC) Encounter for long-term (current) use of medications Age-related osteoporosis without current pathological fracture CRP (ACUTE PHASE) Routine 07/29/2024 3:1 2 PM REVENUE ENFORCEMENT COLLECTION AGENT Systemic lupus erythematosus, unspecified SLE type, unspecified organ involvement status (HCC) Seronegative rheumatoid arthritis (CMS/HCC) (HCC) Encounter for long-term (current) use of medications Age-related osteoporosis without current pathological fracture C3 COMPLEMENT Routine 07/29/2024 3:12 PM REVENUE ENFORCEMENT COLLECTION AGENT Systemic lupus erythematosus, unspecified SLE type, unspecified organ involvement status (HCC) Seronegative rheumatoid arthritis (CMS/HCC) (HCC) Encounter for long-term (current) use of medications Age-related osteoporosis without current pathological fracture C4 COMPLEMENT Routine 07/29/2024 3:12 PM REVENUE ENFORCEMENT COLLECTION AGENT Systemic lupus erythematosus, unspecified SLE type, unspecified organ involvement status (HCC) Seronegative rheumatoid arthritis (CMS/HCC) (HCC) Encounter for long-term (current) use of medications Age-related osteoporosis without current pathological fracture CBC WITH AUTO DIFFERENTIAL Routine 07/29/2024 3:12 PM REVENUE ENFORCEMENT COLLECTION AGENT Systemic lupus erythematosus, unspecified SLE type, unspecified organ involvement status (HCC) Seronegative rheumatoid arthritis (CMS/HCC) (HCC) Encounter for long-term (current) use of medications Age-related osteoporosis without current pathological fracture ERYTHROCYTE SEDIMENTATION RATE Routine 07/29/2024 3:12 PM REVENUE ENFORCEMENT COLLECTION AGENT Systemic lupus erythematosus, unspecified SLE type, unspecified organ involvement status (HCC) Seronegative rheumatoid arthritis (CMS/HCC) (HCC) Encounter for long-term (current) use of medications Age-related osteoporosis without current pathological fracture from Last 3 Months Results * SCAN - RADIOLOGY/IMAGING (10/06/2024 10:46 AM REVENUE ENFORCEMENT COLLECTION AGENT) Anatomical Region Laterality Modality Other us Meeta Meeks dited Result - Final * SCAN - RADIOLOGY/IMAGING (09/22/2024 12:33 PM REVENUE ENFORCEMENT COLLECTION AGENT) Anatomical Region Laterality Modality Other us Meeta Caballero inal Result * Anti-double stranded DNA abs (07/29/2024 3:12 PM REVENUE ENFORCEMENT COLLECTION AGENT) DNA (DS) ab <1 IU/mL [facility] Comment: IU/mL Interpretation < or = 4 Negative 5-9 Indeterminate > or = 10 Positive Blood 07/29/2024 3:12 PM REVENUE ENFORCEMENT COLLECTION AGENT 07/29/2024 3:14 PM REVENUE ENFORCEMENT COLLECTION AGENT Narrative [facility] - 07/31/2024 4:02 AM REVENUE ENFORCEMENT COLLECTION AGENT PATIENT UNABLE TO VOID; ADVISED TO RETURN FOR COLLECTION. Meeta CAMPBELL LAB BLOOD ORDERAB LES Final Result Performing Organization Address [facility] Co de Phone Number [facility] [address] [place] [address] * C4 complement (07/29/2024 3:12 PM REVENUE ENFORCEMENT COLLECTION AGENT) [facility] Complement component C4C 26 15 - 57 mg/dL [facility] Blood 07/29/2024 3:12 PM REVENUE ENFORCEMENT COLLECTION AGENT 07/29/2024 3:14 PM REVENUE ENFORCEMENT COLLECTION AGENT Narrative [facility] - 07/31/2024 4:02 AM REVENUE ENFORCEMENT COLLECTION AGENT PATIENT UNABLE TO VOID; ADVISED TO RETURN FOR COLLECTION. Meeta CAMPBELL LAB BLOOD ORDERAB LES Final Result Performing Organization Address [facility] de Phone Number [facility] [address] [place] [address] * (ABNORMAL) CBC with auto differential (07/29/2024 3:12 PM REVENUE ENFORCEMENT COLLECTION AGENT) Pathologist [facility] WBC 4.0 3.8 - 10.8 Thousand/u L [...] [facility] Blood 07/29/2024 3:12 PM REVENUE ENFORCEMENT COLLECTION AGENT 07/29/2024 3:14 PM REVENUE ENFORCEMENT COLLECTION AGENT Narrative [facility] - 07/31/2024 4:02 AM REVENUE ENFORCEMENT COLLECTION AGENT PATIENT UNABLE TO VOID; ADVISED TO RETURN FOR COLLECTION. us Meeta CAMPBELL LAB BLOOD ORDERAB LES Final Result [facility] [address] [place] [address] * Vitamin D 25 hydroxy (07/29/2024 3:12 PM REVENUE ENFORCEMENT COLLECTION AGENT) [facility] Vitamin D 25-OH 41 30 - 100 [...] D, (D2,D3), LC/MS/MS is recommended: order code [id number] (patients >2yrs). See Note 1 Note 1 For additional information, please refer to http://education.[employer]/faq/AZG430 (This link is being provided for informational/ educational purposes only.) 07/29/2024 3:12 PM REVENUE ENFORCEMENT COLLECTION AGENT 07/29/2024 3:14 PM REVENUE ENFORCEMENT COLLECTION AGENT Narrative [facility] - 07/31/2024 4:02 AM REVENUE ENFORCEMENT COLLECTION AGENT PATIENT UNABLE TO VOID; ADVISED TO RETURN FOR COLLECTION. [facility] LAB BLOOD ORDERAB LES Final Result Performing Organization Address [facility] Co de Phone Number [email or web address] [address] [place] [address] * Erythrocyte sedimentation rate (07/29/2024 3:12 PM REVENUE ENFORCEMENT COLLECTION AGENT) Erythrocyte sedimentation rate 28 < OR = 30 mm/h [facility] Blood 07/29/2024 3:12 PM REVENUE ENFORCEMENT COLLECTION AGENT 07/29/2024 3:14 PM REVENUE ENFORCEMENT COLLECTION AGENT Narrative [facility] - 07/31/2024 4:02 AM REVENUE ENFORCEMENT COLLECTION AGENT PATIENT UNABLE TO VOID; ADVISED TO RETURN FOR COLLECTION. [facility] Alysa StallworthJohn [facility]. [facility] LAB BLOOD ORDERAB LES Final Result Performing Organization Address [facility] Co de Phone Number [facility] [address] [place] [address] * C3 complement (07/29/2024 3:12 PM REVENUE ENFORCEMENT COLLECTION AGENT) Complement component C3C 156 83 - 193 mg/dL [facility] Blood 07/29/2024 3:12 PM REVENUE ENFORCEMENT COLLECTION AGENT 07/29/2024 3:14 PM REVENUE ENFORCEMENT COLLECTION AGENT Narrative [facility] - 07/31/2024 4:02 AM REVENUE ENFORCEMENT COLLECTION AGENT PATIENT UNABLE TO VOID; ADVISED TO RETURN FOR COLLECTION. Meeta Alysa St[facility]worthJohn [facility] LAB BLOOD ORDERAB LES Final Result Performing Organization Address [facility] de Phone Number [facility] [address] [place] [address] * CRP (acute phase) (07/29/2024 3:12 PM REVENUE ENFORCEMENT COLLECTION AGENT) [facility] C-RP <3.0 <8.0 mg/L [facility] Blood 07/29/2024 3:12 PM REVENUE ENFORCEMENT COLLECTION AGENT 07/29/2024 3:14 PM REVENUE ENFORCEMENT COLLECTION AGENT Narrative [facility] - 07/31/2024 4:02 AM REVENUE ENFORCEMENT COLLECTION AGENT PATIENT UNABLE TO VOID; ADVISED TO RETURN FOR COLLECTION. Meetakrzysztof [facility]worthJohn [facility] LAB BLOOD ORDERAB LES Final Result Performing Organization Address [facility] Phone Number [email or web address] [address] [place] [address] * TSH (07/29/2024 3:12 PM REVENUE ENFORCEMENT COLLECTION AGENT) [facility] TSH 0.44 0.40 - 4.50 mIU/L [facility] 07/29/2024 3:12 PM REVENUE ENFORCEMENT COLLECTION AGENT 07/29/2024 3:14 PM REVENUE ENFORCEMENT COLLECTION AGENT Narrative [facility] - 07/31/2024 4:02 AM REVENUE ENFORCEMENT COLLECTION AGENT PATIENT UNABLE TO VOID; ADVISED TO RETURN FOR COLLECTION. [facility] Alysa St[facility]John [facility] LAB BLOOD ORDERAB LES Final Result Performing Organization Address [facility] de Phone Number [facility] [address] [place] [address] * (ABNORMAL) Hemoglobin A1c (07/29/2024 3:12 PM REVENUE ENFORCEMENT COLLECTION AGENT) [facility] Hgb A1C 5.8(H) <5.7 % of total [...] of diabetes for children. 07/29/2024 3:12 PM REVENUE ENFORCEMENT COLLECTION AGENT 07/29/2024 3:14 PM REVENUE ENFORCEMENT COLLECTION AGENT Narrative [facility] - 07/31/2024 4:02 AM REVENUE ENFORCEMENT COLLECTION AGENT PATIENT UNABLE TO VOID; ADVISED TO RETURN FOR COLLECTION. Meeta CAMPBELL LAB BLOOD ORDERAB LES Final Result [facility] [address] [place] [address] * Vitamin B12 (07/29/2024 3:12 PM REVENUE ENFORCEMENT COLLECTION AGENT) Vitamin B12 420 200 - 1,100 pg/mL [facility] 07/29/2024 3:12 PM REVENUE ENFORCEMENT COLLECTION AGENT 07/29/2024 3:14 PM REVENUE ENFORCEMENT COLLECTION AGENT Narrative [facility] - 07/31/2024 4:02 AM REVENUE ENFORCEMENT COLLECTION AGENT PATIENT UNABLE TO VOID; ADVISED TO RETURN FOR COLLECTION. Meeta CAMPBELL LAB BLOOD ORDERAB LES Final Result [email or web address] [address] [place] [address] * (ABNORMAL) Comprehensive metabolic panel (07/29/2024 3:12 PM REVENUE ENFORCEMENT COLLECTION AGENT) Glucose 103(H) 65 - 99 mg/dL [facility] [...] [facility] Blood 07/29/2024 3:12 PM REVENUE ENFORCEMENT COLLECTION AGENT 07/29/2024 3:14 PM REVENUE ENFORCEMENT COLLECTION AGENT Narrative [facility] - 07/31/2024 4:02 AM REVENUE ENFORCEMENT COLLECTION AGENT PATIENT UNABLE TO VOID; ADVISED TO RETURN FOR COLLECTION. us Meeta CAMPBELL LAB BLOOD ORDERAB LES Final Result [facility] [address] [id number] from Last 3 Months Insurance MEDICARE [facility] MEDICARE [facility] MEDICARE [facility] Care Teams Medical Dir Relationship Specialty Start Date End Date Chichi Watkins MD [address] [facility] [address] [place] [address] PCP - General 11/09/16 Cindy Murphy MD [address] [facility] [address] [place] [address] Consulting Physician Pulmonary Disease 09/27/20 Laura Crabtree MD [address] [facility] [address] [place] [address] Consulting Physician Cardiology 11/27/21 Chepe Tijerina MD [address] [place] [address] Consulting Physician Rheumatology 09/23/23 Branden Gordon MD Formerly named [facility] [place] [place] [address] Referring Physician Nephrology 11/01/23
[2024-10-14 09:16] VITALS: BP 189/101; PULSE 95; RESP 18; TEMP 36.1; O2SAT 98; BMI 42.4
--- NOTE | 2024-10-14 09:29 | SUR.PREOP ---
Notified of patients blood pressure of 189/101, pt doesn't need medication intervention at this time
[2024-10-14] MEDS: LACTATED RINGERS 1,000 ML 150 ML IV CONT (09:40)
--- NOTE | 2024-10-14 09:40 | P.PNAN_ITS ---
Anes - Initial Pre Proc Eval Procedure: Operation Date: 10/14/24 10:15 Proposed Procedures p Esophagogastroduodenoscopy - Beny Bland MD Date/Time: 10/14/24 09:40 Surgeon: Beny Bland MD Pre Op Diagnosis: Esophageal obstruction Patient Data Age: 69 Gender: F Height: 1.55 m Weight: 101.8 kg Last Vital Signs Temp 36.1 C L 10/14/24 09:16 Pulse 95 10/14/24 09:16 Resp 18 10/14/24 09:16 BP 189/101 H 10/14/24 09:16 Pulse Ox 98 10/14/24 09:16 O2 Del Method Room Air 10/14/24 09:16 Allergies Allergy/AdvReac Type Severity Reaction Status Date / Time strawberry Allergy Severe Rash Verified 10/14/24 09:28 ciprofloxacin Allergy Mild Swelling Verified 10/14/24 09:28 and Hives ibuprofen Allergy Mild Bloody nose Verified 10/14/24 09:28 Quinolones Allergy Mild Hives / Verified 10/14/24 09:28 Red Face methotrexate Allergy Unknown Unknown Verified 10/14/24 09:28 telmisartan AdvReac Intermediate Dizziness Verified 10/14/24 09:28 Home Medications ?Medication ?Instructions ?Recorded ?Confirmed ?Type hydroxychloroquine 200 mg tablet 200 mg PO DAILY 10/10/20 10/14/24 History calcium carb-vitamin D3 ER 600 mg 600 tablet PO DAILY 10/31/21 10/14/24 History (1,500 mg)-500 unit tablet,ER 24 hr diltiazem HCl 120 mg capsule,24 120 mg PO DAILY 05/18/22 10/14/24 History hr,extended release azathioprine 50 mg tablet 25 mg PO DAILY 10/04/23 10/14/24 History metoprolol succinate 50 mg See Rx Instructions .Route 10/07/23 10/14/24 Rx tablet,extended release 24 hr .COMPLEX #270 tabs cetirizine 10 mg capsule (Zyrtec) 10 mg PO DAILY PRN allergic 12/31/23 10/07/24 History symptoms lactobacillus combination no.9 4 4,000 mmu cells PO .PRN 02/26/24 10/14/24 History billion cell capsule (Adult 50 Plus Probiotic) omeprazole 20 mg capsule,delayed 20 mg PO DAILY 02/26/24 10/14/24 History release rosuvastatin 5 mg tablet See Rx Instructions .Route 08/25/24 10/14/24 Rx .COMPLEX #90 tabs cyanocobalamin (vitamin B-12) 1,000 mcg PO DAILY 08/26/24 10/14/24 History 1,000 mcg capsule isosorbide mononitrate 30 mg See Rx Instructions .Route 09/17/24 10/14/24 Rx tablet,extended release 24 hr .COMPLEX #90 tabs epinephrine 0.3 mg/0.3 mL 0.3 mg (0.3 mL) IM ONCE #2 ea 09/25/24 10/14/24 Rx injection, auto-injector (EpiPen) famotidine 20 mg tablet See Rx Instructions .Route 10/06/24 10/14/24 Rx .COMPLEX #90 tabs losartan 100 mg tablet 100 mg PO DAILY 10/12/24 10/14/24 History clonidine HCl 0.1 mg tablet 0.1 mg PO BID #60 tabs 10/13/24 Rx levothyroxine 125 mcg tablet See Rx Instructions .Route 10/13/24 10/14/24 Rx .COMPLEX #100 tabs Patient hx anesthesia problems: none Family hx anesthesia problems: none Results Review: All pre-operative results and documents have been reviewed as part of the pre- operative evaluation. [facility] Past Medical History Medical History Asthma Shortness of Breath Chronic kidney disease, stage 3a Systemic lupus erythematosus, organ or system involvement unspecified Other chronic pain Nephrolithiasis Morbid (severe) obesity due to excess calories Moderate single current episode of major depressive disorder Major depressive disorder, recurrent, moderate Hypothyroidism, unspecified Litzy's thyroiditis Essential (primary) hypertension Acute non-recurrent maxillary sinusitis GUMARO (obstructive sleep apnea) Colon cancer screening BMI 40.0-44.9, adult Hyperlipidemia Hives of unknown origin Chronic kidney disease, stage 3 Dysuria Dysphagia Hyperlipidemia Anxiety Lupus Episode of gagging Choking Globus sensation PND (post-nasal drip) Hypothyroidism (acquired) Benign essential HTN Lung nodule Impacted cerumen, bilateral Otosclerosis Subacute sinusitis Family History Family History Grandparent Diabetes mellitus Other Family history of malignant neoplasm Family history of malignant neoplasm of breast Hypertension Social History Social History Social History: Smoking status: Never smoker Second hand tobacco smoke exposure: No Additional smoking assessment comments: As a teenager Alcohol intake: never Alcohol use details: Occasionally Substance use: never Substance use type: does not use Do You Feel Safe in your Home?: Yes Lack of Transportation: No Lack of Food: Never True Current Housing: I Have Housing Concerned About Future Housing: No Difficulty Paying Gas/Electric Bills: No Difficulty Paying for Meds: No Currently Unemployed: YES Education: Decline to Answer Difficulty w/ Childcare or Family Care: No Living arrangements: with family Occupation/Education: retired Gender identity (if verbalized by the patient): Female Sexual Orientation (if Verbalized by the Patient): Straight or Heterosexual Spiritual care concerns: No Anes - Eval Final PreProcedure Day of Procedure 10/14/24 09:40 Patient weight: morbidly obese Heart: regular rate and rhythm Lungs: clear to auscultation Airway: Mallampati scale class II Neurological: alert and oriented Last oral intake: >/= 8 hours ASA classification: III Emergent: no Anesthetic plan: proceed Anesthesia type and monitoring: general GIVS and standard monitoring Results Review: All pre-operative results and documents have been reviewed as part of the pre- operative evaluation. Informed Consent: The patient's anesthetic plan and its attendant risks and benefits were discussed with the patient/family/POA. Questions were solicited and answers provided to the satisfaction of the patient/family/POA.
--- NOTE | 2024-10-14 09:50 | PM.HPGS ---
History of Present Illness History of Present Illness Consent: Risks, benefits, and alternatives have been discussed and questions answered. Patient agrees to proceed with procedure. Chief complaint: Esophageal obstruction Narrative: Mary Banda is a 69 year old female here for another egd, h/o intermittent dysphagia. She required esophageal dilatation in the past. Review of Systems Review of Systems: All systems reviewed & are unremarkable except as noted in HPI and below PMFSH Past Medical History Medical History (Updated 10/14/24 @ 09:51 by Beny Bland MD) Dysphagia Asthma Shortness of Breath Chronic kidney disease, stage 3a Systemic lupus erythematosus, organ or system involvement unspecified Other chronic pain Nephrolithiasis Morbid (severe) obesity due to excess calories Moderate single current episode of major depressive disorder Major depressive disorder, recurrent, moderate Hypothyroidism, unspecified Litzy's thyroiditis Essential (primary) hypertension Acute non-recurrent maxillary sinusitis GUMARO (obstructive sleep apnea) Colon cancer screening BMI 40.0-44.9, adult Hyperlipidemia Hives of unknown origin Chronic kidney disease, stage 3 Dysuria Hyperlipidemia Anxiety Lupus Episode of gagging Choking Globus sensation PND (post-nasal drip) Hypothyroidism (acquired) Benign essential HTN Lung nodule Impacted cerumen, bilateral Otosclerosis Subacute sinusitis Family History Family History Grandparent Diabetes mellitus Other Family history of malignant neoplasm Family history of malignant neoplasm of breast Hypertension Social History Social History Social History: Smoking status: Never smoker Second hand tobacco smoke exposure: No Additional smoking assessment comments: As a teenager Alcohol intake: never Alcohol use details: Occasionally Substance use: never Substance use type: does not use Do You Feel Safe in your Home?: Yes Lack of Transportation: No Lack of Food: Never True Current Housing: I Have Housing Concerned About Future Housing: No Difficulty Paying Gas/Electric Bills: No Difficulty Paying for Meds: No Currently Unemployed: YES Education: Decline to Answer Difficulty w/ Childcare or Family Care: No Living arrangements: with family Occupation/Education: retired Gender identity (if verbalized by the patient): Female Sexual Orientation (if Verbalized by the Patient): Straight or Heterosexual Spiritual care concerns: No Meds Home Medications and Allergies Home Medications ?Medication ?Instructions ?Recorded ?Confirmed ?Type hydroxychloroquine 200 mg tablet 200 mg PO DAILY 10/10/20 10/14/24 History calcium carb-vitamin D3 ER 600 mg 600 tablet PO DAILY 10/31/21 10/14/24 History (1,500 mg)-500 unit tablet,ER 24 hr diltiazem HCl 120 mg capsule,24 120 mg PO DAILY 05/18/22 10/14/24 History hr,extended release azathioprine 50 mg tablet 25 mg PO DAILY 10/04/23 10/14/24 History metoprolol succinate 50 mg See Rx Instructions .Route 10/07/23 10/14/24 Rx tablet,extended release 24 hr .COMPLEX #270 tabs cetirizine 10 mg capsule (Zyrtec) 10 mg PO DAILY PRN allergic 12/31/23 10/07/24 History symptoms lactobacillus combination no.9 4 4,000 mmu cells PO .PRN 02/26/24 10/14/24 History billion cell capsule (Adult 50 Plus Probiotic) omeprazole 20 mg capsule,delayed 20 mg PO DAILY 02/26/24 10/14/24 History release rosuvastatin 5 mg tablet See Rx Instructions .Route 08/25/24 10/14/24 Rx .COMPLEX #90 tabs cyanocobalamin (vitamin B-12) 1,000 mcg PO DAILY 08/26/24 10/14/24 History 1,000 mcg capsule isosorbide mononitrate 30 mg See Rx Instructions .Route 09/17/24 10/14/24 Rx tablet,extended release 24 hr .COMPLEX #90 tabs epinephrine 0.3 mg/0.3 mL 0.3 mg (0.3 mL) IM ONCE #2 ea 09/25/24 10/14/24 Rx injection, auto-injector (EpiPen) famotidine 20 mg tablet See Rx Instructions .Route 10/06/24 10/14/24 Rx .COMPLEX #90 tabs losartan 100 mg tablet 100 mg PO DAILY 10/12/24 10/14/24 History clonidine HCl 0.1 mg tablet 0.1 mg PO BID #60 tabs 10/13/24 Rx levothyroxine 125 mcg tablet See Rx Instructions .Route 10/13/24 10/14/24 Rx .COMPLEX #100 tabs Allergies Allergy/AdvReac Type Severity Reaction Status Date / Time strawberry Allergy Severe Rash Verified 10/14/24 09:28 ciprofloxacin Allergy Mild Swelling Verified 10/14/24 09:28 and Hives ibuprofen Allergy Mild Bloody nose Verified 10/14/24 09:28 Quinolones Allergy Mild Hives / Verified 10/14/24 09:28 Red Face methotrexate Allergy Unknown Unknown Verified 10/14/24 09:28 telmisartan AdvReac Intermediate Dizziness Verified 10/14/24 09:28 Vital Signs Vital Signs - 24 hr 10/14/24 09:16 Temperature 96.9 F L Pulse Rate 95 Respiratory Rate 18 Blood Pressure 189/101 H Pulse Oximetry 98 Oxygen Delivery Room Air Exam Const: General: comfortable and no acute distress HENMT: Face/Nose/Sinus: Normal nares present Eyes: General: appearance normal, both eyes and all related structures Neck: Neck: no JVD Resp: Auscultation: clear to auscultation bilaterally Cardio: Rate: regular rate Rhythm: regular rhythm GI: Inspection: non-distended GI Palp: Yes Soft to palpation Skin: General skin exam: normal color Neuro: Speech: normal speech Extrem: General: normal to inspection Psych: Mental Status: mental status grossly normal Assessment and Plan Assessment and plan (1) Dysphagia: Code(s): R13.10 - Dysphagia, unspecified Status: Acute Assessment and Plan: egd
[2024-10-14 10:06] VITALS: BP 115/67; PULSE 81; RESP 25; O2SAT 95
[2024-10-14 10:16] VITALS: BP 140/71; PULSE 78; RESP 20; O2SAT 97
== END 2024-10-14 10:47 | disposition home or self-care (01) ==
PROVIDERS: PCP Family Medicine; Referring Provider Student in an Organized Health Care Education/Training Program; Visit Provider Internal Medicine Gastroenterology
PROC: 0DJ08ZZ Inspection of Upper Intestinal Tract, Via Natural or Artificial Opening Endoscopic (ICD-10-PCS; CPT 43249; principal; 2024-10-14 10:15)
DX: K22.2 Esophageal obstruction (principal); K44.9 Diaphragmatic hernia without obstruction or gangrene; E66.01 Morbid (severe) obesity due to excess calories; Z68.41 Body mass index [BMI] 40.0-44.9, adult
CPT/HCPCS: 43249; C1726; J2003; J2704; J7120

== ENCOUNTER 2024-10-16 13:38 | Outpatient (CLI) | payer MEDICARE, SELFPAY ==
--- OUTSIDE RECORDS SUMMARY | 2024-10-16 13:55 | XMS_ITS | Referral Summary ---
Author Organization [facility] [address] [facility] Address [address] [place] [id number] Phone Care Team Providers Care Police Shift Commander Name Role Phone Chichi Watkins MD Primary Care Provider Cindy Murphy MD Unavailable [phone] [facility]available [phone] Chepe Tijerina MD Unavailable [phone] Branden Gordon MD Unavailable [phone] Encounters Date Type Department Care Team Description 10/07/2024 Telephone [facility] [address] [place] [phone] Meeta Tolliver PA 10/07/2024 Results Follow-Up [facility] [address] [place] [phone] Meeta Tolliver PA 10/06/2024 Orders Only [facility] [address] [place] [phone] Meeta Tolliver PA 09/22/2024 Orders Only [facility] [address] [place] [phone] Meeta Tolliver PA 07/29/2024 2:30 PM EPIC APPLICATION COORDINATOR Office Visit [facility] [address] [place] [phone] Meeta Tolliver PA Systemic lupus erythematosus, unspecified SLE type, unspecified organ involvement status (HCC) (Primary Dx); Seronegative rheumatoid arthritis (HCC); Encounter for long-term (current) use of [...] 07/29/2024 Assessment & Plan (07/29/2024 4:19 PM EPIC APPLICATION COORDINATOR): Check rt hip xray. Chronic right-sided low back pain with right-alin ed sciatica 07/29/2024 Assessment & Plan (07/29/2024 4:18 PM EPIC APPLICATION COORDINATOR): Full rom of bilat hips. Check rt hip, lumbar spine and si joint xrays. Abnormal serum glucose level 07/29/2024 Assessment & Plan (07/29/2024 4:18 PM EPIC APPLICATION COORDINATOR): Hx of abn hgba1c, not checked by pcp and last checked by us 01/2024, recheck today. Advised to work on weight loss. Other fatigue 07/29/2024 Assessment & Plan (07/29/2024 4:18 PM EPIC APPLICATION COORDINATOR): Check tsh, b12, hgba1c. Vitamin D deficiency 04/30/2024 Assessment & Plan (07/29/2024 4:19 PM EPIC APPLICATION COORDINATOR): Check vit d. Assessment & Plan (04/30/2024 [...] 10/31/2023 Assessment & Plan (07/29/2024 4:15 PM EPIC APPLICATION COORDINATOR): Sees dr gordon. Htn still not under control despite 3 htn meds. Sees him soon. Repeat bp lt arm sitting 150/80. Assessment & Plan (10/31/2023 5:44 PM CDT): Sees dr gordon. He started her on chlortalidone but after 1 tab it caused lip and tongue tingling/numbness. Contacted dr blanco call center at [facility] and let him know about this and gave call center pt's info. Advised pt to skip dose tomorrow and try to get hold of dr gordon if he does not call her and gave pt his office phone number. Diarrhea 04/29/2023 Assessment & Plan (04/29/2023 1:53 PM CDT): [place] utd, dx with ibs in past. Check [...] not included. Advised pt to see her ultrasound tester Dr Crabtree. BP still elevated and had an abn echo with enlarged heart diastolic dysfunction, was advised to see her ultrasound tester for treating her htn and for her abn echo. Echo 07/2021 Hypothyroidism 07/21/2021 Assessment & Plan (07/21/2021 4:18 PM EPIC APPLICATION COORDINATOR): Check TSH. Age-related osteoporosis wit hout current pathological fracture 07/21/2021 Assessment & Plan (07/29/2024 4:14 PM EPIC APPLICATION COORDINATOR): bds stable 05/2022. Was due 06/2024 but was not able to get an appt at [facility] in [place] until next year. Continue ca and vit [...] bid. Assessment & Plan (08/01/2023 8:32 AM EPIC APPLICATION COORDINATOR): bds stable 05/2022. Is due again 06/2024. [...] bid. Assessment & Plan (10/05/2022 4:02 PM EPIC APPLICATION COORDINATOR): bds stable 05/2022. Continue ca and vit d 600mg po bid. Assessment & Plan (07/09/2022 1:19 PM EPIC APPLICATION COORDINATOR): bds stable 05/2022. Continue ca and vit d 600mg po bid. Assessment & Plan (04/02/2022 4:22 PM CDT): Will try to get copy of bds. Assessment & Plan (11/23/2021 8:33 AM CDT): Has not been able to get her bds until November, [facility] is backed up. Assessment & Plan (10/19/2021 1:51 PM EPIC APPLICATION COORDINATOR): Has not been able to get her bds until November, [facility] is backed up. Assessment & Plan (07/21/2021 4:19 PM EPIC APPLICATION COORDINATOR): Check bds. Weight gain 07/21/2021 Assessment & Plan (01/30/2024 5:37 PM CDT): Is morbidly obese, can't seem to lose weight. Drinks lots of lemonade and crystal light, has family hx of dm2. Check hgba1c. Also to discuss ozempic with pcp for weight loss. She might be able to qualify for free drug due to her low income. Assessment & Plan (07/21/2021 4:07 PM EPIC APPLICATION COORDINATOR): Has gained over 20 lb in past 2 yrs. Has hx of hypothyroidism. On levothyroxine. Check tsh today. Has not had this checked with pcp in over 4 months. Esophageal stenosis 01/27/2021 Assessment & Plan (07/21/2021 11:48 AM EPIC APPLICATION COORDINATOR): Had an esophageal stenosis dilated in december. Doing better. Sees Dr Sanders this year again for a colonoscopy but has not scheduled colo yet. Assessment & Plan (01/27/2021 2:02 PM CDT): Had an esophageal stenosis dilated in december. Doing better. Sees Dr Sanders this year again for a colonoscopy but has not scheduled colo yet. Seronegative rheumatoid arthritis 04/27/2020 Assessment & Plan (07/29/2024 4:16 PM EPIC APPLICATION COORDINATOR): Low cdai. Doing well on imuran, continue imuran to 100 mg every day. Recheck labs today. Has hx of pulm htn and esophageal stenosis. Has not seen gi for esophageal stenosis symptoms again. No skin changes or sclerodactyly. Seeing dr gordon now for her ckd. Her ultrasound tester also retired, will refer her for her yearly pft and cxr. Previous history/labs/imaging: Echo 03/2023: Echo report below, has mild enlarged heart but good ef. Has an abn septal motion with possible bundle branch block. Impaired diastolic relaxation grade I. Send this to her ultrasound tester and advised pt to f/u with him. [...] dr gordon now for her ckd. Her ultrasound tester also retired, will refer her for her yearly echo (has hx of pulm htn) sees pulm and she is scheduled to have pft's soon. Previous history/labs/imaging: Echo 03/2023: Echo report below, has mild enlarged heart but good ef. Has an abn septal motion with possible bundle branch block. Impaired diastolic relaxation grade I. Send this to her ultrasound tester and advised pt to f/u with him. [...] relaxation grade I. Send this to her ultrasound tester and advised pt to f/u with him. [...] relaxation grade I. Send this to her ultrasound tester and advised pt to f/u with him. [...] also. Assessment & Plan (08/01/2023 4:15 PM EPIC APPLICATION COORDINATOR): Low-mod cdai. Arava stopped due to lft [...] relaxation grade I. Send this to her ultrasound tester and advised pt to f/u with him. [...] relaxation grade I. Send this to her ultrasound tester and advised pt to f/u with him. [...] relaxation grade I. Send this to her ultrasound tester and advised pt to f/u with him. [...] SLE. Assessment & Plan (10/05/2022 4:00 PM EPIC APPLICATION COORDINATOR): Low cdai. In past we recommended we [...] SLE. Assessment & Plan (07/09/2022 2:36 PM EPIC APPLICATION COORDINATOR): Low cdai. In past we recommended we [...] diastolic dysfunction, was advised to see her ultrasound tester for treating her htn and for her abn echo. Assessment & Plan (10/19/2021 4:32 PM EPIC APPLICATION COORDINATOR): Low cdai. Recommended adding orencia but once [...] today. Assessment & Plan (07/21/2021 4:06 PM EPIC APPLICATION COORDINATOR): Mod cdai. Recommended adding orencia but once [...] it. Assessment & Plan (09/23/2020 5:15 PM EPIC APPLICATION COORDINATOR): Mod cdai. 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 Has hx of + anti-carbamyalted also. She has an overlap of RA and SLE. Recommended starting xeljanz but once again she declines, discussed potential se and risks, still declines meds. She was informed of continuing joint damage. Assessment & Plan (06/27/2020 5:08 PM EPIC APPLICATION COORDINATOR): Mod cdai. Pt has an erosive arthritis [...] PT. Assessment & Plan (09/23/2020 7:34 AM EPIC APPLICATION COORDINATOR): Declines further workup. Does not want to do PT. Assessment & Plan (06/27/2020 5:09 PM EPIC APPLICATION COORDINATOR): Declines further workup. Does not want to do PT. Assessment & Plan (01/21/2020 3:59 PM CDT): Check lumbar xray and start PT. Assessment & Plan (06/29/2019 12:35 PM EPIC APPLICATION COORDINATOR): Check lumbar xray and start PT. Encounter for long-term (current) use of medicat ions 10/24/2017 Assessment & Plan (07/29/2024 4:15 PM EPIC APPLICATION COORDINATOR): Hand US 03/2020 lunate and 5th mcp [...] aquino. Assessment & Plan (08/01/2023 4:16 PM EPIC APPLICATION COORDINATOR): Hand US 03/2020 lunate and 5th mcp [...] pos. Assessment & Plan (07/21/2021 4:17 PM EPIC APPLICATION COORDINATOR): Check bds, has not had one for years she states. Pulmonary hypertension 01/30/2017 Assessment & Plan (07/29/2024 4:16 PM EPIC APPLICATION COORDINATOR): Echo stable and utd 05/2024. Right ventricular systolic pressure could not be estimated due to inadequate visualization of the tricuspid regurgitation jet. Pt joshua f/u with ultrasound tester q [address] laura crabtree. Still needs to see pulm for her yearly pft's. Gave pt referral for pft and cxr. Advised to work on weight loss. Assessment & Plan (04/30/2024 8:19 AM CDT): Echo stable and utd 03/2023. Right ventricular systolic pressure could not be estimated due to inadequate visualization of the tricuspid regurgitation jet. Pt joshua f/u with ultrasound tester q [address] laura crabtree. Still needs to see pulm for her yearly pft's. Assessment & Plan (10/31/2023 8:38 AM CDT): Echo stable and utd 03/2023. Right ventricular systolic pressure could not be estimated due to inadequate visualization of the tricuspid regurgitation jet. Pt joshua f/u with ultrasound tester q [address] laura crabtree. Still needs to see pulm for her yearly pft's. Assessment & Plan (08/01/2023 8:32 AM EPIC APPLICATION COORDINATOR): Echo stable and utd 03/2023. Right ventricular systolic pressure could not be estimated due to inadequate visualization of the tricuspid regurgitation jet. Pt joshua f/u with ultrasound tester q [address] laura crabtree. Still needs to see pulm for her yearly pft's. Assessment & Plan (05/29/2023 8:12 AM CDT): Echo stable and utd 03/2023. Right ventricular systolic pressure could not be estimated due to inadequate visualization of the tricuspid regurgitation jet. Pt joshua f/u with ultrasound tester q [address] laura crabtree. Still needs to see pulm for her yearly pft's. Assessment & Plan (04/29/2023 1:55 PM CDT): Echo stable and utd 03/2023. Right ventricular systolic pressure could not be estimated due to inadequate visualization of the tricuspid regurgitation jet. Pt joshua f/u with ultrasound tester q [address] laura crabtree. Still needs to see pulm for her yearly pft's. Assessment & Plan (04/01/2023 3:19 PM CDT): Sees ultrasound tester but not pulm. Has hx of tachycardia, ultrasound tester is aware of this. Echo scheduled next week. Can't tolerate cpap and due to poor dentition can't use oral appliance for her sleep apnea. Cxr nl 01/2023. Assessment & Plan (12/31/2022 2:52 PM CDT): Saw ultrasound tester for echo in past but has not f/u with him or metal leaf layer. Has hx of tachycardia. Pt to let her pcp and ultrasound tester know about her htn/tachycardia. States that pcp was aware of this and wanted pt to work on diet/weight loss. Pt is not eating any salt. Assessment & Plan (10/08/2022 4:46 PM EPIC APPLICATION COORDINATOR): Saw ultrasound tester for echo in past but has not f/u with him or metal leaf layer. Has hx of tachycardia. Pt to let her pcp and ultrasound tester know about her htn/tachycardia. States that pcp was aware of this and wanted pt to work on diet/weight loss. Pt is not eating any salt. Assessment & Plan (07/04/2022 4:38 PM EPIC APPLICATION COORDINATOR): Saw ultrasound tester for echo. Pt to let her pcp and ultrasound tester know about her htn/tachycardia. States that pcp was aware of this and wanted pt to work on diet/weight loss. Pt is not eating any salt. Assessment & Plan (03/30/2022 3:36 PM CDT): Saw ultrasound tester for echo. Pt to let her pcp and ultrasound tester know about her htn/tachycardia. States that pcp was aware of this and wanted pt to work on diet/weight loss. Pt is not eating any salt. Assessment & Plan (11/23/2021 8:31 AM CDT): Saw ultrasound tester for echo. Pt to let her pcp and ultrasound tester know about her htn/tachycardia. States that pcp was aware of this and wanted pt to work on diet/weight loss. Pt is not eating any salt. Assessment & Plan (10/19/2021 1:54 PM EPIC APPLICATION COORDINATOR): Sees ultrasound tester next week for echo. To have it sent to us also. Pt to let her pcp and ultrasound tester know about her htn/tachycardia. States that pcp was aware of this and wanted pt to work on diet/weight loss. Pt is not eating any salt. Assessment & Plan (07/21/2021 4:17 PM EPIC APPLICATION COORDINATOR): Has been having LE edema. pcp started [...] insurance. In past she was referred to ultrasound tester and pulm several times but due to finances she stated she could not afford to go. Her recent le edema could be early chf. Advised pt to see pulm and ultrasound tester for her pum htn and to discuss this with pcp. Has not seen pulmonary for over 5 yrs due to cost. Has not seen ultrasound tester or had an echo since 2014. Assessment & Plan (04/28/2021 2:30 PM CDT): Has been having LE edema. Pt has pulmonary htn and a rt lung nodule and hx of pulmonary hypertension. In past she was referred to ultrasound tester and pulm several times but due to finances she stated she could not afford to go. Her recent le edema could be early chf. Advised pt to see pulm and ultrasound tester for her pum htn and to discuss this with pcp. Has not seen pulmonary for over 5 yrs due to cost. Has not seen ultrasound tester or had an echo since 2014. Assessment & Plan (01/27/2021 2:02 PM CDT): Has pulmonary htn and a rt lung nodule. Has not seen pulmonary for over 5 yrs due to cost. Has not seen ultrasound tester or had an echo since 2014. Advised her to f/u with both. Assessment & Plan (12/19/2020 7:56 AM CDT): Has pulmonary htn and a rt lung nodule. Seeing pulm but has not seen ultrasound tester yet. Was referred several times in past but states she can't afford the copays. Assessment & Plan (09/23/2020 7:34 AM EPIC APPLICATION COORDINATOR): Has pulmonary htn and a rt lung nodule. Seeing pulm but has not seen ultrasound tester yet. Was referred several times in past but states she can't afford the copays. Assessment & Plan (06/27/2020 5:10 PM EPIC APPLICATION COORDINATOR): Has pulmonary htn and a rt lung nodule. Seeing pulm but has not seen ultrasound tester yet. Was referred several times in past but states she can't afford the copays. Assessment & Plan (04/27/2020 1:18 PM CDT): Has pulmonary htn and a rt lung nodule. In past she was referred to metal leaf layer in past or eval of her pulm htn and to ultrasound tester but has not f/u in over 5 [...] (01/21/2020 3:57 PM CDT): Was referred to metal leaf layer in past or eval of her pulm htn and to ultrasound tester but has not f/u in over 5 yrs. Advised to also see opth for yearly eye exam. Gave pt referral for cxr, and echo, pft's at past visits but she has not done them. States she can't afford all the copays. Advised her again to schedule them. Assessment & Plan (10/28/2019 2:10 PM CDT): Was referred to metal leaf layer in past or eval of her pulm htn and to ultrasound tester but has not f/u in over 5 yrs. Advised to also see opth for yearly eye exam. Gave pt referral for cxr, and echo, pft's at past visits but she has not done them. States she can't afford all the copays. Advised her again to schedule them. Assessment & Plan (06/26/2019 8:23 AM EPIC APPLICATION COORDINATOR): Was referred to metal leaf layer in past or eval of her pulm htn and to ultrasound tester but has not f/u in over 2 yrs. Advised to also see opth for yearly eye exam. Gave pt referral for cxr, and echo, pft's at past visits but she has not done them. States she can't afford all the copays. Advised her again to schedule them. Assessment & Plan (04/06/2019 8:37 AM CDT): Was referred to metal leaf layer in past or eval of her pulm htn and to ultrasound tester but has not f/u in over 2 [...] diastolic dysfunction, was advised to see her ultrasound tester for treating her htn and for her abn echo. Assessment & Plan (10/19/2021 4:29 PM EPIC APPLICATION COORDINATOR): bp elevated 150/90 and pulse 110. No [...] Her ldl was elevated in march with ultrasound tester at 153. Due to her hx of RA and Sle she is at increased risk of CAD and recommend she discuss starting meds for her cholesterol with Dr Brown her ultrasound tester. She had SE to lipitor and crestor in past. Assessment & Plan (10/19/2021 4:26 PM EPIC APPLICATION COORDINATOR): LDL at last visit was very high [...] diet. Assessment & Plan (07/21/2021 4:18 PM EPIC APPLICATION COORDINATOR): Requesting that we check her cholesterol with today's labs. Not fasting so will check direct LDL. Systemic lupus erythematosus 03/04/2015 Overview (11/16/2016): Lupus Assessment & Plan (07/29/2024 8:36 AM EPIC APPLICATION COORDINATOR): Low cdai. On plaquenil 200 mg po [...] day. Assessment & Plan (08/01/2023 4:15 PM EPIC APPLICATION COORDINATOR): Low-mod cdai. On plaquenil 200 mg po [...] next week. Cxr done in december at [facility], we do not have it, will get [...] 03/2020: Assessment & Plan (10/08/2022 4:47 PM EPIC APPLICATION COORDINATOR): Images from the original note were not [...] 03/2020: Assessment & Plan (07/09/2022 2:35 PM EPIC APPLICATION COORDINATOR): Images from the original note were not included. Low cdai. Election Watcher was ok with lowering plaquenil dose to [...] again. No skin changes or sclerodactyly. Sees ultrasound tester also. Past serologies showed + hep 2 and + anti carbamylated. 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 Demarco alba had enthesopathy on xrays 10/28 so she can have a spondyloarthropathy also. TSH checked recently at [facility] 03/2020: Assessment & Plan (04/02/2022 4:22 PM CDT): Images from the original note were not included. Low cdai. Election Watcher was ok with lowering plaquenil dose to 200 mg po every day in past. Pt advised to get eye exams q 6 months.. Check labs today. Has hx of pulm htn and esophageal stenosis. No skin changes or sclerodactyly. Sees ultrasound tester. Past serologies showed + hep 2 and + anti carbamylated. 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 Demarco alba had enthesopathy on xrays 3 so she can have a spondyloarthropathy also. TSH checked recently at [facility]. [facility] 03/2020: Assessment & Plan (11/23/2021 8:31 AM CDT): Images from the original note were not included. Low cdai. Election Watcher was ok with lowering plaquenil dose to 200 mg po every day. Check labs. Has hx of pulm htn and esophageal stenosis. No skin changes or sclerodactyly. Has echo with ultrasound tester next week. Advised pt to let her ultrasound tester know about her elevated bp and cholesterol [...] 03/2020: Assessment & Plan (10/19/2021 4:33 PM EPIC APPLICATION COORDINATOR): Images from the original note were not included. Low cdai. Election Watcher was ok with lowering plaquenil dose to 200 mg po every day. Check labs. Has hx of pulm htn and esophageal stenosis. No skin changes or sclerodactyly. Has echo with ultrasound tester next week. Advised pt to let her ultrasound tester know about her elevated bp and cholesterol also. Past serologies showed + hep 2 and + anti carbamylated. 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 Demarco alba had enthesopathy on xrays 3 so she can have a spondyloarthropathy also. She also has thyroid antibodies, she was advised to discuss this with pcp in past. [facility] 03/2020: Assessment & Plan (07/21/2021 4:05 PM EPIC APPLICATION COORDINATOR): Images from the original note were not included. Mod cdai. Election Watcher was ok with lowering plaquenil dose to 200 mg po every day. Check labs. Past serologies showed + hep 2 and + anti carbaylated. 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 Demarco abla had enthesopathy on xrays 3/19 so she can have a spondyloarthropathy also. She also has thyroid antibodies, she was advised to discuss this with pcp in past [facility] 03/2020: Assessment & Plan (04/28/2021 2:28 PM CDT): Images from the original note were not included. low cdai. Election Watcher was ok with lowering plaquenil dose to [...] original note were not included. Mod cdai. Election Watcher was ok with lowering plaquenil dose to [...] but mostly tender joints, not many swollen. Election Watcher was ok with lowering dose to 200 [...] has been on plaquenil for 8 yrs. Election Watcher said it was fine to continue lower dose of HCQ. Is finally seeing a metal leaf layer for a lung nodule, her pcp referred her to pulm closer to her house. [facility] 03/2020: Assessment & Plan (09/23/2020 5:14 PM EPIC APPLICATION COORDINATOR): Images from the original note were not [...] has been on plaquenil for 8 yrs. Election Watcher said it was fine to continue lower dose of HCQ. Is finally seeing a metal leaf layer for a lung nodule, her pcp referred her to pulm closer to her house. [facility] 03/2020: Assessment & Plan (06/27/2020 5:08 PM EPIC APPLICATION COORDINATOR): Images from the original note were not [...] has been on plaquenil for 8 yrs. Election Watcher said it was fine to continue lower dose of HCQ. Is finally seeing a metal leaf layer for a lung nodule, her pcp referred her to pulm closer to her house. [facility] 03/2020: Assessment & Plan (04/27/2020 1:20 [...] 200mg qd until rest of the year. Election Watcher said it was fine to continue lower dose of HCQ. Advised again to see her ultrasound tester and pulm for pft, cxr and echo, was given referral at last visits, pt states she can't afford to see more doctors. Advised to get prevnar 13 and shingrix. Had her flu vaccine. Gave her another cxr referral. [facility] 03/2020: Assessment & Plan (01/27/2020 2:18 PM [...] 200mg qd until rest of the year. Election Watcher said it was fine to continue lower dose of HCQ. Advised again to see her ultrasound tester and pulm for pft, cxr and echo, [...] 200mg qd until rest of the year. Election Watcher said it was fine to continue lower dose of HCQ. Advised again to see her ultrasound tester and pulm for pft, cxr and echo, [...] loss. Assessment & Plan (06/29/2019 12:34 PM EPIC APPLICATION COORDINATOR): high cdai. Pt is on arava 20mg [...] the year. Advised again to see her ultrasound tester and pulm for pft, cxr and echo, [...] adding belysta. Advised again to see her ultrasound tester and pulm for pft, cxr and echo, [...] 07/21/202103/14 Assessment & Plan (07/21/2021 4:19 PM EPIC APPLICATION COORDINATOR): Has gained weight and occ bg is [...] visit. Assessment & Plan (06/29/2019 12:35 PM EPIC APPLICATION COORDINATOR): Check cpk and aldolase. Normal muscle strength on exam and no LE edema and neg lalit sign bilat LE. Abnormal laboratory test result 04/06/2019 03/14/2022 Assessment & Plan (07/21/2021 4:19 PM EPIC APPLICATION COORDINATOR): has thyroid antibodies, pt given copies of [...] 01/2020. Assessment & Plan (09/23/2020 7:34 AM EPIC APPLICATION COORDINATOR): has thyroid antibodies, pt given copies of labs in past and she was advised to address this with pcp. TSH wnl 01/2020. Assessment & Plan (06/27/2020 8:41 AM EPIC APPLICATION COORDINATOR): has thyroid antibodies, pt given copies of [...] 2019. Assessment & Plan (06/26/2019 8:25 AM EPIC APPLICATION COORDINATOR): has thyroid antibodies, pt given copies of [...] 08/01/2023 Assessment & Plan (08/01/2023 8:32 AM EPIC APPLICATION COORDINATOR): Hand US 03/2020 lunate and 5th mcp [...] pos. Assessment & Plan (10/05/2022 4:00 PM EPIC APPLICATION COORDINATOR): Hand US 03/2020 lunate and 5th mcp [...] pos. Assessment & Plan (07/04/2022 4:38 PM EPIC APPLICATION COORDINATOR): Hand US 03/2020 lunate and 5th mcp [...] pos. Assessment & Plan (10/19/2021 1:52 PM EPIC APPLICATION COORDINATOR): Hand US 03/2020 lunate and 5th mcp [...] pos. Assessment & Plan (07/21/2021 11:48 AM EPIC APPLICATION COORDINATOR): Hand US 03/2020 lunate and 5th mcp [...] pos. Assessment & Plan (09/23/2020 7:34 AM EPIC APPLICATION COORDINATOR): Hand US 03/2020 lunate and 5th mcp [...] pos. Assessment & Plan (06/27/2020 8:38 AM EPIC APPLICATION COORDINATOR): Hand US 03/2020 lunate and 5th mcp [...] 03/30 Assessment & Plan (06/26/2019 8:25 AM EPIC APPLICATION COORDINATOR): avise panel 10/2018---showed + hep 2 and [...] on file Legal Sex Female 10:10 AM EPIC APPLICATION COORDINATOR Gender Identity Not on file Sexual Orientation Not on file Last Filed Vital Signs Vital Sign Reading Time Taken Comments Blood Pressure 156/84 07/29/2024 1:58 PM EPIC APPLICATION COORDINATOR Pulse 89 07/29/2024 1:58 PM EPIC APPLICATION COORDINATOR Temperature 37.5 C (99.5 F) 10/19/2021 1:19 PM EPIC APPLICATION COORDINATOR Respiratory Rate - - Oxygen Saturation 96% 07/29/2024 1:58 PM EPIC APPLICATION COORDINATOR Inhaled Oxygen Concentration - - Weight 107 kg (236 lb) 07/29/2024 1:58 PM EPIC APPLICATION COORDINATOR Height 154.9 cm (5' 1 ) 07/29/2024 1:58 PM EPIC APPLICATION COORDINATOR Body Mass Index 44.59 07/29/2024 1:58 PM EPIC APPLICATION COORDINATOR Plan of Treatment Not on file Procedures Procedure Name Priority Date/Time Associated Diagnosis Comments SCAN - RADIOLOGY/IMAGING 10/06/2024 10:46 AM EPIC APPLICATION COORDINATOR SCAN - RADIOLOGY/IMAGING 09/22/2024 12:33 PM EPIC APPLICATION COORDINATOR HEMOGLOBIN A1C Routine 07/29/2024 3:12 PM EPIC APPLICATION COORDINATOR VITAMIN D 25 HYDROXY Routine 07/29/2024 3:12 PM EPIC APPLICATION COORDINATOR VITAMIN B12 Routine 07/29/2024 3:12 PM EPIC APPLICATION COORDINATOR TSH Routine 07/29/2024 3:12 PM EPIC APPLICATION COORDINATOR ANTI-DOUBLE STRANDED DNA ANTIBODIES Routine 07/29/2024 3:12 PM EPIC APPLICATION COORDINATOR Systemic lupus erythematosus, unspecified SLE type, unspecified organ involvement status (HCC) Seronegative rheumatoid arthritis (HCC) Encounter for long-term (current) use of medications Age-related osteoporosis without current pathological fracture COMPREHENSIVE METABOLIC PANEL Routine 07/29/2024 3:12 PM EPIC APPLICATION COORDINATOR Systemic lupus erythematosus, unspecified SLE type, unspecified organ involvement status (HCC) Seronegative rheumatoid arthritis (HCC) Encounter for long-term (current) use of medications Age-related osteoporosis without current pathological fracture CRP (ACUTE PHASE) Routine 07/29/2024 3:1 2 PM EPIC APPLICATION COORDINATOR Systemic lupus erythematosus, unspecified SLE type, unspecified organ involvement status (HCC) Seronegative rheumatoid arthritis (HCC) Encounter for long-term (current) use of medications Age-related osteoporosis without current pathological fracture C3 COMPLEMENT Routine 07/29/2024 3:12 PM EPIC APPLICATION COORDINATOR Systemic lupus erythematosus, unspecified SLE type, unspecified organ involvement status (HCC) Seronegative rheumatoid arthritis (HCC) Encounter for long-term (current) use of medications Age-related osteoporosis without current pathological fracture C4 COMPLEMENT Routine 07/29/2024 3:12 PM EPIC APPLICATION COORDINATOR Systemic lupus erythematosus, unspecified SLE type, unspecified organ involvement status (HCC) Seronegative rheumatoid arthritis (HCC) Encounter for long-term (current) use of medications Age-related osteoporosis without current pathological fracture CBC WITH AUTO DIFFERENTIAL Routine 07/29/2024 3:12 PM EPIC APPLICATION COORDINATOR Systemic lupus erythematosus, unspecified SLE type, unspecified organ involvement status (HCC) Seronegative rheumatoid arthritis (HCC) Encounter for long-term (current) use of medications Age-related osteoporosis without current pathological fracture ERYTHROCYTE SEDIMENTATION RATE Routine 07/29/2024 3:12 PM EPIC APPLICATION COORDINATOR Systemic lupus erythematosus, unspecified SLE type, unspecified organ involvement status (HCC) Seronegative rheumatoid arthritis (HCC) Encounter for long-term (current) use of medications Age-related osteoporosis without current pathological fracture from Last 3 Months Results * SCAN - RADIOLOGY/IMAGING (10/06/2024 10:46 AM EPIC APPLICATION COORDINATOR) Anatomical Region Laterality Modality Other Meeta esqueda Result - Final * SCAN - RADIOLOGY/IMAGING (09/22/2024 12:33 PM EPIC APPLICATION COORDINATOR) Anatomical Region Laterality Modality Other Meeta Caballero inal Result * Anti-double stranded DNA abs (07/29/2024 3:12 PM EPIC APPLICATION COORDINATOR) DNA (DS) ab <1 IU/mL [facility] Comment: IU/mL Interpretation < or = 4 Negative 5-9 Indeterminate > or = 10 Positive Blood 07/29/2024 3:12 PM EPIC APPLICATION COORDINATOR 07/29/2024 3:14 PM EPIC APPLICATION COORDINATOR Narrative [facility] - 07/31/2024 4:02 AM EPIC APPLICATION COORDINATOR PATIENT UNABLE TO VOID; ADVISED TO RETURN FOR COLLECTION. Meeta CAMPBELL LAB BLOOD ORDERAB LES Final Result Performing Organization Address [facility] de Phone Number [facility] [address] [place] [address] * C4 complement (07/29/2024 3:12 PM EPIC APPLICATION COORDINATOR) [facility] Complement component C4C 26 15 - 57 mg/dL [facility] Blood 07/29/2024 3:12 PM EPIC APPLICATION COORDINATOR 07/29/2024 3:14 PM EPIC APPLICATION COORDINATOR Narrative [facility] - 07/31/2024 4:02 AM EPIC APPLICATION COORDINATOR PATIENT UNABLE TO VOID; ADVISED TO RETURN FOR COLLECTION. Meeta CAMPBELL LAB BLOOD ORDERAB LES Final Result Performing Organization Address [facility] de Phone Number [facility] [address] [place] [address] * (ABNORMAL) CBC with auto differential (07/29/2024 3:12 PM EPIC APPLICATION COORDINATOR) [facility] WBC 4.0 3.8 - 10.8 Thousand/u L [...] [facility] Blood 07/29/2024 3:12 PM EPIC APPLICATION COORDINATOR 07/29/2024 3:14 PM EPIC APPLICATION COORDINATOR Narrative [facility] - 07/31/2024 4:02 AM EPIC APPLICATION COORDINATOR PATIENT UNABLE TO VOID; ADVISED TO RETURN FOR COLLECTION. us Meeta CAMPBELL LAB BLOOD ORDERAB LES Final Result [facility] [address] [place] [address] * Vitamin D 25 hydroxy (07/29/2024 3:12 PM EPIC APPLICATION COORDINATOR) Pathologist [facility] Vitamin D 25-OH 41 30 - 100 [...] D, (D2,D3), LC/MS/MS is recommended: order code 90694 (patients >2yrs). See Note 1 Note 1 For additional information, please refer to http://education.[employer].AdECN/faq/XGK620 (This link is being provided for informational/ educational purposes only.) 07/29/2024 3:12 PM EPIC APPLICATION COORDINATOR 07/29/2024 3:14 PM EPIC APPLICATION COORDINATOR Narrative [facility] - 07/31/2024 4:02 AM EPIC APPLICATION COORDINATOR PATIENT UNABLE TO VOID; ADVISED TO RETURN FOR COLLECTION. Meeta Tolliver [place] LAB BLOOD ORDERAB LES Final Result [facility] [address] [place] [address] * Erythrocyte sedimentation rate (07/29/2024 3:12 PM EPIC APPLICATION COORDINATOR) Erythrocyte sedimentation rate 28 < OR = 30 mm/h [facility] Blood 07/29/2024 3:12 PM EPIC APPLICATION COORDINATOR 07/29/2024 3:14 PM EPIC APPLICATION COORDINATOR Narrative [facility] - 07/31/2024 4:02 AM EPIC APPLICATION COORDINATOR PATIENT UNABLE TO VOID; ADVISED TO RETURN FOR COLLECTION. Meeta Tolliver [place] LAB BLOOD ORDERAB LES Final Result Performing Organization Address [facility] Co de Phone Number [facility] [address] [place] [address] * C3 complement (07/29/2024 3:12 PM EPIC APPLICATION COORDINATOR) Complement component C3C 156 83 - 193 mg/dL [facility] Blood 07/29/2024 3:12 PM EPIC APPLICATION COORDINATOR 07/29/2024 3:14 PM EPIC APPLICATION COORDINATOR Narrative [facility] - 07/31/2024 4:02 AM EPIC APPLICATION COORDINATOR PATIENT UNABLE TO VOID; ADVISED TO RETURN FOR COLLECTION. Meeta Tolliver [place] LAB BLOOD ORDERAB LES Final Result Performing Organization Address [facility] Co de Phone Number [facility] [address] [place] [address] * CRP (acute phase) (07/29/2024 3:12 PM EPIC APPLICATION COORDINATOR) [facility] C-RP <3.0 <8.0 mg/L [facility] Blood 07/29/2024 3:12 PM EPIC APPLICATION COORDINATOR 07/29/2024 3:14 PM EPIC APPLICATION COORDINATOR Narrative [facility] - 07/31/2024 4:02 AM EPIC APPLICATION COORDINATOR PATIENT UNABLE TO VOID; ADVISED TO RETURN FOR COLLECTION. Meeta Tolliver [place] LAB BLOOD ORDERAB LES Final Result [facility] [address] [facility] [place] [address] * TSH (07/29/2024 3:12 PM EPIC APPLICATION COORDINATOR) [facility] TSH 0.44 0.40 - 4.50 mIU/L [facility] 07/29/2024 3:12 PM EPIC APPLICATION COORDINATOR 07/29/2024 3:14 PM EPIC APPLICATION COORDINATOR Narrative [facility] - 07/31/2024 4:02 AM EPIC APPLICATION COORDINATOR PATIENT UNABLE TO VOID; ADVISED TO RETURN FOR COLLECTION. Meeta Tolliver [place] LAB BLOOD ORDERAB LES Final Result Performing Organization Address [facility]/ZIP Co de Phone Number [facility] [address] [facility] [place] [address] * (ABNORMAL) Hemoglobin A1c (07/29/2024 3:12 PM EPIC APPLICATION COORDINATOR) [facility] Hgb A1C 5.8(H) <5.7 % of [...] of diabetes for children. 07/29/2024 3:12 PM EPIC APPLICATION COORDINATOR 07/29/2024 3:14 PM EPIC APPLICATION COORDINATOR Narrative [facility] - 07/31/2024 4:02 AM EPIC APPLICATION COORDINATOR PATIENT UNABLE TO VOID; ADVISED TO RETURN FOR COLLECTION. Meeta CAMPBELL LAB BLOOD ORDERAB LES Final Result [facility] [address] [place] [address] * Vitamin B12 (07/29/2024 3:12 PM EPIC APPLICATION COORDINATOR) Pathologist [facility] Vitamin B12 420 200 - 1,100 pg/mL [facility] 07/29/2024 3:12 PM EPIC APPLICATION COORDINATOR 07/29/2024 3:14 PM EPIC APPLICATION COORDINATOR Narrative [facility] - 07/31/2024 4:02 AM EPIC APPLICATION COORDINATOR PATIENT UNABLE TO VOID; ADVISED TO RETURN FOR COLLECTION. Meeta CAMPBELL LAB BLOOD ORDERAB LES Final Result Performing Organization Address City/[facility]/ZIP Co de Phone Number [facility] [address] [place] [address] * (ABNORMAL) Comprehensive metabolic panel (07/29/2024 3:12 PM EPIC APPLICATION COORDINATOR) Glucose 103(H) 65 - 99 mg/dL [facility] [...] [facility] Blood 07/29/2024 3:12 PM EPIC APPLICATION COORDINATOR 07/29/2024 3:14 PM EPIC APPLICATION COORDINATOR Narrative [facility] - 07/31/2024 4:02 AM EPIC APPLICATION COORDINATOR PATIENT UNABLE TO VOID; ADVISED TO RETURN FOR COLLECTION. 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
--- OUTSIDE RECORDS SUMMARY | 2024-10-16 13:55 | XMS_ITS | Clinical Summary ---
Author Organization [facility] [address] [facility] Address [address] [place] [id number] Phone Care Team Providers Care Sheet Manager Name Role Phone Chichi Watkins MD Primary Care Provider Cindy Murphy MD Unavailable [phone] MikalLaura hobbs MD Unavailable Chepe Tijerina MD Unavailable [phone] Branden Gordon MD Unavailable Allergies Active Allergy Reactions Criticality Noted Date [...] 07/29/2024 Assessment & Plan (07/29/2024 4:19 PM [employer]): Check rt hip xray. Chronic right-sided low back pain with right-alin ed sciatica 07/29/2024 Assessment & Plan (07/29/2024 4:18 PM [employer]): Full rom of bilat hips. Check rt hip, lumbar spine and si joint xrays. Abnormal serum glucose level 07/29/2024 Assessment & Plan (07/29/2024 4:18 PM [employer]): Hx of abn hgba1c, not checked by pcp and last checked by us 01/2024, recheck today. Advised to work on weight loss. Other fatigue 07/29/2024 Assessment & Plan (07/29/2024 4:18 PM [employer]): Check tsh, b12, hgba1c. Vitamin D deficiency 04/30/2024 Assessment & Plan (07/29/2024 4:19 PM TH[employer]IE[employer]ENA[employer]): Check vit d. Assessment & Plan (04/30/2024 [...] 10/31/2023 Assessment & Plan (07/29/2024 4:15 PM THIRD [employer]IE[employer]ENA[employer]): Sees dr gordon. Htn still not under control despite 3 htn meds. Sees him soon. Repeat bp lt arm sitting 150/80. Assessment & Plan (10/31/2023 5:44 PM CDT): Sees dr gordon. He started her on chlortalidone but after 1 tab it caused lip and tongue tingling/numbness. Contacted dr blanco call center at [facility] and let him know about this and gave call center pt's info. Advised pt to skip dose tomorrow and try to get hold of dr gordon if he does not call her and gave pt his office phone number. Diarrhea 04/29/2023 Assessment & Plan (04/29/2023 1:53 PM CDT): [place] utd, dx with ibs in past. Check [...] not included. Advised pt to see her wrapper sorter Dr Crabtree. BP still elevated and had an abn echo with enlarged heart diastolic dysfunction, was advised to see her wrapper sorter for treating her htn and for her abn echo. Echo 07/2021 Hypothyroidism 07/21/2021 Assessment & Plan (07/21/2021 4:18 PM [employer]): Check TSH. Age-related osteoporosis wit hout current pathological fracture 07/21/2021 Assessment & Plan (07/29/2024 4:14 PM [employer]): bds stable 05/2022. Was due 06/2024 but was not able to get an appt at [facility] in [place] until next year. [...] bid. Assessment & Plan (08/01/2023 8:32 AM [employer]): bds stable 05/2022. Is due again 06/2024. [...] bid. Assessment & Plan (10/05/2022 4:02 PM [employer]): bds stable 05/2022. Continue ca and vit d 600mg po bid. Assessment & Plan (07/09/2022 1:19 PM [employer]): bds stable 05/2022. Continue ca and vit d 600mg po bid. Assessment & Plan (04/02/2022 4:22 PM CDT): Will try to get copy of bds. Assessment & Plan (11/23/2021 8:33 AM CDT): Has not been able to get her bds until November, [facility] is backed up. Assessment & Plan (10/19/2021 1:51 PM [employer]): Has not been able to get her bds until November, [facility] is backed up. Assessment & Plan (07/21/2021 4:19 PM [employer]): Check bds. Weight gain 07/21/2021 Assessment & Plan (01/30/2024 5:37 PM CDT): Is morbidly obese, can't seem to lose weight. Drinks lots of lemonade and crystal light, has family hx of dm2. Check hgba1c. Also to discuss ozempic with pcp for weight loss. She might be able to qualify for free drug due to her low income. Assessment & Plan (07/21/2021 4:07 PM [employer]): Has gained over 20 lb in past 2 yrs. Has hx of hypothyroidism. On levothyroxine. Check tsh today. Has not had this checked with pcp in over 4 months. Esophageal stenosis 01/27/2021 Assessment & Plan (07/21/2021 11:48 AM [employer]): Had an esophageal stenosis dilated in december. [...] 04/27/2020 Assessment & Plan (07/29/2024 4:16 PM [employer]): Low cdai. Doing well on imuran, continue imuran to 100 mg every day. Recheck labs today. Has hx of pulm htn and esophageal stenosis. Has not seen gi for esophageal stenosis symptoms again. No skin changes or sclerodactyly. Seeing dr gordon now for her ckd. Her wrapper sorter also retired, will refer her for her yearly pft and cxr. Previous history/labs/imaging: Echo 03/2023: Echo report below, has mild enlarged heart but good ef. Has an abn septal motion with possible bundle branch block. Impaired diastolic relaxation grade I. Send this to her wrapper sorter and advised pt to f/u with him. [...] dr gordon now for her ckd. Her wrapper sorter also retired, will refer her for her yearly echo (has hx of pulm htn) sees pulm and she is scheduled to have pft's soon. Previous history/labs/imaging: Echo 03/2023: Echo report below, has mild enlarged heart but good ef. Has an abn septal motion with possible bundle branch block. Impaired diastolic relaxation grade I. Send this to her wrapper sorter and advised pt to f/u with him. [...] relaxation grade I. Send this to her wrapper sorter and advised pt to f/u with him. [...] relaxation grade I. Send this to her wrapper sorter and advised pt to f/u with him. [...] have an overlap of RA and SLE. Demraco alba had enthesopathy on xrays 10/28 so she can have a spondyloarthropathy also. Assessment & Plan (08/01/2023 4:15 PM [employer]): Low-mod cdai. Arava stopped due to lft [...] relaxation grade I. Send this to her wrapper sorter and advised pt to f/u with him. [...] relaxation grade I. Send this to her wrapper sorter and advised pt to f/u with him. [...] relaxation grade I. Send this to her wrapper sorter and advised pt to f/u with him. [...] SLE. Assessment & Plan (10/05/2022 4:00 PM [employer]): Low cdai. In past we recommended we [...] SLE. Assessment & Plan (07/09/2022 2:36 PM [employer]): Low cdai. In past we recommended we [...] diastolic dysfunction, was advised to see her wrapper sorter for treating her htn and for her abn echo. Assessment & Plan (10/19/2021 4:32 PM [employer]): Low cdai. Recommended adding orencia but once [...] today. Assessment & Plan (07/21/2021 4:06 PM [employer]): Mod cdai. Recommended adding orencia but once [...] it. Assessment & Plan (09/23/2020 5:15 PM [employer]): Mod cdai. 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 Has hx of + anti-carbamyalted also. She has an overlap of RA and SLE. Recommended starting xeljanz but once again she declines, discussed potential se and risks, still declines meds. She was informed of continuing joint damage. Assessment & Plan (06/27/2020 5:08 PM [employer]): Mod cdai. Pt has an erosive arthritis [...] PT. Assessment & Plan (09/23/2020 7:34 AM [employer]): Declines further workup. Does not want to do PT. Assessment & Plan (06/27/2020 5:09 PM [employer]): Declines further workup. Does not want to do PT. Assessment & Plan (01/21/2020 3:59 PM CDT): Check lumbar xray and start PT. Assessment & Plan (06/29/2019 12:35 PM [employer]): Check lumbar xray and start PT. Encounter for long-term (current) use of medicat ions 10/24/2017 Assessment & Plan (07/29/2024 4:15 PM [employer]): Hand US 03/2020 lunate and 5th mcp [...] aquino. Assessment & Plan (08/01/2023 4:16 PM [employer]): Hand US 03/2020 lunate and 5th mcp [...] pos. Assessment & Plan (07/21/2021 4:17 PM [employer]): Check bds, has not had one for years she states. Pulmonary hypertension 01/30/2017 Assessment & Plan (07/29/2024 4:16 PM [employer]): Echo stable and utd 05/2024. Right ventricular systolic pressure could not be estimated due to inadequate visualization of the tricuspid regurgitation jet. Pt joshua f/u with wrapper sorter q [address] laura crabtree. Still needs to see pulm for her yearly pft's. Gave pt referral for pft and cxr. Advised to work on weight loss. Assessment & Plan (04/30/2024 8:19 AM CDT): Echo stable and utd 03/2023. Right ventricular systolic pressure could not be estimated due to inadequate visualization of the tricuspid regurgitation jet. Pt joshua f/u with wrapper sorter q [address] laura crabtree. Still needs to see pulm for her yearly pft's. Assessment & Plan (10/31/2023 8:38 AM CDT): Echo stable and utd 03/2023. Right ventricular systolic pressure could not be estimated due to inadequate visualization of the tricuspid regurgitation jet. Pt joshua f/u with wrapper sorter q [address] laura crabtree. Still needs to see pulm for her yearly pft's. Assessment & Plan (08/01/2023 8:32 AM [employer]): Echo stable and utd 03/2023. Right ventricular systolic pressure could not be estimated due to inadequate visualization of the tricuspid regurgitation jet. Pt joshua f/u with wrapper sorter q [address] laura crabtree. Still needs to see pulm for her yearly pft's. Assessment & Plan (05/29/2023 8:12 AM CDT): Echo stable and utd 03/2023. Right ventricular systolic pressure could not be estimated due to inadequate visualization of the tricuspid regurgitation jet. Pt joshua caballero/u with wrapper sorter q [address] laura crabtree. Still needs to see pulm for her yearly pft's. Assessment & Plan (04/29/2023 1:55 PM CDT): Echo stable and utd 03/2023. Right ventricular systolic pressure could not be estimated due to inadequate visualization of the tricuspid regurgitation jet. Pt joshua f/u with wrapper sorter q [address] laura crabtree. Still needs to see pulm for her yearly pft's. Assessment & Plan (04/01/2023 3:19 PM CDT): Sees wrapper sorter but not pulm. Has hx of tachycardia, wrapper sorter is aware of this. Echo scheduled next week. Can't tolerate cpap and due to poor dentition can't use oral appliance for her sleep apnea. Cxr nl 01/2023. Assessment & Plan (12/31/2022 2:52 PM CDT): Saw wrapper sorter for echo in past but has not f/u with him or customer account specialist. Has hx of tachycardia. Pt to let her pcp and wrapper sorter know about her htn/tachycardia. States that pcp was aware of this and wanted pt to work on diet/weight loss. Pt is not eating any salt. Assessment & Plan (10/08/2022 4:46 PM [employer]): Saw wrapper sorter for echo in past but has not f/u with him or customer account specialist. Has hx of tachycardia. Pt to let her pcp and wrapper sorter know about her htn/tachycardia. States that pcp was aware of this and wanted pt to work on diet/weight loss. Pt is not eating any salt. Assessment & Plan (07/04/2022 4:38 PM [employer]): Saw wrapper sorter for echo. Pt to let her pcp and wrapper sorter know about her htn/tachycardia. States that pcp was aware of this and wanted pt to work on diet/weight loss. Pt is not eating any salt. Assessment & Plan (03/30/2022 3:36 PM CDT): Saw wrapper sorter for echo. Pt to let her pcp and wrapper sorter know about her htn/tachycardia. States that pcp was aware of this and wanted pt to work on diet/weight loss. Pt is not eating any salt. Assessment & Plan (11/23/2021 8:31 AM CDT): Saw wrapper sorter for echo. Pt to let her pcp and wrapper sorter know about her htn/tachycardia. States that pcp was aware of this and wanted pt to work on diet/weight loss. Pt is not eating any salt. Assessment & Plan (10/19/2021 1:54 PM [employer]ENA[employer]): Sees wrapper sorter next week for echo. To have it sent to us also. Pt to let her pcp and wrapper sorter know about her htn/tachycardia. States that pcp was aware of this and wanted pt to work on diet/weight loss. Pt is not eating any salt. Assessment & Plan (07/21/2021 4:17 PM [employer]ENA[employer]): Has been having LE edema. pcp started [...] insurance. In past she was referred to wrapper sorter and pulm several times but due to finances she stated she could not afford to go. Her recent le edema could be early chf. Advised pt to see pulm and wrapper sorter for her pum htn and to discuss this with pcp. Has not seen pulmonary for over 5 yrs due to cost. Has not seen wrapper sorter or had an echo since 2014. Assessment & Plan (04/28/2021 2:30 PM CDT): Has been having LE edema. Pt has pulmonary htn and a rt lung nodule and hx of pulmonary hypertension. In past she was referred to wrapper sorter and pulm several times but due to finances she stated she could not afford to go. Her recent le edema could be early chf. Advised pt to see pulm and wrapper sorter for her pum htn and to discuss this with pcp. Has not seen pulmonary for over 5 yrs due to cost. Has not seen wrapper sorter or had an echo since 2014. Assessment & Plan (01/27/2021 2:02 PM CDT): Has pulmonary htn and a rt lung nodule. Has not seen pulmonary for over 5 yrs due to cost. Has not seen wrapper sorter or had an echo since 2014. Advised her to f/u with both. Assessment & Plan (12/19/2020 7:56 AM CDT): Has pulmonary htn and a rt lung nodule. Seeing pulm but has not seen wrapper sorter yet. Was referred several times in past but states she can't afford the copays. Assessment & Plan (09/23/2020 7:34 AM [employer]): Has pulmonary htn and a rt lung nodule. Seeing pulm but has not seen wrapper sorter yet. Was referred several times in past but states she can't afford the copays. Assessment & Plan (06/27/2020 5:10 PM [employer]): Has pulmonary htn and a rt lung nodule. Seeing pulm but has not seen wrapper sorter yet. Was referred several times in past but states she can't afford the copays. Assessment & Plan (04/27/2020 1:18 PM CDT): Has pulmonary htn and a rt lung nodule. In past she was referred to customer account specialist in past or eval of her pulm htn and to wrapper sorter but has not f/u in over 5 [...] (01/21/2020 3:57 PM CDT): Was referred to customer account specialist in past or eval of her pulm htn and to wrapper sorter but has not f/u in over 5 yrs. Advised to also see opth for yearly eye exam. Gave pt referral for cxr, and echo, pft's at past visits but she has not done them. States she can't afford all the copays. Advised her again to schedule them. Assessment & Plan (10/28/2019 2:10 PM CDT): Was referred to customer account specialist in past or eval of her pulm htn and to wrapper sorter but has not f/u in over 5 yrs. Advised to also see opth for yearly eye exam. Gave pt referral for cxr, and echo, pft's at past visits but she has not done them. States she can't afford all the copays. Advised her again to schedule them. Assessment & Plan (06/26/2019 8:23 AM [employer]): Was referred to customer account specialist in past or eval of her pulm htn and to wrapper sorter but has not f/u in over 2 yrs. Advised to also see opth for yearly eye exam. Gave pt referral for cxr, and echo, pft's at past visits but she has not done them. States she can't afford all the copays. Advised her again to schedule them. Assessment & Plan (04/06/2019 8:37 AM CDT): Was referred to customer account specialist in past or eval of her pulm htn and to wrapper sorter but has not f/u in over 2 [...] diastolic dysfunction, was advised to see her wrapper sorter for treating her htn and for her abn echo. Assessment & Plan (10/19/2021 4:29 PM [employer]ENA[employer]): bp elevated 150/90 and pulse 110. No [...] Her ldl was elevated in march with wrapper sorter at 153. Due to her hx of RA and Sle she is at increased risk of CAD and recommend she discuss starting meds for her cholesterol with Dr Brown her wrapper sorter. She had SE to lipitor and crestor in past. Assessment & Plan (10/19/2021 4:26 PM [employer]): LDL at last visit was very high [...] diet. Assessment & Plan (07/21/2021 4:18 PM [employer]ENA[employer]): Requesting that we check her cholesterol with today's labs. Not fasting so will check direct LDL. Systemic lupus erythematosus 03/04/2015 Overview (11/16/2016): Lupus Assessment & Plan (07/29/2024 8:36 AM [employer]): Low cdai. On plaquenil 200 mg po [...] day. Assessment & Plan (08/01/2023 4:15 PM [employer]): Low-mod cdai. On plaquenil 200 mg po [...] next week. Cxr done in december at [facility], we do not have it, will get [...] spondyloarthropathy also. TSH checked recently at [facility]. [facility] 03/2020: Assessment & Plan (12/31/2022 8:11 AM [...] spondyloarthropathy also. TSH checked recently at [facility] 03/2020: Assessment & Plan (10/08/2022 4:47 PM [employer]): Images from the original note were not [...] spondyloarthropathy also. TSH checked recently at [facility] 03/2020: Assessment & Plan (07/09/2022 2:35 PM [employer]): Images from the original note were not included. Low cdai. Poker Machine Attendant was ok with lowering plaquenil dose to [...] again. No skin changes or sclerodactyly. Sees wrapper sorter also. Past serologies showed + hep 2 and + anti carbamylated. 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 Demarco alba had enthesopathy on xrays 3 so she can have a spondyloarthropathy also. TSH checked recently at [facility] 03/2020: Assessment & Plan (04/02/2022 4:22 PM CDT): Images from the original note were not included. Low cdai. Poker Machine Attendant was ok with lowering plaquenil dose to 200 mg po every day in past. Pt advised to get eye exams q 6 months.. Check labs today. Has hx of pulm htn and esophageal stenosis. No skin changes or sclerodactyly. Sees wrapper sorter. Past serologies showed + hep 2 and + anti carbamylated. 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 Demarco alba had enthesopathy on xrays 10/28 so she can have a spondyloarthropathy also. TSH checked recently at [facility] 03/2020: Assessment & Plan (11/23/2021 8:31 AM CDT): Images from the original note were not included. Low cdai. Poker Machine Attendant was ok with lowering plaquenil dose to 200 mg po every day. Check labs. Has hx of pulm htn and esophageal stenosis. No skin changes or sclerodactyly. Has echo with wrapper sorter next week. Advised pt to let her wrapper sorter know about her elevated bp and cholesterol [...] 03/2020: Assessment & Plan (10/19/2021 4:33 PM [employer]): Images from the original note were not included. Low cdai. Poker Machine Attendant was ok with lowering plaquenil dose to 200 mg po every day. Check labs. Has hx of pulm htn and esophageal stenosis. No skin changes or sclerodactyly. Has echo with wrapper sorter next week. Advised pt to let her wrapper sorter know about her elevated bp and cholesterol also. Past serologies showed + hep 2 and + anti carbamylated. 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 Demarco alba had enthesopathy on xrays 3/19 so she can have a spondyloarthropathy also. She also has thyroid antibodies, she was advised to discuss this with pcp in past. [facility] 03/2020: Assessment & Plan (07/21/2021 4:05 PM [employer]): Images from the original note were not included. Mod cdai. Poker Machine Attendant was ok with lowering plaquenil dose to [...] original note were not included. low cdai. Poker Machine Attendant was ok with lowering plaquenil dose to [...] original note were not included. Mod cdai. Poker Machine Attendant was ok with lowering plaquenil dose to [...] but mostly tender joints, not many swollen. Poker Machine Attendant was ok with lowering dose to 200 [...] has been on plaquenil for 8 yrs. Poker Machine Attendant said it was fine to continue lower dose of HCQ. Is finally seeing a customer account specialist for a lung nodule, her pcp referred her to pulm closer to her house. [facility] 03/2020: Assessment & Plan (09/23/2020 5:14 PM [employer]): Images from the original note were not [...] has been on plaquenil for 8 yrs. Poker Machine Attendant said it was fine to continue lower dose of HCQ. Is finally seeing a customer account specialist for a lung nodule, her pcp referred her to pulm closer to her house. [facility] 03/2020: Assessment & Plan (06/27/2020 5:08 PM [employer]ENA[employer]): Images from the original note were not [...] has been on plaquenil for 8 yrs. Poker Machine Attendant said it was fine to continue lower dose of HCQ. Is finally seeing a customer account specialist for a lung nodule, her pcp referred her to pulm closer to her house. [facility] 03/2020: Assessment & Plan (04/27/2020 1:20 PM [...] 200mg qd until rest of the year. Poker Machine Attendant said it was fine to continue lower dose of HCQ. Advised again to see her wrapper sorter and pulm for pft, cxr and echo, was given referral at last visits, pt states she can't afford to see more doctors. Advised to get prevnar 13 and shingrix. Had her flu vaccine. Gave her another cxr referral. [facility] 03/2020: Assessment & Plan (01/27/2020 2:18 PM [...] 200mg qd until rest of the year. Poker Machine Attendant said it was fine to continue lower dose of HCQ. Advised again to see her wrapper sorter and pulm for pft, cxr and echo, [...] 200mg qd until rest of the year. Poker Machine Attendant said it was fine to continue lower dose of HCQ. Advised again to see her wrapper sorter and pulm for pft, cxr and echo, [...] loss. Assessment & Plan (06/29/2019 12:34 PM [employer]): high cdai. Pt is on arava 20mg [...] the year. Advised again to see her wrapper sorter and pulm for pft, cxr and echo, [...] adding belysta. Advised again to see her wrapper sorter and pulm for pft, cxr and echo, [...] 07/21/202103/14 Assessment & Plan (07/21/2021 4:19 PM [employer]ENA[employer]): Has gained weight and occ bg is [...] visit. Assessment & Plan (06/29/2019 12:35 PM [employer]ENA[employer]): Check cpk and aldolase. Normal muscle strength on exam and no LE edema and neg lalit sign bilat LE. Abnormal laboratory test result 04/06/2019 03/14/2022 Assessment & Plan (07/21/2021 4:19 PM [employer]ENA[employer]): has thyroid antibodies, pt given copies of labs in past and she was advised to address this with pcp. TSH [facility] 01/2020. Will recheck tsh today. On levothyroxine 25 mcg and 50mcg on Saturday. Assessment & Plan [...] 01/2020. Assessment & Plan (09/23/2020 7:34 AM [employer]ENANT): has thyroid antibodies, pt given copies of labs in past and she was advised to address this with pcp. TSH [facility] 01/2020. Assessment & Plan (06/27/2020 8:41 AM [employer]ENA[employer]): has thyroid antibodies, pt given copies of [...] 2019. Assessment & Plan (06/26/2019 8:25 AM [employer]ENA[employer]): has thyroid antibodies, pt given copies of [...] 08/01/2023 Assessment & Plan (08/01/2023 8:32 AM [employer]ENA[employer]): Hand US 03/2020 lunate and 5th mcp [...] pos. Assessment & Plan (10/05/2022 4:00 PM [employer]): Hand US 03/2020 lunate and 5th mcp [...] pos. Assessment & Plan (07/04/2022 4:38 PM [employer]): Hand US 03/2020 lunate and 5th mcp [...] pos. Assessment & Plan (10/19/2021 1:52 PM [employer]): Hand US 03/2020 lunate and 5th mcp [...] pos. Assessment & Plan (07/21/2021 11:48 AM [employer]ENA[employer]): Hand US 03/2020 lunate and 5th mcp [...] pos. Assessment & Plan (09/23/2020 7:34 AM [employer]): Hand US 03/2020 lunate and 5th mcp [...] pos. Assessment & Plan (06/27/2020 8:38 AM [employer]ENA[employer]): Hand US 03/2020 lunate and 5th mcp [...] 03/30 Assessment & Plan (06/26/2019 8:25 AM TH[employer] SH[employer]IEUTENANT): avise panel 10/2018---showed + hep 2 and [...] Type Department Care Team Description 10/07/[address] [phone] Meeta Tolliver PA 10/07/2024 Results Follow-Up [facility] [address] [place] [phone] Meeta Tolliver PA 10/06/2024 Orders Only [facility] [address] [place] [phone] Meeta Tolliver PA 09/22/2024 Orders Only [facility] [address] [place] [phone] Meeta Tolliver PA 07/29/2024 2:30 PM [employer] Office Visit [facility] [address] [place] [phone] Meeta Tolliver PA Systemic lupus erythematosus, unspecified [...] Other Medical RA and Lupus; C omments: [facility] 03/06/2015 - Hx Other Medical 1986 lumpectomy; Com ments: [facility] 03/06/2015 - Hx Other Medical ear surgery; Co mments: [facility] 03/06/2015 - Hx Other Medical nose surgery; C omments: 03/06/2015 - Hx Other Medical tubal liation; Comments: [facility] 03/06/2015 - Hx Other Medical lumpectomy; Com ments: [facility] 03/06/2015 - Family History Medical History [...] on file Legal Sex Female 10:10 AM THIRD SHIFT LIEUTENANT Gender Identity Not on file Sexual Orientation Not on file Obstetrics History Last Filed Vital Signs Vital Sign Reading Time Taken Comments Blood Pressure 156/84 07/29/2024 1:58 PM THIRD SHIFT LIEUTENANT Pulse 89 07/29/2024 1:58 PM [employer] SH[employer] LIEUTENA[employer] Temperature 37.5 C (99.5 F) 10/19/2021 1:19 PM [employer]IRD SHIFT LIEUTENANT Respiratory Rate - - Oxygen Saturation 96% 07/29/2024 1:58 PM [employer] SH[employer] LIEUTENANT Inhaled Oxygen Concentration - - Weight 107 kg (236 lb) 07/29/2024 1:58 PM [employer]IRD SHIFT LIEUTENANT Height 154.9 cm (5' 1 ) 07/29/2024 1:58 PM [employer] SHIFT LIEUTENANT Body Mass Index 44.59 07/29/2024 1:58 PM THIRD SHIFT LIEUTENANT Plan of Treatment Health Maintenance Due Date [...] Comments SCAN - RADIOLOGY/IMAGING 10/06/2024 10:46 AM THIRD SHIFT LIEUTENANT SCAN - RADIOLOGY/IMAGING 09/22/2024 12:33 PM [employer] SH[employer]ENA[employer] HEMOGLOBIN A1C Routine 07/29/2024 3:12 PM [employer]NT VITAMIN D 25 HYDROXY Routine 07/29/2024 3:12 PM [employer] VITAMIN B12 Routine 07/29/2024 3:12 PM [employer] TSH Routine 07/29/2024 3:12 PM [employer] SH[employer]ENANT ANTI-DOUBLE STRANDED DNA ANTIBODIES Routine 07/29/2024 3:12 PM [employer] SH[employer]ENA[employer] Systemic lupus erythematosus, unspecified SLE type, unspecified organ involvement status (HCC) Seronegative rheumatoid arthritis (HCC) Encounter for long-term (current) use of medications Age-related osteoporosis without current pathological fracture COMPREHENSIVE METABOLIC PANEL Routine 07/29/2024 3:12 PM [employer] SHIFT LIE[employer]ENANT Systemic lupus erythematosus, unspecified SLE type, unspecified organ involvement status (HCC) Seronegative rheumatoid arthritis (HCC) Encounter for long-term (current) use of medications Age-related osteoporosis without current pathological fracture CRP (ACUTE PHASE) Routine 07/29/2024 3:1 2 PM THIRD SHIFT LIEUTENANT Systemic lupus erythematosus, unspecified SLE type, unspecified organ involvement status (HCC) Seronegative rheumatoid arthritis (HCC) Encounter for long-term (current) use of medications Age-related osteoporosis without current pathological fracture C3 COMPLEMENT Routine 07/29/2024 3:12 PM [employer] SH[employer] Systemic lupus erythematosus, unspecified SLE type, unspecified organ involvement status (HCC) Seronegative rheumatoid arthritis (HCC) Encounter for long-term (current) use of medications Age-related osteoporosis without current pathological fracture C4 COMPLEMENT Routine 07/29/2024 3:12 PM [employer] Systemic lupus erythematosus, unspecified SLE type, unspecified organ involvement status (HCC) Seronegative rheumatoid arthritis (HCC) Encounter for long-term (current) use of medications Age-related osteoporosis without current pathological fracture CBC WITH AUTO DIFFERENTIAL Routine 07/29/2024 3:12 PM [employer] SH[employer] L[employer]ENANT Systemic lupus erythematosus, unspecified SLE type, unspecified organ involvement status (HCC) Seronegative rheumatoid arthritis (HCC) Encounter for long-term (current) use of medications Age-related osteoporosis without current pathological fracture ERYTHROCYTE SEDIMENTATION RATE Routine 07/29/2024 3:12 PM [employer] SH[employer]ENA[employer] Systemic lupus erythematosus, unspecified SLE type, unspecified organ involvement status (HCC) Seronegative rheumatoid arthritis (HCC) Encounter for long-term (current) use of medications Age-related osteoporosis without current pathological fracture from Last 3 Months Results * SCAN - RADIOLOGY/IMAGING (10/06/2024 10:46 AM THIRD SHIFT LIEUTENANT) Anatomical Region Laterality Modality Other Meeta esqueda Result - Final * SCAN - RADIOLOGY/IMAGING (09/22/2024 12:33 PM TH[employer] SH[employer] LIE[employer]ENANT) Anatomical Region Laterality Modality Other Meeta Caballero inal Result * Anti-double stranded DNA abs (07/29/2024 3:12 PM THIRD SH[employer] LIE[employer]ENANT) DNA (DS) ab <1 IU/mL [facility] Comment: IU/mL Interpretation < or = 4 Negative 5-9 Indeterminate > or = 10 Positive Blood 07/29/2024 3:12 PM [employer] SH[employer] LIE[employer]ENANT 07/29/2024 3:14 PM [employer] SHIFT LIE[employer]ENANT Narrative [facility] - 07/31/2024 4:02 AM THIRD SHIFT LIE[employer]ENANT PATIENT UNABLE TO VOID; ADVISED TO RETURN FOR COLLECTION. us Meeta CAMPBELL LAB BLOOD ORDERAB LES Final Result [facility] [address] [address] * C4 complement (07/29/2024 3:12 PM THIRD SHIFT LIEUTENANT) Pathologist [facility] Complement component C4C 26 15 - 57 mg/dL [facility] Blood 07/29/2024 3:12 PM [employer] SH[employer] L[employer]ENANT 07/29/2024 3:14 PM [employer] SHIFT LIE[employer]ENANT Narrative [facility] - 07/31/2024 4:02 AM THIRD SHIFT L[employer]ENANT PATIENT UNABLE TO VOID; ADVISED TO RETURN FOR COLLECTION. Meeta CAMPBELL LAB BLOOD ORDERAB LES Final Result [facility] [address] [place] [address] * (ABNORMAL) CBC with auto differential (07/29/2024 3:12 PM THIRD SHIFT LIEUTENANT) Pathologist [facility] WBC 4.0 [...] [facility] Blood 07/29/2024 3:12 PM [employer] SHIFT [employer]ENANT 07/29/2024 3:14 PM TH[employer] SHIFT LIE[employer]ENANT Narrative [facility] - 07/31/2024 4:02 AM TH[employer] SHIFT [employer]ENA[employer] PATIENT UNABLE TO VOID; ADVISED TO RETURN FOR COLLECTION. Meeta CAMPBELL LAB BLOOD ORDERAB LES Final Result [facility] [address] [place] [address] * Vitamin D 25 hydroxy (07/29/2024 3:12 PM THIRD SHIFT LIEUTENANT) Vitamin D 25-OH 41 30 - 100 [...] D, (D2,D3), LC/MS/MS is recommended: order code [id number] (patients >2yrs). See Note 1 Note 1 For additional information, please refer to http://[email or web address]/faq/INY712 (This link is being provided for informational/ educational purposes only.) 07/29/2024 3:12 PM [employer] SHIFT LIE[employer]ENANT 07/29/2024 3:14 PM THIRD SHIFT LIEUTENANT Narrative [facility] - 07/31/2024 4:02 AM THIRD SHIFT LIE[employer]ENANT PATIENT UNABLE TO VOID; ADVISED TO RETURN FOR COLLECTION. Meeta CAMPBELL LAB BLOOD ORDERAB LES Final Result Performing Organization Address [facility] Co de Phone Number [facility] [address] [place] [address] * Erythrocyte sedimentation rate (07/29/2024 3:12 PM THIRD SH[employer] LIE[employer]ENANT) Erythrocyte sedimentation rate 28 < OR = 30 mm/h [facility] Blood 07/29/2024 3:12 PM [employer] 07/29/2024 3:14 PM [employer] SH[employer] LIE[employer]ENANT Narrative [facility] - 07/31/2024 4:02 AM TH[employer] SH[employer]ENA[employer] PATIENT UNABLE TO VOID; ADVISED TO RETURN FOR COLLECTION. Meeta CAMPBELL LAB BLOOD ORDERAB LES Final Result Performing Organization Address [facility] de Phone Number [facility] [address] [place] [address] * C3 complement (07/29/2024 3:12 PM [employer]) Complement component C3C 156 83 - 193 mg/dL [facility] Blood 07/29/2024 3:12 PM [employer]ENANT 07/29/2024 3:14 PM [employer] SH[employer] L[employer]ENANT Narrative [facility] - 07/31/2024 4:02 AM [employer] PATIENT UNABLE TO VOID; ADVISED TO RETURN FOR COLLECTION. Meeta CAMPBELL LAB BLOOD ORDERAB LES Final Result Performing Organization Address [facility] de Phone Number [facility] [address] [place] [address] * CRP (acute phase) (07/29/2024 3:12 PM THIRD SHIFT LIEUTENANT) C-RP <3.0 <8.0 mg/L [facility] Blood 07/29/2024 3:12 PM [employer]ENANT 07/29/2024 3:14 PM [employer]ENA[employer] Narrative [facility] - 07/31/2024 4:02 AM [employer] SHIFT L[employer]ENA[employer] PATIENT UNABLE TO VOID; ADVISED TO RETURN FOR COLLECTION. Meeta CAMPBELL LAB BLOOD ORDERAB LES Final Result Performing Organization Address City/[facility] Co de Phone Number [facility] [address] [place] [address] * TSH (07/29/2024 3:12 PM TH[employer] SH[employer] L[employer]ENANT) TSH 0.44 0.40 - 4.50 mIU/L [facility] 07/29/2024 3:12 PM [employer] 07/29/2024 3:14 PM [employer]ENANT Narrative [facility] - 07/31/2024 4:02 AM [employer] PATIENT UNABLE TO VOID; ADVISED TO RETURN FOR COLLECTION. Meeta CAMPBELL LAB BLOOD ORDERAB LES Final Result Performing Organization Address [facility] de Phone Number [facility] [address] [place] [address] * (ABNORMAL) Hemoglobin A1c (07/29/2024 3:12 PM [employer]) Hgb A1C 5.8(H) <5.7 % of total [...] of diabetes for children. 07/29/2024 3:12 PM [employer]NT 07/29/2024 3:14 PM [employer] SH[employer] LIE[employer]ENANT Narrative [facility] - 07/31/2024 4:02 AM TH[employer] SHIFT [employer]ENA[employer] PATIENT UNABLE TO VOID; ADVISED TO RETURN FOR COLLECTION. Meeta CAMPBELL LAB BLOOD ORDERAB LES Final Result Performing Organization Address [facility] Co de Phone Number [facility] [address] [place] [address] * Vitamin B12 (07/29/2024 3:12 PM THIRD SHIFT LIE[employer]ENANT) Pathologist [facility] Vitamin B12 420 200 - 1,100 pg/mL [facility] 07/29/2024 3:12 PM [employer]ENA[employer] 07/29/2024 3:14 PM [employer] SH[employer]ENANT Narrative [facility] - 07/31/2024 4:02 AM THIRD SHIFT [employer]ENA[employer] PATIENT UNABLE TO VOID; ADVISED TO RETURN FOR COLLECTION. us Meeta CAMPBELL LAB BLOOD ORDERAB LES Final Result [facility] [address] [place] [address] * (ABNORMAL) Comprehensive metabolic panel (07/29/2024 3:12 PM THIRD SHIFT LIEUTENANT) Pathologist [facility] Glucose 103(H) 65 - 99 mg/dL [facility] [...] [facility] Blood 07/29/2024 3:12 PM [employer] L[employer]ENANT 07/29/2024 3:14 PM TH[employer] SHIFT LIE[employer]ENANT Narrative [facility] - 07/31/2024 4:02 AM THIRD SHIFT L[employer]ENANT PATIENT UNABLE TO VOID; ADVISED TO RETURN FOR COLLECTION. us Meeta CAMPBELL LAB BLOOD ORDERAB LES Final Result [facility] [address] [place] [address] from Last 3 Months Insurance MEDICARE COUNTS INCLUDE 234 BEDS AT THE [facility] MEDICARE COUNTS INCLUDE 234 BEDS AT THE [facility] MEDICARE COUNTS INCLUDE 234 BEDS AT THE [facility] Care Teams Sheet Manager Relationship Specialty Start Date End Date Chichi Watkins MD [address] [place] [address] PCP - General 11/09/16 Cindy Murphy MD [address] [place] [address] Consulting Physician Pulmonary Disease 09/27/20 MikalLaura hobbs MD [address] [place] [address] Consulting Physician Cardiology 11/27/21 Chepe Tijerina MD [address] [place] [address] Consulting Physician Rheumatology 09/23/23 Branden Gordon MD [address] [place], [place] [address] Referring Physician Nephrology 11/01/23
--- OUTSIDE RECORDS SUMMARY | 2024-10-16 13:55 | XMS_ITS | Encounter Summary ---
Author Organization [facility] Address [address] [place] [address] Phone Care Team Providers Care Outpatient Coordinator Name Role Phone Chichi Watkins MD Primary Care Provider Minh TRAN MD, John J. Unavailable [phone] Luz Maria Reyez MD Unavailable Minh TRAN MD, John J. Unavailable Magen Valencia MD Unavailable [phone] Cindy Murphy MD Unavailable [phone] Laura Obrien MD Unavailable [phone] Chepe Tijerina MD Unavailable Branden Gordon MD Unavailable [phone] Encounter Details Date Type Department Care Team (Late st Contact Info) Description 10/25/2017 Orders Only [facility] ProviderBrenda MD [address] [place] [address] Social History Tobacco Use Types Packs/Day Years Used Date Smoking Tobacco: Former Alcohol Use Standard Drinks/Week Comments Yes 0 (1 standard drink = 0.6 oz pur e alcohol) Comments Unknown Sex and Gender Information Value Date Recorded Sex Assigned at Not on file 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 Gender Identity Not on file Sexual [...] on filedocumented in this encounter Care Teams Outpatient Coordinator Relationship Specialty Start Date End Date Chichi Watkins MD [address] [place] [address] PCP - General 11/09/16 Virgil Wilkinson III, MD [address] [place] [address] Consulting Physician Rheumatology 10/25/17 01/08/18 [place] [address] [facility] [address] [place] [address] Consulting Physician Rheumatology 01/09/18 03/04/19 Virgil Wilkinson III, MD [address] [place] [address] Consulting Physician Rheumatology 03/05/19 09/22/23 [place] [address] [facility] [address] [place] [address] Referring Physician Pulmonary Disease 03/03/20 09/26/20 Cindy Murphy MD [address] [place], [place] [address] Consulting Physician Pulmonary Disease 09/27/20 [facility] [address] [facility] [address] [place] [address] Consulting Physician Cardiology 11/27/21 Chepe Tijerina MD [address] [place] [address] Consulting Physician Rheumatology 09/23/23 Branden Gordon MD [address] [place] [address] Referring Physician Nephrology 11/01/23 documented as of this encounter
--- OUTSIDE RECORDS SUMMARY | 2024-10-16 13:55 | XMS_ITS | Encounter Summary ---
Author Organization [facility] Address [address] [place] [address] Phone Care Team Providers Care Dairy Supplies Sales Representative Name Role Phone Chichi Watkins MD Primary Care Provider Cindy Murphy MD Unavailable [phone] Laura Obrien MD Unavailable Chepe Tijerina MD Unavailable [phone] Branden Gordon MD Unavailable [phone] Encounter Details Date Type Department Care Team (Late st Contact Info) Description 10/07/2024 Results Follow-Up [facility] [address] [place] [address] Meeta Tolliver PA [address] [place] [address] Social History Tobacco Use Types Packs/Day [...] on file 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 HEMICAL ENGINEER documented in this encounter Plan of Treatment Not on file documented as of this encounter Visit Diagnoses Not on filedocumented in this encounter Care Teams Dairy Supplies Sales Representative Relationship Specialty Start Date End Date Chichi Watkins MD [address] [place] [address] PCP - General 11/09/16 Cindy Murphy MD [address] [place] [address] Consulting Physician Pulmonary Disease 09/27/20 Laura Obrien MD [address] [place] [address] Consulting Physician Cardiology 11/27/21 Chepe Tijerina MD [address] [place] [address] Consulting Physician Rheumatology 09/23/23 Branden Gordon MD [address] [place] [address] Referring Physician Nephrology 11/01/23 documented as of this encounter
== END 2024-10-16 13:39 | disposition home or self-care (01) ==
LOC: ANHPFT 13:39
PROVIDERS: PCP Family Medicine; Visit Provider Physician Assistant Medical
DX: I27.20 Pulmonary hypertension, unspecified (principal)
CPT/HCPCS: 94375; 94726; 94729

== ENCOUNTER 2025-05-11 09:24 | Outpatient (CLI) | payer MEDICARE, SELFPAY ==
[2025-05-11 09:45] LABS: Hematocrit 38.6 % (37.0-47.0); Hemoglobin 13.0 g/dL (12.0-15.0); Immature Granulocyte Percent A 0.0 % (0-0.5); Lymphocytes Absolute Auto 0.73 K/mm3 (0.9-3.2); Mean Corpuscular HGB Conc 33.7 g/dl (32-36); Mean Corpuscular Hemoglobin 34.7 pg (26-34); Mean Corpuscular Volume 102.9 fl (80-100); Nucleated Red Blood Cells Absolute Auto 0.000 K/mm3 (0.0-0.012); Nucleated Red Blood Cells Perc 0.0 % (0.0-0.2); Platelet Count Result 200 k/mm3 (150-375); Red Blood Count 3.75 M/mm3 (4.2-5.4); White Blood Count 3.2 K/mm3 (4.5-10.0)
[2025-05-11 09:58] LABS: Hemoglobin A1C 5.8 % (<5.7)
--- OUTSIDE RECORDS SUMMARY | 2025-05-11 09:59 | XMS_ITS | Encounter Summary ---
Author Organization [facility] Address [address] [place] [address] Phone Care Team Providers Care Animal Researcher Name Role Phone Chichi Watkins MD Primary Care Provider Minh TRAN MD, John J. Unavailable [phone] Luz Maria Reyez MD Unavailable Minh TRAN MD, John J. Unavailable [phone] Magen Valencia MD Unavailable [phone] Cindy Murphy MD Unavailable [phone] Laura Obrien MD Unavailable [phone] Chepe Tijerina MD Unavailable [phone] Branden Gordon MD Unavailable Troy Kruse MD Primary Care Provider Encounter Details Date Type Department Care Team (Late st Contact Info) Description 10/25/2017 Orders Only [facility] ProviderBrenda MD [address] [place] [address] Social History Tobacco Use Types Packs/Day Years Used Date Smoking Tobacco: Former Alcohol Use Standard Drinks/Week Comments Yes 0 (1 standard drink = 0.6 oz pur e alcohol) Comments Unknown Sex and Gender Information Value Date Recorded Sex Assigned at Not on file 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 Historical Provider LAB BLOOD ORDERABLES Karine l Result documented in this encounter Visit Diagnoses Not on filedocumented in this encounter Care Teams Animal Researcher Relationship Specialty Start Date End Date Chichi Watkins MD [address] [facility] [address] [address] PCP - General 11/09/16 10/28/24 Troy Kruse MD [address] [facility] [address] [facility] [address] [place] [address] PCP - General Family Medicine 10/29/24 Virgil Wilkinson III, MD [address] [facility] [address] [address] Consulting Physician Rheumatology 10/25/17 01/08/18 [place] [address] [address] Consulting Physician Rheumatology 01/09/18 03/04/19 Virgil Wilkinson III, MD [address] [facility] [address] [place] [address] Consulting Physician Rheumatology 03/05/19 09/22/23 [place] [address] [facility] [address] [place] [address] Referring Physician Pulmonary Disease 03/03/20 09/26/20 Cindy Murphy MD [address] [facility] [address] [place] [address] Consulting Physician Pulmonary Disease 09/27/20 Laura Obrien MD [address] [facility] [address] [place] [address] Consulting Physician Cardiology 11/27/21 Chepe Tijerina MD [address] [place] [address] Consulting Physician Rheumatology 09/23/23 Branden Gordon MD [address] [place], [place] [address] Referring Physician Nephrology 11/01/23 documented as of this encounter
--- OUTSIDE RECORDS SUMMARY | 2025-05-11 09:59 | XMS_ITS | Clinical Summary ---
Author Organization [facility] [address] [facility] Address [address] [place] [id number] Phone Care Team Providers Care Proposal Consultant Name Role Phone Cindy Murphy MD Unavailable [phone] Laura Crabtree MD Unavailable [phone] Chepe Tijerina MD Unavailable [phone] Branden Gordon MD Unavailable [phone] Troy Kruse MD Primary Care Provider Allergies Active Allergy Reactions Criticality Noted Date Comments Ciprofloxacin Unknown Rosuvastatin Other (See comments) Low 04/02/2022 bruising Atorvastatin Other (See comments) Low 04/02/2022 Nose bleeds, bruising. Lisinopril Medications losartan (COZAAR) 100 mg tablet take 1 tablet (100MG) by oral route every day 0 03/08/2011 Active rosuvastatin (CRESTOR) 5 mg tablet Take 1 tablet (5 mg total) by mouth daily 30 tablet 07/09/2022 Active isosorbide mononitrate ER (IMDUR) 30 mg 24 hr tablet Take 1 tablet (30 mg total) by mouth daily 04/21/2023 Active levothyroxine (SYNTHROID) 125 mcg tablet Take 1 tablet (125 mcg total) by mouth daily 05/09/2023 Active omeprazole (PriLOSEC) 40 mg capsule Take 1 capsule (40 mg total) by mouth daily 04/22/2023 Active metoprolol XL (TOPROL-XL) 50 mg extended release tabletIndication s:Essential hypertension,Sin us tachycardia TAKE 1 AND 1/2 TABLETS(75 MG) BY MOUTH TWICE DAILY 270 tablet 3 12/24/2023 Active calcium carbonate-vitami n D3 2,500 mg [...] MOUTH DAILY 90 capsule 3 06/17/2024 Active cloNIDine (CATAPRES) 0.1 mg tablet Take 1 tablet (0.1 mg total) by mouth 2 (two) times a day Active azaTHIOprine (IMURAN) 50 mg tablet TAKE 2 TABLETS(100 MG) BY MOUTH DAILY 180 tablet 1 12/14/2024 Active hydroxychloroqui ne (PLAQUENIL) 200 mg tablet TAKE 1 TABLET(200 MG) BY MOUTH DAILY 90 tablet 1 12/14/2024 Active Active Problems Problem Noted Date Diagnosed Date Sleep apnea 10/29/2024 Assessment & Plan (10/29/2024 5:52 PM CDT): Will refer her for sleep study with her pulm and to discuss nose pillows for her cpap mask which she tolerated in past. Fibromyalgia 10/29/2024 Assessment & Plan (02/22/2025 5:30 PM CDT): Most of her symptoms today appear to due to fibro and she sleeps poorly due to her sleep apnea which will worsen fibro pain. Will refer her for sleep study again with her pulm and to discuss nose pillows for her cpap mask which she tolerated in past. She was afraid to try gabapentin. Assessment & Plan (10/29/2024 5:52 PM CDT): Most of her symptoms today appear to due to fibro and she sleeps poorly due to her sleep apnea which will worsen fibro pain. Will refer her for sleep study with her pulm and to discuss nose pillows for her cpap mask which she tolerated in past. Will also start gabapentin 300mg qhs and f/u in 1 month to see how she is doing on it. Discussed potential sedation with this so will start low dose qhs only. Right hip pain 07/29/2024 Assessment & Plan (07/29/2024 4:[address] OPENINGS INSPECTOR): Check rt hip xray. Chronic right-sided low back pain with right-alin ed sciatica 07/29/2024 Assessment & Plan (07/29/2024 4:[address] OPENINGS INSPECTOR): Full rom of bilat hips. Check rt hip, lumbar spine and si joint xrays. Abnormal serum glucose level 07/29/2024 Assessment & Plan (07/29/2024 4:[address] OPENINGS INSPECTOR): Hx of abn hgba1c, not checked by pcp and last checked by us 01/2024, recheck today. Advised to work on weight loss. Other fatigue 07/29/2024 Assessment & Plan (07/29/2024 4:[address] OPENINGS INSPECTOR): Check tsh, b12, hgba1c. Vitamin D deficiency 04/30/2024 Assessment & Plan (07/29/2024 4:[address] OPENINGS INSPECTOR): Check vit d. Assessment & Plan (04/30/2024 [...] 10/31/2023 Assessment & Plan (07/29/2024 4:[address] OPENINGS INSPECTOR): Sees dr gordon. Htn still not under control despite 3 htn meds. Sees him soon. Repeat bp lt arm sitting 150/80. Assessment & Plan (10/31/2023 5:44 PM CDT): Sees dr gordon. He started her on chlortalidone but after 1 tab it caused lip and tongue tingling/numbness. Contacted dr blanco call center at [facility] and let him know about this and gave call center pt's info. Advised pt to skip dose tomorrow and try to get hold of dr gordon if he does not call her and gave pt his office phone number. Diarrhea 04/29/2023 Assessment & Plan (04/29/2023 1:53 PM CDT): [place] utd, dx with ibs in past. Check [...] not included. Advised pt to see her residential aide Dr Crabtree. BP still elevated and had an abn echo with enlarged heart diastolic dysfunction, was advised to see her residential aide for treating her htn and for her abn echo. Echo 07/2021 Hypothyroidism 07/21/2021 Assessment & Plan (07/21/2021 4:[address] OPENINGS INSPECTOR): Check TSH. Age-related osteoporosis wit hout current pathological fracture 07/21/2021 Assessment & Plan (02/22/2025 8:55 AM CDT): Images from the original note were not included. Although her T score on BDS was only in osteopenia range, FRAX score shows high risk of hip fx for the next 10 years. Recommended starting prolia since she has some mild ckd. Check pth and vit D, she is taking ca and 5000u po every day of vit d, at last visit vit d was on the low side and pth was mildly elevated. She did not return to have them rechecked so her prolia has been delayed, recheck vit d and pth today. BDS done in [place] on 09/2024. Has mild lt hip osteopenia -1.2 T score and mild spine osteopenia -1.2. Continue ca and vit d 600 mg po bid. FRAX score 14/3, increased risk of hip fracture. Check pth and vit d and recommended starting Prolia. Assessment & Plan (10/29/2024 5:53 PM CDT): Images from the original note were not included. Although her T score on BDS was only in osteopenia range, FRAX score shows high risk of hip fx for the next 10 years. Recommended starting prolia since she has some mild ckd. Check pth and vit D, she is taking ca and 5000u po every day of vit d. BDS done in [place] on 09/2024. Has mild lt hip osteopenia -1.2 T score and mild spine osteopenia -1.2. Continue ca and vit d 600 mg po bid. FRAX score 14/3, increased risk of hip fracture. Check pth and vit d and recommended starting rProlia. Assessment & Plan (07/29/2024 4:[address] OPENINGS INSPECTOR): bds stable 05/2022. Was due 06/2024 but was not able to get an appt at [facility] in [place] until next year. Continue ca and vit [...] bid. Assessment & Plan (08/01/2023 8:[address] OPENINGS INSPECTOR): bds stable 05/2022. Is due again 06/2024. [...] bid. Assessment & Plan (10/05/2022 4:[address] OPENINGS INSPECTOR): bds stable 05/2022. Continue ca and vit d 600mg po bid. Assessment & Plan (07/09/2022 1:[address] OPENINGS INSPECTOR): bds stable 05/2022. Continue ca and vit d 600mg po bid. Assessment & Plan (04/02/2022 4:22 PM CDT): Will try to get copy of bds. Assessment & Plan (11/23/2021 8:33 AM CDT): Has not been able to get her bds until November, [facility] is backed up. Assessment & Plan (10/19/2021 1:[address] OPENINGS INSPECTOR): Has not been able to get her bds until November, [facility] is backed up. Assessment & Plan (07/21/2021 4:[address] OPENINGS INSPECTOR): Check bds. Weight gain 07/21/2021 Assessment & Plan (01/30/2024 5:37 PM CDT): Is morbidly obese, can't seem to lose weight. Drinks lots of lemonade and crystal light, has family hx of dm2. Check hgba1c. Also to discuss ozempic with pcp for weight loss. She might be able to qualify for free drug due to her low income. Assessment & Plan (07/21/2021 4:[address] OPENINGS INSPECTOR): Has gained over 20 lb in past 2 yrs. Has hx of hypothyroidism. On levothyroxine. Check tsh today. Has not had this checked with pcp in over 4 months. Esophageal stenosis 01/27/2021 Assessment & Plan (07/21/2021 11:[address] OPENINGS INSPECTOR): Had an esophageal stenosis dilated in december. Doing better. Sees Dr Sanders this year again for a colonoscopy but has not scheduled colo yet. Assessment & Plan (01/27/2021 2:02 PM CDT): Had an esophageal stenosis dilated in december. Doing better. Sees Dr Sanders this year again for a colonoscopy but has not scheduled colo yet. Seronegative rheumatoid arthritis 04/27/2020 Assessment & Plan (02/22/2025 5:32 PM CDT): Low cdai. Doing well on imuran, continue imuran to 100 mg every day. Recheck labs today. Has hx of pulm htn and esophageal stenosis. GI recently dilated her esophagus. Most of her symptoms today appear to due to fibro and she sleeps poorly due to her sleep apnea which will worsen fibro pain. Will refer her for sleep study again and to discuss nose pillows for her cpap mask which she tolerated in past. 45 min spent with pt today. Previous history/labs/imaging: Echo 03/2023: Echo report below, has mild enlarged heart but good ef. Has an abn septal motion with possible bundle branch block. Impaired diastolic relaxation grade I. Send this to her residential aide and advised pt to f/u with him. [...] have a spondyloarthropathy also. Assessment & Plan (10/29/2024 5:56 PM CDT): Low cdai. Doing well on imuran, continue imuran to 100 mg every day. Recheck labs today. Has hx of pulm htn and esophageal stenosis. GI recently dilated her esophagus but did not think it helped, advised her to contact GI again. No skin changes or sclerodactyly. Seeing dr gordon now for her ckd. Most of her symptoms today appear to due to fibro and she sleeps poorly due to her sleep apnea which will worsen fibro pain. Will refer her for sleep study with her pulm and to discuss nose pillows for her cpap mask which she tolerated in past. Will also start gabapentin 300mg qhs and f/u in 1 month to see how she is doing on it. Discussed potential sedation with this so will start low dose qhs only. 45 min spent with pt today. Previous history/labs/imaging: Echo 03/2023: Echo report below, has mild enlarged heart but good ef. Has an abn septal motion with possible bundle branch block. Impaired diastolic relaxation grade I. Send this to her residential aide and advised pt to f/u with him. [...] have a spondyloarthropathy also. Assessment & Plan (07/29/2024 4:[address] OPENINGS INSPECTOR): Low cdai. Doing well on imuran, continue imuran to 100 mg every day. Recheck labs today. Has hx of pulm htn and esophageal stenosis. Has not seen gi for esophageal stenosis symptoms again. No skin changes or sclerodactyly. Seeing dr gordon now for her ckd. Her residential aide also retired, will refer her for her yearly pft and cxr. Previous history/labs/imaging: Echo 03/2023: Echo report below, has mild enlarged heart but good ef. Has an abn septal motion with possible bundle branch block. Impaired diastolic relaxation grade I. Send this to her residential aide and advised pt to f/u with him. [...] dr gordon now for her ckd. Her residential aide also retired, will refer her for her yearly echo (has hx of pulm htn) sees pulm and she is scheduled to have pft's soon. Previous history/labs/imaging: Echo 03/2023: Echo report below, has mild enlarged heart but good ef. Has an abn septal motion with possible bundle branch block. Impaired diastolic relaxation grade I. Send this to her residential aide and advised pt to f/u with him. [...] relaxation grade I. Send this to her residential aide and advised pt to f/u with him. [...] relaxation grade I. Send this to her residential aide and advised pt to f/u with him. [...] also. Assessment & Plan (08/01/2023 4:[address] OPENINGS INSPECTOR): Low-mod cdai. Arava stopped due to lft [...] relaxation grade I. Send this to her residential aide and advised pt to f/u with him. [...] relaxation grade I. Send this to her residential aide and advised pt to f/u with him. [...] relaxation grade I. Send this to her residential aide and advised pt to f/u with him. [...] SLE. Assessment & Plan (10/05/2022 4:[address] OPENINGS INSPECTOR): Low cdai. In past we recommended we [...] SLE. Assessment & Plan (07/09/2022 2:[address] OPENINGS INSPECTOR): Low cdai. In past we recommended we [...] diastolic dysfunction, was advised to see her residential aide for treating her htn and for her abn echo. Assessment & Plan (10/19/2021 4:[address] OPENINGS INSPECTOR): Low cdai. Recommended adding orencia but once [...] today. Assessment & Plan (07/21/2021 4:[address] OPENINGS INSPECTOR): Mod cdai. Recommended adding orencia but once [...] it. Assessment & Plan (09/23/2020 5:[address] OPENINGS INSPECTOR): Mod cdai. 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 Has hx of + anti-carbamyalted also. She has an overlap of RA and SLE. Recommended starting xeljanz but once again she declines, discussed potential se and risks, still declines meds. She was informed of continuing joint damage. Assessment & Plan (06/27/2020 5:[address] OPENINGS INSPECTOR): Mod cdai. Pt has an erosive arthritis [...] PT. Assessment & Plan (09/23/2020 7:[address] OPENINGS INSPECTOR): Declines further workup. Does not want to do PT. Assessment & Plan (06/27/2020 5:[address] OPENINGS INSPECTOR): Declines further workup. Does not want to do PT. Assessment & Plan (01/21/2020 3:59 PM CDT): Check lumbar xray and start PT. Assessment & Plan (06/29/2019 12:[address] OPENINGS INSPECTOR): Check lumbar xray and start PT. Encounter for long-term (current) use of medicat ions 10/24/2017 Assessment & Plan (02/22/2025 5:33 PM CDT): Hand US 03/2020 lunate and [...] stopped 2022 Avoid mtx due to aquino. BDS 09/2023 FRAX score high 14/3, recommend starting prolia 10/29/2024 Assessment & Plan (10/29/2024 5:54 PM CDT): Hand US 03/2020 lunate and [...] stopped 2022 Avoid mtx due to aquino. BDS 09/2023 FRAX score high 14/3, recommend starting prolia 10/29/2024 Assessment & Plan (07/29/2024 4:[address] OPENINGS INSPECTOR): Hand US 03/2020 lunate and 5th mcp [...] aquino. Assessment & Plan (08/01/2023 4:[address] OPENINGS INSPECTOR): Hand US 03/2020 lunate and 5th mcp [...] pos. Assessment & Plan (07/21/2021 4:[address] OPENINGS INSPECTOR): Check bds, has not had one for years she states. Pulmonary hypertension 01/30/2017 Assessment & Plan (02/22/2025 5:32 PM CDT): Echo stable and utd 05/2024. Right ventricular systolic pressure could not be estimated due to inadequate visualization of the tricuspid regurgitation jet. Pt joshua f/u with residential aide q [address] laura crabtree. Pft's showed mild obstructive disease. Her old pulm , now sees dr Murphy at [facility]. Advised to work on weight loss. Still can't wear her cpap but during her sleep study she was able to tolerate the nose pillows on her cpap but they gave her a face mask and she is claustrophobic and could not wear that. Referred her again for sleep study. Assessment & Plan (10/29/2024 3:05 PM CDT): Echo stable and utd 05/2024. Right ventricular systolic pressure could not be estimated due to inadequate visualization of the tricuspid regurgitation jet. Pt joshua f/u with residential aide q [address] laura crabtree. Pft's showed mild obstructive disease. Her old pulm , now sees dr Murphy at [facility]. Advised to work on weight loss. Still can't wear her cpap but during her sleep study she was able to tolerate the nose pillows on her cpap but they gave her a face mask and she is claustrophobic and could not wear that. Advised pt to contact dr murphy, will refer her for another sleep study and when they set her up for a cpap to ask for nose pillows. Assessment & Plan (07/29/2024 4:[address] OPENINGS INSPECTOR): Echo stable and utd 05/2024. Right ventricular systolic pressure could not be estimated due to inadequate visualization of the tricuspid regurgitation jet. Pt joshua f/u with residential aide q [address] laura crabtree. Still needs to see pulm for her yearly pft's. Gave pt referral for pft and cxr. Advised to work on weight loss. Assessment & Plan (04/30/2024 8:19 AM CDT): Echo stable and utd 03/2023. Right ventricular systolic pressure could not be estimated due to inadequate visualization of the tricuspid regurgitation jet. Pt joshua f/u with residential aide q [address] laura crabtree. Still needs to see pulm for her yearly pft's. Assessment & Plan (10/31/2023 8:38 AM CDT): Echo stable and utd 03/2023. Right ventricular systolic pressure could not be estimated due to inadequate visualization of the tricuspid regurgitation jet. Pt joshua f/u with residential aide q [address] laura crabtree. Still needs to see pulm for her yearly pft's. Assessment & Plan (08/01/2023 8:[address] OPENINGS INSPECTOR): Echo stable and utd 03/2023. Right ventricular systolic pressure could not be estimated due to inadequate visualization of the tricuspid regurgitation jet. Pt joshua f/u with residential aide q [address] laura crabtree. Still needs to see pulm for her yearly pft's. Assessment & Plan (05/29/2023 8:12 AM CDT): Echo stable and utd 03/2023. Right ventricular systolic pressure could not be estimated due to inadequate visualization of the tricuspid regurgitation jet. Pt joshua f/u with residential aide q [address] laura crabtree. Still needs to see pulm for her yearly pft's. Assessment & Plan (04/29/2023 1:55 PM CDT): Echo stable and utd 03/2023. Right ventricular systolic pressure could not be estimated due to inadequate visualization of the tricuspid regurgitation jet. Pt joshua f/u with residential aide q [address] laura crabtree. Still needs to see pulm for her yearly pft's. Assessment & Plan (04/01/2023 3:19 PM CDT): Sees residential aide but not pulm. Has hx of tachycardia, residential aide is aware of this. Echo scheduled next week. Can't tolerate cpap and due to poor dentition can't use oral appliance for her sleep apnea. Cxr nl 01/2023. Assessment & Plan (12/31/2022 2:52 PM CDT): Saw residential aide for echo in past but has not f/u with him or rope cleaner. Has hx of tachycardia. Pt to let her pcp and residential aide know about her htn/tachycardia. States that pcp was aware of this and wanted pt to work on diet/weight loss. Pt is not eating any salt. Assessment & Plan (10/08/2022 4:[address] OPENINGS INSPECTOR): Saw residential aide for echo in past but has not f/u with him or rope cleaner. Has hx of tachycardia. Pt to let her pcp and residential aide know about her htn/tachycardia. States that pcp was aware of this and wanted pt to work on diet/weight loss. Pt is not eating any salt. Assessment & Plan (07/04/2022 4:[address] OPENINGS INSPECTOR): Saw residential aide for echo. Pt to let her pcp and residential aide know about her htn/tachycardia. States that pcp was aware of this and wanted pt to work on diet/weight loss. Pt is not eating any salt. Assessment & Plan (03/30/2022 3:36 PM CDT): Saw residential aide for echo. Pt to let her pcp and residential aide know about her htn/tachycardia. States that pcp was aware of this and wanted pt to work on diet/weight loss. Pt is not eating any salt. Assessment & Plan (11/23/2021 8:31 AM CDT): Saw residential aide for echo. Pt to let her pcp and residential aide know about her htn/tachycardia. States that pcp was aware of this and wanted pt to work on diet/weight loss. Pt is not eating any salt. Assessment & Plan (10/19/2021 1:[address] OPENINGS INSPECTOR): Sees residential aide next week for echo. To have it sent to us also. Pt to let her pcp and residential aide know about her htn/tachycardia. States that pcp was aware of this and wanted pt to work on diet/weight loss. Pt is not eating any salt. Assessment & Plan (07/21/2021 4:[address] OPENINGS INSPECTOR): Has been having LE edema. pcp started [...] insurance. In past she was referred to residential aide and pulm several times but due to finances she stated she could not afford to go. Her recent le edema could be early chf. Advised pt to see pulm and residential aide for her pum htn and to discuss this with pcp. Has not seen pulmonary for over 5 yrs due to cost. Has not seen residential aide or had an echo since 2014. Assessment & Plan (04/28/2021 2:30 PM CDT): Has been having LE edema. Pt has pulmonary htn and a rt lung nodule and hx of pulmonary hypertension. In past she was referred to residential aide and pulm several times but due to finances she stated she could not afford to go. Her recent le edema could be early chf. Advised pt to see pulm and residential aide for her pum htn and to discuss this with pcp. Has not seen pulmonary for over 5 yrs due to cost. Has not seen residential aide or had an echo since 2014. Assessment & Plan (01/27/2021 2:02 PM CDT): Has pulmonary htn and a rt lung nodule. Has not seen pulmonary for over 5 yrs due to cost. Has not seen residential aide or had an echo since 2014. Advised her to f/u with both. Assessment & Plan (12/19/2020 7:56 AM CDT): Has pulmonary htn and a rt lung nodule. Seeing pulm but has not seen residential aide yet. Was referred several times in past but states she can't afford the copays. Assessment & Plan (09/23/2020 7:[address] OPENINGS INSPECTOR): Has pulmonary htn and a rt lung nodule. Seeing pulm but has not seen residential aide yet. Was referred several times in past but states she can't afford the copays. Assessment & Plan (06/27/2020 5:[address] OPENINGS INSPECTOR): Has pulmonary htn and a rt lung nodule. Seeing pulm but has not seen residential aide yet. Was referred several times in past but states she can't afford the copays. Assessment & Plan (04/27/2020 1:18 PM CDT): Has pulmonary htn and a rt lung nodule. In past she was referred to rope cleaner in past or eval of her pulm htn and to residential aide but has not f/u in over 5 [...] (01/21/2020 3:57 PM CDT): Was referred to rope cleaner in past or eval of her pulm htn and to residential aide but has not f/u in over 5 yrs. Advised to also see opth for yearly eye exam. Gave pt referral for cxr, and echo, pft's at past visits but she has not done them. States she can't afford all the copays. Advised her again to schedule them. Assessment & Plan (10/28/2019 2:10 PM CDT): Was referred to rope cleaner in past or eval of her pulm htn and to residential aide but has not f/u in over 5 yrs. Advised to also see opth for yearly eye exam. Gave pt referral for cxr, and echo, pft's at past visits but she has not done them. States she can't afford all the copays. Advised her again to schedule them. Assessment & Plan (06/26/2019 8:[address] OPENINGS INSPECTOR): Was referred to rope cleaner in past or eval of her pulm htn and to residential aide but has not f/u in over 2 yrs. Advised to also see opth for yearly eye exam. Gave pt referral for cxr, and echo, pft's at past visits but she has not done them. States she can't afford all the copays. Advised her again to schedule them. Assessment & Plan (04/06/2019 8:37 AM CDT): Was referred to rope cleaner in past or eval of her pulm htn and to residential aide but has not f/u in over 2 [...] Overview (11/16/2016): HTN (hypertension) Assessment & Plan (02/22/2025 5:25 PM CDT): Repeat bp elevated at 158/80. Pcp started clonidine 0.1mg bid in october but did not increase this further. Metoprolol and diltiazem also low doses. Advised pt to contact pcp and let him know that bp is elevated to see if clonidine can be increased, informed her that uncontrolled htn worsens her ckd and increases her risk of mi/cva. Also she has untreated sleep apnea that could also be worsening her htn so referred her for sleep study. Devora just got indication for sleep apnea and discussed getting on this with pcp to help with sleep apnea but also the weight loss should potentially help her knee/hip and low back oa and her htn. Assessment & Plan (11/23/2021 6:03 PM CDT): A month ago we stopped arava in case it caused her htn but bp was similar after 2 weeks of stopping it so pt restarted her arava because her joints were worse when she stopped it. BP still elevated and had an abn echo with enlarged heart diastolic dysfunction, was advised to see her residential aide for treating her htn and for her abn echo. Assessment & Plan (10/19/2021 4:[address] OPENINGS INSPECTOR): bp elevated 150/90 and pulse 110. No [...] Her ldl was elevated in march with residential aide at 153. Due to her hx of RA and Sle she is at increased risk of CAD and recommend she discuss starting meds for her cholesterol with Dr Brown her residential aide. She had SE to lipitor and crestor in past. Assessment & Plan (10/19/2021 4:[address] OPENINGS INSPECTOR): LDL at last visit was very high [...] diet. Assessment & Plan (07/21/2021 4:[address] OPENINGS INSPECTOR): Requesting that we check her cholesterol with today's labs. Not fasting so will check direct LDL. Systemic lupus erythematosus 03/04/2015 Overview (11/16/2016): Lupus Assessment & Plan (02/22/2025 5:31 PM CDT): Low cdai. On plaquenil 200 mg po every day. Advised pt to get yearly eye exam while on plaquenil to check for plaquenil toxicity. Assessment & Plan (10/29/2024 2:33 PM CDT): Low cdai. On plaquenil 200 mg po every day. Advised pt to get yearly eye exam while on plaquenil to check for plaquenil toxicity. Assessment & Plan (07/29/2024 8:[address] OPENINGS INSPECTOR): Low cdai. On plaquenil 200 mg po [...] day. Assessment & Plan (08/01/2023 4:[address] OPENINGS INSPECTOR): Low-mod cdai. On plaquenil 200 mg po [...] next week. Cxr done in december at [place], we do not have it, will get [...] 03/2020: Assessment & Plan (10/08/2022 4:[address] OPENINGS INSPECTOR): Images from the original note were not [...] 03/2020: Assessment & Plan (07/09/2022 2:[address] OPENINGS INSPECTOR): Images from the original note were not included. Low cdai. Switch House Operator was ok with lowering plaquenil dose [...] again. No skin changes or sclerodactyly. Sees residential aide also. Past serologies showed + hep 2 and + anti carbamylated. 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 Demarco alba had enthesopathy on xrays 3/ so she can have a spondyloarthropathy also. TSH checked recently at [facility]. [facility] 03/2020: Assessment & Plan (04/02/2022 4:22 PM CDT): Images from the original note were not included. Low cdai. Switch House Operator was ok with lowering plaquenil dose to 200 mg po every day in past. Pt advised to get eye exams q 6 months.. Check labs today. Has hx of pulm htn and esophageal stenosis. No skin changes or sclerodactyly. Sees residential aide. Past serologies showed + hep 2 and + anti carbamylated. 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 Demarco alba had enthesopathy on xrays 3 so she can have a spondyloarthropathy also. TSH checked recently at [facility] 03/2020: Assessment & Plan (11/23/2021 8:31 AM CDT): Images from the original note were not included. Low cdai. Switch House Operator was ok with lowering plaquenil dose to 200 mg po every day. Check labs. Has hx of pulm htn and esophageal stenosis. No skin changes or sclerodactyly. Has echo with residential aide next week. Advised pt to let her residential aide know about her elevated bp and cholesterol [...] 03/2020: Assessment & Plan (10/19/2021 4:[address] OPENINGS INSPECTOR): Images from the original note were not included. Low cdai. Switch House Operator was ok with lowering plaquenil dose to 200 mg po every day. Check labs. Has hx of pulm htn and esophageal stenosis. No skin changes or sclerodactyly. Has echo with residential aide next week. Advised pt to let her residential aide know about her elevated bp and cholesterol [...] 03/2020: Assessment & Plan (07/21/2021 4:[address] OPENINGS INSPECTOR): Images from the original note were not included. Mod cdai. Switch House Operator was ok with lowering plaquenil dose [...] original note were not included. low cdai. Switch House Operator was ok with lowering plaquenil dose [...] original note were not included. Mod cdai. Switch House Operator was ok with lowering plaquenil dose [...] but mostly tender joints, not many swollen. Switch House Operator was ok with lowering dose to [...] has been on plaquenil for 8 yrs. Switch House Operator said it was fine to continue lower dose of HCQ. Is finally seeing a rope cleaner for a lung nodule, her pcp referred her to pulm closer to her house. [facility] 03/2020: Assessment & Plan (09/23/2020 5:[address] OPENINGS INSPECTOR): Images from the original note were not [...] has been on plaquenil for 8 yrs. Switch House Operator said it was fine to continue lower dose of HCQ. Is finally seeing a rope cleaner for a lung nodule, her pcp referred her to pulm closer to her house. [facility] 03/2020: Assessment & Plan (06/27/2020 5:[address] OPENINGS INSPECTOR): Images from the original note were not [...] has been on plaquenil for 8 yrs. Switch House Operator said it was fine to continue lower dose of HCQ. Is finally seeing a rope cleaner for a lung nodule, her pcp referred [...] 200mg qd until rest of the year. Switch House Operator said it was fine to continue lower dose of HCQ. Advised again to see her residential aide and pulm for pft, cxr and echo, was given referral at last visits, pt states she can't afford to see more doctors. Advised to get prevnar 13 and shingrix. Had her flu vaccine. Gave her another cxr referral. [facility] 03/2020: Assessment & Plan (01/27/2020 2:18 [...] 200mg qd until rest of the year. Switch House Operator said it was fine to continue lower dose of HCQ. Advised again to see her residential aide and pulm for pft, cxr and echo, [...] 200mg qd until rest of the year. Switch House Operator said it was fine to continue lower dose of HCQ. Advised again to see her residential aide and pulm for pft, cxr and echo, [...] loss. Assessment & Plan (06/29/2019 12:[address] OPENINGS INSPECTOR): high cdai. Pt is on arava 20mg [...] the year. Advised again to see her residential aide and pulm for pft, cxr and echo, [...] adding belysta. Advised again to see her residential aide and pulm for pft, cxr and echo, [...] 07/21/202103/14 Assessment & Plan (07/21/2021 4:[address] OPENINGS INSPECTOR): Has gained weight and occ bg is [...] visit. Assessment & Plan (06/29/2019 12:[address] OPENINGS INSPECTOR): Check cpk and aldolase. Normal muscle strength on exam and no LE edema and neg lalit sign bilat LE. Abnormal laboratory test result 04/06/2019 03/14/2022 Assessment & Plan (07/21/2021 4:[address] OPENINGS INSPECTOR): has thyroid antibodies, pt given copies of [...] 01/2020. Assessment & Plan (09/23/2020 7:[address] OPENINGS INSPECTOR): has thyroid antibodies, pt given copies of labs in past and she was advised to address this with pcp. T[facility] 01/2020. Assessment & Plan (06/27/2020 8:[address] OPENINGS INSPECTOR): has thyroid antibodies, pt given copies of [...] 2019. Assessment & Plan (06/26/2019 8:[address] OPENINGS INSPECTOR): has thyroid antibodies, pt given copies of [...] 08/01/2023 Assessment & Plan (08/01/2023 8:[address] OPENINGS INSPECTOR): [facility] 03/2020 lunate and 5th mcp [...] pos. Assessment & Plan (10/05/2022 4:[address] OPENINGS INSPECTOR): Hand US 03/2020 lunate and 5th mcp [...] pos. Assessment & Plan (07/04/2022 4:[address] OPENINGS INSPECTOR): Hand US 03/2020 lunate and 5th mcp [...] pos. Assessment & Plan (10/19/2021 1:[address] OPENINGS INSPECTOR): Hand US 03/2020 lunate and 5th mcp [...] pos. Assessment & Plan (07/21/2021 11:[address] OPENINGS INSPECTOR): Hand US 03/2020 lunate and 5th mcp [...] pos. Assessment & Plan (09/23/2020 7:[address] OPENINGS INSPECTOR): Hand US 03/2020 lunate and 5th mcp [...] pos. Assessment & Plan (06/27/2020 8:[address] OPENINGS INSPECTOR): Hand US 03/2020 lunate and 5th mcp [...] 03/30 Assessment & Plan (06/26/2019 8:[address] OPENINGS INSPECTOR): avise panel 10/2018---showed + hep 2 and [...] Encounters Date Type Department Care Team Description 02/23/2025 Results Follow-Up [facility] [address] [place] [address] Felipe Pierre MD Erythrocyte sedimentation rate, CBC with auto differential, C4 complement, Additional followed-up results: 6 02/22/2025 3:00 PM CDT Office Visit [facility] [address] [place] [address] Meeta Tolliver PA Systemic lupus erythematosus, unspecified SLE type, unspecified organ involvement status (HCC) (Primary Dx); Seronegative rheumatoid arthritis (HCC); Pulmonary hypertension (HCC); Fibromyalgia; Encounter for long-term (current) use of medications; Age-related osteoporosis without current pathological fracture ; Vitamin D deficiency; Obstructive sleep apnea syndrome; Essential hypertension 02/22/2025 Telephone [facility] [address] [place] [phone] Meeta Tolliver PA 02/22/2025 Telephone [facility] [address] [place] [phone] Meeta Tolliver PA from Last 3 Months Immunizations Immunization Administration [...] Other Medical RA and Lupus; C omments: [facility] 03/06/2015 - Hx Other Medical 1986 lumpectomy; Com ments: [facility] 03/06/2015 - Hx Other Medical ear surgery; Co mments: [facility] 03/06/2015 - Hx Other Medical nose surgery; C omments: [facility] 03/06/2015 - Hx Other Medical tubal liation; Comments: [facility] 03/06/2015 - Hx Other Medical lumpectomy; Com ments: [facility] 03/06/2015 - Family History Medical History [...] on file Legal Sex Female 10:[address] OPENINGS INSPECTOR Gender Identity Not on file Sexual Orientation Not on file Obstetrics History Last Filed Vital Signs Vital Sign Reading Time Taken Comments Blood Pressure 152/82 02/22/2025 2:29 PM CDT Pulse 76 02/22/2025 2:29 PM CDT Temperature 37.5 C (99.5 F) 10/19/2021 1:[address] OPENINGS INSPECTOR Respiratory Rate - - Oxygen Saturation 96% 02/22/2025 2:29 PM CDT Inhaled Oxygen Concentration - - Weight 103.4 kg (228 lb) 02/22/2025 2:29 PM CDT Height 154.9 cm (5' 1) 02/22/2025 2:29 PM CDT Body Mass Index 43.08 02/22/2025 2:29 PM CDT Plan of Treatment Health Maintenance Due Date [...] Well Visit 65+ 2021 Influenza Vaccine (#1) 2025 Procedures Procedure Name Priority Date/Time Associated Diagnosis Comments VITAMIN D 25 HYDROXY Routine 02/22/2025 4:05 PM CDT PTH Routine 02/22/2025 4:05 PM CDT ANTI-DOUBLE STRANDED DNA ANTIBODIES Routine 02/22/2025 4:05 PM CDT Systemic lupus erythematosus, unspecified SLE type, unspecified organ involvement status (HCC) Seronegative rheumatoid arthritis (HCC) Pulmonary hypertension (HCC) Fibromyalgia Encounter for long-term (current) use of medications Age-related osteoporosis without current pathological fracture COMPREHENSIVE METABOLIC PANEL Routine 02/22/2025 4:05 PM CDT Systemic lupus erythematosus, unspecified SLE type, unspecified organ involvement status (HCC) Seronegative rheumatoid arthritis (HCC) Pulmonary hypertension (HCC) Fibromyalgia Encounter for long-term (current) use of medications Age-related osteoporosis without current pathological fracture CRP (ACUTE PHASE) Routine 02/22/2025 4:0 5 PM CDT Systemic lupus erythematosus, unspecified SLE type, unspecified organ involvement status (HCC) Seronegative rheumatoid arthritis (HCC) Pulmonary hypertension (HCC) Fibromyalgia Encounter for long-term (current) use of medications Age-related osteoporosis without current pathological fracture C3 COMPLEMENT Routine 02/22/2025 4:05 PM CDT Systemic lupus erythematosus, unspecified SLE type, unspecified organ involvement status (HCC) Seronegative rheumatoid arthritis (HCC) Pulmonary hypertension (HCC) Fibromyalgia Encounter for long-term (current) use of medications Age-related osteoporosis without current pathological fracture C4 COMPLEMENT Routine 02/22/2025 4:05 PM CDT Systemic lupus erythematosus, unspecified SLE type, unspecified organ involvement status (HCC) Seronegative rheumatoid arthritis (HCC) Pulmonary hypertension (HCC) Fibromyalgia Encounter for long-term (current) use of medications Age-related osteoporosis without current pathological fracture CBC WITH AUTO DIFFERENTIAL Routine 02/22/2025 4:05 PM CDT Systemic lupus erythematosus, unspecified SLE type, unspecified organ involvement status (HCC) Seronegative rheumatoid arthritis (HCC) Pulmonary hypertension (HCC) Fibromyalgia Encounter for long-term (current) use of medications Age-related osteoporosis without current pathological fracture ERYTHROCYTE SEDIMENTATION RATE Routine 02/22/2025 4:05 PM CDT Systemic lupus erythematosus, unspecified SLE type, unspecified organ involvement status (HCC) Seronegative rheumatoid arthritis (HCC) Pulmonary hypertension (HCC) Fibromyalgia Encounter for long-term (current) use of medications Age-related osteoporosis without current pathological fracture from Last 3 Months Results * Anti-double stranded DNA abs (02/22/2025 4:05 PM CDT) [facility] DNA (DS) ab <1 IU/mL [facility] Comment: IU/mL Interpretation < or = 4 Negative 5-9 Indeterminate > or = 10 Positive Blood 02/22/2025 4:05 PM CDT 02/22/2025 4:06 PM CDT Narrative [facility] - 02/23/2025 11:26 AM CDT PATIENT UNABLE TO VOID; ADVISED TO RETURN FOR COLLECTION. Meeta CAMPBELL LAB BLOOD ORDERAB LES Final Result Performing Organization Address [facility] de Phone Number [facility] [address] [place] [address] * C4 complement (02/22/2025 4:05 PM CDT) [facility] Complement component C4C 30 15 - 57 mg/dL [facility] Blood 02/22/2025 4:05 PM CDT 02/22/2025 4:06 PM CDT Narrative [facility] - 02/23/2025 11:26 AM CDT PATIENT UNABLE TO VOID; ADVISED TO RETURN FOR COLLECTION. Meeta Tolliver AR LAB BLOOD ORDERAB LES Final Result Performing Organization Address [facility] de Phone Number [facility] [address] [place] [address] * (ABNORMAL) CBC with auto differential (02/22/2025 4:05 PM CDT) [facility] WBC 3.8 3.8 - 10.8 Thousand/u L [facility] RBC, POC 3.66(L) 3.80 - 5.10 Million/uL [facility] Hgb 12.7 11.7 - 15.5 g/dL [facility] Hct 38.0 35.0 - 45.0 % [facility] MCV 103.8(H) 80.0 - 100.0 fL [facility] MCH 34.7(H) 27.0 - 33.0 pg [facility] MCHC 33.4 32.0 - 36.0 g/dL [facility] Comment: For adults, a slight decrease in the calculated MCHC value (in the range of 30 to 32 g/dL) is most likely not clinically significant; however, it should be interpreted with caution in correlation with other red cell parameters and the patient's clinical condition. Rdw 14.8 11.0 - 15.0 % [facility] Platelets 216 140 - 400 Thousand/u L [facility] MPV 10.1 7.5 - 12.5 fL [facility] Neutrophils, abs 2,250 1,500 - 7,800 cells/uL [facility] Lymphocytes, abs 1,015 850 - 3,900 cells/uL [facility] Monocyte abs 426 200 - 950 cells/uL [facility] Eosinophils, abs 91 15 - 500 cells/uL [facility] Basophils, abs 19 0 - 200 cells/uL [facility] Neutrophils 59.2 % [facility] Lymphocyte pct 26.7 % [facility] Monocytes 11.2 % [facility] Eosinophils 2.4 % [facility] Basophils 0.5 % [facility] Blood 02/22/2025 4:05 PM CDT 02/22/2025 4:06 PM CDT Narrative [facility] - 02/23/2025 11:26 AM CDT PATIENT UNABLE TO VOID; ADVISED TO RETURN FOR COLLECTION. us Meeta CAMPBELL LAB BLOOD ORDERAB LES Final Result [facility] [address] [place] [phone] * Vitamin D 25 hydroxy (02/22/2025 4:05 PM CDT) Pathologist [facility] Vitamin D 25-OH 50 30 - 100 ng/mL [facility] Comment: Vitamin D Status 25-OH Vitamin D: Deficiency: <20 ng/mL Insufficiency: 20 - 29 ng/mL Optimal: > or = 30 ng/mL For 25-OH Vitamin D testing on patients on D2-supplementation and patients for whom quantitation of D2 and D3 fractions is required, the [facility] 25-OH VIT D, (D2,D3), LC/MS/MS is recommended: order code 37086 (patients >2yrs). See Note 1 Note 1 For additional information, please refer to http://education.Known/faq/EJP754 (This link is being provided for informational/ educational purposes only.) 02/22/2025 4:05 PM CDT 02/22/2025 4:06 PM CDT Narrative [facility] - 02/23/2025 11:26 AM CDT PATIENT UNABLE TO VOID; ADVISED TO RETURN FOR COLLECTION. Meeta Tolliver AR LAB BLOOD ORDERAB LES Final Result Performing Organization Address [facility]/ZIP Co de Phone Number [facility] [address] [place] [address] * (ABNORMAL) Erythrocyte sedimentation rate (02/22/2025 4:05 PM CDT) [facility] Erythrocyte sedimentation rate 36(H) < OR = 30 mm/h [facility] Blood 02/22/2025 4:05 PM CDT 02/22/2025 4:06 PM CDT Narrative [facility] - 02/23/2025 11:26 AM CDT PATIENT UNABLE TO VOID; ADVISED TO RETURN FOR COLLECTION. [facility] BLO[facility] ORDERAB LES Final Result [facility] [address] [place] [address] * C3 complement (02/22/2025 4:05 PM CDT) [facility] Complement component C3C 177 83 - 193 mg/dL [facility] Blood 02/22/2025 4:05 PM CDT 02/22/2025 4:06 PM CDT Narrative [facility] - 02/23/2025 11:26 AM CDT PATIENT UNABLE TO VOID; ADVISED TO RETURN FOR COLLECTION. Meeta CAMPBELL LAB BLOOD ORDERAB LES Final Result Performing Organization Address City/[facility] Co de Phone Number [facility] [address] [place] [address] * CRP (acute phase) (02/22/2025 4:05 PM CDT) [facility] C-RP <3.0 <8.0 mg/L [facility] Blood 02/22/2025 4:05 PM CDT 02/22/2025 4:06 PM CDT Narrative [facility] - 02/23/2025 11:26 AM CDT PATIENT UNABLE TO VOID; ADVISED TO RETURN FOR COLLECTION. Meeta CAMPBELL LAB BLOOD ORDERAB LES Final Result Performing Organization Address [facility] Co de Phone Number [facility] [address] [place] [address] * PTH (02/22/2025 4:05 PM CDT) [facility] Parathyroid hormone, intact 37 16 - 77 pg/mL [facility] Comment: Interpretive Guide Intact PTH Calcium ------- Normal Parathyroid Normal Normal Hypoparathyroidism Low or Low Normal Low Hyperparathyroidism Primary Normal or High High Secondary High Normal or Low Tertiary High High Non-Parathyroid Hypercalcemia Low or Low Normal High 02/22/2025 4:05 PM CDT 02/22/2025 4:06 PM CDT Narrative [facility] - 02/23/2025 11:26 AM CDT PATIENT UNABLE TO VOID; ADVISED TO RETURN FOR COLLECTION. us Meeta CAMPBELL LAB BLOOD ORDERAB LES Final Result [facility] [address] [address] [phone] * (ABNORMAL) Comprehensive metabolic panel (02/22/2025 4:05 PM CDT) Pathologist [facility] Glucose 93 65 - 99 mg/dL [facility] Comment: Fasting reference interval BUN 11 7 - 25 mg/dL [facility] Creatinine 1.14(H) 0.50 - 1.05 mg/dL [facility] eGFR 52(L) > OR = 60 mL/min/1.7 3m2 [facility] BUN/creat ratio 10 6 - 22 (calc) [facility] Sodium 141 135 - 146 mmol/L [facility] Potassium, pl 4.3 3.5 - 5.3 mmol/L [facility] Chloride 103 98 - 110 mmol/L [facility] CO2 27 20 - 32 mmol/L [facility] Calcium 9.8 8.6 - 10.4 mg/dL [facility] Protein, sr 6.7 6.1 - 8.1 g/dL [facility] Albumin 4.4 3.6 - 5.1 g/dL [facility] GLOBULIN 2.3 1.9 - 3.7 g/dL (calc) [facility] Alb/glob ratio 1.9 1.0 - 2.5 (calc) [facility] Bilirubin, total 0.5 0.2 - 1.2 mg/dL [facility] Alk phos 74 37 - 153 U/L [facility] AST 23 10 - 35 U/L [facility] ALT (SGPT) 18 6 - 29 U/L [facility] Blood 02/22/2025 4:05 PM CDT 02/22/2025 4:06 PM CDT Narrative [facility] - 02/23/2025 11:26 AM CDT PATIENT UNABLE TO VOID; ADVISED TO RETURN FOR COLLECTION. Meeta CAMPBELL LAB BLOOD ORDERAB LES Final Result [facility] [id number] [address] [phone] from Last 3 Months Insurance MEDICARE [facility] MEDICARE [facility] MEDICARE [facility] Care Teams Proposal Consultant Relationship Specialty Start Date End Date Troy Kruse MD [address] [address] PCP - General Family Medicine 10/29/24 Cindy Murphy MD [address] [place] [address] Consulting Physician Pulmonary Disease 09/27/20 Laura Crabtree MD [address] [place] [address] Consulting Physician Cardiology 11/27/21 Chepe Tijerina MD [address] [place], [place] [id number] Consulting Physician Rheumatology 09/23/23 Branden Gordon MD [address] [place], [place] [id number] Referring Physician Nephrology 11/01/23
[2025-05-11 10:13] LABS: Alanine Aminotransferase 19 U/L (6-35); Albumin Level 4.3 g/dL (3.5-5.1); Alkaline Phosphatase 72 U/L (38-126); Anion Gap 8 mmol/L (4-12); Aspartate Amino Transferase 24 U/L (14-36); Bilirubin,Total 0.7 mg/dL (0.2-1.3); Blood Urea Nitrogen 13 mg/dL (7-17); Calcium 9.5 mg/dL (8.4-10.2); Carbon Dioxide 26 mmol/L (22-30); Chloride 105 mmol/L (98-107); Cholesterol 182 mg/dL (0-200); Estimated Glomerular Filt Rate 46; Glucose 100 mg/dL (65-110); HDL Direct 66 mg/dL; Potassium 4.8 mmol/L (3.4-5.0); Sodium 139 mmol/L (137-145); Total Protein 7.3 g/dL (6.3-8.2); Triglycerides 114 mg/dL (<150)
[2025-05-11 10:29] LABS: Free T4 Free Thyroxine 0.98 ng/dL (0.78-2.19)
[2025-05-11 10:48] LABS: Thyroid Stimulating Hormone 1.840 uIU/mL (0.465-4.680)
== END 2025-05-11 09:25 | disposition home or self-care (01) ==
PROVIDERS: PCP Family Medicine; Visit Provider Physician Assistant
DX: E03.9 Hypothyroidism, unspecified (principal); I10 Essential (primary) hypertension; E78.2 Mixed hyperlipidemia; R73.09 Other abnormal glucose
CPT/HCPCS: 36415; 80053; 80061; 83036; 84439; 84443; 85025

== ENCOUNTER 2025-06-22 15:40 | Outpatient (CLI) | payer MEDICARE, SELFPAY ==
--- NOTE | ~2025-06-22 | CT_ITS ---
EXAMINATION:CT chest high resolution wo ks DATE: 06/22/2025 16:04 INDICATION: Nodules and interstitial lung disease TECHNIQUE: Computed tomography (CT) of the chest was performed without intravenous contrast. The dose-length product (DLP) was 456.98 mGy-cm. COMPARISON: April 15, 2024 and June 282019 FINDINGS: 6 mm left upper lobe nodule radiographically stable/benign. Other smaller nodules also unchanged in appearance. No new or suspicious nodule or mass. Scattered areas of mild groundglass opacification present on today's exam. No significant fibrotic changes or evidence of advanced interstitial lung disease. Heart size normal. Central and large pulmonary arteries somewhat enlarged with the main pulmonary artery measuring 3.6 cm. No thoracic aortic aneurysm. No bulky lymphadenopathy or masses. No acute process seen in the visualized portion of the upper abdomen. Moderately severe diffuse fatty infiltrative changes of the liver. 10 mm hyperdense lesion in the upper pole left kidney IMPRESSION: 1. No suspicious lung nodules or masses. 2. No advanced fibrosis or interstitial lung disease. There are patchy areas of groundglass opacification which could be associated with small airways disease, atypical inflammatory/infectious process or early developing alveolar fibrosis. 3. 10 mm hyperdense lesion in the upper pole of left kidney probably represents a benign bloody cyst. 4. Enlarged central and main pulmonary arteries could be associated with pulmonary arterial hypertension. Reviewed, dictated and finalized at location [facility] IMPRESSION: 1. No suspicious lung nodules or masses. 2. No advanced fibrosis or interstitial lung disease. There are patchy areas of groundglass opacification which could be associated with small airways disease , atypical inflammatory/infectious process or early developing alveolar fibrosi s. 3. 10 mm hyperdense lesion in the upper pole of left kidney probably represents a benign bloody cyst. 4. Enlarged central and main pulmonary arteries could be associated with pulmon beatrice arterial hypertension.
--- OUTSIDE RECORDS SUMMARY | 2025-06-22 15:44 | XMS_ITS | Clinical Summary ---
Author Organization [facility] [address] [facility] Address [address] [place] [id number] Phone Care Team Providers Care Roof Shingler Name Role Phone Cindy Murphy MD Unavailable [phone] Laura Crabtree MD Unavailable Chepe Tijerina MD Unavailable [phone] Branden Gordon MD Unavailable [phone] Troy Kruse MD Primary Care Provider Allergies Active Allergy Reactions Criticality Noted Date Comments Ciprofloxacin Unknown Rosuvastatin Other (See comments) Low 04/02/2022 bruising Atorvastatin Other (See comments) Low 04/02/2022 Nose bleeds, bruising. Lisinopril Medications losartan (COZAAR) 100 mg tablet take 1 tablet (100MG) by oral route every day 0 1 Active rosuvastatin (CRESTOR) 5 mg tablet Take 1 tablet (5 mg total) by mouth daily 30 tablet 2 Active isosorbide mononitrate ER (IMDUR) 30 mg 24 hr tablet Take 1 tablet (30 mg total) by mouth daily 3 Active levothyroxine (SYNTHROID) 125 mcg tablet Take 1 tablet (125 mcg total) by mouth daily 3 Active omeprazole (PriLOSEC) 40 mg capsule Take 1 capsule (40 mg total) by mouth daily 3 Active metoprolol XL (TOPROL-XL) 50 mg extended release tabletIndication s:Essential hypertension,Sin us tachycardia TAKE 1 AND 1/2 TABLETS(75 MG) BY MOUTH TWICE DAILY 270 tablet 3 4 Active calcium carbonate-vitami n D3 2,500 mg [...] MG) BY MOUTH DAILY 90 capsule 3 4 Active cloNIDine (CATAPRES) 0.1 mg tablet Take 1 tablet (0.1 mg total) by mouth 2 (two) times a day Active azaTHIOprine (IMURAN) 50 mg tablet Take 2 tablets po daily 180 tablet 1 5 Active hydroxychloroqui ne (PLAQUENIL) 200 mg tablet Take 1 tablet (200 mg total) by mouth daily 90 tablet 1 5 Active azaTHIOprine (IMURAN) 50 mg tablet TAKE 2 TABLETS(100 MG) BY MOUTH DAILY 180 tablet 1 5 06/10/20 25 Discontinu ed(Reorder ) hydroxychloroqui ne (PLAQUENIL) 200 mg tablet TAKE 1 TABLET(200 MG) BY MOUTH DAILY 90 tablet 1 5 06/14/20 25 Discontinu ed(Reorder ) Active Problems Problem Noted Date Diagnosed Date [...] 07/29/2024 Assessment & Plan (07/29/2024 4:19 PM 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): Check rt hip xray. Chronic right-sided low back pain with right-alin ed sciatica 07/29/2024 Assessment & Plan (07/29/2024 4:18 PM 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): Full rom of bilat hips. Check rt hip, lumbar spine and si joint xrays. Abnormal serum glucose level 07/29/2024 Assessment & Plan (07/29/2024 4:18 PM 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): Hx of abn hgba1c, not checked by pcp and last checked by us 01/2024, recheck today. Advised to work on weight loss. Other fatigue 07/29/2024 Assessment & Plan (07/29/2024 4:18 PM 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): Check tsh, b12, hgba1c. Vitamin D deficiency 04/30/2024 Assessment & Plan (07/29/2024 4:19 PM 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): Check vit d. Assessment & Plan (04/30/2024 [...] 10/31/2023 Assessment & Plan (07/29/2024 4:15 PM 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): Sees dr gordon. Htn still not under control despite 3 htn meds. Sees him soon. Repeat bp lt arm sitting 150/80. Assessment & Plan (10/31/2023 5:44 PM CDT): Sees dr gordon. He started her on chlortalidone but after 1 tab it caused lip and tongue tingling/numbness. Contacted dr blanco call center at [facility] and let him know about this and gave call center pt's info. Advised pt to skip dose tomorrow and try to get hold of dr gordon if he does not call her and gave pt his office phone number. Diarrhea 04/29/2023 Assessment & Plan (04/29/2023 1:53 PM CDT): [employer] utd, dx with ibs in past. Check [...] not included. Advised pt to see her cost engineer Dr Crabtree. BP still elevated and had an abn echo with enlarged heart diastolic dysfunction, was advised to see her cost engineer for treating her htn and for her abn echo. Echo 07/2021 Hypothyroidism 07/21/2021 Assessment & Plan (07/21/2021 4:18 PM 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): Check TSH. Age-related osteoporosis wit hout current [...] d and pth today. BDS done in [place] on 09/2024. Has mild lt hip osteopenia [...] day of vit d. BDS done in [place] on 09/2024. Has mild lt hip osteopenia -1.2 T score and mild spine osteopenia -1.2. Continue ca and vit d 600 mg po bid. FRAX score 14/3, increased risk of hip fracture. Check pth and vit d and recommended starting rProlia. Assessment & Plan (07/29/2024 4:14 PM 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): bds stable 05/2022. Was due 06/2024 but was not able to get an appt at [facility] in [place] until next year. Continue ca and vit [...] bid. Assessment & Plan (08/01/2023 8:32 AM 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): bds stable 05/2022. Is due again 06/2024. [...] bid. Assessment & Plan (10/05/2022 4:02 PM 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): bds stable 05/2022. Continue ca and vit d 600mg po bid. Assessment & Plan (07/09/2022 1:19 PM 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): bds stable 05/2022. Continue ca and vit d 600mg po bid. Assessment & Plan (04/02/2022 4:22 PM CDT): Will try to get copy of bds. Assessment & Plan (11/23/2021 8:33 AM CDT): Has not been able to get her bds until November, [facility] is backed up. Assessment & Plan (10/19/2021 1:51 PM 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): Has not been able to get her bds until November, [facility] is backed up. Assessment & Plan (07/21/2021 4:19 PM 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): Check bds. Weight gain 07/21/2021 Assessment & Plan (01/30/2024 5:37 PM CDT): Is morbidly obese, can't seem to lose weight. Drinks lots of lemonade and crystal light, has family hx of dm2. Check hgba1c. Also to discuss ozempic with pcp for weight loss. She might be able to qualify for free drug due to her low income. Assessment & Plan (07/21/2021 4:07 PM 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): Has gained over 20 lb in past 2 yrs. Has hx of hypothyroidism. On levothyroxine. Check tsh today. Has not had this checked with pcp in over 4 months. Esophageal stenosis 01/27/2021 Assessment & Plan (07/21/2021 11:48 AM 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): Had an esophageal stenosis dilated in december. [...] relaxation grade I. Send this to her cost engineer and advised pt to f/u with [...] relaxation grade I. Send this to her cost engineer and advised pt to f/u with [...] also. Assessment & Plan (07/29/2024 4:16 PM 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): Low cdai. Doing well on imuran, continue imuran to 100 mg every day. Recheck labs today. Has hx of pulm htn and esophageal stenosis. Has not seen gi for esophageal stenosis symptoms again. No skin changes or sclerodactyly. Seeing dr gordon now for her ckd. Her cost engineer also retired, will refer her for her yearly pft and cxr. Previous history/labs/imaging: Echo 03/2023: Echo report below, has mild enlarged heart but good ef. Has an abn septal motion with possible bundle branch block. Impaired diastolic relaxation grade I. Send this to her cost engineer and advised pt to f/u with [...] dr gordon now for her ckd. Her cost engineer also retired, will refer her for her yearly echo (has hx of pulm htn) sees pulm and she is scheduled to have pft's soon. Previous history/labs/imaging: Echo 03/2023: Echo report below, has mild enlarged heart but good ef. Has an abn septal motion with possible bundle branch block. Impaired diastolic relaxation grade I. Send this to her cost engineer and advised pt to f/u with [...] relaxation grade I. Send this to her cost engineer and advised pt to f/u with [...] relaxation grade I. Send this to her cost engineer and advised pt to f/u with [...] also. Assessment & Plan (08/01/2023 4:15 PM 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): Low-mod cdai. Arava stopped due to lft [...] relaxation grade I. Send this to her cost engineer and advised pt to f/u with [...] relaxation grade I. Send this to her cost engineer and advised pt to f/u with [...] have an overlap of RA and SLE. Biljulia heel had enthesopathy on xrays 10/28 so [...] relaxation grade I. Send this to her cost engineer and advised pt to f/u with [...] SLE. Assessment & Plan (10/05/2022 4:00 PM 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): Low cdai. In past we recommended we [...] SLE. Assessment & Plan (07/09/2022 2:36 PM 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): Low cdai. In past we recommended we [...] diastolic dysfunction, was advised to see her cost engineer for treating her htn and for her abn echo. Assessment & Plan (10/19/2021 4:32 PM 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): Low cdai. Recommended adding orencia but once [...] today. Assessment & Plan (07/21/2021 4:06 PM 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): Mod cdai. Recommended adding orencia but once [...] it. Assessment & Plan (09/23/2020 5:15 PM 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): Mod cdai. 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 Has hx of + anti-carbamyalted also. She has an overlap of RA and SLE. Recommended starting xeljanz but once again she declines, discussed potential se and risks, still declines meds. She was informed of continuing joint damage. Assessment & Plan (06/27/2020 5:08 PM 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): Mod cdai. Pt has an erosive arthritis [...] PT. Assessment & Plan (09/23/2020 7:34 AM 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): Declines further workup. Does not want to do PT. Assessment & Plan (06/27/2020 5:09 PM 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): Declines further workup. Does not want to do PT. Assessment & Plan (01/21/2020 3:59 PM CDT): Check lumbar xray and start PT. Assessment & Plan (06/29/2019 12:35 PM 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): Check lumbar xray and start PT. Encounter [...] to aquino. BDS 09/2023 FRAX score high 23/10, recommend starting prolia 10/29/2024 Assessment & Plan [...] 10/29/2024 Assessment & Plan (07/29/2024 4:15 PM 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): Hand US 03/2020 lunate and 5th mcp [...] aquino. Assessment & Plan (08/01/2023 4:16 PM 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): Hand US 03/2020 lunate and 5th mcp [...] pos. Assessment & Plan (07/21/2021 4:17 PM 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): Check bds, has not had one for years she states. Pulmonary hypertension 01/30/2017 Assessment & Plan (02/22/2025 5:32 PM CDT): Echo stable and utd 05/2024. Right ventricular systolic pressure could not be estimated due to inadequate visualization of the tricuspid regurgitation jet. Pt joshua f/u with cost engineer q [address] laura crabtree. Pft's showed mild obstructive disease. Her old pulm , now sees dr Murphy at [facility]. Advised to work on weight loss. Still [...] tricuspid regurgitation jet. Pt joshua f/u with cost engineer q [address] laura crabtree. Pft's showed mild obstructive disease. Her old pulm , now sees dr Murphy at [facility]. Advised to work on weight loss. Still [...] pillows. Assessment & Plan (07/29/2024 4:16 PM 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): Echo stable and utd 05/2024. Right ventricular systolic pressure could not be estimated due to inadequate visualization of the tricuspid regurgitation jet. Pt joshua f/u with cost engineer q [address] laura rcabtree. Still needs to see pulm for her yearly pft's. Gave pt referral for pft and cxr. Advised to work on weight loss. Assessment & Plan (04/30/2024 8:19 AM CDT): Echo stable and utd 03/2023. Right ventricular systolic pressure could not be estimated due to inadequate visualization of the tricuspid regurgitation jet. Pt joshua f/u with cost engineer q [address] laura crabtree. Still needs to see pulm for her yearly pft's. Assessment & Plan (10/31/2023 8:38 AM CDT): Echo stable and utd 03/2023. Right ventricular systolic pressure could not be estimated due to inadequate visualization of the tricuspid regurgitation jet. Pt joshua f/u with cost engineer q [address] laura crabtree. Still needs to see pulm for her yearly pft's. Assessment & Plan (08/01/2023 8:32 AM 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): Echo stable and utd 03/2023. Right ventricular systolic pressure could not be estimated due to inadequate visualization of the tricuspid regurgitation jet. Pt joshua f/u with cost engineer q [address] laura crabtree. Still needs to see pulm for her yearly pft's. Assessment & Plan (05/29/2023 8:12 AM CDT): Echo stable and utd 03/2023. Right ventricular systolic pressure could not be estimated due to inadequate visualization of the tricuspid regurgitation jet. Pt joshua f/u with cost engineer q [address] laura crabtree. Still needs to see pulm for her yearly pft's. Assessment & Plan (04/29/2023 1:55 PM CDT): Echo stable and utd 03/2023. Right ventricular systolic pressure could not be estimated due to inadequate visualization of the tricuspid regurgitation jet. Pt joshua f/u with cost engineer q [address] laura crabtree. Still needs to see pulm for her yearly pft's. Assessment & Plan (04/01/2023 3:19 PM CDT): Sees cost engineer but not pulm. Has hx of tachycardia, cost engineer is aware of this. Echo scheduled next week. Can't tolerate cpap and due to poor dentition can't use oral appliance for her sleep apnea. Cxr nl 01/2023. Assessment & Plan (12/31/2022 2:52 PM CDT): Saw cost engineer for echo in past but has not f/u with him or doughnut dough mixer. Has hx of tachycardia. Pt to let her pcp and cost engineer know about her htn/tachycardia. States that pcp was aware of this and wanted pt to work on diet/weight loss. Pt is not eating any salt. Assessment & Plan (10/08/2022 4:46 PM 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): Saw cost engineer for echo in past but has not f/u with him or doughnut dough mixer. Has hx of tachycardia. Pt to let her pcp and cost engineer know about her htn/tachycardia. States that pcp was aware of this and wanted pt to work on diet/weight loss. Pt is not eating any salt. Assessment & Plan (07/04/2022 4:38 PM 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): Saw cost engineer for echo. Pt to let her pcp and cost engineer know about her htn/tachycardia. States that pcp was aware of this and wanted pt to work on diet/weight loss. Pt is not eating any salt. Assessment & Plan (03/30/2022 3:36 PM CDT): Saw cost engineer for echo. Pt to let her pcp and cost engineer know about her htn/tachycardia. States that pcp was aware of this and wanted pt to work on diet/weight loss. Pt is not eating any salt. Assessment & Plan (11/23/2021 8:31 AM CDT): Saw cost engineer for echo. Pt to let her pcp and cost engineer know about her htn/tachycardia. States that pcp was aware of this and wanted pt to work on diet/weight loss. Pt is not eating any salt. Assessment & Plan (10/19/2021 1:54 PM 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): Sees cost engineer next week for echo. To have it sent to us also. Pt to let her pcp and cost engineer know about her htn/tachycardia. States that pcp was aware of this and wanted pt to work on diet/weight loss. Pt is not eating any salt. Assessment & Plan (07/21/2021 4:17 PM 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): Has been having LE edema. pcp started [...] insurance. In past she was referred to cost engineer and pulm several times but due to finances she stated she could not afford to go. Her recent le edema could be early chf. Advised pt to see pulm and cost engineer for her pum htn and to discuss this with pcp. Has not seen pulmonary for over 5 yrs due to cost. Has not seen cost engineer or had an echo since 2014. Assessment & Plan (04/28/2021 2:30 PM CDT): Has been having LE edema. Pt has pulmonary htn and a rt lung nodule and hx of pulmonary hypertension. In past she was referred to cost engineer and pulm several times but due to finances she stated she could not afford to go. Her recent le edema could be early chf. Advised pt to see pulm and cost engineer for her pum htn and to discuss this with pcp. Has not seen pulmonary for over 5 yrs due to cost. Has not seen cost engineer or had an echo since 2014. Assessment & Plan (01/27/2021 2:02 PM CDT): Has pulmonary htn and a rt lung nodule. Has not seen pulmonary for over 5 yrs due to cost. Has not seen cost engineer or had an echo since 2014. Advised her to f/u with both. Assessment & Plan (12/19/2020 7:56 AM CDT): Has pulmonary htn and a rt lung nodule. Seeing pulm but has not seen cost engineer yet. Was referred several times in past but states she can't afford the copays. Assessment & Plan (09/23/2020 7:34 AM 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): Has pulmonary htn and a rt lung nodule. Seeing pulm but has not seen cost engineer yet. Was referred several times in past but states she can't afford the copays. Assessment & Plan (06/27/2020 5:10 PM 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): Has pulmonary htn and a rt lung nodule. Seeing pulm but has not seen cost engineer yet. Was referred several times in past but states she can't afford the copays. Assessment & Plan (04/27/2020 1:18 PM CDT): Has pulmonary htn and a rt lung nodule. In past she was referred to doughnut dough mixer in past or eval of her pulm htn and to cost engineer but has not f/u in over [...] (01/21/2020 3:57 PM CDT): Was referred to doughnut dough mixer in past or eval of her pulm htn and to cost engineer but has not f/u in over 5 yrs. Advised to also see opth for yearly eye exam. Gave pt referral for cxr, and echo, pft's at past visits but she has not done them. States she can't afford all the copays. Advised her again to schedule them. Assessment & Plan (10/28/2019 2:10 PM CDT): Was referred to doughnut dough mixer in past or eval of her pulm htn and to cost engineer but has not f/u in over 5 yrs. Advised to also see opth for yearly eye exam. Gave pt referral for cxr, and echo, pft's at past visits but she has not done them. States she can't afford all the copays. Advised her again to schedule them. Assessment & Plan (06/26/2019 8:23 AM 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): Was referred to doughnut dough mixer in past or eval of her pulm htn and to cost engineer but has not f/u in over 2 yrs. Advised to also see opth for yearly eye exam. Gave pt referral for cxr, and echo, pft's at past visits but she has not done them. States she can't afford all the copays. Advised her again to schedule them. Assessment & Plan (04/06/2019 8:37 AM CDT): Was referred to doughnut dough mixer in past or eval of her pulm htn and to cost engineer but has not f/u in over [...] htn so referred her for sleep study. Thomasrashaungaby just got indication for sleep apnea and [...] diastolic dysfunction, was advised to see her cost engineer for treating her htn and for her abn echo. Assessment & Plan (10/19/2021 4:29 PM 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): bp elevated 150/90 and pulse 110. No [...] Her ldl was elevated in march with cost engineer at 153. Due to her hx of RA and Sle she is at increased risk of CAD and recommend she discuss starting meds for her cholesterol with Dr Brown her cost engineer. She had SE to lipitor and crestor in past. Assessment & Plan (10/19/2021 4:26 PM 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): LDL at last visit was very high [...] diet. Assessment & Plan (07/21/2021 4:18 PM 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): Requesting that we check her cholesterol with [...] toxicity. Assessment & Plan (07/29/2024 8:36 AM 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): Low cdai. On plaquenil 200 mg po [...] day. Assessment & Plan (08/01/2023 4:15 PM 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): Low-mod cdai. On plaquenil 200 mg po [...] next week. Cxr done in december at [place], we do not have it, will get [...] 03/2020: Assessment & Plan (10/08/2022 4:47 PM 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): Images from the original note were not [...] 03/2020: Assessment & Plan (07/09/2022 2:35 PM 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): Images from the original note were not included. Low cdai. Senior Receptionist was ok with lowering plaquenil dose to [...] again. No skin changes or sclerodactyly. Sees cost engineer also. Past serologies showed + hep 2 and + anti carbamylated. 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 Demarco alba had enthesopathy on xrays 3 so she can have a spondyloarthropathy also. TSH checked recently at [facility]. Hand US 03/2020: Assessment & Plan (04/02/2022 4:22 PM CDT): Images from the original note were not included. Low cdai. Senior Receptionist was ok with lowering plaquenil dose to 200 mg po every day in past. Pt advised to get eye exams q 6 months.. Check labs today. Has hx of pulm htn and esophageal stenosis. No skin changes or sclerodactyly. Sees cost engineer. Past serologies showed + hep 2 and + anti carbamylated. 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 Demarco alba had enthesopathy on xrays 3 so she can have a spondyloarthropathy also. TSH checked recently at [facility]. Hand US 03/2020: Assessment & Plan (11/23/2021 8:31 AM CDT): Images from the original note were not included. Low cdai. Senior Receptionist was ok with lowering plaquenil dose to 200 mg po every day. Check labs. Has hx of pulm htn and esophageal stenosis. No skin changes or sclerodactyly. Has echo with cost engineer next week. Advised pt to let her cost engineer know about her elevated bp and [...] past. Hand US 03/2020: Assessment & Plan (10/19/2021 4:33 PM 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): Images from the original note were not included. Low cdai. Senior Receptionist was ok with lowering plaquenil dose to 200 mg po every day. Check labs. Has hx of pulm htn and esophageal stenosis. No skin changes or sclerodactyly. Has echo with cost engineer next week. Advised pt to let her cost engineer know about her elevated bp and cholesterol also. Past serologies showed + hep 2 and + anti carbamylated. 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 Demarco heel had enthesopathy on xrays 3/ so she can have a spondyloarthropathy also. She also has thyroid antibodies, she was advised to discuss this with pcp in past. [facility] 03/2020: Assessment & Plan (07/21/2021 4:05 PM 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): Images from the original note were not included. Mod cdai. Senior Receptionist was ok with lowering plaquenil dose to 200 mg po every day. Check labs. Past serologies showed + hep 2 and + anti carbaylated. 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 Bilat heel had enthesopathy on xrays 3/ so she can have a spondyloarthropathy also. She also has thyroid antibodies, she was advised to discuss this with pcp in past Hand 03/2020: Assessment & Plan (04/28/2021 2:28 PM CDT): Images from the original note were not included. low cdai. Senior Receptionist was ok with lowering plaquenil dose to 200 mg po every day. Check labs. Past serologies showed + hep 2 and + anti carbaylated. 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 Bilat heel had enthesopathy on xrays 3/19 so she can have a spondyloarthropathy also. She also has thyroid antibodies, she was advised to discuss this with pcp in past Hand 03/2020: Assessment & Plan (01/27/2021 5:02 PM CDT): Images from the original note were not included. Mod cdai. Senior Receptionist was ok with lowering plaquenil dose to [...] but mostly tender joints, not many swollen. Senior Receptionist was ok with lowering dose to 200 [...] has been on plaquenil for 8 yrs. Senior Receptionist said it was fine to continue lower dose of HCQ. Is finally seeing a doughnut dough mixer for a lung nodule, her pcp referred her to pulm closer to her house. [facility] 03/2020: Assessment & Plan (09/23/2020 5:14 PM 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): Images from the original note were not [...] has been on plaquenil for 8 yrs. Senior Receptionist said it was fine to continue lower dose of HCQ. Is finally seeing a doughnut dough mixer for a lung nodule, her pcp referred her to pulm closer to her house. [facility] 03/2020: Assessment & Plan (06/27/2020 5:08 PM 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): Images from the original note were not [...] has been on plaquenil for 8 yrs. Senior Receptionist said it was fine to continue lower dose of HCQ. Is finally seeing a doughnut dough mixer for a lung nodule, her pcp referred her to pulm closer to her house. [facility] 03/2020: Assessment & Plan (04/27/2020 1:20 [...] 200mg qd until rest of the year. Senior Receptionist said it was fine to continue lower dose of HCQ. Advised again to see her cost engineer and pulm for pft, cxr and echo, was given referral at last visits, pt states she can't afford to see more doctors. Advised to get prevnar 13 and shingrix. Had her flu vaccine. Gave her another cxr referral. [facility] 03/2020: Assessment & Plan (01/27/2020 2:18 [...] 200mg qd until rest of the year. Senior Receptionist said it was fine to continue lower dose of HCQ. Advised again to see her cost engineer and pulm for pft, cxr and [...] 200mg qd until rest of the year. Senior Receptionist said it was fine to continue lower dose of HCQ. Advised again to see her cost engineer and pulm for pft, cxr and [...] loss. Assessment & Plan (06/29/2019 12:34 PM 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): high cdai. Pt is on arava 20mg [...] the year. Advised again to see her cost engineer and pulm for pft, cxr and [...] adding belysta. Advised again to see her cost engineer and pulm for pft, cxr and [...] 07/21/202103/14 Assessment & Plan (07/21/2021 4:19 PM 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): Has gained weight and occ bg is [...] visit. Assessment & Plan (06/29/2019 12:35 PM 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): Check cpk and aldolase. Normal muscle strength on exam and no LE edema and neg lalit sign bilat LE. 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 Assessment & Plan (09/23/2020 7:34 AM 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): has thyroid antibodies, pt given copies of labs in past and she was advised to address this with pcp. TSH wnl 01/2020. Assessment & Plan (06/27/2020 8:41 AM 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): has thyroid antibodies, pt given copies of [...] 2019. Assessment & Plan (06/26/2019 8:25 AM 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): has thyroid antibodies, pt given copies of [...] 08/01/2023 Assessment & Plan (08/01/2023 8:32 AM 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): Hand US 03/2020 lunate and 5th mcp [...] pos. Assessment & Plan (10/05/2022 4:00 PM 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): Hand US 03/2020 lunate and 5th mcp [...] pos. Assessment & Plan (07/04/2022 4:38 PM 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): Hand US 03/2020 lunate and 5th mcp [...] pos. Assessment & Plan (10/19/2021 1:52 PM 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): Hand US 03/2020 lunate and 5th mcp [...] pos. Assessment & Plan (07/21/2021 11:48 AM 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): Hand US 03/2020 lunate and 5th mcp [...] pos. Assessment & Plan (09/23/2020 7:34 AM 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): Hand US 03/2020 lunate and 5th mcp [...] pos. 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 3 Drug indicated 08/21/2012 03/14/2022 Overview (11/16/2016): LONG-TERM USE MEDS NEC Encounters Date Type Department Care Team Description 06/14/2025 Telephone [facility] [address] [place] [phone] Aranza Wu Approved from Last 3 Months Immunizations Immunization Administration [...] Other Medical RA and Lupus; C omments: [facility] 03/06/2015 - Hx Other Medical 1987 lumpectomy; Com ments: [facility] 03/06/2015 - Hx Other Medical ear surgery; Co mments: [facility] 03/06/2015 - Hx Other Medical nose surgery; C omments: [facility] 03/06/2015 - Hx Other Medical tubal liation; Comments: [facility] 03/06/2015 - Hx Other Medical lumpectomy; Com ments: [facility] 03/06/2015 - Family History Medical History Relation [...] on file Legal Sex Female 10:10 AM 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 Gender Identity Not on file Sexual Orientation Not on file Last Filed Vital Signs Vital Sign Reading Time Taken Comments Blood Pressure 152/82 02/22/2025 2:29 PM CDT Pulse 76 02/22/2025 2:29 PM CDT Temperature 37.5 C (99.5 F) 10/19/2021 1:19 PM 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 Respiratory Rate - - Oxygen Saturation 96% [...] Visit 65+ 2021 Influenza Vaccine (#1) 2025 Insurance MEDICARE [facility] MEDICARE [employer] [facility] MEDICARE [facility] Care Teams Roof Shingler Relationship Specialty Start Date End Date Troy Kruse MD [address] [place] [address] PCP - General Family Medicine 10/29/24 Cindy Murphy MD [address] [place], [place] [id number] Consulting Physician Pulmonary Disease 09/27/20 Laura Crabtree MD [address] [place], [place] [id number] Consulting Physician Cardiology 11/27/21 Chepe Tijerina MD [address] [place] [address] Consulting Physician Rheumatology 09/23/23 Branden Gordon MD [address] [place] [address] Referring Physician Nephrology 11/01/23
--- OUTSIDE RECORDS SUMMARY | 2025-06-22 15:44 | XMS_ITS | Encounter Summary ---
Author Organization [facility] Address [address] [place] [address] Phone Care Team Providers Care Half Backer Name Role Phone Chichi Watkins MD Primary Care Provider Minh TRAN MD, John J. Unavailable [phone] Luz Maria Reyez MD Unavailable Minh TRAN MD, John J. Unavailable [phone] Magen Valencia MD Unavailable [phone] Cindy Murphy MD Unavailable [phone] Laura Obrien MD Unavailable [phone] Chepe Tijerina MD Unavailable [phone] Branden Gordon MD Unavailable [phone] Troy Kruse MD Primary Care Provider Encounter Details Date Type Department Care Team (Late st Contact Info) Description 10/25/2017 Orders Only 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 Gender Identity Not on file Sexual Orientation Not on file documented as of this encounter Functional Status documented as of this encounter Plan of [...] on filedocumented in this encounter Care Teams Half Backer Relationship Specialty Start Date End Date Chichi Watkins MD [address] [facility] [address] [place] [address] PCP - General 11/09/16 10/28/24 Troy Kruse MD [address] [facility] [address] [place] [address] PCP - General Family Medicine 10/29/24 Virgil Wilkinson III, MD [address] [address] Consulting Physician Rheumatology 10/25/17 01/08/18 [place] [address] [address] Consulting Physician Rheumatology 01/09/18 03/04/19 Virgil Wilkinson III, MD [address] [place] [address] Consulting Physician Rheumatology 03/05/19 09/22/23 [place] [address] [facility] [address] [place] [address] Referring Physician Pulmonary Disease 03/03/20 09/26/20 Cindy Murphy MD [address] [address] Consulting Physician Pulmonary Disease 09/27/20 Laura Obrien MD [address] [place] [address] Consulting Physician Cardiology 11/27/21 Chepe Tijerina MD [address] [place] [address] Consulting Physician Rheumatology 09/23/23 Branden Gordon MD [address] [place] [address] Referring Physician Nephrology 11/01/23 documented as of this encounter
== END 2025-06-22 15:41 | disposition home or self-care (01) ==
PROVIDERS: PCP Family Medicine; Visit Provider Internal Medicine Critical Care Medicine
DX: J84.9 Interstitial pulmonary disease, unspecified (principal); R91.1 Solitary pulmonary nodule
CPT/HCPCS: 71250